=== PATIENT | female | born 1965 | race Caucasian/White ===

== ENCOUNTER 2019-12-31 10:10 | Emergency (ER) | payer SELFPAY ==
[2019-12-31 10:15] VITALS: BMI 41.5
--- NOTE | 2019-12-31 10:17 | XRR_ITS ---
PROCEDURE INFORMATION: Exam: XR Chest, 1 View Exam date and time: 12/31/2019 10:19 AM Age: 54 years old Clinical indication: Chest pain. TECHNIQUE: Imaging protocol: XR of the chest Views: 1 view. COMPARISON: CR Chest 1 [place] [id number] 05/07/2017 9:18 PM FINDINGS: Lungs: No lung consolidation or pulmonary edema. Pleural space: No pleural effusion or pneumothorax. Heart/Mediastinum: The cardiac silhouette is not enlarged. The mediastinal contours are normal. Bones/joints: No acute osseous abnormality. XR/XR chest 1V portable [id number] IMPRESSION: No acute abnormality.
--- NOTE | 2019-12-31 10:17 | ECG_ITS ---
Measurements Intervals [place] Rate: 91 P: 52 NV: 175 QRS: -13 QRSD: 116 T: 50 QT: 353 QTc: 436 SINUS RHYTHM MODERATE INTRAVENTRICULAR CONDUCTION DELAY [110+ ms QRS DURATION] Compared to ECG 05/07/2017 20:51:49 No significant changes Electronically Signed On 12-31-2019 20:22:32 CDT by Jailene Zeng M.D. [id number] f
[2019-12-31 10:21] VITALS: BP 168/89; PULSE 93; RESP 18; TEMP 37; O2SAT 98
--- NOTE | 2019-12-31 10:27 | ED_ITS ---
HPI - Chest Pain General: Chief Complaint: Chest Pain Stated Complaint: CHEST PAINS Time Seen by Provider: 12/31/19 10:27 History of Present Illness: HPI narrative: 54-year-old female comes in complaining of substernal chest pain for the last 3 days intermittently not associated with activity she denies any shortness of breath. Subjectively she thought she is had a fever should not minimal nonproductive cough. Denies abdominal pain no vomiting or diarrhea no dysuria urgency or frequency no shortness of breath rapid heart rate or palpitations MD complaint: chest pain Onset (ago): day(s) (3) Timing of current episode: episodic Pain location: substernal Pain radiation: none Severity: mild Quality: tightness Relieving factors: nothing Exacerbating factors: nothing Associated symptoms: Reports no associated symptoms and fever(s); Deny abdominal pain, dyspnea, nausea or vomiting Treatment prior to arrival: none Review of Systems Const: Reports: fever; Denies: chills, body aches, change in appetite, fatigue or malaise ENMT: Denies: throat pain, ear pain, nasal discharge or nasal congestion Card: Reports: chest pain; Denies: edema, shortness of breath on exertion or shortness of breath when lying down Resp: Reports: non-productive cough; Denies: shortness of breath or productive cough GI: Denies: abdominal pain, nausea, vomiting, vomiting blood, coffee grounds in vomit, diarrhea, constipation, bloating, blood in stool or black tarry stool : Denies: flank pain, difficulty urinating, painful urination, urinary frequency or urinary urgency Skin/Breast: Denies: rash or itching PFSH ED PFSH: Social History Smoking and tobacco status: former smoker Physical Exam Const: COMMON NORMALS: no apparent distress GENERAL APPEARANCE: cooperative and comfortable ORIENTATION/CONSCIOUSNESS: Yes awake, Yes oriented to person, Yes oriented to place and Yes oriented to time HENMT: COMMON NORMALS: normocephalic, head/scalp atraumatic, hearing grossly normal bilaterally, external ears normal, EAC's normal, TM's normal bilaterally, nasal mucous membranes and turbinates normal, moist oral mucous membranes and oropharynx normal HEAD & SCALP: normocephalic and atraumatic NOSE: nasal mucous membranes and turbinates normal EXTERNAL EAR: Yes external ears normal EXTERNAL AUDITORY CANAL: EAC's normal TYMPANIC MEMBRANE: TM's normal maya aterally Eye: COMMON NORMALS: PERRL, EOMs intact bilaterally, conjunctivae normal and no scleral icterus CONJUNCTIVA: Yes conjunctivae normal PUPIL: Yes PERRL Neck/C-Spine: COMMON NORMALS: full ROM, no lymphadenopathy, supple and no JVD Lymph: LYMPHATIC: no lymphadenopathy noted and no lymphedema noted Resp: COMMON NORMALS: normal respiratory effort, no retractions, no use of accessory muscles and clear to auscultation bilaterally AUSCULTATION: clear to auscultation bilaterally Cardio: COMMON NORMALS: no JVD, regular rate, regular rhythm and no murmurs RATE: regular rate RHYTHM: regular rhythm GI: COMMON NORMALS: soft to palpation and no hepatosplenomegaly AUSCULTATION: Yes normoactive bowel sounds PALPATION: Yes soft, No tender, No guarding and Yes no hepatosplenomegaly Extremity: COMMON NORMALS: normal to inspection, normal capillary refill, no clubbing, cyanosis or edema, no calf tenderness and no pedal edema Neuro: SENSORIUM/ORIENTATION: Yes oriented to person, Yes oriented to place and Yes oriented to time Skin: COMMON NORMALS: no rashes or lesions noted GENERAL SKIN EXAM: no rashes or lesions noted Course Vital Signs: Vital signs: Vital Signs Temperature 98.6 F 12/31/19 10:21 Pulse Rate 88 12/31/19 12:18 Respiratory Rate 16 12/31/19 12:18 Blood Pressure 112/69 12/31/19 12:18 Pulse Oximetry 97 12/31/19 12:18 MDM - Chest Pain MDM Narrative: Medical decision making narrative: Troponin x2 is negative EKG unremarkable undergoing discharge patient home we will get her set up for an outpatient sestamibi stress test Lab Data: Attestation: I reviewed the patient's lab results. Labs: Lab Results 12/31/19 12/31/19 12/31/19 Range/Units 10:22 10:22 10:22 WBC 10.3 H (4.0-10.0) 10^3/ uL RBC 4.60 (4.1-5.3) 10^6/u L Hgb 12.1 (11.5-15.3) g/dL Hct 39.0 (37.0-47.0) % MCV 84.8 (81-99) fL MCH 26.3 L (28.0-34.0) pg MCHC 31.0 (30.0-36.0) g/dL RDW 15.3 H (12.1-15.1) % Plt Count 280 (130-400) 10^3/c mm MPV 11.2 H (7.4-10.4) fL Neut % (Auto) 76.5 % Lymph % (Auto) 16.4 % Williams % (Auto) 3.7 % Eos % (Auto) 2.5 % Baso % (Auto) 0.3 % Neut # (Auto) 7.9 H (1.8-7.7) 10^3/u L Lymph # (Auto) 1.7 (0.8-4.8) 10^3/u L Williams # (Auto) 0.4 (0.2-0.9) 10^3/u L Eos # (Auto) 0.3 (0.0-0.8) 10^3/u L Baso # (Auto) 0.0 (0.0-0.1) 10^3/u L Nucleated RBC % (a uto) 0 % Nucleated RBCs # 0.0 /100WBC D-Dimer 0.46 (0-0.59) ug/mIFE U Sodium 134 L (136-145) mmol/L Potassium 3.8 (3.5-5.1) mmol/L Chloride 97 L (98-107) mmol/L Carbon Dioxide 25 (22-29) mmol/L Anion Gap 15.8 (5-19) BUN 14 (6-20) mg/dL Creatinine 0.7 (0.5-0.9) mg/dL GFR Calculation 87.2 L (90-130) mL/min Glucose 192 H (65-115) mg/dL Calculated Osmolal ity 279 L (285-295) mOsm/k g Calcium 9.6 (8.5-10.5) mg/dL Magnesium 1.8 (1.7-2.3) mg/dL Total Bilirubin 0.3 (0.15-1.2) mg/dL AST 15 (0-32) U/L ALT 17 (0-33) U/L Alkaline Phosphata se 84 (35-105) IU/L Troponin T Baselin e (0-10) ng/mL Troponin T 120 Min [place] (0-10) ng/mL Delta Troponin T (0-10) ABS# NT-Pro-B Natriuret Pep 36 (0-125) pg/mL Total Protein 7.4 (6.6-8.7) g/dL Albumin 4.1 (3.5-5.2) g/dL Globulin 3.3 (1.3-4.6) g/dL TSH 1.37 (0.27-4.20) uIU/ mL Urine Color (Yellow) Urine Appearance (CLEAR) Urine pH (5-7) Ur Specific Gravit y (1.005-1.030) Urine Protein (Negative) Urine Glucose (UA) (Normal) Urine Ketones (Negative) Urine Blood (Negative) Urine Nitrate (Negative) Urine Bilirubin (NEGATIVE) Urine Urobilinogen (Negative) mg/dL Ur Leukocyte Khadijah ase (Negative) 12/31/19 12/31/19 12/31/19 Range/Units 10:22 11:07 12:19 WBC (4.0-10.0) 10^3/ uL RBC (4.1-5.3) 10^6/u L Hgb (11.5-15.3) g/dL Hct (37.0-47.0) % MCV (81-99) fL MCH (28.0-34.0) pg MCHC (30.0-36.0) g/dL RDW (12.1-15.1) % Plt Count (130-400) 10^3/c mm MPV (7.4-10.4) fL Neut % (Auto) % Lymph % (Auto) % Williams % (Auto) % Eos % (Auto) % Baso % (Auto) % Neut # (Auto) (1.8-7.7) 10^3/u L Lymph # (Auto) (0.8-4.8) 10^3/u L Williams # (Auto) (0.2-0.9) 10^3/u L Eos # (Auto) (0.0-0.8) 10^3/u L Baso # (Auto) (0.0-0.1) 10^3/u L Nucleated RBC % (a uto) % Nucleated RBCs # /100WBC D-Dimer (0-0.59) ug/mIFE U Sodium (136-145) mmol/L Potassium (3.5-5.1) mmol/L Chloride (98-107) mmol/L Carbon Dioxide (22-29) mmol/L Anion Gap (5-19) BUN (6-20) mg/dL Creatinine (0.5-0.9) mg/dL GFR Calculation (90-130) mL/min Glucose (65-115) mg/dL Calculated Osmolal ity (285-295) mOsm/k g Calcium (8.5-10.5) mg/dL Magnesium (1.7-2.3) mg/dL Total Bilirubin (0.15-1.2) mg/dL AST (0-32) U/L ALT (0-33) U/L Alkaline Phosphata se (35-105) IU/L Troponin T Baselin e 6 (0-10) ng/mL Troponin T 120 Min [place] 6.00 (0-10) ng/mL Delta Troponin T 0 (0-10) ABS# NT-Pro-B Natriuret Pep (0-125) pg/mL Total Protein (6.6-8.7) g/dL Albumin (3.5-5.2) g/dL Globulin (1.3-4.6) g/dL TSH (0.27-4.20) uIU/ mL Urine Color Yellow (Yellow) Urine Appearance Clear (CLEAR) Urine pH 5 (5-7) Ur Specific Gravit y 1.010 (1.005-1.030) Urine Protein Neg (Negative) Urine Glucose (UA) Norm (Normal) Urine Ketones Negative (Negative) Urine Blood Neg (Negative) Urine Nitrate Negative (Negative) Urine Bilirubin Neg (NEGATIVE) Urine Urobilinogen Norm (Negative) mg/dL Ur Leukocyte Khadijah ase Negative (Negative) Discharge Plan Discharge Patient Disposition: Home, Self-Care Clinical Impression: Atypical chest pain Condition: Stable Prescriptions: New Adult Low Dose Aspirin 81 mg tablet,delayed release (DR/EC) 81 mg PO DAILY Qty: 30 RF: 0 No Action fluoxetine 40 mg capsule 40 mg PO DAILY RF: 0 prednisone 10 mg tablet See Rx Instructions .ROUTE .COMPLEX RF: 0 ropinirole 1 mg tablet 2 mg PO BEDTIME RF: 0 simvastatin 10 mg tablet 10 mg PO BEDTIME RF: 0 omeprazole 40 mg capsule,delayed release(DR/EC) 40 mg PO DAILY RF: 0 Tylenol Extra Strength 500 mg Tablet 1,000 mg PO PRN RF: 0 lisinopril-hydrochlorothiazide 20-25 mg tablet 1 tab PO DAILY RF: 0 levothyroxine 112 mcg tablet 112 mcg PO DAILY RF: 0 potassium gluconate 595 mg (99 mg) Tablet 595 mg PO EVERY OTHER DAY RF: 0 diclofenac sodium 1 % gel 2 g TOPICAL QID PRN (Reason: Pain) RF: 0 Discharge Orders: Discharge Order (Routine); Ordered 12/31/19 Ordered By: Dangelo Mccarthy Referrals: Renaldo Bustos MD [Family Provider] - Discharge Diet: Usual diet Discharge Activity: Increase activity as tolerated Activity Restrictions/Additional Instructions: Case management will call to set up a stress test. Discharge Date/Time: 12/31/19 13:25 Coding Level of Care Code ED Duplication Specialist for Chg Fwd Exam Comprehensive
--- NOTE | 2019-12-31 10:30 | PC.NURSE ---
XR performed at bedside
[2019-12-31 10:36] LABS: Basophils % 0.3 %; Eosinophils # 0.3 10^3/uL (0.0-0.8); Eosinophils % 2.5 %; Hemoglobin 12.1 g/dL (11.5-15.3); Lymphocytes # 1.7 10^3/uL (0.8-4.8); Lymphocytes % 16.4 %; Mean Corpuscular Hemoglobin 26.3 pg (28.0-34.0); Mean Corpuscular Volume 84.8 fL (81-99); Mean Platelet Volume 11.2 fL (7.4-10.4); Monocytes # 0.4 10^3/uL (0.2-0.9); Monocytes % 3.7 %; Neutrophils # 7.9 10^3/uL (1.8-7.7); Neutrophils % 76.5 %; Nucleated Red Blood Cells % 0 %; Platelet Count 280 10^3/cmm (130-400); Red Cell Distribution Width 15.3 % (12.1-15.1); White Blood Count 10.3 10^3/uL (4.0-10.0)
[2019-12-31 10:51] VITALS: BP 168/89; PULSE 90; RESP 17; O2SAT 96
[2019-12-31 11:08] LABS: D Dimer 0.46 ug/mIFEU (0-0.59)
[2019-12-31 11:12] VITALS: BP 168/89; PULSE 97; RESP 17; O2SAT 96
[2019-12-31 11:17] LABS: Troponin(5th) Baseline 6 ng/mL (0-10)
[2019-12-31 11:19] LABS: Add Urine Microscopic? NO
[2019-12-31 11:21] LABS: Urine Appearance Clear (CLEAR); Urine Color Yellow (Yellow); pH Urine 5 (5-7)
[2019-12-31 11:22] LABS: Bilirubin Urine Neg (NEGATIVE); Blood Urine Neg (Negative); Glucose Urine UA Norm (Normal); Ketones Urine Negative (Negative); Leukocyte Esterase Urine Negative (Negative); Nitrate Urine Negative (Negative); Protein Urine Neg (Negative); Urobilinogen Urine Norm (Negative)
[2019-12-31 11:27] LABS: Alanine Aminotransferase 17 U/L (0-33); Albumin Level 4.1 g/dL (3.5-5.2); Alkaline Phosphatase 84 IU/L (35-105); Anion Gap 15.8 (5-19); Aspartate Amino Transferase 15 U/L (0-32); Blood Urea Nitrogen 14 mg/dL (6-20); Calcium 9.6 mg/dL (8.5-10.5); Carbon Dioxide 25 mmol/L (22-29); Chloride 97 mmol/L (98-107); Creatinine Clr Calc Pharmacy 115.3924; Globulin 3.3 g/dL (1.3-4.6); Glomerular Filtration Rate 87.2 mL/min (90-130); Glucose 192 mg/dL (65-115); Magnesium 1.8 mg/dL (1.7-2.3); NT Pro B Type Natriuretic Pept 36 pg/mL (0-125); Osmolality Calculated 279 mOsm/kg (285-295); Potassium 3.8 mmol/L (3.5-5.1); Sodium 134 mmol/L (136-145); Thyroid Stimulating Hormone 1.37 uIU/mL (0.27-4.20); Total Bilirubin 0.3 mg/dL (0.15-1.2); Total Protein 7.4 g/dL (6.6-8.7)
[2019-12-31 11:39] VITALS: BP 125/82; PULSE 92; RESP 16; O2SAT 96
[2019-12-31 11:48] VITALS: BP 125/82; PULSE 90; RESP 16; O2SAT 96
--- NOTE | 2019-12-31 12:17 | ECG_ITS ---
Measurements Intervals [place] Rate: 91 P: 49 OR: 171 QRS: -15 QRSD: 113 T: 54 QT: 360 QTc: 445 SINUS RHYTHM MODERATE INTRAVENTRICULAR CONDUCTION DELAY [110+ ms QRS DURATION] Compared to ECG 05/07/2017 20:51:49 No significant changes Electronically Signed On 12-31-2019 20:23:04 CDT by Jailene Zeng M.D. [id number] f
[2019-12-31 12:18] VITALS: BP 112/69; PULSE 88; RESP 16; O2SAT 97
--- NOTE | 2019-12-31 12:42 | PC.NURSE ---
Pt updated about wait for blood work results. All questions answered.
[2019-12-31 12:58] LABS: Troponin 5 2HR Delta 0 ABS# (0-10)
--- NOTE | 2020-01-04 11:06 | DCPLANNER ---
hotel front office manager had message to schedule an outpatient stress test for patient. hotel front office manager got order signed for an outpatient stress test, faxed order to centralized scheduling. hotel front office manager will call for appointment information.
--- NOTE | 2020-01-06 09:41 | DCPLANNER ---
Patient has a stress test scheduled for Friday, January 10, 2020 at 10:00. Centralized scheduling will call patient with appointment information.
--- NOTE | 2020-02-14 15:11 | DCPLANNER ---
Patient attended appointment scheduled for 01.10.20 for a stress test.
== END 2019-12-31 13:25 | disposition home or self-care (01) ==
PROVIDERS: Nurse Practitioner Family; Emergency Provider Family Medicine; Family Provider Family Medicine
DX: R07.89 Other chest pain (principal); Z87.891 Personal history of nicotine dependence
CPT/HCPCS: 12345; 36415; 71045; 80053; 81003; 83735; 83880; 84443; 84484; 85025; 85378; 93005; 99283; A9270

== ENCOUNTER 2020-01-10 07:44 | Outpatient (CLI) | payer SELFPAY ==
--- NOTE | 2020-01-10 08:08 | NMCV_ITS ---
NM rebecca perf SPECT r/s* [id number] Gerardo Lennon Age: 54 Gender: F : 1965 Exam Date: 01/10/2020 08:54 Ordering Phys: Dangelo Mccarthy DO Technologist: KWASI Cabello Exam Location: [facility] Indications: ATYPICAL CHEST PAIN STRESS TEST [facility] IMAGE PROTOCOL Rest/Stress 1 Lexiscan Day Radiopharmaceutical Dose (mCi) Administration Site Administered by Rest: Tc-99m 10.4 IV KWASI Kennedy Sestamibi Stress:Tc-99m 32.6 IV KWASI Kennedy Sestamibi Rest: 10-Jan-2020 60 Discovery 630 Stress: 10-Jan-2020 30 Discovery 630 0.4mg Lexiscan. Images obtained in supine and prone position. SPECT RESULTS Technical Quality: Excellent Raw Data Analysis: Breast attenuation Image Corrections: No attenuation or motion correction applied Summed Stress Score: 7 Summed Rest Score: 4 Summed Difference Score: 3 PERFUSION FINDINGS Small sized perfusion abnormality of mild to moderate severity of apical lateral, apical inferior and apical de santiago on rest images. There is reversible perfusion abnormality of mid to apical inferior and apical lateral de santiago on supine stress images. There is slightly improved tracer uptake on inferior wall on prone stress images. FUNCTIONAL RESULTS (calculated via Gated SPECT) Stress Image LV EF (%): 62 Stress EDV (mL):114 TID: 0.93 Stress ESV (mL):43 FUNCTIONAL FINDINGS: The left ventricle is normal in size. Transient Ischemia Dilatation of 0.93. There is normal left ventricular systolic function. The left ventricular ejection fraction is normal with a value of 62%. There is normal left ventricular wall thickening. Normal end-diastolic and end-systolic volumes. IMPRESSIONS 1. Small sized perfusion abnormality of mild to moderate severity of apical lateral, apical inferior and apical de santiago with reversiblity noted in mid to apical inferior and apical lateral de santiago on supine stress images. 2. This may represent attenuation artifact given improved tracer uptake on prone stress images. However, small area of ischemia in right coronary artery territory cannot be completely ruled out. 3. Overall left ventricular systolic function is abnormal with regional wall motion abnormalities. 4. The left ventricular ejection fraction is normal with a value of 62%. 5. No prior similar studies to compare. Lynsey Carmen MD (Electronically Signed) Final Date: 11 January 2020 13:00 S
--- NOTE | 2020-01-10 08:08 | ECG_ITS ---
NAME OF STUDY: LEXISCAN SESTAMIBI STRESS TEST INDICATION: Atypical Chest Pain, NOTE: Please note that this is the electrocardiogram portion of the Lexiscan/Sestamibi stress test. The perfusion scan will be documented separately. DATA: Baseline heart rate was 79 beats per minute. Baseline blood pressure was 158/90 millimeters of mercury. Target heart rate was 166. Maximum heart rate achieved was 102. which was 61% of the predicted target heart rate. Maximum blood pressure was 158/92 millimeters of mercury. The reason for ending the test was completion of the protocol. The patient did not experience any symptoms. ELECTROCARDIOGRAM: BASELINE: Sinus rhythm. Normal axis. Otherwise, no ST-T changes suggestive of ischemia noted. No arrhythmia noted. EXERCISE: After Lexiscan injection, no ST-T changes suggestive of ischemic noted. No arrhythmia noted. CONCLUSION: Please note due to baseline abnormality of the EKG specificity and sensitivity of the EKG portion of LexiScan MIBI stress test will be low 1. EKG not suggestive of ischemia 2. Lexiscan injection unremarkable. 3. Perfusion scan will be documented separately. Electronically Signed On 01-10-2020 16:35:19 CDT by Jailene Zeng M.D. [id number]
[2020-01-10 08:12] VITALS: BMI 40.6
[2020-01-10] MEDS: regadenoson 0.4 Mg/5 ml Syringe IVP (09:39)
[2020-01-10 10:30] VITALS: BP 141/87; PULSE 93
== END 2020-01-10 07:45 | disposition home or self-care (01) ==
LOC: RAD 07:46
PROVIDERS: Family Provider Family Medicine; PCP Family Medicine; Visit Provider Family Medicine
DX: R07.89 Other chest pain (principal)
CPT/HCPCS: 78452; 93017; A9500; J2785

== ENCOUNTER 2020-01-16 08:13 | Outpatient (CLI) | payer SELFPAY ==
--- NOTE | 2020-01-16 08:27 | XR_ITS ---
WS: [id number] RIGHT HAND: 3 VIEW(S) TECHNIQUE: PA, oblique and lateral. HISTORY: BILATERAL HAND AND WRIST PAIN COMPARISON: None available. No acute fracture or dislocation. Mild diffuse interphalangeal joint space narrowing with osteophytes. No soft tissue edema. No erosion s. Mild narrowing of the radiocarpal joint. XR/XR hand RT min 3V* [id number] IMPRESSION: Mild RIGHT hand osteoarthritis.
--- NOTE | 2020-01-16 08:27 | XR_ITS ---
WS: [id number] LEFT WRIST: 3 VIEW(S) TECHNIQUE: PA, oblique and lateral. HISTORY: BILATERAL HAND AND WRIST PAIN COMPARISON: None available. No acute fracture or dislocation. Mild narrowing of the radiocarpal joint. No erosions. No soft tissue swelling. XR/XR wrist LT min 3V* [id number] IMPRESSION: Mild osteoarthritis.
--- NOTE | 2020-01-16 08:27 | XR_ITS ---
WS: [id number] RIGHT WRIST: 3 VIEW(S) TECHNIQUE: PA, oblique and lateral. HISTORY: BILATERAL HAND AND WRIST PAIN COMPARISON: None available. No acute fracture or dislocation. Mild narrowing of the radiocarpal joint space. Mild hypertrophic bone formation from degenerative art hritis. No soft tissue swelling. XR/XR wrist RT min 3V* [id number] IMPRESSION: Osteoarthritis RIGHT wrist. No fracture.
--- NOTE | 2020-01-16 08:27 | XR_ITS ---
WS: [id number] LEFT HAND: 3 VIEW(S) TECHNIQUE: PA, oblique and lateral. HISTORY: BILATERAL HAND AND WRIST PAIN COMPARISON: None available. No acute fracture or dislocation. Interphalangeal joint space narrowing and mild narrowing of the first carpometacarpal joint space. Hy pertrophic bone formation at the joint spaces is mild. No displacement or fracture. No erosions. XR/XR hand LT min 3V* [id number] IMPRESSION: Mild osteoarthritis LEFT hand.
== END 2020-01-16 08:14 | disposition home or self-care (01) ==
PROVIDERS: Family Provider Family Medicine; PCP Nurse Practitioner Family; Visit Provider Nurse Practitioner Family
DX: M19.032 Primary osteoarthritis, left wrist (principal); M19.031 Primary osteoarthritis, right wrist; M19.042 Primary osteoarthritis, left hand; M19.041 Primary osteoarthritis, right hand
CPT/HCPCS: 73110; 73130

== ENCOUNTER 2020-03-05 14:01 | Outpatient (CLI) | payer SELFPAY ==
--- NOTE | 2020-03-05 14:07 | MR_ITS ---
WS: [id number] MRI CERVICAL SPINE NONCONTRAST TECHNIQUE: Sagittal T1, T2 and STIR imaging. Axial T2, gradient, and fiesta imaging. CLINICAL INFORMATION: M54.12 Radiculopathy, cervical region.. COMPARISON: None. FINDINGS: Straightening of the normal cervical lordosis. Cord signal is normal. No high-grade central canal sofia nosis. C2-C3: Normal. C3-C4: Minimal disc bulging with slight effacement of ventral thecal sac eccentric to the right. Mild facet arthropathy. Mild bilateral foraminal narrowing. C4-C5: Mild disc osteophyte complex with endplate ridging. Mild central canal stenosis. Mild facet ar thropathy. Mild left and no significant right foraminal narrowing. C5-C6: Mild disc bulge with endplate ridging. Moderate facet arthropathy. Moderate left and no signif icant right foraminal narrowing. Mild central canal stenosis. C6-C7: Mild disc osteophyte complex with endplate ridging. Mild left and no significant right foramin al narrowing. C7-T1: Normal. Visualized brain stem structures: Normal. Prevertebral soft tissues: Normal. MR/MR cervical spin wo con* [id number] IMPRESSION: 1. Straightening of the normal cervical lordosis. Cord signal is normal. No hi gh-grade central canal stenosis. 2. Mild disc osteophyte complexes at C4-C6 with mild central canal stenosis C4 -C5 and C5-C6. 3. Mild to moderate bony foraminal narrowing more prominent at left C4-C5, lef t C5-C6, and left C6-C7.
--- NOTE | 2020-03-05 15:45 | XR_ITS ---
WS: [id number] CERVICAL SPINE FLEXION EXTENSION TECHNIQUE: 3 views of the cervical spine: lateral neutral, flexion and extension views. CLINICAL INFORMATION: Cervical radiculopathy COMPARISON: None. FINDINGS: Straightening of the normal cervical lordosis. Moderate spinal lytic changes. Anterior hypertrophic c hanges at C4-C6. Normal C1-C2 articulation. Normal prevertebral soft tissues. No instability on flexi on-extension. Posterior elements are normal. No other significant findings. XR/XR cervical spine fl/ex [id number] IMPRESSION: Moderate spondylitic changes. No instability on flexion-extension.
== END 2020-03-05 14:02 | disposition home or self-care (01) ==
LOC: RADWPI 14:02
PROVIDERS: Family Provider Nurse Practitioner Family; PCP Nurse Practitioner Family; Visit Provider Orthopaedic Surgery
DX: M54.12 Radiculopathy, cervical region (principal); M25.78 Osteophyte, vertebrae; M48.02 Spinal stenosis, cervical region
CPT/HCPCS: 72040; 72141

== ENCOUNTER 2020-03-07 19:38 | Emergency (ER) | payer SELFPAY ==
[2020-03-07 20:36] VITALS: BP 151/96; PULSE 101; RESP 24; TEMP 36.7; O2SAT 97; BMI 42.5
--- NOTE | 2020-03-07 21:00 | W.ED.GENADLT ---
HPI - General Adult General: Chief complaint: General Medical Stated complaint: hand and knee pain Time Seen by Provider: 03/07/20 20:40 History of Present Illness: HPI narrative: Patient is a 54-year-old female comes to the ED with chronic bilateral hand/joint pain and inflammation. Patient states this is a chronic issue and she has been dealing with it for over a year. Patient has recently been worked up for gout, rheumatoid arthritis and osteoarthritis at PCP. Patient says the past couple days she has had increasing swelling in the hands bilaterally with joint pain in the hands bilaterally. Patient says that all the work-up she just did within the last week was negative for gout ,rheumatoid and she had some mild osteoarthritis in her hands. Associated symptoms: Deny chest pain, dyspnea, headache(s), nausea, rash, palpitations or vomiting Review of Systems Const: Denies: fever(s), chills or fatigue Eyes: Denies: change in vision or eye discomfort ENMT: Denies: throat pain, odynophagia, nasal discharge or nasal congestion Card: Denies: chest pain, palpitations, edema, swelling of feet/ankles, dyspnea on exertion or orthopnea Resp: Denies: dyspnea, productive cough or non-productive cough GI: Denies: abdominal pain, nausea, vomiting, diarrhea, constipation or hematochezia : Denies: flank pain, dysuria or hematuria Musc: Reports: extremity pain (bilateral hand pain ) and extremity swelling (bilateral hand swelling in fingers and joints); Denies: neck pain or back pain Skin/Breast: Denies: rash or new lesions Neuro: Denies: headache(s), numbness in extremities or weakness in extremities PFS ED PFSH: Medical History Arthritis Carpal tunnel syndrome HTN (hypertension) Hyperlipidemia Hypothyroidism Restless leg syndrome Surgical History Tubal ligation status Family History Mother Hypertension Family history of premature coronary artery disease Hx of CABG Hyperlipidemia Cancer Headache Father Depression Other CAD (coronary artery disease) Social History Smoking and tobacco status: former smoker Quit status (tobacco): has quit using tobacco Year quit tobacco: 2014 Alcohol intake: current Alcohol intake frequency: holidays/special occasions only Physical Exam Const: COMMON NORMALS: no acute distress, patient oriented x3 and alert GENERAL APPEARANCE: cooperative and comfortable HENMT: COMMON NORMALS: normocephalic HEAD & SCALP: normocephalic MOUTH: Normal oral and palatal mucosa present THROAT: posterior oropharynx normal and uvula midline Neck/C-Spine: COMMON NORMALS: supple GENERAL: Yes normal visual inspection Resp: COMMON NORMALS: normal respiratory effort, No retractions, No use of accessory muscles and clear to auscultation bilaterally AUSCULTATION: clear to auscultation bilaterally Cardio: COMMON NORMALS: regular rate, regular rhythm, S1 normal heart sound present, S2 normal heart sound present, No gallops present (Cardio), No clicks present (Cardio), No murmurs present (Cardio) and Peripheral pulses 2+ throughout RATE: regular rate RHYTHM: regular rhythm HEART SOUNDS: S1 normal heart sound present and S2 normal heart sound present PERIPHERAL PULSES: Peripheral pulses 2+ throughout GI: COMMON NORMALS: Normal to inspection, nondistended, normoactive bowel sounds present, Soft to palpation, non-tender and no masses PALPATION: Yes Soft to palpation : COMMON NORMALS: Yes no CVA tenderness BLADDER/KIDNEY EXAM: Yes no CVA tenderness Back/Pelvis: COMMON NORMALS: no CVA tenderness Extremity: COMMON NORMALS: full ROM and no pedal edema NARRATIVE EXTREMITY EXAM: Patient has bilateral hand swelling and pain. There is no warmth or erythema in the joints of both hands. Neuro: COMMON NORMALS: patient oriented x3 and moves all extremities SENSORIUM/ORIENTATION: Yes alert Skin: COMMON NORMALS: no rashes or lesions noted GENERAL SKIN EXAM: no rashes or lesions noted and dry skin Course Vital Signs: Vital signs: Vital Signs Temperature 98.1 F 03/07/20 20:36 Pulse Rate 77 03/07/20 21:58 Respiratory Rate 18 03/07/20 21:58 Blood Pressure 126/67 03/07/20 21:58 Pulse Oximetry 98 03/07/20 21:58 MDM - General Adult MDM Narrative: Medical decision making narrative: Patient is a 54-year-old female comes to the ED with chronic lateral hand/joint pain and swelling. She has recently had an extensive work-up for gout, rheumatoid arthritis and osteoarthritis. Patient said rheumatoid and gout were negative and she had some mild osteoarthritis of both hands. Physical exam showed some joint swelling in hand bilaterally, but no erythema or warmth over the joints. Patient was diagnosed with joint pain in both hands and given a shot of Toradol and Decadron while here in the ED. Patient was also given a prescription for Medrol Dosepak. She was told to take ibuprofen to help with pain and inflammation as well and to apply ice/cold pack to help with symptoms. Patient told to follow-up with PCP in 7 to 10 days for reevaluation. Patient understood and agreed with plan. Discharge Plan Discharge Patient Disposition: Home, Self-Care Clinical Impression: Joint pain in both hands Condition: Stable Prescriptions: New Medrol (Fernando) 4 mg tablets,dose pack See Rx Instructions .ROUTE .COMPLEX Qty: 21 RF: 0 No Action fluoxetine 40 mg capsule 40 mg PO DAILY RF: 0 ropinirole 1 mg tablet 2 mg PO BEDTIME RF: 0 simvastatin 10 mg tablet 10 mg PO BEDTIME RF: 0 omeprazole 40 mg capsule,delayed release(DR/EC) 40 mg PO DAILY RF: 0 Tylenol Extra Strength 500 mg Tablet 1,000 mg PO PRN RF: 0 lisinopril-hydrochlorothiazide 20-25 mg tablet 1 tab PO DAILY RF: 0 levothyroxine 112 mcg tablet 112 mcg PO DAILY RF: 0 potassium gluconate 595 mg (99 mg) Tablet 595 mg PO EVERY OTHER DAY RF: 0 diclofenac sodium 1 % gel 2 g TOPICAL QID PRN (Reason: Pain) RF: 0 Adult Low Dose Aspirin 81 mg tablet,delayed release (DR/EC) 81 mg PO DAILY Qty: 30 RF: 0 Discharge Orders: Discharge Order (Routine); Ordered 03/07/20 Ordered By: Kaleb Bass Referrals: Naseem Bethea NP [Primary Care Provider] - Discharge Diet: Regular Discharge Activity: Increase activity as tolerated Patient Instructions: Joint Pain Activity Restrictions/Additional Instructions: Call your PCP in the next several days to set up an appointment for reevaluation within 7 to 10 days. Take full course of steroids as prescribed. Take ibuprofen for pain and inflammation. You can also apply cold pack on hands to help with swelling and symptoms. Discharge Date/Time: 03/07/20 22:01 Coding Level of Care Code ED Professor Of Family Medicine for Saji Fwrema Exam Comprehensive
[2020-03-07] MEDS: ketorolac 60 mg/2 mL INJ IM (21:46)
[2020-03-07] MEDS: dexamethasone 10 mg/mL INJ IM (21:47)
[2020-03-07 21:58] VITALS: BP 126/67; PULSE 77; RESP 18; O2SAT 98
== END 2020-03-07 22:01 | disposition home or self-care (01) ==
PROVIDERS: Emergency Provider Physician Assistant; PCP Nurse Practitioner Family
DX: M25.542 Pain in joints of left hand (principal); M25.541 Pain in joints of right hand; Z79.82 Long term (current) use of aspirin; I10 Essential (primary) hypertension; E78.5 Hyperlipidemia, unspecified; Z87.891 Personal history of nicotine dependence
CPT/HCPCS: 12345; 96372; 99281; 99283; J1100; J1885

== ENCOUNTER 2020-04-14 16:24 | Emergency (ER) | payer SELFPAY ==
[2020-04-14 16:29] VITALS: BP 160/94; PULSE 109; RESP 18; TEMP 36.4; O2SAT 97; BMI 42.4
--- NOTE | 2020-04-14 16:47 | XRR_ITS ---
PROCEDURE INFORMATION: Exam: XR Chest, 1 View Exam date and time: 04/14/2020 4:49 PM Age: 54 years old Clinical indication: Shortness of breath; Additional info: SOB TECHNIQUE: Imaging protocol: XR of the chest Views: 1 view. COMPARISON: CR XR chest 1V portable [id number] 12/31/2019 10:21 AM FINDINGS: Lungs: Unchanged fibrosis and hyperinflation. No consolidation. Pleural space: Unremarkable. No pleural effusion. No pneumothorax. Heart/Mediastinum: Unchanged mild cardiomegaly. Bones/joints: No acute abnormality. XR/XR chest 1V portable [id number] IMPRESSION: No acute findings.
--- NOTE | 2020-04-14 16:47 | ECG_ITS ---
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 Measurements Intervals [place] Rate: 93 P: 53 MO: 177 QRS: -6 QRSD: 116 T: 38 QT: 351 QTc: 438 Interpretive Statements SINUS RHYTHM MODERATE INTRAVENTRICULAR CONDUCTION DELAY [110+ ms QRS DURATION] Compared to ECG 12/31/2019 12:15:28 No significant changes Electronically Signed On 04-14-2020 22:49:14 CDT by Jailene Zeng M.D. [id number]
--- NOTE | 2020-04-14 16:53 | W.ED.GENADLT ---
HPI - General Adult General: Chief complaint: General Medical Stated complaint: hands/arms/knees swelling Time Seen by Provider: 04/14/20 16:39 Source: patient Mode of arrival: ambulatory Limitations: no limitations History of Present Illness: HPI narrative: 54-year-old female who has had joint pain and swelling for roughly 1-1/2 years. Patient states she seen multiple people and saw orthopedist last week and had MRI that was negative. She states she has not seen a college recruiter yet. States that steroids do seem to help her pain but does not help her swelling. She is not currently on steroids. She had some mild dyspnea. Denies any fever. Onset (ago): year(s) Associated symptoms: Deny chest pain, dyspnea, headache(s), nausea, rash or vomiting Review of Systems Const: Denies: fever(s), chills, body aches or change in appetite Eyes: Denies: blurry vision or eye discomfort ENMT: Denies: throat pain or dental pain Card: Denies: chest pain Resp: Denies: dyspnea GI: Denies: abdominal pain, nausea, vomiting or diarrhea : Denies: dysuria Musc: Reports: joint pain and joint swelling Skin/Breast: Denies: rash Neuro: Denies: headache(s) Psych: Denies: depression Ritesh/Lymph: Denies: easy bruising All/Imm: Denies: urticaria PFSH ED PFSH: Medical History Arthritis Carpal tunnel syndrome HTN (hypertension) Hyperlipidemia Hypothyroidism Restless leg syndrome Surgical History Tubal ligation status Family History Mother Hypertension Family history of premature coronary artery disease Hx of CABG Hyperlipidemia Cancer Headache Father Depression Other CAD (coronary artery disease) Social History Smoking and tobacco status: former smoker Quit status (tobacco): has quit using tobacco Year quit tobacco: 2013 Alcohol intake: current Alcohol intake frequency: holidays/special occasions only Physical Exam Const: COMMON NORMALS: no acute distress, patient oriented x3 and healthy appearing HENMT: COMMON NORMALS: normocephalic and atraumatic HEAD & SCALP: normocephalic and atraumatic Eye: COMMON NORMALS: Equal, round and reactive pupils present and EOMs intact bilaterally PUPIL: Yes Equal, round and reactive pupils present Neck/C-Spine: COMMON NORMALS: full ROM and supple Chest: COMMONS NORMALS: normal inspection of the chest and normal palpation of entire chest wall Resp: COMMON NORMALS: normal respiratory effort, No retractions, No use of accessory muscles and clear to auscultation bilaterally AUSCULTATION: clear to auscultation bilaterally Cardio: COMMON NORMALS: regular rate, regular rhythm and No murmurs present (Cardio) RATE: regular rate RHYTHM: regular rhythm GI: COMMON NORMALS: Normal to inspection, nondistended, normoactive bowel sounds present, Soft to palpation, non-tender and no masses PALPATION: Yes Soft to palpation Extremity: COMMON NORMALS: normal to inspection and full ROM Neuro: COMMON NORMALS: patient oriented x3, moves all extremities and no focal motor deficits Psych: COMMON NORMALS: mental status grossly normal, Normal thought process present and cooperative THOUGHT PROCESS: Normal thought process present Skin: COMMON NORMALS: no rashes or lesions noted and no wounds GENERAL SKIN EXAM: no rashes or lesions noted Course Vital Signs: Vital signs: Vital Signs Temperature 97.5 F L 04/14/20 16:29 Pulse Rate 109 H 04/14/20 16:29 Respiratory Rate 18 04/14/20 17:34 Blood Pressure 160/94 04/14/20 16:29 Pulse Oximetry 97 04/14/20 16:29 MDM - General Adult MDM Narrative: Medical decision making narrative: Gerardo presents with joint pain that is chronic in nature. She is had no acute changes. Patient's x-ray of her chest and lab work here are normal. Patient given Decadron and pain meds and does feel improved. Feel she likely needs to follow-up with a college recruiter. I did recommend this to her and she is to return if worsening. Lab Data: Labs: Lab Results 04/14/20 04/14/20 Range/Units 16:56 16:56 WBC 7.7 (4.0-10.0) 10^3/ uL RBC 3.91 L (4.1-5.3) 10^6/u L Hgb 9.8 L (11.5-15.3) g/dL Hct 32.7 L (37.0-47.0) % MCV 83.6 (81-99) fL MCH 25.1 L (28.0-34.0) pg MCHC 30.0 (30.0-36.0) g/dL RDW 15.2 H (12.1-15.1) % Plt Count 299 (130-400) 10^3/c mm MPV 11.2 H (7.4-10.4) fL Neut % (Auto) 74.7 % Lymph % (Auto) 17.4 % [place] % (Auto) 3.8 % Eos % (Auto) 3.4 % Baso % (Auto) 0.3 % Neut # (Auto) 5.78 (1.8-7.7) 10^3/u L Lymph # (Auto) 1.3 (0.8-4.8) 10^3/u L [place] # (Auto) 0.3 (0.2-0.9) 10^3/u L Eos # (Auto) 0.3 (0.0-0.8) 10^3/u L Baso # (Auto) 0.0 (0.0-0.1) 10^3/u L Nucleated RBC % (a uto) 0 % Nucleated RBCs # 0.0 /100WBC Sodium 138 (136-145) mmol/L Potassium 3.4 L (3.5-5.1) mmol/L Chloride 103 (98-107) mmol/L Carbon Dioxide 25 (22-29) mmol/L Anion Gap 13.4 (5-19) BUN 16 (6-20) mg/dL Creatinine 0.7 (0.5-0.9) mg/dL GFR Calculation 87.2 L (90-130) mL/min Glucose 174 H (65-115) mg/dL Calculated Osmolal ity 287 (285-295) mOsm/k g Calcium 8.8 (8.5-10.5) mg/dL Total Bilirubin 0.2 (0.15-1.2) mg/dL AST 13 (0-32) U/L ALT 15 (0-33) U/L Alkaline Phosphata se 75 (35-105) IU/L NT-Pro-B Natriuret Pep 153 H (0-125) pg/mL Total Protein 6.6 (6.6-8.7) g/dL Albumin 3.5 (3.5-5.2) g/dL Globulin 3.1 (1.3-4.6) g/dL Imaging Data^: CXR: Attestation: I personally reviewed and interpreted this imaging study as follows: My impression: no acute abnormality EKG Data^: EKG 1: Attestation: I personally reviewed and interpreted this EKG as follows: EKG interpretation date: 04/14/20 EKG interpretation time: 18:07 Interpretation: nsr hr [address] or t wave abnormalities qrs 116 qtc 402 Computer generated interpretation: Chest X-Ray 04/14/20 16:47 IMPRESSION: No acute findings. Discharge Plan Discharge Patient Disposition: Home, Self-Care Clinical Impression: Arthralgia Qualifiers: Laterality: bilateral Condition: Stable Prescriptions: No Action fluoxetine 40 mg capsule 40 mg PO DAILY RF: 0 ropinirole 1 mg tablet 2 mg PO BEDTIME RF: 0 simvastatin 10 mg tablet 10 mg PO BEDTIME RF: 0 omeprazole 40 mg capsule,delayed release(DR/EC) 40 mg PO DAILY RF: 0 Tylenol Extra Strength 500 mg Tablet 1,000 mg PO PRN RF: 0 lisinopril-hydrochlorothiazide 20-25 mg tablet 1 tab PO DAILY RF: 0 levothyroxine 112 mcg tablet 112 mcg PO DAILY RF: 0 potassium gluconate 595 mg (99 mg) Tablet 595 mg PO EVERY OTHER DAY RF: 0 diclofenac sodium 1 % gel 2 g TOPICAL QID PRN (Reason: Pain) RF: 0 Adult Low Dose Aspirin 81 mg tablet,delayed release (DR/EC) 81 mg PO DAILY Qty: 30 RF: 0 Medrol (Fernando) 4 mg tablets,dose pack See Rx Instructions .ROUTE .COMPLEX Qty: 21 RF: 0 Discharge Orders: Discharge Order (Routine); Ordered 04/14/20 Ordered By: Patrick Rodriguez Referrals: Naseem Bethea NP [Primary Care Provider] - 1-3 days Discharge Diet: Advance as tolerated Discharge Activity: Resume usual activity Coding Level of Care Code ED Outreach Specialist for Chg Fwd Exam Comprehensive
[2020-04-14 17:02] LABS: Basophils % 0.3 %; Eosinophils # 0.3 10^3/uL (0.0-0.8); Eosinophils % 3.4 %; Hematocrit 32.7 % (37.0-47.0); Hemoglobin 9.8 g/dL (11.5-15.3); Lymphocytes # 1.3 10^3/uL (0.8-4.8); Lymphocytes % 17.4 %; Mean Corpuscular Hemoglobin 25.1 pg (28.0-34.0); Mean Corpuscular Volume 83.6 fL (81-99); Mean Platelet Volume 11.2 fL (7.4-10.4); Monocytes # 0.3 10^3/uL (0.2-0.9); Monocytes % 3.8 %; Neutrophils # 5.78 10^3/uL (1.8-7.7); Neutrophils % 74.7 %; Nucleated Red Blood Cells % 0 %; Platelet Count 299 10^3/cmm (130-400); Red Blood Count 3.91 10^6/uL (4.1-5.3); Red Cell Distribution Width 15.2 % (12.1-15.1); White Blood Count 7.7 10^3/uL (4.0-10.0)
[2020-04-14 17:25] LABS: Alanine Aminotransferase 15 U/L (0-33); Albumin Level 3.5 g/dL (3.5-5.2); Alkaline Phosphatase 75 IU/L (35-105); Anion Gap 13.4 (5-19); Aspartate Amino Transferase 13 U/L (0-32); Blood Urea Nitrogen 16 mg/dL (6-20); Calcium 8.8 mg/dL (8.5-10.5); Carbon Dioxide 25 mmol/L (22-29); Chloride 103 mmol/L (98-107); Globulin 3.1 g/dL (1.3-4.6); Glomerular Filtration Rate 87.2 mL/min (90-130); Glucose 174 mg/dL (65-115); NT Pro B Type Natriuretic Pept 153 pg/mL (0-125); Osmolality Calculated 287 mOsm/kg (285-295); Potassium 3.4 mmol/L (3.5-5.1); Sodium 138 mmol/L (136-145); Total Bilirubin 0.2 mg/dL (0.15-1.2); Total Protein 6.6 g/dL (6.6-8.7)
[2020-04-14 17:34] VITALS: RESP 18
[2020-04-14] MEDS: dexamethasone 10 mg/mL INJ IVP (17:34)
[2020-04-14] MEDS: morphine 4 mg/mL SDV 1 mL IVP (17:34)
[2020-04-14 19:11] VITALS: BP 159/84; PULSE 95; RESP 14; O2SAT 97
--- NOTE | 2020-04-16 14:12 | DCPLANNER ---
channel sales manager had message to schedule a follow up appointment for patient with rheumatolgy. channel sales manager called the rheumatology clinic, family preservation caseworker gave clinic patients information, was told that patients information would be printed and given to Kiesha, insurance coordinator, for review. Clinic will call patient with appointment information.
--- NOTE | 2020-05-03 08:29 | DCPLANNER ---
Patient has a follow up appointment scheduled for Thursday, June 06, 2020 at 2:[address] Astudillo. Clinic will call patient with appointment information.
== END 2020-04-14 19:12 | disposition home or self-care (01) ==
PROVIDERS: Emergency Provider Emergency Medicine; PCP Nurse Practitioner Family
DX: M25.50 Pain in unspecified joint (principal); Z79.82 Long term (current) use of aspirin; I10 Essential (primary) hypertension; E78.5 Hyperlipidemia, unspecified; Z87.891 Personal history of nicotine dependence
CPT/HCPCS: 12345; 71045; 80053; 83880; 85025; 93005; 96374; 96375; 99281; 99283; J1100; J2270

== ENCOUNTER → 2020-05-09 09:06 | Outpatient (BNVA) | payer MEDICAID, SELFPAY | PROVIDERS: PCP Nurse Practitioner Family; Visit Provider Internal Medicine Rheumatology | DX: M06.041 Rheumatoid arthritis without rheumatoid factor, right hand (principal); Z79.899 Other long term (current) drug therapy; Z11.59 Encounter for screening for other viral diseases; Z11.1 Encounter for screening for respiratory tuberculosis; M06.042 Rheumatoid arthritis without rheumatoid factor, left hand; G25.81 Restless legs syndrome; Z98.890 Other specified postprocedural states; Z79.52 Long term (current) use of systemic steroids | CPT/HCPCS: 36415; 86480; 86704; 86803; 87340; 99204 ==

== ENCOUNTER 2020-06-19 20:27 | Inpatient (IN) | payer MEDICAID, SELFPAY ==
[2020-06-19 20:38] VITALS: BP 206/116; PULSE 120; RESP 26; TEMP 37.1; O2SAT 97; BMI 41.5
--- NOTE | 2020-06-19 20:56 | XRR_ITS ---
PROCEDURE INFORMATION: Exam: XR Chest, 1 View Exam date and time: 06/19/2020 9:51 PM Age: 54 years old Clinical indication: Cough and fever and shortness of breath; Additional info: Dyspnea, R/O covid TECHNIQUE: Imaging protocol: XR of the chest Views: 1 view. COMPARISON: CR XR chest 1V portable [id number] 04/14/2020 5:23 PM FINDINGS: Lungs: Poor inspiration. Decreased lung volumes. No focal peripheral lung consolidation, air bronchogram formation, or silhouette sign. Pleural space: No pleural effusion or pneumothorax. Heart/Mediastinum: The cardiac silhouette is not enlarged. The mediastinal contours are normal. Bones/joints: No acute osseous abnormality. XR/XR chest 1V portable [id number] IMPRESSION: No definite sign of pneumonia.
--- NOTE | 2020-06-19 20:56 | ECG_ITS ---
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 Measurements Intervals [place] Rate: 114 P: 59 OR: 169 QRS: -7 QRSD: 104 T: 50 QT: 305 QTc: 421 Interpretive Statements SINUS TACHYCARDIA POSSIBLE LEFT ATRIAL ENLARGEMENT [-0.1mV P WAVE IN V1/V2] Compared to ECG 04/14/2020 18:07:27 Sinus rhythm no longer present Intraventricular conduction delay no longer present Electronically Signed On 06-20-2020 13:56:27 CDT by Lynsey Morales M.D. [id number]
--- NOTE | 2020-06-19 21:21 | ED_ITS ---
HPI - SOB/Dyspnea General: Chief Complaint: Shortness of Breath/Dyspnea Stated Complaint: sob, cough, fever Time Seen by Provider: 06/19/20 20:38 History of Present Illness: HPI Narrative: This patient is a 54-year-old female who presents today with shortness of breath and cough. She has been having the symptoms for about 3 days. She has subjectively felt like she had a fever but did not have a significant fever when checked here. She has a history of rheumatoid arthritis and this was just recently diagnosed within the last month or 2. She is on methotrexate and prednisone on a daily basis. She said she noticed increased stiffness and soreness in her muscles as well for the past few days and wondered if her rheumatoid was getting worse. She said she gets extremely short of breath just walking across the room. She has not had nausea vomiting or diarrhea. MD elicited complaint: shortness of breath and cough Pertinent past history: other (Rheumatoid arthritis, hypertension) Onset (ago): day(s) (3) Timing: constant Severity: severe Exacerbating factors: exertion Associated symptoms: Reports cough, fever(s) (Subjective) and myalgias; Deny abdominal pain, chest pain, nausea or vomiting Treatment prior to arrival: none Review of Systems General: Reports: 10 or more systems reviewed and unremarkable except in HPI and below Const: Reports: fever(s) (Subjective) Eyes: Denies: change in vision ENMT: Reports: throat pain and post nasal drip; Denies: odynophagia Card: Denies: chest pain or swelling of feet/ankles Resp: Reports: dyspnea and non-productive cough; Denies: productive cough GI: Denies: abdominal pain, nausea or vomiting : Denies: flank pain or difficulty voiding Musc: Denies: neck pain or back pain Skin/Breast: Denies: rash Neuro: Denies: headache(s), numbness in extremities or weakness in extremities Ritesh/Lymph: Denies: easy bruising or easy bleeding PFSH ED PFSH: Medical History Arthritis High risk medication use HTN (hypertension) Hyperlipidemia Hypothyroidism Immunization counseling Restless leg syndrome Seronegative rheumatoid arthritis of both hands Surgical History History of carpal tunnel release of both wrists History of nasal surgery History of tonsillectomy Hx of carpal tunnel repair Tubal ligation status Family History Mother Hypertension Family history of premature coronary artery disease Hx of CABG Hyperlipidemia Cancer Headache Father Depression Other CAD (coronary artery disease) Diabetes Denies family history of Rheumatoid arthritis Lupus Chronic kidney disease (CKD) Lung disease Stroke Social History Smoking and tobacco status: former smoker Quit status (tobacco): has quit using tobacco Year quit tobacco: 2013 Alcohol intake: current Alcohol intake frequency: holidays/special occasions only Physical Exam Const: COMMON NORMALS: no acute distress, patient oriented x3, no limitations and alert GENERAL APPEARANCE: cooperative HENMT: HEAD & SCALP: normal to inspection FACE & SINUS: normal facial exam Eye: GENERAL EYE: appearance normal, both eyes and all related structures Neck/C-Spine: COMMON NORMALS: supple, no meningeal signs and no JVD Chest: COMMONS NORMALS: normal inspection of the chest Resp: COMMON NORMALS: clear to auscultation bilaterally EFFORT & INSPECTION: Yes tachypneic, Yes labored and Yes uses accessory muscles AUSCULTATION: clear to auscultation bilaterally Cardio: COMMON NORMALS: no JVD, regular rhythm and No murmurs present (Cardio) RATE: tachycardic (120s) RHYTHM: regular rhythm GI: COMMON NORMALS: Normal to inspection, nondistended, normoactive bowel sounds present, Soft to palpation and non-tender INSPECTION: Yes normal to inspection AUSCULTATION: Yes normoactive bowel sounds PALPATION: Yes Soft to palpation Back/Pelvis: COMMON NORMALS: thoracic and lumbar spine normal to inspection Extremity: COMMON NORMALS: normal to inspection Neuro: COMMON NORMALS: patient oriented x3, moves all extremities, no focal motor deficits and no sensory deficits noted SENSORIUM/ORIENTATION: Yes alert MENINGEAL SIGNS: Yes no meningeal signs Psych: COMMON NORMALS: mental status grossly normal, cooperative and normal affect Skin: COMMON NORMALS: no rashes or lesions noted and turgor normal GENERAL SKIN EXAM: no rashes or lesions noted and turgor normal Course ED course: During her ED stay the patient spiked a temperature to 102.2. Her heart rate came down with a little bit of fluid and Tylenol. Her oxygen saturation remained 99 to 100% through her entire stay. The COVID test came back positive. Her labs do not look too bad and her chest x-ray looked pretty good as well. We discussed that she is at higher risk given her rheumatoid arthritis as well as the medications used to treat that. She is aware of that. We discussed the option of admitting her to the hospital. She felt okay about going home. We discussed that the potential is definitely there for her to worsen and she should immediately return to the ED if she feels like she is getting worse. We discussed getting a pulse oximeter and using that to monitor her oxygen levels. She will be home with her and we discussed ways to decrease transmission of the disease in the home. She understands that her family needs to be on quarantine. She understands that the health department will be contacting her for contact tracing. Vital Signs: Vital signs: Vital Signs Temperature 98.8 F 06/19/20 20:38 Pulse Rate 110 H 06/19/20 22:04 Respiratory Rate 26 H 06/19/20 20:38 Blood Pressure 206/116 06/19/20 20:38 Pulse Oximetry 96 06/19/20 22:04 MDM - SOB/Dyspnea Lab Data: Labs: Lab Results 06/19/20 06/19/20 06/19/20 Range/Units 21:40 21:40 21:40 WBC (4.0-10.0) 10^3/ uL RBC (4.1-5.3) 10^6/u L Hgb (11.5-15.3) g/dL Hct (37.0-47.0) % MCV (81-99) fL MCH (28.0-34.0) pg MCHC (30.0-36.0) g/dL RDW (12.1-15.1) % Plt Count (130-400) 10^3/c mm MPV (7.4-10.4) fL Neut % (Auto) % Lymph % (Auto) % Garrard % (Auto) % Eos % (Auto) % Baso % (Auto) % Neut # (Auto) (1.8-7.7) 10^3/u L Lymph # (Auto) (0.8-4.8) 10^3/u L Garrard # (Auto) (0.2-0.9) 10^3/u L Eos # (Auto) (0.0-0.8) 10^3/u L Baso # (Auto) (0.0-0.1) 10^3/u L Nucleated RBC % (a uto) % Nucleated RBCs # /100WBC PT 11.60 L (12.1-14.9) SECO NDS INR 0.83 (0.8-1.2) D-Dimer 0.41 (0-0.59) ug/mIFE U Sodium 141 (136-145) mmol/L Potassium 4.3 (3.5-5.1) mmol/L Chloride 102 (98-107) mmol/L Carbon Dioxide 27 (22-29) mmol/L Anion Gap 16.3 (5-19) BUN 11 (6-20) mg/dL Creatinine 1.0 H (0.5-0.9) mg/dL GFR Calculation 57.8 L (90-130) mL/min Glucose 100 (65-115) mg/dL Calculated Osmolal ity 291 (285-295) mOsm/k g Lactic Acid (0.5-2.2) mmol/L Calcium 10.3 (8.5-10.5) mg/dL Magnesium 2.0 (1.7-2.3) mg/dL Total Bilirubin 0.2 (0.15-1.2) mg/dL AST 24 (0-32) U/L ALT 28 (0-33) U/L Alkaline Phosphata se 85 (35-105) IU/L Troponin T Baselin e 18 H (0-10) ng/L NT-Pro-B Natriuret Pep 120 (0-125) pg/mL Total Protein 7.9 (6.6-8.7) g/dL Albumin 4.8 (3.5-5.2) g/dL Globulin 3.1 (1.3-4.6) g/dL Influenza Type A A g (Negative) Influenza Type B A g (Negative) SARS-CoV-2 Ag (Rap id) (Negative) 06/19/20 06/19/20 06/19/20 Range/Units 21:40 21:40 21:40 WBC 10.7 H (4.0-10.0) 10^3/ uL RBC 4.89 (4.1-5.3) 10^6/u L Hgb 12.7 (11.5-15.3) g/dL Hct 41.4 (37.0-47.0) % MCV 84.7 (81-99) fL MCH 26.0 L (28.0-34.0) pg MCHC 30.7 (30.0-36.0) g/dL RDW 18.3 H (12.1-15.1) % Plt Count 317 (130-400) 10^3/c mm MPV 11.1 H (7.4-10.4) fL Neut % (Auto) 81.1 % Lymph % (Auto) 12.5 % Garrard % (Auto) 5.0 % Eos % (Auto) 0.5 % Baso % (Auto) 0.4 % Neut # (Auto) 8.70 H (1.8-7.7) 10^3/u L Lymph # (Auto) 1.3 (0.8-4.8) 10^3/u L Garrard # (Auto) 0.5 (0.2-0.9) 10^3/u L Eos # (Auto) 0.1 (0.0-0.8) 10^3/u L Baso # (Auto) 0.0 (0.0-0.1) 10^3/u L Nucleated RBC % (a uto) 0 % Nucleated RBCs # 0.0 /100WBC PT (12.1-14.9) SECO NDS INR (0.8-1.2) D-Dimer (0-0.59) ug/mIFE U Sodium (136-145) mmol/L Potassium (3.5-5.1) mmol/L Chloride (98-107) mmol/L Carbon Dioxide (22-29) mmol/L Anion Gap (5-19) BUN (6-20) mg/dL Creatinine (0.5-0.9) mg/dL GFR Calculation (90-130) mL/min Glucose (65-115) mg/dL Calculated Osmolal ity (285-295) mOsm/k g Lactic Acid 1.5 (0.5-2.2) mmol/L Calcium (8.5-10.5) mg/dL Magnesium (1.7-2.3) mg/dL Total Bilirubin (0.15-1.2) mg/dL AST (0-32) U/L ALT (0-33) U/L Alkaline Phosphata se (35-105) IU/L Troponin T Baselin e (0-10) ng/L NT-Pro-B Natriuret Pep (0-125) pg/mL Total Protein (6.6-8.7) g/dL Albumin (3.5-5.2) g/dL Globulin (1.3-4.6) g/dL Influenza Type A A g (Negative) Influenza Type B A g (Negative) SARS-CoV-2 Ag (Rap id) Positive H (Negative) 06/19/20 Range/Units 21:40 WBC (4.0-10.0) 10^3/ uL RBC (4.1-5.3) 10^6/u L Hgb (11.5-15.3) g/dL Hct (37.0-47.0) % MCV (81-99) fL MCH (28.0-34.0) pg MCHC (30.0-36.0) g/dL RDW (12.1-15.1) % Plt Count (130-400) 10^3/c mm MPV (7.4-10.4) fL Neut % (Auto) % Lymph % (Auto) % Garrard % (Auto) % Eos % (Auto) % Baso % (Auto) % Neut # (Auto) (1.8-7.7) 10^3/u L Lymph # (Auto) (0.8-4.8) 10^3/u L Garrard # (Auto) (0.2-0.9) 10^3/u L Eos # (Auto) (0.0-0.8) 10^3/u L Baso # (Auto) (0.0-0.1) 10^3/u L Nucleated RBC % (a uto) % Nucleated RBCs # /100WBC PT (12.1-14.9) SECO NDS INR (0.8-1.2) D-Dimer (0-0.59) ug/mIFE U Sodium (136-145) mmol/L Potassium (3.5-5.1) mmol/L Chloride (98-107) mmol/L Carbon Dioxide (22-29) mmol/L Anion Gap (5-19) BUN (6-20) mg/dL Creatinine (0.5-0.9) mg/dL GFR Calculation (90-130) mL/min Glucose (65-115) mg/dL Calculated Osmolal ity (285-295) mOsm/k g Lactic Acid (0.5-2.2) mmol/L Calcium (8.5-10.5) mg/dL Magnesium (1.7-2.3) mg/dL Total Bilirubin (0.15-1.2) mg/dL AST (0-32) U/L ALT (0-33) U/L Alkaline Phosphata se (35-105) IU/L Troponin T Baselin e (0-10) ng/L NT-Pro-B Natriuret Pep (0-125) pg/mL Total Protein (6.6-8.7) g/dL Albumin (3.5-5.2) g/dL Globulin (1.3-4.6) g/dL Influenza Type A A g Negative (Negative) Influenza Type B A g Negative (Negative) SARS-CoV-2 Ag (Rap id) (Negative) Discharge Plan Discharge Prescriptions: No Action methotrexate sodium 2.5 mg tablet 15 mg PO .Q7days Qty: 30 RF: 2 folic acid 1 mg tablet 1 mg PO DAILY Qty: 30 RF: 5 fluoxetine 40 mg capsule 40 mg PO DAILY RF: 0 ropinirole 1 mg tablet 2 mg PO BEDTIME RF: 0 simvastatin 10 mg tablet 10 mg PO BEDTIME RF: 0 acetaminophen [Tylenol Extra Strength] 500 mg Tablet 1,000 mg PO PRN RF: 0 lisinopril-hydrochlorothiazide 20-25 mg tablet 1 tab PO DAILY RF: 0 levothyroxine 112 mcg tablet 112 mcg PO DAILY RF: 0 potassium gluconate 595 mg (99 mg) Tablet 595 mg PO EVERY OTHER DAY RF: 0 diclofenac sodium 1 % gel 2 g TOPICAL QID PRN (Reason: Pain) RF: 0 aspirin [Adult Low Dose Aspirin] 81 mg tablet,delayed release (DR/EC) 81 mg PO DAILY Qty: 30 RF: 0 prednisone 1 mg Tablet 1 mg PO DAILY RF: 0 celecoxib 100 mg capsule 100 mg PO DAILY RF: 0 omeprazole 20 mg Tablet,Delayed Release (Dr/Ec) 20 mg PO DAILY RF: 0 Vitamin D3 50 mcg (2,000 unit) Tablet 50 mcg PO Q7D RF: 0 Coding Level of Care Code ED Electromedical Equipment Technician for Chg Fwd Exam Comprehensive
[2020-06-19] MEDS: sodium chloride 0.9% 1,000 ML 75 ML IV (22:01)
--- NOTE | 2020-06-19 22:01 | PC.NURSE ---
PATIENT SWABBED FOR COVID AT THIS TIME
[2020-06-19 22:04] VITALS: PULSE 110; O2SAT 96
[2020-06-19 22:10] LABS: Basophils % 0.4 %; Eosinophils # 0.1 10^3/uL (0.0-0.8); Eosinophils % 0.5 %; Hematocrit 41.4 % (37.0-47.0); Hemoglobin 12.7 g/dL (11.5-15.3); Lymphocytes # 1.3 10^3/uL (0.8-4.8); Lymphocytes % 12.5 %; Mean Corpuscular HGB Conc 30.7 g/dL (30.0-36.0); Mean Corpuscular Volume 84.7 fL (81-99); Mean Platelet Volume 11.1 fL (7.4-10.4); Monocytes # 0.5 10^3/uL (0.2-0.9); Neutrophils % 81.1 %; Nucleated Red Blood Cells % 0 %; Platelet Count 317 10^3/cmm (130-400); Red Blood Count 4.89 10^6/uL (4.1-5.3); Red Cell Distribution Width 18.3 % (12.1-15.1); White Blood Count 10.7 10^3/uL (4.0-10.0)
[2020-06-19 22:13] LABS: INR 0.83 (0.8-1.2)
[2020-06-19 22:16] LABS: D Dimer 0.41 ug/mIFEU (0-0.59)
[2020-06-19 22:17] LABS: Lactic Sepsis W/Reflex 1.5 mmol/L (0.5-2.2)
[2020-06-19 22:20] LABS: Troponin(5th) Baseline 18 ng/L (0-10)
[2020-06-19 22:29] LABS: Alanine Aminotransferase 28 U/L (0-33); Albumin Level 4.8 g/dL (3.5-5.2); Alkaline Phosphatase 85 IU/L (35-105); Anion Gap 16.3 (5-19); Aspartate Amino Transferase 24 U/L (0-32); Blood Urea Nitrogen 11 mg/dL (6-20); Calcium 10.3 mg/dL (8.5-10.5); Carbon Dioxide 27 mmol/L (22-29); Chloride 102 mmol/L (98-107); Globulin 3.1 g/dL (1.3-4.6); Glomerular Filtration Rate 57.8 mL/min (90-130); Glucose 100 mg/dL (65-115); NT Pro B Type Natriuretic Pept 120 pg/mL (0-125); Osmolality Calculated 291 mOsm/kg (285-295); Potassium 4.3 mmol/L (3.5-5.1); Sodium 141 mmol/L (136-145); Total Bilirubin 0.2 mg/dL (0.15-1.2); Total Protein 7.9 g/dL (6.6-8.7)
[2020-06-19 22:36] LABS: Influenza A by IFA Negative (Negative); Influenza B by IFA Negative (Negative); SARS Covid-2 Antigen Positive (Negative)
[2020-06-19] MEDS: acetaminophen 500 mg Tablet 1000 MG PO (22:59)
[2020-06-19 23:04] VITALS: BP 130/70; PULSE 128; RESP 28; TEMP 39; O2SAT 97
--- NOTE | 2020-06-19 23:20 | P.HP_ITS ---
Providers/Chief Complaint Primary Care Provider: Naseem Bethea NP Chief Complaint: sob, cough, fever History of Present Illness Gerardo Lennon is a 54 year old female who has history of rheumatoid arthritis currently on steroids and methotrexate came in with chief complaint of worsening shortness of breath. Patient is stating that her symptoms started about 6 days ago with weakness, lethargy and shortness of breath on exertion, her symptoms gradually got worse and today she was not able to go from 1 part of the house to the other without getting short of breath, she has been noticing fevers at home without any vomiting, dysuria. She noticed couple of episode of loose stools. 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 Diagnosis in the ER revealed tachypnea, tachycardia, febrile 102, mild leukocytosis, procalcitonin not high, COVID antigen positive, however on ambulation she is desaturating up to 88-87%, chest x-ray does not show new infiltrate, high inflammatory marker Review of Systems Const: Reports: chills, body aches, fatigue and malaise Eyes: Denies: change in vision ENMT: Denies: throat pain Card: Reports: dyspnea on exertion; Denies: chest pain Resp: Reports: dyspnea GI: Reports: diarrhea; Denies: abdominal pain or nausea : Denies: flank pain Musc: Reports: extremity swelling, joint pain and joint stiffness Skin/Breast: Reports: lesions Neuro: Reports: headache(s) Psych: Reports: anxiety Endo: Denies: polyuria Ritesh/Lymph: Denies: easy bruising All/Imm: Denies: urticaria Medications/Allergies Home Medications Medication Instructions Recorded Confirmed Last Taken Type acetaminophen [Tylenol Extra 1,000 mg PO PRN 12/31/19 06/19/20 12/30/19 History Strength] aspirin [Adult Low Dose Aspirin] 81 mg PO DAILY #30 tab 12/31/19 06/19/20 Unknown Rx diclofenac sodium 2 g TOPICAL QID PRN 12/31/19 06/19/20 Unknown History fluoxetine 40 mg PO DAILY 12/31/19 06/19/20 06/19/20 History levothyroxine 112 mcg PO DAILY 12/31/19 06/19/20 06/19/20 History lisinopril-hydrochlorothiazide 1 tab PO DAILY 12/31/19 06/19/20 12/31/19 History potassium gluconate 595 mg PO EVERY OTHER DAY 12/31/19 06/19/20 06/19/20 History ropinirole 2 mg PO BEDTIME 12/31/19 06/19/20 06/18/20 History simvastatin 10 mg PO BEDTIME 12/31/19 06/19/20 06/18/20 History folic acid 1 mg tablet 1 mg PO DAILY #30 tab 05/09/20 06/19/20 06/19/20 Rx methotrexate sodium 2.5 mg tablet 15 mg PO .Q7days #30 tab 05/09/20 06/19/20 06/14/20 Rx celecoxib 100 mg PO DAILY 06/19/20 06/19/20 06/19/20 History cholecalciferol (vitamin D3) 50 mcg PO Q7D 06/19/20 06/19/20 06/13/20 History [Vitamin D3] omeprazole 20 mg PO DAILY 06/19/20 06/19/20 06/19/20 History prednisone 1 mg PO DAILY 06/19/20 06/19/20 06/19/20 History Allergies Allergy/AdvReac Type Severity Reaction Status Date / Time No Known Allergies Allergy Verified 06/19/20 21:20 PFSH Acute PFSH: Medical History Arthritis High risk medication use HTN (hypertension) Hyperlipidemia Hypothyroidism Immunization counseling Restless leg syndrome Seronegative rheumatoid arthritis of both hands Surgical History History of carpal tunnel release of both wrists History of nasal surgery History of tonsillectomy Hx of carpal tunnel repair Tubal ligation status Family History Mother Hypertension Family history of premature coronary artery disease Hx of CABG Hyperlipidemia Cancer Headache Father Depression Other CAD (coronary artery disease) Diabetes Denies family history of Rheumatoid arthritis Lupus Chronic kidney disease (CKD) Lung disease Stroke Social History (Updated 06/20/20 @ 00:22 by Jailene Gale MD) Smoking and tobacco status: former smoker Quit status (tobacco): has quit using tobacco Year quit tobacco: 2013 Alcohol intake: current Alcohol intake frequency: holidays/special occasions only Substance/Drug Use: never Household members: spouse Housing: House Vitals/I&O/Wt Last Vital Signs Temp 98.8 F 06/19/20 20:38 Pulse 110 H 06/19/20 22:04 Resp 26 H 06/19/20 20:38 BP 206/116 06/19/20 20:38 Pulse Ox 96 06/19/20 22:04 Weight last 48 hrs Weight 113.398 kg Physical Exam Narrative: EXAM NARRATIVE: Middle-age female currently saturating well on room air No active respiratory distress Abdomen soft distended bowel sound present no active tenderness Lower extremity nonpitting edema Neurologically no focal deficit EOMI, PERRLA Appropriate mood and affect On ambulation patient was desaturating up to 88%, on ambulation she required 2 L of oxygen Skin does not show any ischemia gangrene ulcer or psoriasis rash Data : 06/19/20 21:40 06/19/20 21:40 A&P Assessment and plan (1) COVID-19: Status: Acute (2) Rheumatoid arthritis: Status: Acute Qualifiers: Rheumatoid arthritis location: unspecified site Rheumatoid factor p resence: unspecified presence Qualified Code(s): M06.9 - Rheumatoid arthritis, unspecified (3) Immunocompromised: Status: Acute (4) Hypothyroidism: Status: Acute Qualifiers: Hypothyroidism type: unspecified Qualified Code(s): E03.9 - Hypothyroidism, unspecified (5) Restless leg syndrome: Status: Acute (6) Seronegative rheumatoid arthritis of both hands: Status: Acute Additional A&P Information COVID-19 viral pneumonia Rapid antigen positive Patient is only requiring oxygenation on ambulation (2 L), saturating well on room air She is considered immunocompromised I would hold methotrexate and prednisone and use dexamethasone for now, I would not use antiviral remdesvir at this point Ventolin, initiated dexamethasone regimen Serial inflammatory markers D-dimer not similarly high CPAP at night for sleep apnea Patient carries significant risk factor for development of complications due to comorbid condition however at this point she is not requiring oxygen at rest, patient agreed for her management at our hospital and in case of worsening of her symptoms agreeable to be transferred to [place] Seronegative rheumatoid arthritis: Holding prednisone and methotrexate No abnormal LFTs noted Hypothyroidism: Continue levothyroxine Full code Cardiac diet DVT prophylaxis Lovenox Attestations Medical Necessity Statement*: Anticipating stay in the hospital cross more than 2 midnights for viral COVID-19 pneumonia without ARDS features Time Spent in Patient Care: (>than 50% of time spent in counselling and/or direct pt care on unit) . 35 minutes Coding Level of Care Code Acute Metal Engineering Process Worker for Chg Fwd Diagnoses COVID-19 Rheumatoid arthritis M06.9 Rheumatoid arthritis location: unspecified site Rheumatoid factor presence: unspecified presence Immunocompromised D89.9 Hypothyroidism E03.9 Hypothyroidism type: unspecified Restless leg syndrome G25.81 Seronegative rheumatoid arthritis of both hands M06.041; M06.042
[2020-06-19 23:24] LABS: Procalcitonin 0.16 ng/mL (0-0.5)
[2020-06-19 23:35] VITALS: BP 130/70; PULSE 128; RESP 28; TEMP 39; O2SAT 97
[2020-06-20] VITALS (102 sets, daily range): BP systolic 95–160; BP diastolic 51–107; PULSE 83–125; RESP 13–27; TEMP 36.8–37.6; O2SAT 86–98
[2020-06-20] MEDS: enoxaparin 40 mg/0.4 mL Syringe SUBCUT (03:32)
[2020-06-20 07:18] LABS: Basophils % 0.4 %; Eosinophils % 0.4 %; Hematocrit 38.3 % (37.0-47.0); Hemoglobin 11.5 g/dL (11.5-15.3); Lymphocytes # 2.2 10^3/uL (0.8-4.8); Lymphocytes % 22.1 %; Mean Corpuscular Volume 86.5 fL (81-99); Mean Platelet Volume 11.9 fL (7.4-10.4); Monocytes # 0.7 10^3/uL (0.2-0.9); Monocytes % 7.4 %; Neutrophils # 6.81 10^3/uL (1.8-7.7); Neutrophils % 69.1 %; Nucleated Red Blood Cells % 0 %; Platelet Count 276 10^3/cmm (130-400); Red Blood Count 4.43 10^6/uL (4.1-5.3); Red Cell Distribution Width 18.7 % (12.1-15.1); White Blood Count 9.9 10^3/uL (4.0-10.0)
[2020-06-20 07:21] LABS: Fibrinogen 461 mg/dL (174-498)
[2020-06-20 07:27] LABS: Lactate Dehydrogenase 191 U/L (135-214)
[2020-06-20 07:28] LABS: Alanine Aminotransferase 26 U/L (0-33); Albumin Level 4.1 g/dL (3.5-5.2); Alkaline Phosphatase 69 IU/L (35-105); Anion Gap 17.8 (5-19); Aspartate Amino Transferase 22 U/L (0-32); Blood Urea Nitrogen 14 mg/dL (6-20); Calcium 9.8 mg/dL (8.5-10.5); Carbon Dioxide 24 mmol/L (22-29); Chloride 104 mmol/L (98-107); Creatine Phosphokinase 60 U/L (26-192); Creatinine Clr Calc Pharmacy 73.4315; Globulin 3.1 g/dL (1.3-4.6); Glomerular Filtration Rate 51.8 mL/min (90-130); Glucose 116 mg/dL (65-115); Osmolality Calculated 295 mOsm/kg (285-295); Potassium 3.8 mmol/L (3.5-5.1); Sodium 142 mmol/L (136-145); Total Bilirubin 0.3 mg/dL (0.15-1.2); Total Protein 7.2 g/dL (6.6-8.7)
[2020-06-20 07:55] LABS: C Reactive Protein 27.7 mg/L (0.0-4.9)
[2020-06-20] MEDS: albuterol 8 gm MDI 2 PUFF INHALATION (08:16)
[2020-06-20] MEDS: levothyroxine 112 mcg Tablet PO (09:07)
[2020-06-20] MEDS: hydroCHLOROthiazide 25 mg Tablet PO (09:07)
[2020-06-20] MEDS: fluoxetine 20 mg Capsule 40 MG PO (09:07)
[2020-06-20] MEDS: pantoprazole DR 40 mg Tablet PO (09:08)
[2020-06-20] MEDS: dexamethasone 4 mg Tablet 6 MG PO (09:08)
[2020-06-20] MEDS: aspirin 81 mg EC Tablet PO (09:08)
[2020-06-20] MEDS: lisinopril 20 mg Tablet PO (09:08)
[2020-06-20] MEDS: folic acid 1 mg Tablet PO (09:08)
--- NOTE | 2020-06-20 16:23 | PM.PN ---
Subjective Subjective: Interval history: She says she is doing okay. Better in terms of breathing. Wean down to room air. Denies any shortness of breath, chest pain pressure. No nausea vomiting or diarrhea. Appetite has been all right. Has been having trouble sleeping due to restless leg syndrome. Has been having some aches and pains in her joints due to rheumatoid arthritis. Vitals/I&O/Wt Last Vital Signs Temp 98.2 F 06/20/20 13:51 Pulse 90 06/20/20 15:00 Resp 19 H 06/20/20 15:00 BP 110/78 06/20/20 15:00 Pulse Ox 93 06/20/20 15:00 06/20/20 06/20/20 06/20/20 06:59 14:59 22:59 Intake Total 333 / 333 480 / 480 Output Total 600 / 600 Balance -267 / -267 480 / 480 Weight last 48 hrs Weight 113.398 kg Physical Exam Const: COMMON NORMALS: no acute distress, patient oriented x3 and alert ORIENTATION/CONSCIOUSNESS: Yes awake OTHER: Sitting up in bed. HENMT: COMMON NORMALS: oropharynx normal Neck/C-Spine: COMMON NORMALS: no JVD Resp: COMMON NORMALS: normal respiratory effort and clear to auscultation bilaterally AUSCULTATION: clear to auscultation bilaterally Cardio: COMMON NORMALS: no JVD, regular rhythm, S1 normal heart sound present, S2 normal heart sound present and No murmurs present (Cardio) RHYTHM: regular rhythm HEART SOUNDS: S1 normal heart sound present and S2 normal heart sound present GI: COMMON NORMALS: Normal to inspection, nondistended, normoactive bowel sounds present, Soft to palpation and non-tender PALPATION: Yes Soft to palpation Extremity: COMMON NORMALS: no joint enlargement GENERAL: Yes edema (trace) Neuro: COMMON NORMALS: patient oriented x3 and moves all extremities SENSORIUM/ORIENTATION: Yes alert Skin: COMMON NORMALS: no rashes or lesions noted GENERAL SKIN EXAM: no rashes or lesions noted Data : 06/20/20 05:12 06/20/20 05:12 A&P Assessment and plan (1) COVID-19: She says she is doing better. Less dyspnea. She weaned down to room air. Saturating 93%. No chest pain or pressure. Continue Decadron At this time being monitored without remdesevir. DC IVF. Albuterol as needed. Status: Acute (2) Rheumatoid arthritis: Methotrexate on hold Prednisone for now on hold while on Decadron. Status: Acute Qualifiers: Rheumatoid arthritis location: unspecified site Rheumatoid factor presence: unspecified presence Qualified Code(s): M06.9 - Rheumatoid arthritis, unspecified (3) Immunocompromised: Status: Acute (4) Hypothyroidism: Continue levothyroxine. Status: Acute Qualifiers: Hypothyroidism type: unspecified Qualified Code(s): E03.9 - Hypothyroidism, unspecified (5) Restless leg syndrome: Resume ropinirole. Status: Acute (6) Seronegative rheumatoid arthritis of both hands: Status: Acute Additional A&P Information CPAP at night for sleep apnea Patient carries significant risk factor for development of complications due to comorbid condition however at this point she is not requiring oxygen at rest, Full code Cardiac diet DVT prophylaxis Lovenox Attestations Medical Necessity Statement*: Continue admission for assessment management of moderate COVID-19 pneumonia in the setting of immunocompromise. Coding Level of Care Code Acute Manager Of Financial Reporting for [facility] Fwd Diagnoses COVID-19 Rheumatoid arthritis M06.9 Rheumatoid arthritis location: unspecified site Rheumatoid factor presence: unspecified presence Immunocompromised D89.9 Hypothyroidism E03.9 Hypothyroidism type: unspecified Restless leg syndrome G25.81 Seronegative rheumatoid arthritis of both hands M06.041; M06.042
--- NOTE | 2020-06-20 18:45 | PC.NURSE ---
Received report on patient from Fanny GUIDRY. Assumed care at this time.
[2020-06-20] MEDS: ropinirole 2 mg Tablet PO (21:08)
[2020-06-21] VITALS (17 sets, daily range): BP systolic 93–159; BP diastolic 62–102; PULSE 74–111; RESP 15–29; TEMP 36.8–36.9; O2SAT 86–97
[2020-06-21] MEDS: enoxaparin 40 mg/0.4 mL Syringe SUBCUT (01:00)
[2020-06-21 04:25] LABS: Basophils % 0.1 %; Eosinophils % 0.1 %; Hematocrit 35.9 % (37.0-47.0); Lymphocytes # 1.3 10^3/uL (0.8-4.8); Lymphocytes % 17.8 %; Mean Corpuscular HGB Conc 30.6 g/dL (30.0-36.0); Mean Corpuscular Hemoglobin 26.1 pg (28.0-34.0); Mean Corpuscular Volume 85.3 fL (81-99); Mean Platelet Volume 10.9 fL (7.4-10.4); Monocytes # 0.5 10^3/uL (0.2-0.9); Monocytes % 6.5 %; Neutrophils # 5.53 10^3/uL (1.8-7.7); Neutrophils % 75.2 %; Nucleated Red Blood Cells % 0 %; Platelet Count 265 10^3/cmm (130-400); Red Blood Count 4.21 10^6/uL (4.1-5.3); Red Cell Distribution Width 18.4 % (12.1-15.1); White Blood Count 7.4 10^3/uL (4.0-10.0)
[2020-06-21 05:02] LABS: Alanine Aminotransferase 25 U/L (0-33); Alkaline Phosphatase 65 IU/L (35-105); Aspartate Amino Transferase 24 U/L (0-32); Blood Urea Nitrogen 16 mg/dL (6-20); Calcium 10.3 mg/dL (8.5-10.5); Carbon Dioxide 26 mmol/L (22-29); Chloride 100 mmol/L (98-107); Globulin 2.9 g/dL (1.3-4.6); Glomerular Filtration Rate 74.7 mL/min (90-130); Glucose 159 mg/dL (65-115); Osmolality Calculated 287 mOsm/kg (285-295); Sodium 136 mmol/L (136-145); Total Bilirubin 0.2 mg/dL (0.15-1.2); Total Protein 6.9 g/dL (6.6-8.7)
[2020-06-21] MEDS: aspirin 81 mg EC Tablet PO (08:31)
[2020-06-21] MEDS: levothyroxine 112 mcg Tablet PO (08:32)
[2020-06-21] MEDS: folic acid 1 mg Tablet PO (08:32)
[2020-06-21] MEDS: hydroCHLOROthiazide 25 mg Tablet PO (08:32)
[2020-06-21] MEDS: lisinopril 20 mg Tablet PO (08:32)
[2020-06-21] MEDS: fluoxetine 20 mg Capsule 40 MG PO (08:32)
[2020-06-21] MEDS: pantoprazole DR 40 mg Tablet PO (08:33)
--- NOTE | 2020-06-21 12:28 | P.DS_ITS ---
Discharge Providers Date of Admission: 06/19/20 23:19 Date of Discharge: June 21, 2020 Attending Provider at Admission: Jailene Gale MD Attending Provider at Discharge: Spencer Blank Primary Care Provider: Naseem Bethea NP Diagnoses at Discharge Discharge Diagnosis (1) COVID-19: Status: Acute (2) Rheumatoid arthritis: Status: Acute Qualifiers: Rheumatoid arthritis location: unspecified site Rheumatoid factor presence: unspecified presence Qualified Code(s): M06.9 - Rheumatoid arthritis, unspecified (3) Immunocompromised: Status: Acute (4) Hypothyroidism: Status: Acute Qualifiers: Hypothyroidism type: unspecified Qualified Code(s): E03.9 - Hypothyroidism, unspecified (5) Restless leg syndrome: Status: Acute (6) Seronegative rheumatoid arthritis of both hands: Status: Acute Reason for Visit Reason for Visit: sob, cough, fever Hospital Course Hospital Course: Pleasant 54-year-old lady with history of rheumatoid arthritis, on cetraxate, chronically on prednisone, HTN, HLD, hypothyroidism, RLS was admitted versus management after being diagnosed with COVID-19 after presenting with worsening shortness of breath with symptoms starting around last Thursday. She was noted to be febrile with temp up to 102 Fahrenheit, diagnosed with COVID-19 viral pneumonia moderate severity in the hospital. Due to multiple risk factors of severe illness was watched in the hospital. Methotrexate has been held. She was started on Decadron. She was continued on her usual CPAP at night. She has done well so far, she is feeling actually much better, denies any shortness of breath, has had no cough. Has been up and around in her room and tolerating that well. She has had no nausea vomiting or diarrhea, and has been tolerating her meals well. She is overall feeling much better, stronger, and is wanting to return home. At this time we discussed to hold her methotrexate until this may be deemed safe to resume by her PCP and rheumatology. She will complete 3 more days of dexamethasone, and then continue prednisone. We discussed to monitor her oxygenation at home, and return to the hospital in case there are any concerning symptoms or signs of trouble. Physical Exam Const: COMMON NORMALS: no acute distress, patient oriented x3 and alert ORIENTATION/CONSCIOUSNESS: Yes awake OTHER: Sitting up in bed. Pleasant, conversant. In good spirits. HENMT: COMMON NORMALS: oropharynx normal Neck/C-Spine: COMMON NORMALS: no JVD Resp: COMMON NORMALS: normal respiratory effort and clear to auscultation bilaterally AUSCULTATION: clear to auscultation bilaterally Cardio: COMMON NORMALS: no JVD, regular rhythm, S1 normal heart sound present, S2 normal heart sound present and No murmurs present (Cardio) RHYTHM: regular rhythm HEART SOUNDS: S1 normal heart sound present and S2 normal heart sound present GI: COMMON NORMALS: Normal to inspection, nondistended, normoactive bowel sounds present, Soft to palpation and non-tender PALPATION: Yes Soft to palpation Extremity: COMMON NORMALS: no joint enlargement GENERAL: No edema Neuro: COMMON NORMALS: patient oriented x3 and moves all extremities SENSORIUM/ORIENTATION: Yes alert Skin: COMMON NORMALS: no rashes or lesions noted GENERAL SKIN EXAM: no rashes or lesions noted Discharge Data Data Completed and Pending: Completed Studies During Hospitalization Category Date Time Status XR chest 1V rojelio ble [id number] Stat Exams 06/19/20 20:56 Completed Pending at discharge Category Date Time Status Complete Blood Co unt w/Auto AM LABS Lab 06/22/20 04:00 Ordered Comprehensive Met abolic Panel AM LA BS Lab 06/22/20 04:00 Ordered Labs from last 24 hours 06/21/20 06/21/20 04:05 04:05 WBC 7.4 RBC 4.21 Hgb 11.0 L Hct 35.9 L MCV 85.3 MCH 26.1 L MCHC 30.6 RDW 18.4 H Plt Count 265 MPV 10.9 H Neut % (Auto) 75.2 Lymph % (Auto) 17.8 [place] % (Auto) 6.5 Eos % (Auto) 0.1 Baso % (Auto) 0.1 Neut # (Auto) 5.53 Lymph # (Auto) 1.3 [place] # (Auto) 0.5 Eos # (Auto) 0.0 Baso # (Auto) 0.0 Nucleated RBC % (a uto) 0 Nucleated RBCs # 0.0 Sodium 136 Potassium 4.0 Chloride 100 Carbon Dioxide 26 Anion Gap 14.0 BUN 16 Creatinine 0.8 GFR Calculation 74.7 L Glucose 159 H Calculated Osmolal ity 287 Calcium 10.3 Total Bilirubin 0.2 AST 24 ALT 25 Alkaline Phosphata se 65 Total Protein 6.9 Albumin 4.0 Globulin 2.9 Vitals: Last Vital Signs Temp 98.2 F 06/21/20 08:00 Pulse 89 06/21/20 11:00 Resp 21 H 06/21/20 11:00 BP 126/85 06/21/20 11:00 Pulse Ox 92 06/21/20 11:00 Discharge Plan Discharge Patient Disposition: Home Condition: Stable Prescriptions: New dexamethasone 4 mg Tablet 6 mg PO DAILY Qty: 3 RF: 0 Continued folic acid 1 mg tablet 1 mg PO DAILY Qty: 30 RF: 5 fluoxetine 40 mg capsule 40 mg PO DAILY RF: 0 ropinirole 1 mg tablet 2 mg PO BEDTIME RF: 0 simvastatin 10 mg tablet 10 mg PO BEDTIME RF: 0 acetaminophen [Tylenol Extra Strength] 500 mg Tablet 1,000 mg PO PRN RF: 0 lisinopril-hydrochlorothiazide 20-25 mg tablet 1 tab PO DAILY RF: 0 levothyroxine 112 mcg tablet 112 mcg PO DAILY RF: 0 potassium gluconate 595 mg (99 mg) Tablet 595 mg PO EVERY OTHER DAY RF: 0 diclofenac sodium 1 % gel 2 g TOPICAL QID PRN (Reason: Pain) RF: 0 aspirin [Adult Low Dose Aspirin] 81 mg tablet,delayed release (DR/EC) 81 mg PO DAILY Qty: 30 RF: 0 prednisone 1 mg Tablet 1 mg PO DAILY RF: 0 omeprazole 20 mg Tablet,Delayed Release (Dr/Ec) 20 mg PO DAILY RF: 0 Vitamin D3 50 mcg (2,000 unit) Tablet 50 mcg PO Q7D RF: 0 Held methotrexate sodium 2.5 mg tablet 15 mg PO .Q7days Qty: 30 RF: 2 Hold Instructions: Resume on 07/05/20. celecoxib 100 mg capsule 100 mg PO DAILY RF: 0 Hold Instructions: Resume on 07/05/20. Discharge Orders: Discharge Order (Routine); Ordered 06/21/20 Ordered By: Spencer Blank Referrals: Naseem Bethea NP [Primary Care Provider] - 4-7 days Zach Gaffney MD [Physician] - None (Per appointment. Please notify office about hospitalization so they may make arrangements according to their infection control policies about follow up appointment with coronovirus. ) Discharge Diet: Advance as tolerated and Cardiac Discharge Activity: Increase activity as tolerated Patient Instructions: Upper Respiratory Infection (ED) Activity Restrictions/Additional Instructions: Return to the emergency department immediately for any worsening of your symptoms including shortness of breath. If you can, get a pulse oximeter to monitor your oxygen levels. Return to the ED if oxygen levels are less than 92%. The health department will be in touch with you about contact tracing. You need to self quarantine until the health department tells you otherwise. Family members and those you have been in close contact with that should also self quarantine. For now please continue to hold your methotrexate until your primary care doctor or pulmonology physician say that it is safe to resume. For now Celebrex is held as well to reduce chance of additional adverse effects while you are recovering from your acute viral illness. Discharge Attestations Time Spent in Discharge Care*: greater than 30 min Quality Metrics Clinical Quality Measures During this hospital stay, did patient experience: None Coding Level of Care Code Acute Records Management Specialist for Saji Guadarrama Diagnoses COVID-19 Rheumatoid arthritis M06.9 Rheumatoid arthritis location: unspecified site Rheumatoid factor presence: unspecified presence Immunocompromised D89.9 Hypothyroidism E03.9 Hypothyroidism type: unspecified Restless leg syndrome G25.81 Seronegative rheumatoid arthritis of both hands M06.041; M06.042
--- NOTE | 2020-06-22 09:03 | PC.SOCIAL ---
This contract technical writer called and spoke with Gerardo Lennon [phone]. I asked how she was feeling now that she is home. She stated that she was felling very good. I asked if she has a primary care physician appointment set up for her some time this week or next, she stated that she would have to call and make an appointment with Dr. Garcia but figured it would have to be a couple weeks because she tested COVID positive. I informed her that I could call and speak with Dr. Garcia office and see if I can get her appointment for today or Thursday. I called Dr. Garcia office, they can see the patient Thursday at 8 AM in person. I informed the patient of this, she stated that that appointment was fine. We discussed ways to prevent the spread of the COVID, especailly since she will be out in public seeing the doctor Thursday. We talked about face covering, social distancing, hand washing, not touching her face. We also spoke a wile about ways to boost her immune system especially with all the other health conditions she has. We talked about all the different foods that can help boost her immune system and also talked about keeping up her vaccines as well as her health screening. Wei salter talked about how stress can factor into lowering her immune system. She stated that she was eating well, as for preventing the COVID from spreading to her and son who live with her, she stated that they are all staying up stairs now while she stays down stairs. She stated that she is keeping all surfaces clean and sterile and her family wears a mask as well as her if they have to come withing 6 feet of each other. This contract technical writer went over the symptoms to monitor and when to call the doctor or come into the ER. the symptoms to watch for are; shortness of breath or trouble breathing, fever of 104 or higher, lips or face blue, trouble waking up or confusion, tightness or pain in chest lasting longer than 5 minutes. She stated that currently she is not experiencing any of these symptoms. We also discussed the benefits of Plasma donation. She stated that she is extremely interested and had planned to ask me about it. I told her that I would send her the information and form in the mail.
== END 2020-06-21 14:00 | disposition home or self-care (01) | DRG 177 ==
LOC: ER 23:00 → ICU 23:28
PROVIDERS: Emergency Medicine; Admitting Provider Internal Medicine; PCP Nurse Practitioner Family; Visit Provider Internal Medicine
DX: U07.1 COVID-19 (principal); J12.89 Other viral pneumonia; M06.042 Rheumatoid arthritis without rheumatoid factor, left hand; M06.041 Rheumatoid arthritis without rheumatoid factor, right hand; Z79.52 Long term (current) use of systemic steroids; I10 Essential (primary) hypertension; E78.5 Hyperlipidemia, unspecified; E03.9 Hypothyroidism, unspecified; G25.81 Restless legs syndrome; Z87.891 Personal history of nicotine dependence; D89.9 Disorder involving the immune mechanism, unspecified
CPT/HCPCS: 12345; 36415; 71045; 80053; 82550; 83605; 83615; 83735; 83880; 84145; 84484; 85025; 85378; 85384; 85610; 86140; 87426; 87804; 93005; 94640; 96372; 99283; J1650; J3535; J7030; J8540

== ENCOUNTER 2020-06-30 17:09 | Emergency (ER) | payer MEDICAID, OTHER, SELFPAY ==
[2020-06-30 17:27] VITALS: BP 174/95; PULSE 121; RESP 32; O2SAT 96; BMI 41.5
--- NOTE | 2020-06-30 17:36 | XRR_ITS ---
PROCEDURE INFORMATION: Exam: XR Chest, 1 View Exam date and time: 06/30/2020 5:37 PM Age: 54 years old Clinical indication: Cough and shortness of breath and other: Covid +; Additional info: SOB TECHNIQUE: Imaging protocol: XR of the chest Views: 1 view. COMPARISON: CR XR chest 1V portable [id number] 06/19/2020 9:34 PM FINDINGS: Lungs: Low lung volumes seen. No consolidation. Pleural space: Elevation of the right hemidiaphragm No pleural effusion. No pneumothorax. Heart/Mediastinum: Unremarkable. No cardiomegaly. Bones/joints: Unremarkable. Other findings: Comparison to prior examination similar findings is seen XR/XR chest 1V portable [id number] IMPRESSION: 1. No acute findings. 2. Low lung volumes
--- NOTE | 2020-06-30 17:36 | ECG_ITS ---
[facility] Test Date: 2020-06-30 Pat Name: Gerardo Lennon Department: Room: Gender: Female Dethistler Operator: : 1965 Requested By: Patrick Rodriguez Order Number: [id number] Leroy MD: Julio Rosen M.D. Measurements Intervals [place] Rate: 109 P: 50 [place]: 176 QRS: -16 QRSD: 106 T: 48 QT: 319 QTc: 430 Interpretive Statements SINUS TACHYCARDIA POSSIBLE LEFT ATRIAL ENLARGEMENT [-0.1mV P WAVE IN V1/V2] Compared to ECG 06/19/2020 21:06:20 No significant changes Electronically Signed On 07-01-2020 20:28:49 CDT by Julio Rosen M.D. [id number] f
--- NOTE | 2020-06-30 17:47 | ED_ITS ---
HPI - SOB/Dyspnea General: Chief Complaint: Shortness of Breath/Dyspnea Stated Complaint: Positive COVID Time Seen by Provider: 06/30/20 17:23 Source: patient Mode of arrival: ambulatory Limitations: no limitations History of Present Illness: HPI Narrative: 54-year-old female who was diagnosed with COVID over a week ago and was admitted here and discharged. She states that she continues to have some shortness of breath especially exertional. She states that her pulse ox will drop to the high 80s when she is ambulating. Patient is in no distress here and pulse ox is 95% on room air. She has had low-grade fevers. Patient is tachycardic but states she has been taking breathing treatments. Denies any chest pain. MD elicited complaint: shortness of breath Associated symptoms: Deny abdominal pain, chest pain, fever(s), nausea or vomiting Review of Systems Const: Denies: fever(s), chills, body aches or change in appetite Eyes: Denies: blurry vision or eye discomfort ENMT: Denies: throat pain or dental pain Card: Denies: chest pain Resp: Reports: dyspnea and non-productive cough GI: Denies: abdominal pain, nausea, vomiting or diarrhea : Denies: dysuria Musc: Denies: neck pain or back pain Skin/Breast: Denies: rash Neuro: Denies: headache(s) Psych: Denies: depression Ritesh/Lymph: Denies: easy bruising All/Imm: Denies: urticaria PFSH ED PFSH: Medical History Arthritis High risk medication use HTN (hypertension) Hyperlipidemia Hypothyroidism Immunization counseling Restless leg syndrome Seronegative rheumatoid arthritis of both hands Surgical History History of carpal tunnel release of both wrists History of nasal surgery History of tonsillectomy Hx of carpal tunnel repair Tubal ligation status Family History Mother Hypertension Family history of premature coronary artery disease Hx of CABG Hyperlipidemia Cancer Headache Father Depression Other CAD (coronary artery disease) Diabetes Denies family history of Rheumatoid arthritis Lupus Chronic kidney disease (CKD) Lung disease Stroke Social History Smoking and tobacco status: former smoker Quit status (tobacco): has quit using tobacco Year quit tobacco: 2013 Alcohol intake: current Alcohol intake frequency: holidays/special occasions only Household members: spouse Housing: House Physical Exam Const: COMMON NORMALS: no acute distress, patient oriented x3 and healthy appearing HENMT: COMMON NORMALS: normocephalic and atraumatic HEAD & SCALP: normocephalic and atraumatic Eye: COMMON NORMALS: Equal, round and reactive pupils present and EOMs intact bilaterally PUPIL: Yes Equal, round and reactive pupils present Neck/C-Spine: COMMON NORMALS: full ROM and supple Chest: COMMONS NORMALS: normal inspection of the chest and normal palpation of entire chest wall Resp: COMMON NORMALS: normal respiratory effort, No retractions, No use of accessory muscles and clear to auscultation bilaterally AUSCULTATION: clear to auscultation bilaterally Cardio: COMMON NORMALS: regular rhythm and No murmurs present (Cardio) RATE: tachycardic RHYTHM: regular rhythm GI: COMMON NORMALS: Normal to inspection, nondistended, normoactive bowel sounds present, Soft to palpation, non-tender and no masses PALPATION: Yes Soft to palpation Extremity: COMMON NORMALS: normal to inspection and full ROM Neuro: COMMON NORMALS: patient oriented x3, moves all extremities and no focal motor deficits Psych: COMMON NORMALS: mental status grossly normal, Normal thought process present and cooperative THOUGHT PROCESS: Normal thought process present Skin: COMMON NORMALS: no rashes or lesions noted and no wounds GENERAL SKIN EXAM: no rashes or lesions noted Course Vital Signs: Vital signs: Vital Signs Pulse Rate 121 H 06/30/20 17:27 Respiratory Rate 32 H 06/30/20 17:27 Blood Pressure 174/95 06/30/20 17:27 Pulse Oximetry 96 06/30/20 20:20 MDM - SOB/Dyspnea MDM Narrative: Medical decision making narrative: Gerardo presents here with dyspnea likely post COVID. X-ray here shows no acute findings and her inflammatory markers are all normal. I did have respiratory walker and she did not desaturate. We will place her on steroids along with antibiotics I feel she is stable for discharge. Patient is to follow-up with PCP in 2 to 4 days return if worsening. Her d-dimer was negative and no signs of pulmonary embolism. Lab Data: Labs: Lab Results 06/30/20 06/30/20 06/30/20 Range/Units 18:21 18:21 18:21 WBC 9.1 (4.0-10.0) 10^3/ uL RBC 4.69 (4.1-5.3) 10^6/u L Hgb 11.9 (11.5-15.3) g/dL Hct 38.7 (37.0-47.0) % MCV 82.5 (81-99) fL MCH 25.4 L (28.0-34.0) pg MCHC 30.7 (30.0-36.0) g/dL RDW 17.2 H (12.1-15.1) % Plt Count 241 (130-400) 10^3/c mm MPV 11.6 H (7.4-10.4) fL Neut % (Auto) 83.1 % Lymph % (Auto) 12.8 % [place] % (Auto) 3.6 % Eos % (Auto) 0.1 % Baso % (Auto) 0.1 % Neut # (Auto) 7.52 (1.8-7.7) 10^3/u L Lymph # (Auto) 1.2 (0.8-4.8) 10^3/u L [place] # (Auto) 0.3 (0.2-0.9) 10^3/u L Eos # (Auto) 0.0 (0.0-0.8) 10^3/u L Baso # (Auto) 0.0 (0.0-0.1) 10^3/u L Nucleated RBC % (a uto) 0 % Nucleated RBCs # 0.0 /100WBC D-Dimer 0.48 (0-0.59) ug/mIFE U Sodium 131 L (136-145) mmol/L Potassium 3.9 (3.5-5.1) mmol/L Chloride 96 L (98-107) mmol/L Carbon Dioxide 24 (22-29) mmol/L Anion Gap 14.9 (5-19) BUN 13 (6-20) mg/dL Creatinine 0.7 (0.5-0.9) mg/dL GFR Calculation 87.2 L (90-130) mL/min Glucose 199 H (65-115) mg/dL Calculated Osmolal ity 278 L (285-295) mOsm/k g Lactic Acid (0.5-2.2) mmol/L Calcium 9.2 (8.5-10.5) mg/dL Total Bilirubin 0.2 (0.15-1.2) mg/dL AST 20 (0-32) U/L ALT 18 (0-33) U/L Alkaline Phosphata se 85 (35-105) IU/L C-Reactive Protein 29.5 H (0.0-4.9) mg/L Total Protein 7.2 (6.6-8.7) g/dL Albumin 4.0 (3.5-5.2) g/dL Globulin 3.2 (1.3-4.6) g/dL 06/30/20 Range/Units 18:21 WBC (4.0-10.0) 10^3/ uL RBC (4.1-5.3) 10^6/u L Hgb (11.5-15.3) g/dL Hct (37.0-47.0) % MCV (81-99) fL MCH (28.0-34.0) pg MCHC (30.0-36.0) g/dL RDW (12.1-15.1) % Plt Count (130-400) 10^3/c mm MPV (7.4-10.4) fL Neut % (Auto) % Lymph % (Auto) % [place] % (Auto) % Eos % (Auto) % Baso % (Auto) % Neut # (Auto) (1.8-7.7) 10^3/u L Lymph # (Auto) (0.8-4.8) 10^3/u L [place] # (Auto) (0.2-0.9) 10^3/u L Eos # (Auto) (0.0-0.8) 10^3/u L Baso # (Auto) (0.0-0.1) 10^3/u L Nucleated RBC % (a uto) % Nucleated RBCs # /100WBC D-Dimer (0-0.59) ug/mIFE U Sodium (136-145) mmol/L Potassium (3.5-5.1) mmol/L Chloride (98-107) mmol/L Carbon Dioxide (22-29) mmol/L Anion Gap (5-19) BUN (6-20) mg/dL Creatinine (0.5-0.9) mg/dL GFR Calculation (90-130) mL/min Glucose (65-115) mg/dL Calculated Osmolal ity (285-295) mOsm/k g Lactic Acid 2.2 (0.5-2.2) mmol/L Calcium (8.5-10.5) mg/dL Total Bilirubin (0.15-1.2) mg/dL AST (0-32) U/L ALT (0-33) U/L Alkaline Phosphata se (35-105) IU/L C-Reactive Protein (0.0-4.9) mg/L Total Protein (6.6-8.7) g/dL Albumin (3.5-5.2) g/dL Globulin (1.3-4.6) g/dL Imaging Data^: CXR: Attestation: I personally reviewed and interpreted this imaging study as follows: Radiologist's impression: [address] [address] XRay Report Signed Patient: Gerardo Lennon Unit #: [id number] : 1965 Age/Sex: 54 / F ADM Date: 06/30/20 Loc: ER Room/Bed: Attending Dr: Ordering Provider/Ordering MD: Patrick Rodriguez MD Date of Service: 06/30/20 Procedure(s): XR chest 1V portable [id number] Accession Number(s): [id number] Report Number: [id number] PROCEDURE INFORMATION: Exam: XR Chest, 1 View Exam date and time: 06/30/2020 5:37 PM Age: 54 years old Clinical indication: Cough and shortness of breath and other: Covid +; Additional info: SOB TECHNIQUE: Imaging protocol: XR of the chest Views: 1 view. COMPARISON: CR XR chest 1V portable [id number] 06/19/2020 9:34 PM FINDINGS: Lungs: Low lung volumes seen. No consolidation. Pleural space: Elevation of the right hemidiaphragm No pleural effusion. No pneumothorax. Heart/Mediastinum: Unremarkable. No cardiomegaly. Bones/joints: Unremarkable. Other findings: Comparison to prior examination similar findings is seen XR/XR chest 1V portable [id number] IMPRESSION: 1. No acute findings. 2. Low lung volumes EKG Data^: EKG 1: Attestation: I personally reviewed and interpreted this EKG as follows: EKG Interpretation Date: 06/30/20 EKG interpretation time: 18:01 Interpretation: sinus tach hr [address] or t wave abnormalities qrs 106 qtc 383 Discharge Plan Discharge Patient Disposition: Home Clinical Impression: COVID-19 Condition: Stable Prescriptions: New prednisone 50 mg tablet 50 mg PO DAILY Qty: 5 RF: 0 doxycycline hyclate 100 mg tablet 100 mg PO BID 7 Days Qty: 14 RF: 0 albuterol sulfate 90 mcg/actuation HFA aerosol inhaler 2 inh INHALATION Q6H PRN (Reason: shortness of breath or wheezing) Qty: 8 RF: 0 No Action methotrexate sodium 2.5 mg tablet 15 mg PO .Q7days Qty: 30 RF: 2 Hold Instructions: Resume on 07/05/20. folic acid 1 mg tablet 1 mg PO DAILY Qty: 30 RF: 5 fluoxetine 40 mg capsule 40 mg PO DAILY RF: 0 ropinirole 1 mg tablet 2 mg PO BEDTIME RF: 0 simvastatin 10 mg tablet 10 mg PO BEDTIME RF: 0 acetaminophen [Tylenol Extra Strength] 500 mg Tablet 1,000 mg PO PRN RF: 0 lisinopril-hydrochlorothiazide 20-25 mg tablet 1 tab PO DAILY RF: 0 levothyroxine 112 mcg tablet 112 mcg PO DAILY RF: 0 potassium gluconate 595 mg (99 mg) Tablet 595 mg PO EVERY OTHER DAY RF: 0 diclofenac sodium 1 % gel 2 g TOPICAL QID PRN (Reason: Pain) RF: 0 aspirin [Adult Low Dose Aspirin] 81 mg tablet,delayed release (DR/EC) 81 mg PO DAILY Qty: 30 RF: 0 prednisone 1 mg Tablet 1 mg PO DAILY RF: 0 celecoxib 100 mg capsule 100 mg PO DAILY RF: 0 Hold Instructions: Resume on 07/05/20. omeprazole 20 mg Tablet,Delayed Release (Dr/Ec) 20 mg PO DAILY RF: 0 Vitamin D3 50 mcg (2,000 unit) Tablet 50 mcg PO Q7D RF: 0 dexamethasone 4 mg Tablet 6 mg PO DAILY Qty: 3 RF: 0 Discharge Orders: Discharge Order (Routine); Ordered 06/30/20 Ordered By: Patrick Rodriguez Referrals: Naseem Bethea NP [Primary Care Provider] - 1-3 days Discharge Diet: Advance as tolerated Discharge Activity: Resume usual activity Patient Instructions: Upper Respiratory Infection (ED) Coding Level of Care Code ED Automotive Service Advisor for Chg Fwd Exam Comprehensive
[2020-06-30] MEDS: dexamethasone 4 mg/mL INJ 6 MG IVP (18:02)
[2020-06-30] MEDS: LORazepam 2 mg/mL INJ 1 mL 0.5 MG IVP (18:02)
[2020-06-30 18:38] LABS: Basophils % 0.1 %; Eosinophils % 0.1 %; Hematocrit 38.7 % (37.0-47.0); Hemoglobin 11.9 g/dL (11.5-15.3); Lymphocytes # 1.2 10^3/uL (0.8-4.8); Lymphocytes % 12.8 %; Mean Corpuscular HGB Conc 30.7 g/dL (30.0-36.0); Mean Corpuscular Hemoglobin 25.4 pg (28.0-34.0); Mean Corpuscular Volume 82.5 fL (81-99); Mean Platelet Volume 11.6 fL (7.4-10.4); Monocytes # 0.3 10^3/uL (0.2-0.9); Monocytes % 3.6 %; Neutrophils # 7.52 10^3/uL (1.8-7.7); Neutrophils % 83.1 %; Nucleated Red Blood Cells % 0 %; Platelet Count 241 10^3/cmm (130-400); Red Blood Count 4.69 10^6/uL (4.1-5.3); Red Cell Distribution Width 17.2 % (12.1-15.1); White Blood Count 9.1 10^3/uL (4.0-10.0)
[2020-06-30 19:01] LABS: D Dimer 0.48 ug/mIFEU (0-0.59)
[2020-06-30 19:05] LABS: Alanine Aminotransferase 18 U/L (0-33); Alkaline Phosphatase 85 IU/L (35-105); Anion Gap 14.9 (5-19); Aspartate Amino Transferase 20 U/L (0-32); Blood Urea Nitrogen 13 mg/dL (6-20); C Reactive Protein 29.5 mg/L (0.0-4.9); Calcium 9.2 mg/dL (8.5-10.5); Carbon Dioxide 24 mmol/L (22-29); Chloride 96 mmol/L (98-107); Creatinine Clr Calc Pharmacy 115.3924; Globulin 3.2 g/dL (1.3-4.6); Glomerular Filtration Rate 87.2 mL/min (90-130); Glucose 199 mg/dL (65-115); Lactic Sepsis W/Reflex 2.2 mmol/L (0.5-2.2); Osmolality Calculated 278 mOsm/kg (285-295); Potassium 3.9 mmol/L (3.5-5.1); Sodium 131 mmol/L (136-145); Total Bilirubin 0.2 mg/dL (0.15-1.2); Total Protein 7.2 g/dL (6.6-8.7)
[2020-06-30 20:19] LABS: Reflex Lactate Order REFLEX LACTIC ORDERD
[2020-06-30 20:20] VITALS: O2SAT 96
[2020-06-30 21:05] VITALS: BP 134/89; PULSE 96; RESP 32; O2SAT 94
[2020-06-30 21:08] VITALS: BP 134/89; PULSE 102; RESP 32; O2SAT 94
[2020-06-30 21:19] LABS: Fibrinogen 606 mg/dL (174-498)
== END 2020-06-30 21:15 | disposition home or self-care (01) ==
PROVIDERS: Emergency Provider Emergency Medicine; PCP Nurse Practitioner Family
DX: U07.1 COVID-19 (principal); Z79.82 Long term (current) use of aspirin; I10 Essential (primary) hypertension; E78.5 Hyperlipidemia, unspecified; Z87.891 Personal history of nicotine dependence
CPT/HCPCS: 12345; 71045; 80053; 83605; 85025; 85378; 85384; 86140; 93005; 96374; 96375; 99283; 99284; J1100; J2060

== ENCOUNTER 2020-07-15 00:43 | Emergency (ER) | payer MEDICAID, SELFPAY ==
[2020-07-15 00:53] VITALS: BP 140/92; PULSE 140; RESP 32; TEMP 38.1; O2SAT 92; BMI 43.2
--- NOTE | 2020-07-15 01:13 | XRR_ITS ---
PROCEDURE INFORMATION: Exam: XR Chest, 1 View Exam date and time: 07/15/2020 1:14 AM Age: 54 years old Clinical indication: Dyspnea; Additional info: SOB TECHNIQUE: Imaging protocol: XR of the chest Views: 1 view. COMPARISON: CR (CHEST, ) 06/30/2020 6:14 PM FINDINGS: Lungs: There are diffuse strandy opacities present within the hemithoraces bilaterally possibly representing chronic parenchymal scarring and or atelectasis. This is unchanged from 06/30/2020. Pleural space: Unremarkable. No pleural effusion. No pneumothorax. Heart/Mediastinum: Unremarkable. No cardiomegaly. Bones/joints: Unremarkable. XR/XR chest 1V portable [id number] IMPRESSION: Probable bilateral atelectasis versus chronic parenchymal scarring. This appears stable compared with 06/30/2020.
--- NOTE | 2020-07-15 01:13 | ECG_ITS ---
[facility] Test Date: 2020-07-15 Pat Name: Gerardo Lennon Department: Room: Gender: Female Inverform Machine Operator: : 1965 Requested By: Fernando Manuel Order Number: [id number] Rad MD: Emigdio Ballesteros M.D. Measurements Intervals [place] Rate: 130 P: 55 MS: 170 QRS: -6 QRSD: 105 T: 53 QT: 302 QTc: 444 Interpretive Statements SINUS TACHYCARDIA ABNORMAL RHYTHM ECG Compared to ECG 06/30/2020 18:01:19 No significant changes Electronically Signed On 07-15-2020 19:43:25 CDT by Emigdio Ballesteros M.D. [id number]
[2020-07-15] MEDS: LORazepam 2 mg/mL INJ 1 mL 0.5 MG IVP (02:30)
[2020-07-15] MEDS: metoprolol tartrate 1 mg/1 mL SDV 5 mL 5 MG IV (02:30)
[2020-07-15 02:34] LABS: Basophils % 0.2 %; Eosinophils # 0.2 10^3/uL (0.0-0.8); Eosinophils % 1.1 %; Hematocrit 36.4 % (37.0-47.0); Hemoglobin 11.2 g/dL (11.5-15.3); Lymphocytes # 1.5 10^3/uL (0.8-4.8); Lymphocytes % 11.4 %; Mean Corpuscular HGB Conc 30.8 g/dL (30.0-36.0); Mean Corpuscular Hemoglobin 26.5 pg (28.0-34.0); Mean Corpuscular Volume 86.3 fL (81-99); Mean Platelet Volume 11.7 fL (7.4-10.4); Monocytes # 0.7 10^3/uL (0.2-0.9); Monocytes % 5.4 %; Neutrophils # 10.95 10^3/uL (1.8-7.7); Neutrophils % 81.5 %; Nucleated Red Blood Cells % 0 %; Platelet Count 236 10^3/cmm (130-400); Red Blood Count 4.22 10^6/uL (4.1-5.3); Red Cell Distribution Width 17.9 % (12.1-15.1); White Blood Count 13.5 10^3/uL (4.0-10.0)
[2020-07-15 02:52] LABS: D Dimer 0.51 ug/mIFEU (0-0.59)
[2020-07-15 02:57] LABS: Lactic Sepsis W/Reflex 2.1 mmol/L (0.5-2.2)
[2020-07-15 03:07] LABS: Alanine Aminotransferase 19 U/L (0-33); Albumin Level 3.7 g/dL (3.5-5.2); Alkaline Phosphatase 62 IU/L (35-105); Anion Gap 16.7 (5-19); Aspartate Amino Transferase 16 U/L (0-32); Blood Urea Nitrogen 13 mg/dL (6-20); Calcium 9.6 mg/dL (8.5-10.5); Carbon Dioxide 21 mmol/L (22-29); Chloride 101 mmol/L (98-107); Globulin 3.1 g/dL (1.3-4.6); Glomerular Filtration Rate 65.2 mL/min (90-130); Glucose 160 mg/dL (65-115); NT Pro B Type Natriuretic Pept 118 pg/mL (0-125); Osmolality Calculated 284 mOsm/kg (285-295); Potassium 3.7 mmol/L (3.5-5.1); Sodium 135 mmol/L (136-145); Total Bilirubin 0.2 mg/dL (0.15-1.2); Total Protein 6.8 g/dL (6.6-8.7)
[2020-07-15 03:19] LABS: Procalcitonin 0.13 ng/mL (0-0.5)
[2020-07-15 03:30] LABS: C Reactive Protein 25.2 mg/L (0.0-4.9); Ferritin 116 ng/mL (15-150)
[2020-07-15 03:40] VITALS: BP 119/82; PULSE 95; RESP 24; TEMP 36.8; O2SAT 95
[2020-07-15 04:20] LABS: Reflex Lactate Order REFLEX LACTIC ORDERD
[2020-07-15] MEDS: dexamethasone 10 mg/mL INJ IVP (04:20)
--- NOTE | 2020-07-15 04:41 | ED_ITS ---
HPI - SOB/Dyspnea General: Chief Complaint: Shortness of Breath/Dyspnea Stated Complaint: sob Time Seen by Provider: 07/15/20 01:11 History of Present Illness: HPI Narrative: 54-year-old female who tested positive for COVID-19 on June 17. She had been doing well, although she would notes that her heart rate is never been below 100 since she was diagnosed, until yesterday when she began to get short of breath again. She had some increased coughing and a temperature at home. He also noted some palpitations, checked her pulse and her heart rate was high. MD elicited complaint: shortness of breath Pertinent past history: other Onset (ago): day(s) Context: recent illness Timing: intermittent Severity: moderate Exacerbating factors: exertion Relieving factors: nothing Known history of: other Associated symptoms: Reports chest congestion, cough, dizziness, fever(s), nausea and palpitations; Deny chest pain Review of Systems Const: Reports: fever(s) Eyes: Denies: change in vision ENMT: Denies: swelling of lips/tongue, bleeding gums, post nasal drip or sinus pain Card: Reports: palpitations and dyspnea on exertion; Denies: chest pain, edema or swelling of feet/ankles Resp: Reports: chest congestion GI: Reports: nausea : Denies: dysuria or hematuria Musc: Denies: neck pain or joint warmth Skin/Breast: Denies: rash or erythema Neuro: Reports: dizziness Psych: Denies: anxiety PFS ED PFSH: Medical History (Updated 07/15/20 @ 04:15 by Fernando Dixon DO) Arthritis Bronchitis High risk medication use HTN (hypertension) Hyperlipidemia Hypothyroidism Immunization counseling Restless leg syndrome Seronegative rheumatoid arthritis of both hands Surgical History History of carpal tunnel release of both wrists History of nasal surgery History of tonsillectomy Hx of carpal tunnel repair Tubal ligation status Family History Mother Hypertension Family history of premature coronary artery disease Hx of CABG Hyperlipidemia Cancer Headache Father Depression Other CAD (coronary artery disease) Diabetes Denies family history of Rheumatoid arthritis Lupus Chronic kidney disease (CKD) Lung disease Stroke Social History Smoking and tobacco status: former smoker Quit status (tobacco): has quit using tobacco Year quit tobacco: 2014 Alcohol intake: current Alcohol intake frequency: holidays/special occasions only Household members: spouse Housing: House Physical Exam Const: GENERAL APPEARANCE: well developed ORIENTATION/CONSCIOUSNESS: Yes oriented to person, Yes oriented to place and Yes oriented to time HENMT: COMMON NORMALS: normocephalic, external ears normal and Normal external nose present HEAD & SCALP: normocephalic FACE & SINUS: normal facial exam NOSE: Normal external nose present and No nasal discharge present EXTERNAL EAR: Yes external ears normal Eye: COMMON NORMALS: Equal, round and reactive pupils present, EOMs intact bilaterally and conjunctivae normal EYELID: eyelids normal CONJUNCTIVA: Yes conjunctivae normal PUPIL: Yes Equal, round and reactive pupils present Neck/C-Spine: GENERAL: No tracheal deviation Chest: COMMONS NORMALS: normal inspection of the chest CHEST: No tenderness Resp: COMMON NORMALS: clear to auscultation bilaterally EFFORT & INSPECTION: No tachypneic, No respiratory distress, No retractions, No uses accessory muscles and No tracheal deviation AUSCULTATION: clear to auscultation bilaterally, no rhonchi, no wheezes and lung sounds not diminished Cardio: COMMON NORMALS: regular rhythm RATE: tachycardic RHYTHM: regular rhythm HEART SOUNDS: no murmurs PERIPHERAL PULSES: radial pulses present GI: INSPECTION: No abdominal distension AUSCULTATION: No Hyperactive bowel sounds present and No Hypoactive bowel sounds present PALPATION: No Guarding due to palpation present (GI) and No Rigid due to palpation PERCUSSION: no dullness to percussion and no tympanic to percussion Neuro: SENSORIUM/ORIENTATION: Yes oriented to person, Yes oriented to place and Yes oriented to time Psych: COMMON NORMALS: mental status grossly normal Skin: COMMON NORMALS: no rashes or lesions noted GENERAL SKIN EXAM: no rashes or lesions noted Course Vital Signs: Vital signs: Vital Signs Temperature 98.2 F 07/15/20 03:40 Pulse Rate 95 07/15/20 03:40 Respiratory Rate 24 H 07/15/20 03:40 Blood Pressure 119/82 07/15/20 03:40 Pulse Oximetry 95 07/15/20 03:40 MDM - SOB/Dyspnea MDM Narrative: Medical decision making narrative: 54-year-old lady with a history of COVID-19, although she tested positive nearly a month ago. She experienced acute onset shortness of breath, which is improved here. Her white blood cell count is 13.5. Hemoglobin 11.2. Her bicarb is 21. Chest x-ray shows some minimal atelectasis in the bases versus scarring. Her d-dimer is not elevated. She is given an infusion of dexamethasone here. She is also given a small dose of Ativan, which has calmed her breathing and heart rate down significantly. She knows to return for any worsening symptoms. Lab Data: Labs: Lab Results 07/15/20 07/15/20 07/15/20 Range/Units 02:19 02:19 02:19 WBC 13.5 H (4.0-10.0) 10^3/ uL RBC 4.22 (4.1-5.3) 10^6/u L Hgb 11.2 L (11.5-15.3) g/dL Hct 36.4 L (37.0-47.0) % MCV 86.3 (81-99) fL MCH 26.5 L (28.0-34.0) pg MCHC 30.8 (30.0-36.0) g/dL RDW 17.9 H (12.1-15.1) % Plt Count 236 (130-400) 10^3/c mm MPV 11.7 H (7.4-10.4) fL Neut % (Auto) 81.5 % Lymph % (Auto) 11.4 % Mellette % (Auto) 5.4 % Eos % (Auto) 1.1 % Baso % (Auto) 0.2 % Neut # (Auto) 10.95 H (1.8-7.7) 10^3/u L Lymph # (Auto) 1.5 (0.8-4.8) 10^3/u L Mellette # (Auto) 0.7 (0.2-0.9) 10^3/u L Eos # (Auto) 0.2 (0.0-0.8) 10^3/u L Baso # (Auto) 0.0 (0.0-0.1) 10^3/u L Nucleated RBC % (a uto) 0 % Nucleated RBCs # 0.0 /100WBC D-Dimer 0.51 (0-0.59) ug/mIFE U Sodium 135 L (136-145) mmol/L Potassium 3.7 (3.5-5.1) mmol/L Chloride 101 (98-107) mmol/L Carbon Dioxide 21 L (22-29) mmol/L Anion Gap 16.7 (5-19) BUN 13 (6-20) mg/dL Creatinine 0.9 (0.5-0.9) mg/dL GFR Calculation 65.2 L (90-130) mL/min Glucose 160 H (65-115) mg/dL Calculated Osmolal ity 284 L (285-295) mOsm/k g Lactic Acid (0.5-2.2) mmol/L Calcium 9.6 (8.5-10.5) mg/dL Ferritin 116 (15-150) ng/mL Total Bilirubin 0.2 (0.15-1.2) mg/dL AST 16 (0-32) U/L ALT 19 (0-33) U/L Alkaline Phosphata se 62 (35-105) IU/L C-Reactive Protein 25.2 H (0.0-4.9) mg/L NT-Pro-B Natriuret Pep 118 (0-125) pg/mL Total Protein 6.8 (6.6-8.7) g/dL Albumin 3.7 (3.5-5.2) g/dL Globulin 3.1 (1.3-4.6) g/dL Procalcitonin 0.13 (0-0.5) ng/mL 1820 Range/Units 02:19 WBC (4.0-10.0) 10^3/ uL RBC (4.1-5.3) 10^6/u L Hgb (11.5-15.3) g/dL Hct (37.0-47.0) % MCV (81-99) fL MCH (28.0-34.0) pg MCHC (30.0-36.0) g/dL RDW (12.1-15.1) % Plt Count (130-400) 10^3/c mm MPV (7.4-10.4) fL Neut % (Auto) % Lymph % (Auto) % Mellette % (Auto) % Eos % (Auto) % Baso % (Auto) % Neut # (Auto) (1.8-7.7) 10^3/u L Lymph # (Auto) (0.8-4.8) 10^3/u L Mellette # (Auto) (0.2-0.9) 10^3/u L Eos # (Auto) (0.0-0.8) 10^3/u L Baso # (Auto) (0.0-0.1) 10^3/u L Nucleated RBC % (a uto) % Nucleated RBCs # /100WBC D-Dimer (0-0.59) ug/mIFE U Sodium (136-145) mmol/L Potassium (3.5-5.1) mmol/L Chloride (98-107) mmol/L Carbon Dioxide (22-29) mmol/L Anion Gap (5-19) BUN (6-20) mg/dL Creatinine (0.5-0.9) mg/dL GFR Calculation (90-130) mL/min Glucose (65-115) mg/dL Calculated Osmolal ity (285-295) mOsm/k g Lactic Acid 2.1 (0.5-2.2) mmol/L Calcium (8.5-10.5) mg/dL Ferritin (15-150) ng/mL Total Bilirubin (0.15-1.2) mg/dL AST (0-32) U/L ALT (0-33) U/L Alkaline Phosphata se (35-105) IU/L C-Reactive Protein (0.0-4.9) mg/L NT-Pro-B Natriuret Pep (0-125) pg/mL Total Protein (6.6-8.7) g/dL Albumin (3.5-5.2) g/dL Globulin (1.3-4.6) g/dL Procalcitonin (0-0.5) ng/mL Discharge Plan Discharge Patient Disposition: Home Clinical Impression: COVID-19, Bronchitis Condition: Stable Prescriptions: No Action methotrexate sodium 2.5 mg tablet 15 mg PO .Q7days Qty: 30 RF: 2 Hold Instructions: Resume on 07/05/20. folic acid 1 mg tablet 1 mg PO DAILY Qty: 30 RF: 5 cholecalciferol (vitamin D3) 1,250 mcg (50,000 unit) tablet 50,000 unit PO .Q7 days RF: 0 prednisone 10 mg tablet 10 mg PO DAILY Qty: 30 RF: 2 fluoxetine 40 mg capsule 40 mg PO DAILY RF: 0 ropinirole 1 mg tablet 2 mg PO BEDTIME RF: 0 simvastatin 10 mg tablet 10 mg PO BEDTIME RF: 0 acetaminophen [Tylenol Extra Strength] 500 mg Tablet 1,000 mg PO PRN RF: 0 lisinopril-hydrochlorothiazide 20-25 mg tablet 1 tab PO DAILY RF: 0 levothyroxine 112 mcg tablet 112 mcg PO DAILY RF: 0 potassium gluconate 595 mg (99 mg) Tablet 595 mg PO EVERY OTHER DAY RF: 0 diclofenac sodium 1 % gel 2 g TOPICAL QID PRN (Reason: Pain) RF: 0 aspirin [Adult Low Dose Aspirin] 81 mg tablet,delayed release (DR/EC) 81 mg PO DAILY Qty: 30 RF: 0 celecoxib 100 mg capsule 100 mg PO DAILY RF: 0 Hold Instructions: Resume on 07/05/20. omeprazole 20 mg Tablet,Delayed Release (Dr/Ec) 20 mg PO DAILY RF: 0 albuterol sulfate 90 mcg/actuation HFA aerosol inhaler 2 inh INHALATION Q6H PRN (Reason: shortness of breath or wheezing) Qty: 8 RF: 0 Discharge Orders: Discharge Order (Routine); Ordered 07/15/20 Ordered By: Fernnado Dixon Referrals: Naseem Bethea NP [Primary Care Provider] - 4-7 days Discharge Diet: Advance as tolerated Discharge Activity: Increase activity as tolerated Patient Instructions: Acute Bronchitis (ED) Activity Restrictions/Additional Instructions: You were given an injection of steroid this morning which should help your breathing. Return for worsening shortness of breath despite treatment. Return also for chest pain, worsening fever, other concerning symptoms. Make sure you are staying hydrated. 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
--- NOTE | 2020-07-16 05:06 | PC.NURSE ---
Notified Dr. Dixon of patient's positive blood cultures. Gram positive Coci in pairs and clusters. No new orders at this time.
== END 2020-07-15 04:51 | disposition home or self-care (01) ==
PROVIDERS: Emergency Provider Emergency Medicine; PCP Nurse Practitioner Family
DX: U07.1 COVID-19 (principal); J40 Bronchitis, not specified as acute or chronic; Z79.82 Long term (current) use of aspirin; I10 Essential (primary) hypertension; E78.5 Hyperlipidemia, unspecified; Z87.891 Personal history of nicotine dependence
CPT/HCPCS: 12345; 71045; 80053; 82728; 83605; 83880; 84145; 85025; 85378; 86140; 87040; 87205; 93005; 96374; 96375; 99283; 99284; J1100; J2060; J3490

== ENCOUNTER 2020-07-17 10:38 | Outpatient (CLI) | payer OTHER, SELFPAY ==
--- NOTE | 2020-07-17 10:42 | FL_ITS ---
WS: [id number] MODIFIED BARIUM SWALLOW TECHNIQUE: Modified barium swallow with speech therapy using multiple consistencies. FLUOROSCOPY TIME: 1.7 minutes. CLINICAL INFORMATION: Other dysphagia COMPARISON: None. FINDINGS: Multiple consistencies utilized. No evidence of maritza aspiration or penetration. Normal oropharyngeal phase. No difficulties with barium tablet. FL/FL barium swallow modifd [id number] IMPRESSION: Normal barium swallow.
--- NOTE | 2020-07-17 11:27 | USCV_ITS ---
Citlalli Gerardo Age: 54 Gender: F : 1965 Exam Date: 07/17/2020 11:20 Ordering Phys: Bri Munoz MD Technologist: Kathy Lopez Exam Location: [facility] [place] Indication: COVID-19, DYSPNEA BP: 142 / 63 HR: 97 Rhythm: Sinus Technical Quality: Adequate MEASUREMENTS (Male / Female) Normal Values 2D ECHO LV Diastolic Diameter PLAX 3.1 cm 4.2 - 5.9 / 3.9 - 5.3 cm LV Systolic Diameter PLAX 2.3 cm LV Chamber Size 3.2 cm IVS Diastolic Thickness 1.4 cm 0.6 - 1.0 / 0.6 - 0.9 cm IVS Systolic Thickness 2.3 cm LVPW Diastolic Thickness 2.5 cm 0.6 - 1.0 / 0.6 - 0.9 cm LVPW Systolic Thickness 2.1 cm RV Chamber Size 2.2 cm LVOT Diameter 2.0 cm LV Ejection Fraction 2D Teich 48.9 % LV Ejection Fraction MOD 2C 66.3 % LV Ejection Fraction 2C AL 66.6 % LA Diameter 3.4 cm LA Width 2.7 cm LA Height 3.4 cm RA Width 2.8 cm RA Height 2.6 cm Aorta at Sinotubular Diameter 2.5 cm M-MODE LV Diastolic Diameter MM 4.8 cm 4.2 - 5.9 / 3.9 - 5.3 cm LV Systolic Diameter MM 2.8 cm LV Ejection Fraction MM Teich 72.6 % IVS Diastolic Thickness MM 1.3 cm 0.6 - 1.0 / 0.6 - 0.9 cm IVS Systolic Thickness MM 1.6 cm LVPW Diastolic Thickness MM 1.1 cm 0.6 - 1.0 / 0.6 - 0.9 cm LVPW Systolic Thickness MM 1.8 cm Aortic Annulus Diameter 3.6 cm LA Ao Ratio MM 1.2 MV E Point Septal Separation 0.2 cm DOPPLER AV Peak Velocity 165.0 cm/s LVOT Peak Velocity 124.0 cm/s AV Area Cont Eq vti 3.3 cm squared AV Area Cont Eq pk 2.5 cm squared MV Area PHT 6.9 cm squared Mitral E to A Ratio 0.7 MV E' Velocity 45.5 cm/s Mitral E to MV E' Ratio 9.6 Mitral E to LV E' Lateral Ratio 9.0 Mitral E to LV E' Septal Ratio 10.3 TR Peak Velocity 181.3 cm/s TR Peak Gradient 13.1 mmHg TV Peak E Velocity 59.0 cm/s Right Atrial Pressure 3.0 mmHg Pulmonary Artery Systolic Pressu 16.1 mmHg PV Peak Velocity 119.0 cm/s RV Acceleration Time 0.1 s RV Ejection Time 0.3 s RV AcT/ET 0.4 FINDINGS Left Ventricle Normal left ventricular size and systolic function, EF 64 %. No regional wall motion abnormalities. Moderate left ventricular hypertrophy. Grade I/IV diastolic dysfunction (abnormal relaxation filling pattern), normal to mildly elevated filling pressures. Right Ventricle Normal right ventricular size and systolic function. Right Atrium Normal right atrial size. Left Atrium Echodensity in the left atrium appears to be attached to the lateral wall measuring 1.5 x 1.0 Mitral Valve Mild mitral annular calcification. Aortic Valve No gross abnormalities noted Tricuspid Valve Tricuspid valve not well visualized. Pulmonic Valve Pulmonic valve not well visualized. Pericardium Small pericardial effusion. Aorta Normal aortic annulus size. CONCLUSIONS Normal left ventricular size and systolic function, EF 64 %. No regional wall motion abnormalities. Moderate left ventricular hypertrophy. Grade I/IV diastolic dysfunction (abnormal relaxation filling pattern), normal to mildly elevated filling pressures. Echodensity in the left atrium appears to be attached to the lateral wall, possible myxoma.(1.5 x 1.0 cm in diameter) Mild mitral annular calcification. There is no pericardial effusion. Consider COREY, to better evaluate the left atrial mass, if clinically indicated Small pericardial effusion. No previous study is available for comparison. Dr Emigdio Ballesteros MD [facility] (Electronically Signed) Final Date: 17 July 2020 20:40 S
== END 2020-07-17 10:39 | disposition home or self-care (01) ==
LOC: RAD 10:39
PROVIDERS: PCP Nurse Practitioner Family; Visit Provider Internal Medicine
DX: U07.1 COVID-19 (principal); R13.10 Dysphagia, unspecified; M06.9 Rheumatoid arthritis, unspecified; R06.02 Shortness of breath
CPT/HCPCS: 74230; 92611; 93306

== ENCOUNTER 2020-07-23 12:17 | Outpatient (CLI) | payer OTHER, SELFPAY ==
--- NOTE | 2020-07-23 12:33 | XR_ITS ---
WS: [id number] Exam: XR chest 2V* [id number] Date/Time of Exam: 07/23/2020 12:33 PM Reason For Exam: COVID PNEUMONIA Comparison 07/15/2020. Chronic interstitial changes noted bilaterally. No consolidated infiltrates or pneumothorax noted. No pleural effusion. Normal cardiomediastinal structures and bony elements. XR/XR chest 2V* [id number] IMPRESSION: 1. Chronic interstitial changes. No acute process noted.
== END 2020-07-23 12:18 | disposition home or self-care (01) ==
LOC: RAD 12:20
PROVIDERS: PCP Nurse Practitioner Family; Visit Provider Internal Medicine
DX: U07.1 COVID-19 (principal); J18.9 Pneumonia, unspecified organism
CPT/HCPCS: 71046

== ENCOUNTER → 2020-08-31 14:00 | Outpatient (BNVA) | payer MEDICAID, SELFPAY | PROVIDERS: PCP Internal Medicine; Visit Provider Internal Medicine Cardiovascular Disease | DX: Z20.828 Contact with and (suspected) exposure to other viral communicable diseases (principal); Z11.59 Encounter for screening for other viral diseases | CPT/HCPCS: 87426 ==

== ENCOUNTER → 2020-09-07 14:39 | Outpatient (BNVA) | payer OTHER, SELFPAY | PROVIDERS: PCP Internal Medicine; Visit Provider Internal Medicine Cardiovascular Disease | DX: R06.02 Shortness of breath (principal) | CPT/HCPCS: 87635 ==

== ENCOUNTER 2020-09-12 10:51 | Day surgery (SDC) | payer MEDICAID, SELFPAY ==
[2020-08-31 13:17] VITALS: BMI 41.5
--- NOTE | 2020-09-12 11:09 | USCV_ITS ---
Gerardo Lennon Age: 54 Gender: F : 1965 Exam Date: 09/12/2020 11:41 Ordering Phys: Lynsey Morales MD ([email or web address]) Technologist: Bri Thornton Exam Location: [facility] [place] Indication: LEFT ATRIAL MASS BP: / HR: Rhythm: Sinus Technical Quality: Good MEASUREMENTS (Male / Female) Normal Values Medications Patient given IV sedation by anesthesia service, for details please refer to the anesthesia report. Complications None. Proc. Components COREY was performed at multiple levels. FINDINGS Left Ventricle Normal left ventricular size, systolic function and mildly increased wall thickness, with no regional wall motion abnormalities. Left ventricular ejection fraction is estimated at 60-65 %. Right Ventricle Normal right ventricular size and systolic function. Right Atrium Normal right atrial size. Left Atrium Normal left atrial size. Rounded echodense structure in left atrium between left atrial appendage and left superior pulmonary vein, represents prominent coumadin ridge. LA Appendage Normal left atrial appendage. Normal flow velocities in the left atrial appendage. No thrombus visualized in the left atrial appendage. IA Septum Lipomatous hypertrophy of interatrial septum. Mildly aneurysmal interatrial septum. No patent foramen ovale or atrial septal defect by color doppler or agitated saline (bubble) study. Mitral Valve Structurally normal mitral valve. No mitral valve stenosis. Mild mitral valve regurgitation. Aortic Valve Structurally normal trileaflet aortic valve. No aortic valve stenosis. No aortic valve regurgitation. Tricuspid Valve Structurally normal tricuspid valve. No tricuspid valve stenosis. Trace to mild tricuspid valve regurgitation. Pulmonic Valve Structurally normal pulmonic valve. Trace pulmonary valve regurgitation. Pericardium No pericardial effusion. Aorta Normal size aortic root and proximal ascending aorta. No aortic dilation, aneurysm or dissection. CONCLUSIONS 1. Normal left ventricular size, systolic function and mildly increased wall thickness, with no regional wall motion abnormalities. Left ventricular ejection fraction is estimated at 60-65 %. 2. Rounded echodense structure in left atrium between left atrial appendage and left superior pulmonary vein, represents prominent coumadin ridge. 3. No evidence of atrial septal defect or patent formen ovale. 4. Lipomatous hypertrophy of interatrial septum. Mildly aneurysmal interatrial septum. 5. Mild mitral valve regurgitation. 6. No prior similar studies to compare. Lynsey Morales MD (Electronically Signed) Final Date: 20 September 2020 10:01 S
[2020-09-12 11:29] VITALS: BP 128/84; PULSE 87; RESP 16; TEMP 36.7; O2SAT 97
--- NOTE | 2020-09-12 11:35 | ANES.PREANE2 ---
Pre-Anesthetic Assessment Pre-Anesthetic Assessment: Height/Weight: Height 1.65 m Weight 113.398 kg Temp Pulse Resp BP Pulse Ox 98.0 F 87 16 128/84 97 09/12/20 11:29 09/12/20 11:29 09/12/20 11:29 09/12/20 11:29 09/12/20 11:29 Preop Diagnosis: LA mass Proposed Procedure: Operation Date: 09/03/20 12:00 Proposed Procedures p COREY(Not Applicable) - Lynsey Morales MD Operation Date: 09/12/20 12:00 Proposed Procedures p COREY (Transesophageal Echocardiogram)(Not Applicable) - Lynsey Morales MD Familial anesthetic complications: None Was Beta Michaela taken within 24 hours: N/A Last intake: NPO > 8 hrs Social: Social History: Tobacco Exam: Pre-Anes Outpt Exam: alert, oriented x 3, clear to auscultation bilaterally and regular rate & rhythm Airway: Cervical ROM: WNL MP: 4 Dentition: Full Pulmonary: Comments: covid 19 - recovering now bronchitis CV/HEM: CV/HEM: HTN Anesthetic Plan: ASA status: 4 Anesthesia: MAC Risk of > 500 ml blood loss (7ml/kg in children): No PFSH Anesthesia PFSH: Medical History Arthritis Bronchitis High risk medication use HTN (hypertension) Hyperlipidemia Hypothyroidism Immunization counseling Restless leg syndrome Seronegative rheumatoid arthritis of both hands Surgical History History of carpal tunnel release of both wrists History of nasal surgery History of tonsillectomy Hx of carpal tunnel repair Tubal ligation status Family History Mother Hypertension Family history of premature coronary artery disease Hx of CABG Hyperlipidemia Cancer Headache Father Depression Other CAD (coronary artery disease) Diabetes Denies family history of Rheumatoid arthritis Lupus Chronic kidney disease (CKD) Lung disease Stroke Social History Smoking and tobacco status: former smoker Quit status (tobacco): has quit using tobacco Year quit tobacco: 2013 Alcohol intake: current Alcohol intake frequency: holidays/special occasions only Household members: spouse Housing: House Data Anesthesia Cardiac Studies: No Data to Display
--- NOTE | 2020-09-12 11:43 | W.PM.OPSFHP ---
Same Day Surgery H&P Indication for Procedure/HPI DATE OF PROCEDURE: September 12, 2020 CHIEF COMPLAINT/INDICATIONFOR SURGICAL PROCEDURE: Suspicious left atrial mass for myxoma PREOP DIAGNOSIS: Suspicious left atrial mass for myxoma PLANNED PROCEDRUE: Operation Date: 09/03/20 12:00 Proposed Procedures p COREY(Not Applicable) - Lynsey Morales MD Operation Date: 09/12/20 12:00 Proposed Procedures p COREY (Transesophageal Echocardiogram)(Not Applicable) - Lynsey Morales MD Gerardo is a pleasant 54-year-old woman with past medical history of hypertension x 6-7 years, hypothyroidism, restless leg syndrome, former smoker. She gives family history of bypass surgery in mother at age 52 years.She is well known to me as an outpatient. She has started using oxygen recently. She is here for f/u on echo findings. She is here today for elective COERY to evaluate left atrial mass. COVID PCR was done pre procedure and was negative. No new complaints. Physical exam: Gen: NAD, sitting comfortable in bed Neck/HEENT: PERRL, No pallor, icterus. No JVD; ASA 3, Airway 4 RS: CTAB/L CVS: S1, S2, No murmur, rub or gallop Ext: No edema, cyanosis. Medications/Allergies* Home Medications Medication Instructions Recorded Confirmed Type acetaminophen [Tylenol Extra 1,000 mg PO PRN 12/31/19 08/31/20 History Strength] fluoxetine 40 mg PO DAILY 12/31/19 08/31/20 History lisinopril-hydrochlorothiazide 1 tab PO DAILY 12/31/19 08/31/20 History potassium gluconate 595 mg PO EVERY OTHER DAY 12/31/19 08/31/20 History ropinirole 2 mg PO BEDTIME 12/31/19 08/31/20 History simvastatin 10 mg PO BEDTIME 12/31/19 08/31/20 History omeprazole 20 mg PO DAILY 06/19/20 08/31/20 History Euthyrox 125 mcg PO DAILY 08/31/20 08/31/20 History Pristiq 50 mg PO DAILY 08/31/20 08/31/20 History Vitamin C 1,000 mg PO DAILY 08/31/20 08/31/20 History budesonide 1 mg INHALATION DAILY 08/31/20 08/31/20 History prednisone 10 mg PO BID 08/31/20 08/31/20 History zinc 50 mg PO DAILY 08/31/20 08/31/20 History Allergies/Adverse Reactions Allergy/AdvReac Type Severity Reaction Status Date / Time No Known Allergies Allergy Verified 08/31/20 13:06 Pertinent History/Comorbid Conditions* Medical History (Updated 07/26/20 @ 15:22 by Lynsey Morales MD) Arthritis Bronchitis High risk medication use HTN (hypertension) Hyperlipidemia Hypothyroidism Immunization counseling Restless leg syndrome Seronegative rheumatoid arthritis of both hands Surgical History (Updated 05/09/20 @ 20:15 by Zach Gaffney MD) History of carpal tunnel release of both wrists History of nasal surgery History of tonsillectomy Hx of carpal tunnel repair Tubal ligation status Family History (Updated 05/09/20 @ 09:40 by Mandie Schwartz LPN) Diabetes CAD (coronary artery disease) Depression Father Headache Mother Hyperlipidemia Mother Family history of premature coronary artery disease Mother Hx of CABG Mother Cancer Mother Hypertension Mother Denies family history of Rheumatoid arthritis Lupus Chronic kidney disease (CKD) Lung disease Stroke Social History Smoking and tobacco status: former smoker Quit status (tobacco): has quit using tobacco Year quit tobacco: 2013 Alcohol intake: current Alcohol intake frequency: holidays/special occasions only Household members: spouse Housing: House Pertinent Exam Findings alert, oriented x 3, clear to auscultation bilaterally and regular rate & rhythm Related Problem List Diagnoses (1) Left atrial mass: (2) Hyperlipidemia: Qualifiers: Hyperlipidemia type: mixed hyperlipidemia Qualified Code(s): E78.2 - Mixed hyperlipidemia (3) HTN (hypertension): Qualifiers: Hypertension type: essential hypertension Qualified Code(s): I10 - Essential (primary) hypertension (4) Rheumatoid arthritis: Qualifiers: Rheumatoid arthritis location: unspecified site Rheumatoid factor presence: unspecified presence Qualified Code(s): M06.9 - Rheumatoid arthritis, unspecified Recommendations Surgery/Procedure today Coding Level of Care Code Acute Museum 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
[2020-09-12 12:20] VITALS: BP 142/105; PULSE 97; RESP 20; O2SAT 100
--- NOTE | 2020-09-12 12:30 | P.PCN_ITS ---
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 Procedure was explained to the patient in detail and informed consent was obtained. Timeout was called. After achieving adequate sedation, the probe was inserted on first attempt. No blood on the probe post procedure. Prelim report: [Normal left ventricle size and systolic function. No left atrial or left atrial appendage mass or thrombus visualized. No ASD or PFO identified. Full report to follow. Patient tolerated the procedure well and initial recovery in labor relations consultant and subsequently was discharged home. Acute Procedures Epistaxis Control: Time out performed: Yes
[2020-09-12 12:35] VITALS: BP 141/97; PULSE 90; RESP 18; O2SAT 100
[2020-09-12 12:50] VITALS: BP 157/87; PULSE 82; RESP 18; O2SAT 100
--- NOTE | 2020-09-12 12:53 | PC.NURSE ---
post op dr ritchie spoke to patient about findings. pt complains of no pain or discomfort and is able to drink sprite with no issues. vitals obtained q15 minutes as requested by dr ritchie. pt stable and verbalizes no complaints at this time.
== END 2020-09-12 13:15 | disposition home or self-care (01) ==
PROVIDERS: PCP Internal Medicine; Visit Provider Internal Medicine Cardiovascular Disease
PROC: (CPT 93312; principal; 2020-09-12 12:00)
DX: I51.89 Other ill-defined heart diseases (principal); E78.2 Mixed hyperlipidemia; I10 Essential (primary) hypertension; M06.9 Rheumatoid arthritis, unspecified; Z87.891 Personal history of nicotine dependence
CPT/HCPCS: 12345; 93312; 93320; 93325; J2704

== ENCOUNTER → 2020-10-09 11:00 | Outpatient (BNVA) | payer MEDICAID, SELFPAY | PROVIDERS: PCP Internal Medicine; Visit Provider Internal Medicine Rheumatology | DX: M06.041 Rheumatoid arthritis without rheumatoid factor, right hand (principal); M06.042 Rheumatoid arthritis without rheumatoid factor, left hand; Z79.899 Other long term (current) drug therapy; Z79.52 Long term (current) use of systemic steroids; R06.02 Shortness of breath; Z86.16 Personal history of COVID-19; Z87.891 Personal history of nicotine dependence | CPT/HCPCS: 99214 ==

== ENCOUNTER 2020-11-27 14:14 | Outpatient (CLI) | payer MEDICAID, SELFPAY ==
--- NOTE | 2020-11-27 14:21 | XRR_ITS ---
PROCEDURE INFORMATION: Exam: XR Chest Exam date and time: 11/27/2020 2:42 PM Age: 54 years old Clinical indication: Condition or disease; Other: Rheumatoid arthritis without rheumatoid factor; Shortness of breath; Additional info: M06.041 - rheumatoid arthritis without rheumatoid factor, right hand TECHNIQUE: Imaging protocol: XR of the chest Views: 2 views. COMPARISON: CR XR chest 2V* [id number] 07/23/2020 12:46 PM FINDINGS: Lungs: Unremarkable. No consolidation. Pleural spaces: Unremarkable. No pleural effusion. No pneumothorax. Heart/Mediastinum: Unremarkable. No cardiomegaly. Bones/joints: Unremarkable. XR/XR chest 2V* [id number] IMPRESSION: No acute findings.
== END 2020-11-27 14:15 | disposition home or self-care (01) ==
PROVIDERS: PCP Internal Medicine; Visit Provider Internal Medicine Rheumatology
DX: M06.041 Rheumatoid arthritis without rheumatoid factor, right hand (principal)
CPT/HCPCS: 71046

== ENCOUNTER → 2021-01-03 10:47 | Outpatient (BNVA) | payer MEDICAID, SELFPAY | PROVIDERS: PCP Internal Medicine; Visit Provider Internal Medicine Rheumatology | DX: M06.041 Rheumatoid arthritis without rheumatoid factor, right hand (principal); M06.042 Rheumatoid arthritis without rheumatoid factor, left hand; Z79.899 Other long term (current) drug therapy | CPT/HCPCS: 36415; 80076; 82306; 82565; 84439; 84443; 85025 ==

== ENCOUNTER → 2021-01-08 10:40 | Outpatient (BNVA) | payer MEDICAID, SELFPAY | PROVIDERS: PCP Internal Medicine; Visit Provider Internal Medicine Rheumatology | DX: M06.041 Rheumatoid arthritis without rheumatoid factor, right hand (principal); M06.042 Rheumatoid arthritis without rheumatoid factor, left hand; Z79.899 Other long term (current) drug therapy; R10.30 Lower abdominal pain, unspecified; R06.00 Dyspnea, unspecified; R06.02 Shortness of breath; Z87.891 Personal history of nicotine dependence; Z86.16 Personal history of COVID-19 | CPT/HCPCS: 99214 ==

== ENCOUNTER 2021-01-08 12:10 | Emergency (ER) | payer MEDICAID, SELFPAY ==
[2021-01-08 13:41] VITALS: BP 141/82; PULSE 88; RESP 20; TEMP 37.2; O2SAT 98; BMI 41.9
--- NOTE | 2021-01-08 14:02 | W.ED.ABDPA2 ---
HPI - Abdominal Pain General: Chief Complaint: Abdominal Pain Stated Complaint: SENT BY PCP FOR DIVERTICULITIS Time Seen by Provider: 01/08/21 13:50 History of Present Illness: HPI narrative: 55-year-old female presents emergency room complaining of abdominal pain began 3 days ago she had pain in the left lower quadrant she said problems diverticulitis in the past. She is on hydroxychloroquine and prednisone they were debating whether or not to continue these medications if she had a case of diverticulitis and wanted her evaluated. She has had a low-grade fever with some nausea and vomiting no diarrhea. She denies any hematochezia or melena. MD elicited complaint: abdominal pain Pertinent past history: diverticulitis Onset (ago): day(s) (3) Pain Consistency: intermittent Location: LLQ Severity: mild Quality: cramping Migration to: no migration Exacerbating factors: nothing Relieving factors: nothing Associated Symptoms: Reports bloating, GI cramping, nausea, poor appetite and vomiting; Denies anorexia, belching, change in bowel habits, change in stool character, chills, coffee ground emesis, constipation, diarrhea, dyspepsia, dysuria, excessive flatus, fever(s), heartburn, hematochezia, hematuria, hematemesis, fecal incontinence, loose stools, melena and syncope Review of Systems Const: Denies: fever(s) ENMT: Denies: throat pain, ear or mastoid pain, nasal discharge or nasal congestion Card: Denies: syncope Resp: Denies: dyspnea, productive cough or non-productive cough GI: Reports: nausea, vomiting, bloating and GI cramping; Denies: hematemesis, coffee ground emesis, heartburn, diarrhea, constipation, belching, excessive flatus, fecal incontinence, change in bowel habits, change in stool character, hematochezia or melena : Denies: dysuria or hematuria Skin/Breast: Denies: rash or pruritus PFSH ED PFSH: Medical History Arthritis Bronchitis Exertional dyspnea High risk medication use HTN (hypertension) Hyperlipidemia Hypothyroidism Immunization counseling Lower abdominal pain Restless leg syndrome Seronegative rheumatoid arthritis of both hands Surgical History History of carpal tunnel release of both wrists History of nasal surgery History of tonsillectomy Hx of carpal tunnel repair Tubal ligation status Family History Mother Hypertension Family history of premature coronary artery disease Hx of CABG Hyperlipidemia Cancer Headache Father Depression Other CAD (coronary artery disease) Diabetes Denies family history of Rheumatoid arthritis Lupus Chronic kidney disease (CKD) Lung disease Stroke Social History Smoking and tobacco status: former smoker Quit status (tobacco): has quit using tobacco Year quit tobacco: 2013 Alcohol intake: current Alcohol intake frequency: holidays/special occasions only Household members: spouse Housing: House Physical Exam Const: COMMON NORMALS: no acute distress GENERAL APPEARANCE: cooperative and comfortable ORIENTATION/CONSCIOUSNESS: Yes awake, Yes oriented to person, Yes oriented to place and Yes oriented to time HENMT: COMMON NORMALS: normocephalic, atraumatic and hearing grossly normal bilaterally HEAD & SCALP: normocephalic and atraumatic Neck/C-Spine: COMMON NORMALS: no JVD Resp: COMMON NORMALS: normal respiratory effort, No retractions, No use of accessory muscles and clear to auscultation bilaterally AUSCULTATION: clear to auscultation bilaterally Cardio: COMMON NORMALS: no JVD, regular rate, regular rhythm and No murmurs present (Cardio) RATE: regular rate RHYTHM: regular rhythm GI: COMMON NORMALS: No hepatosplenomegaly present AUSCULTATION: Yes normoactive bowel sounds PALPATION: Yes Tenderness to palpation present (GI) Details: LLQ, No Guarding due to palpation present (GI) and Yes No hepatosplenomegaly present Extremity: COMMON NORMALS: normal to inspection, capillary refill normal, no clubbing, cyanosis or edema, no calf tenderness and no pedal edema Neuro: SENSORIUM/ORIENTATION: Yes oriented to person, Yes oriented to place and Yes oriented to time Skin: COMMON NORMALS: no rashes or lesions noted GENERAL SKIN EXAM: no rashes or lesions noted Course Vital Signs: Vital signs: Vital Signs Temperature 99.0 F 01/08/21 13:41 Pulse Rate 88 01/08/21 13:41 Respiratory Rate 15 01/08/21 14:27 Blood Pressure 141/82 01/08/21 13:41 Pulse Oximetry 98 01/08/21 13:41 MDM - Abdominal Pain MDM Narrative: Medical decision making narrative: CT reviewed. It shows a small segment of diverticulitis we will start her on Cipro and Flagyl clear liquid diet advance as tolerated. Recommend she contact her talking books library clerk for further recommendations regarding her rheumatologic medications. Lab Data: Labs: Lab Results 01/08/21 01/08/21 01/08/21 Range/Units 14:15 14:23 14:23 WBC 14.7 H (4.0-10.0) 10^3/ uL RBC 4.05 L (4.1-5.3) 10^6/u L Hgb 11.1 L (11.5-15.3) g/dL Hct 35.6 L (37.0-47.0) % MCV 87.9 (81-99) fL MCH 27.4 L (28.0-34.0) pg MCHC 31.2 (30.0-36.0) g/dL RDW 17.2 H (12.1-15.1) % Plt Count 336 (130-400) 10^3/c mm MPV 11.0 H (7.4-10.4) fL Neut % (Auto) 90.2 % Lymph % (Auto) 6.8 % [place] % (Auto) 2.2 % Eos % (Auto) 0.3 % Baso % (Auto) 0.2 % Neut # (Auto) 13.30 H (1.8-7.7) 10^3/u L Lymph # (Auto) 1.0 (0.8-4.8) 10^3/u L [place] # (Auto) 0.3 (0.2-0.9) 10^3/u L Eos # (Auto) 0.0 (0.0-0.8) 10^3/u L Baso # (Auto) 0.0 (0.0-0.1) 10^3/u L Nucleated RBC % (a uto) 0 % Nucleated RBCs # 0.0 /100WBC Sodium 133 L (136-145) mmol/L Potassium 3.8 (3.5-5.1) mmol/L Chloride 97 L (98-107) mmol/L Carbon Dioxide 27 (22-29) mmol/L Anion Gap 12.8 (5-19) BUN 13 (6-20) mg/dL Creatinine 0.8 (0.5-0.9) mg/dL GFR Calculation 74.5 L (90-130) mL/min Glucose 107 (65-115) mg/dL Calculated Osmolal ity 277 L (285-295) mOsm/k g Lactic Acid (0.5-2.2) mmol/L Calcium 9.5 (8.5-10.5) mg/dL Total Bilirubin 0.4 (0.15-1.2) mg/dL AST 22 (0-32) U/L ALT 25 (0-33) U/L Alkaline Phosphata se 95 (35-105) IU/L Total Protein 7.9 (6.6-8.7) g/dL Albumin 4.3 (3.5-5.2) g/dL Globulin 3.6 (1.3-4.6) g/dL Urine Color Straw (Yellow) Urine Appearance Clear (CLEAR) Urine pH 6 (5-7) Ur Specific Gravit y 1.010 (1.005-1.030) Urine Protein Neg (Negative) Urine Glucose (UA) Norm (Normal) Urine Ketones Negative (Negative) Urine Blood Neg (Negative) Urine Nitrate Negative (Negative) Urine Bilirubin Neg (Negative) Urine Urobilinogen Norm (Negative) mg/dL Ur Leukocyte Khadijah ase Negative (Negative) 01/08/21 Range/Units 14:23 WBC (4.0-10.0) 10^3/ uL RBC (4.1-5.3) 10^6/u L Hgb (11.5-15.3) g/dL Hct (37.0-47.0) % MCV (81-99) fL MCH (28.0-34.0) pg MCHC (30.0-36.0) g/dL RDW (12.1-15.1) % Plt Count (130-400) 10^3/c mm MPV (7.4-10.4) fL Neut % (Auto) % Lymph % (Auto) % [place] % (Auto) % Eos % (Auto) % Baso % (Auto) % Neut # (Auto) (1.8-7.7) 10^3/u L Lymph # (Auto) (0.8-4.8) 10^3/u L [place] # (Auto) (0.2-0.9) 10^3/u L Eos # (Auto) (0.0-0.8) 10^3/u L Baso # (Auto) (0.0-0.1) 10^3/u L Nucleated RBC % (a uto) % Nucleated RBCs # /100WBC Sodium (136-145) mmol/L Potassium (3.5-5.1) mmol/L Chloride (98-107) mmol/L Carbon Dioxide (22-29) mmol/L Anion Gap (5-19) BUN (6-20) mg/dL Creatinine (0.5-0.9) mg/dL GFR Calculation (90-130) mL/min Glucose (65-115) mg/dL Calculated Osmolal ity (285-295) mOsm/k g Lactic Acid 0.8 (0.5-2.2) mmol/L Calcium (8.5-10.5) mg/dL Total Bilirubin (0.15-1.2) mg/dL AST (0-32) U/L ALT (0-33) U/L Alkaline Phosphata se (35-105) IU/L Total Protein (6.6-8.7) g/dL Albumin (3.5-5.2) g/dL Globulin (1.3-4.6) g/dL Urine Color (Yellow) Urine Appearance (CLEAR) Urine pH (5-7) Ur Specific Gravit y (1.005-1.030) Urine Protein (Negative) Urine Glucose (UA) (Normal) Urine Ketones (Negative) Urine Blood (Negative) Urine Nitrate (Negative) Urine Bilirubin (Negative) Urine Urobilinogen (Negative) mg/dL Ur Leukocyte Khadijah ase (Negative) Discharge Plan Discharge Patient Disposition: Home Clinical Impression: Diverticulitis, Seronegative rheumatoid arthritis of both hands, High risk medication use Condition: Stable Prescriptions: New ciprofloxacin HCl 500 mg tablet 500 mg PO BID Qty: 14 RF: 0 Flagyl 500 mg tablet 500 mg PO BID 7 Days Qty: 14 RF: 0 No Action fluoxetine 40 mg capsule 40 mg PO DAILY@07 RF: 0 ropinirole 1 mg tablet 2 mg PO BEDTIME@19 RF: 0 acetaminophen [Tylenol Extra Strength] 500 mg Tablet 1,000 mg PO DAILY PRN (Reason: Pain) RF: 0 lisinopril-hydrochlorothiazide 20-25 mg tablet 1 tab PO DAILY@07 RF: 0 potassium gluconate 595 mg (99 mg) Tablet 595 mg PO DAILY@07 RF: 0 omeprazole 20 mg Tablet,Delayed Release (Dr/Ec) 20 mg PO DAILY@07 RF: 0 ascorbic acid (vitamin C) [Vitamin C] 1,000 mg Tablet 1,000 mg PO DAILY@07 RF: 0 zinc 50 mg Capsule 50 mg PO DAILY@07 RF: 0 budesonide 1 mg/2 mL Suspension For Nebulization 0.5 mg inhalation BID PRN (Reason: Shortness Of Breath) RF: 0 desvenlafaxine succinate [Pristiq] 50 mg Tablet Extended Release 24 Hr 50 mg PO DAILY@07 RF: 0 multivitamin Tablet 1 tab PO DAILY@07 RF: 0 Vitamin B-12 1,000 mcg Tablet 1,000 mcg PO DAILY@07 RF: 0 flaxseed oil 1,000 mg Capsule 1,000 mg PO DAILY@07 RF: 0 hydroxyzine HCl 25 mg Tablet 25 mg PO TID PRN (Reason: Anxiety) RF: 0 Euthyrox 112 mcg tablet 112 mcg PO DAILY@07 RF: 0 Vitamin D3 25 mcg (1,000 unit) Tablet 25 mcg PO DAILY@07 RF: 0 prednisone 5 mg tablet 10 mg PO DAILY@07 RF: 0 Adult Low Dose Aspirin 81 mg tablet,delayed release (DR/EC) 81 mg PO DAILY@07 RF: 0 folic acid 1 mg tablet 1 mg PO DAILY@07 RF: 0 hydroxychloroquine 200 mg tablet 200 mg PO BID@ RF: 0 Discharge Orders: Discharge ED (Routine); Ordered 01/08/21 Ordered By: Dangelo Mccarthy Referrals: Bri Munoz MD [Primary Care Provider] - Discharge Diet: Usual diet Discharge Activity: Increase activity as tolerated Patient Instructions: Opioid Safety Activity Restrictions/Additional Instructions: You are treated for diverticulitis. Contact your talking books library clerk to see what he wishes to do with your other medications. Antibiotics were given her both 1 p.o. twice daily for 7 days. Coding Level of Care Code ED Route Driver Salesperson for [facility]rema Exam Comprehensive
--- NOTE | 2021-01-08 14:03 | CT_ITS ---
WS: [id number] CT ABDOMEN AND PELVIS WITH CONTRAST HISTORY: Abdominal pain for 3 days. TECHNIQUE: Imaging performed of the abdomen and pelvis with IV contrast. Single phase imaging of the abdomen. Coronal and sagittal reformats are submitted. All CT scans at [facility] use at least one of these dose optimization techniques: automated exposure control; mA and/or kV adjustment per patient size (includes targeted exams where dose is matched to clinical indication); or iterativ e reconstruction. IV CONTRAST: Omnipaque 300; 95 mL IV. Oral contrast: No DLP: 2007.77 mGy.cm COMPARISON: 12/24/2017 Lower thorax: Lung bases are clear. Mildly enlarged heart. Small hiatal hernia. Liver/biliary system: Normal size with hepatic steatosis. Gallbladder: Normal. No gallstones or wall thickening. No pericholecystic fluid. Pancreas: Normal. Spleen: Normal. Adrenal glands: Normal. Right kidney: Normal. Left kidney: Normal. Aorta: Normal. Lymphadenopathy: None. Free fluid: None. GI tract: Focal area of moderate to severe diverticulitis involving the proximal sigmoid colon. There are numerous inflamed diverticula and a large amount of inflammation. Numerous additional noninfecte d diverticula. No abscess or free air identified. No free fluid. Abdominal wall: Fat containing umbilical hernia. Pelvis: Normal size uterus and ovaries. No free fluid. Bones: Unremarkable. CT/CT abdomen pelvis w con* [id number] IMPRESSION: 1. Focal area moderate to severe diverticulosis without abscess or free air. 2. Additional numerous diverticula without diverticulitis. 3. Small hiatal hernia. 4. Very minimal hepatic steatosis.
[2021-01-08 14:27] VITALS: RESP 15
[2021-01-08 14:30] LABS: Add Urine Microscopic? NO; Charge for UA Resulting for Rev
[2021-01-08 14:32] LABS: Basophils % 0.2 %; Eosinophils % 0.3 %; Hematocrit 35.6 % (37.0-47.0); Hemoglobin 11.1 g/dL (11.5-15.3); Lymphocytes % 6.8 %; Mean Corpuscular HGB Conc 31.2 g/dL (30.0-36.0); Mean Corpuscular Hemoglobin 27.4 pg (28.0-34.0); Mean Corpuscular Volume 87.9 fL (81-99); Monocytes # 0.3 10^3/uL (0.2-0.9); Monocytes % 2.2 %; Neutrophils % 90.2 %; Nucleated Red Blood Cells % 0 %; Platelet Count 336 10^3/cmm (130-400); Red Blood Count 4.05 10^6/uL (4.1-5.3); Red Cell Distribution Width 17.2 % (12.1-15.1); White Blood Count 14.7 10^3/uL (4.0-10.0)
[2021-01-08] MEDS: iohexol 300 mg/mL 100 mL Btl IV (14:41)
[2021-01-08 14:42] LABS: Bilirubin Urine Neg (Negative); Blood Urine Neg (Negative); Glucose Urine UA Norm (Normal); Ketones Urine Negative (Negative); Leukocyte Esterase Urine Negative (Negative); Nitrate Urine Negative (Negative); Protein Urine Neg (Negative); Urine Appearance Clear (CLEAR); Urine Color Straw (Yellow); Urobilinogen Urine Norm (Negative); pH Urine 6 (5-7)
[2021-01-08 14:54] LABS: Alanine Aminotransferase 25 U/L (0-33); Albumin Level 4.3 g/dL (3.5-5.2); Alkaline Phosphatase 95 IU/L (35-105); Anion Gap 12.8 (5-19); Aspartate Amino Transferase 22 U/L (0-32); Blood Urea Nitrogen 13 mg/dL (6-20); Calcium 9.5 mg/dL (8.5-10.5); Carbon Dioxide 27 mmol/L (22-29); Chloride 97 mmol/L (98-107); Globulin 3.6 g/dL (1.3-4.6); Glomerular Filtration Rate 74.5 mL/min (90-130); Glucose 107 mg/dL (65-115); Lactic Sepsis W/Reflex 0.8 mmol/L (0.5-2.2); Osmolality Calculated 277 mOsm/kg (285-295); Potassium 3.8 mmol/L (3.5-5.1); Sodium 133 mmol/L (136-145); Total Bilirubin 0.4 mg/dL (0.15-1.2); Total Protein 7.9 g/dL (6.6-8.7)
== END 2021-01-08 15:37 | disposition home or self-care (01) ==
PROVIDERS: Physician Assistant; Emergency Provider Family Medicine; PCP Internal Medicine
DX: K57.92 Diverticulitis of intestine, part unspecified, without perforation or abscess without bleeding (principal); M06.042 Rheumatoid arthritis without rheumatoid factor, left hand; M06.041 Rheumatoid arthritis without rheumatoid factor, right hand; Z79.82 Long term (current) use of aspirin; I10 Essential (primary) hypertension; E78.5 Hyperlipidemia, unspecified; Z87.891 Personal history of nicotine dependence
CPT/HCPCS: 74177; 80053; 81003; 83605; 85025; 99283; Q9967

== ENCOUNTER → 2021-01-18 10:49 | Outpatient (BNVA) | payer MEDICAID, SELFPAY | PROVIDERS: PCP Internal Medicine; Visit Provider Internal Medicine Rheumatology | DX: Z01.812 Encounter for preprocedural laboratory examination (principal); Z20.822 Contact with and (suspected) exposure to COVID-19 | CPT/HCPCS: 87635 ==

== ENCOUNTER 2021-01-24 08:04 | Outpatient (CLI) | payer MEDICAID, SELFPAY ==
--- NOTE | 2021-01-24 14:31 | PFTS_ITS ---
Date of Study:01/24/21 Date of Dictation: 01/24/2021 MECHANICS: Post bronchodilator forced vital capacity (FVC) is reduced Post bronchodilator forced expiratory volume in one second (FEV1) is moderately reduced 60% FEV1/FVC is normal. There is significant response to bronchodilators. FLOW VOLUME LOOP: Sloping of expiratory limb suggestive of airway obstruction.. LUNG VOLUMES: TLC is mildly reduced 73%. RV is normal. DIFFUSING CAPACITY FOR CARBON MONOXIDE: Mildly reduced 65% . INTERPRETATION: The pulmonary function tests are consistent with restrictive lung disease with mildly reduced lung volumes and mild gas transfer defect. There is significant response to bronchodilators. Please correlate clinically. MTDD
== END 2021-01-24 08:05 | disposition home or self-care (01) ==
LOC: RT 08:05
PROVIDERS: PCP Internal Medicine; Visit Provider Internal Medicine Rheumatology
DX: M06.041 Rheumatoid arthritis without rheumatoid factor, right hand (principal); M06.042 Rheumatoid arthritis without rheumatoid factor, left hand; R06.02 Shortness of breath
CPT/HCPCS: 94060; 94726; 94729; J7611

== ENCOUNTER → 2021-02-06 08:49 | Outpatient (BNVA) | payer MEDICAID, SELFPAY | PROVIDERS: PCP Internal Medicine; Visit Provider Internal Medicine Rheumatology | DX: M06.9 Rheumatoid arthritis, unspecified (principal); Z79.899 Other long term (current) drug therapy | CPT/HCPCS: 36415; 80076; 82565; 85025; 86140 ==

== ENCOUNTER → 2021-02-14 11:02 | Outpatient (BNVA) | payer MEDICAID, SELFPAY | PROVIDERS: PCP Internal Medicine; Visit Provider Internal Medicine Rheumatology | DX: M06.041 Rheumatoid arthritis without rheumatoid factor, right hand (principal); M06.042 Rheumatoid arthritis without rheumatoid factor, left hand; Z79.899 Other long term (current) drug therapy; Z79.52 Long term (current) use of systemic steroids; J98.4 Other disorders of lung; R06.02 Shortness of breath; Z86.16 Personal history of COVID-19; Z87.891 Personal history of nicotine dependence | CPT/HCPCS: 99214 ==

== ENCOUNTER 2021-02-20 10:46 | Outpatient (CLI) | payer MEDICAID, SELFPAY ==
--- NOTE | 2021-02-20 10:48 | MM_ITS ---
WS: [id number] SCREENING DIGITAL MAMMOGRAM WITH CAD HISTORY: SCREENING COMPARISON: None available. Bilateral CC and MLO views submitted. Computer aided detection analyzed. Breast composition: There are scattered areas of fibroglandular density. No suspicious masses, microc alcifications or architectural distortion. MM/[place] [id number] IMPRESSION: BI-RADS: 1-Negative FOLLOW UP: 1 Year Follow-up
== END 2021-02-20 10:47 | disposition home or self-care (01) ==
LOC: RADSHAW 10:47
PROVIDERS: PCP Internal Medicine; Visit Provider Nurse Practitioner Family
DX: Z12.31 Encounter for screening mammogram for malignant neoplasm of breast (principal)
CPT/HCPCS: 77067

== ENCOUNTER 2021-03-04 17:46 | Inpatient (IN) | payer MEDICAID, SELFPAY ==
[2021-03-04 17:55] VITALS: BP 138/99; PULSE 135; RESP 26; TEMP 38.6; O2SAT 97; BMI 42.9
--- NOTE | 2021-03-04 18:04 | XRR_ITS ---
PROCEDURE INFORMATION: Exam: XR Chest Exam date and time: 03/04/2021 6:07 PM Age: 55 years old Clinical indication: Fever and shortness of breath TECHNIQUE: Imaging protocol: XR of the chest. Views: 1 view. COMPARISON: CR XR chest 2V* [id number] 11/27/2020 2:49 PM FINDINGS: Lungs: Coarsened reticular interstitial lung changes. Negative for focal airspace consolidation. Pleural spaces: Unremarkable. No pleural effusion. No pneumothorax. Heart/Mediastinum: Borderline cardiac enlargement. No significant dilation of central pulmonary arteries. Bones/joints: Unremarkable. XR/XR chest 1V portable [id number] IMPRESSION: 1. Prominent pulmonary interstitium may reflect background chronic changes. 2. No focal pulmonary consolidation.
--- NOTE | 2021-03-04 18:11 | ED_ITS ---
HPI - SOB/Dyspnea General: Chief Complaint: Shortness of Breath/Dyspnea Stated Complaint: SOB AND FEVER Time Seen by Provider: 03/04/21 17:56 Source: patient Mode of arrival: ambulatory Limitations: no limitations History of Present Illness: HPI Narrative: 55-year-old female that states she has been having increasing shortness of breath for months and months. She states it seems to be worse with exertion and is seeing a orthopaedic doctor concerned she may have pulmonary fibrosis. She states she is also put on roughly 70 pounds over the last 2 years as well. She states that tonight at home though she did have a temperature of 102. She denies any cough or sick contacts. She denies any pain anywhere. She denies any worsening improving factors. MD elicited complaint: shortness of breath Associated symptoms: Reports fever(s); Deny abdominal pain, chest pain, nausea or vomiting Review of Systems Const: Reports: fever(s) Eyes: Denies: blurry vision or eye discomfort ENMT: Denies: throat pain or dental pain Card: Denies: chest pain Resp: Reports: dyspnea GI: Denies: abdominal pain, nausea, vomiting or diarrhea : Denies: dysuria Musc: Denies: neck pain or back pain Skin/Breast: Denies: rash Neuro: Denies: headache(s) Psych: Denies: depression Ritesh/Lymph: Denies: easy bruising All/Imm: Denies: urticaria PFSH ED PFSH: Medical History (Updated 03/04/21 @ 20:29 by Linda Stapleton MD) Arthritis Chronic steroid use COPD (chronic obstructive pulmonary disease) COVID-19 (~05/2020) High risk medication use Humira, leflunomide, plaquenil, prednisone History of diverticulitis History of echocardiogram TTE 07/17/20 EF 64%, mod LVH, I/IV diastolic dysfunction, normal to mildly elevated filling pressures COREY 09/02/20 no atrial mass History of stress test (01/11/20) HTN (hypertension) Hyperlipidemia Hypothyroidism LEX on CPAP Restless leg syndrome Restrictive airway disease Seronegative rheumatoid arthritis of both hands Surgical History (Updated 03/04/21 @ 20:29 by Linda Stapleton MD) History of carpal tunnel release of both wrists History of nasal surgery History of tonsillectomy Hx of carpal tunnel repair Tubal ligation status Family History Mother Hypertension Family history of premature coronary artery disease Hx of CABG Hyperlipidemia Cancer Headache Father Depression Other CAD (coronary artery disease) Diabetes Denies family history of Rheumatoid arthritis Lupus Chronic kidney disease (CKD) Lung disease Stroke Social History (Updated 03/04/21 @ 20:30 by Linda Stapleton MD) Smoking and tobacco status: former smoker Quit status (tobacco): has quit using tobacco Year quit tobacco: 2013 [id number] Second hand smoke exposure: No Alcohol intake: current Alcohol intake frequency: holidays/special occasions only Lives independently: Yes Household members: spouse Housing: House Marital status: service: No Current occupational status: employed Pets and animals: Yes History of recent travel: No Current gender identity: Female Physical Exam Const: COMMON NORMALS: no acute distress, patient oriented x3 and healthy appearing HENMT: COMMON NORMALS: normocephalic and atraumatic HEAD & SCALP: normocephalic and atraumatic Eye: COMMON NORMALS: Equal, round and reactive pupils present and EOMs intact bilaterally PUPIL: Yes Equal, round and reactive pupils present Neck/C-Spine: COMMON NORMALS: full ROM and supple Chest: COMMONS NORMALS: normal inspection of the chest and normal palpation of entire chest wall Resp: COMMON NORMALS: normal respiratory effort, No retractions, No use of accessory muscles and clear to auscultation bilaterally AUSCULTATION: clear to auscultation bilaterally Cardio: COMMON NORMALS: regular rate, regular rhythm and No murmurs present (Cardio) RATE: regular rate and tachycardic RHYTHM: regular rhythm GI: COMMON NORMALS: Normal to inspection, nondistended, normoactive bowel sounds present, Soft to palpation, non-tender and no masses PALPATION: Yes Soft to palpation Extremity: COMMON NORMALS: normal to inspection and full ROM Neuro: COMMON NORMALS: patient oriented x3, moves all extremities and no focal motor deficits Psych: COMMON NORMALS: mental status grossly normal, Normal thought process present and cooperative THOUGHT PROCESS: Normal thought process present Skin: COMMON NORMALS: no rashes or lesions noted and no wounds GENERAL SKIN EXAM: no rashes or lesions noted Course Vital Signs: Vital signs: Vital Signs Temperature 101.5 F H 03/04/21 17:55 Pulse Rate 117 H 03/04/21 19:59 Respiratory Rate 19 H 03/04/21 19:59 Blood Pressure 113/70 03/04/21 19:59 Pulse Oximetry 96 03/04/21 19:59 MDM - SOB/Dyspnea MDM Narrative: Medical decision making narrative: Patient presents here with fever along with shortness of breath. Patient does meet sepsis criteria had a normal lactate and her blood pressures here been normal. CT showed a possible pleural effusion with loculation. We will start IV antibiotics I spoke to the hospitalist will admit. She has been stable while here. Lab Data: Labs: Lab Results 03/04/21 03/04/21 03/04/21 Range/Units 18:10 18:10 18:10 WBC 13.0 H (4.0-10.0) 10^3/ uL RBC 4.52 (4.1-5.3) 10^6/u L Hgb 12.0 (11.5-15.3) g/dL Hct 37.0 (37.0-47.0) % MCV 81.9 (81-99) fL MCH 26.5 L (28.0-34.0) pg MCHC 32.4 (30.0-36.0) g/dL RDW 16.0 H (12.1-15.1) % Plt Count 356 (130-400) 10^3/c mm MPV 11.0 H (7.4-10.4) fL Neut % (Auto) 80.7 % Lymph % (Auto) 13.2 % [place] % (Auto) 5.2 % Eos % (Auto) 0.2 % Baso % (Auto) 0.4 % Neut # (Auto) 10.50 H (1.8-7.7) 10^3/u L Lymph # (Auto) 1.7 (0.8-4.8) 10^3/u L [place] # (Auto) 0.7 (0.2-0.9) 10^3/u L Eos # (Auto) 0.0 (0.0-0.8) 10^3/u L Baso # (Auto) 0.1 (0.0-0.1) 10^3/u L Nucleated RBC % (a uto) 0 % Nucleated RBCs # 0.0 /100WBC Sodium 137 (136-145) mmol/L Potassium 3.9 (3.5-5.1) mmol/L Chloride 99 (98-107) mmol/L Carbon Dioxide 23 (22-29) mmol/L Anion Gap 18.9 (5-19) BUN 13 (6-20) mg/dL Creatinine 0.7 (0.5-0.9) mg/dL GFR Calculation 86.9 L (90-130) mL/min Glucose 111 (65-115) mg/dL Calculated Osmolal ity 285 (285-295) mOsm/k g Lactate 2.2 (0.5-2.2) mmol/L Calcium 9.2 (8.5-10.5) mg/dL Total Bilirubin 0.2 (0.15-1.2) mg/dL AST 20 (0-32) U/L ALT 23 (0-33) U/L Alkaline Phosphata se 84 (35-105) IU/L Troponin T Baselin e (0-10) ng/L Troponin T 120 Min wiyot (0-10) ng/L Delta Troponin T (0-10) ABS# NT-Pro-B Natriuret Pep 89 (0-125) pg/mL Total Protein 7.3 (6.6-8.7) g/dL Albumin 4.4 (3.5-5.2) g/dL Globulin 2.9 (1.3-4.6) g/dL Urine Color (Yellow) Urine Appearance (CLEAR) Urine pH (5-7) Ur Specific Gravit y (1.005-1.030) Urine Protein (Negative) Urine Glucose (UA) (Normal) Urine Ketones (Negative) Urine Blood (Negative) Urine Nitrate (Negative) Urine Bilirubin (Negative) Prot Sulfosalicyli c Acd (Negative) Urine Urobilinogen (Negative) mg/dL Ur Leukocyte Khadijah ase (Negative) SARS-CoV-2 Ag (Rap id) (Negative) 03/04/21 03/04/21 03/04/21 Range/Units 18:10 18:15 18:17 WBC (4.0-10.0) 10^3/ uL RBC (4.1-5.3) 10^6/u L Hgb (11.5-15.3) g/dL Hct (37.0-47.0) % MCV (81-99) fL MCH (28.0-34.0) pg MCHC (30.0-36.0) g/dL RDW (12.1-15.1) % Plt Count (130-400) 10^3/c mm MPV (7.4-10.4) fL Neut % (Auto) % Lymph % (Auto) % [place] % (Auto) % Eos % (Auto) % Baso % (Auto) % Neut # (Auto) (1.8-7.7) 10^3/u L Lymph # (Auto) (0.8-4.8) 10^3/u L [place] # (Auto) (0.2-0.9) 10^3/u L Eos # (Auto) (0.0-0.8) 10^3/u L Baso # (Auto) (0.0-0.1) 10^3/u L Nucleated RBC % (a uto) % Nucleated RBCs # /100WBC Sodium (136-145) mmol/L Potassium (3.5-5.1) mmol/L Chloride (98-107) mmol/L Carbon Dioxide (22-29) mmol/L Anion Gap (5-19) BUN (6-20) mg/dL Creatinine (0.5-0.9) mg/dL GFR Calculation (90-130) mL/min Glucose (65-115) mg/dL Calculated Osmolal ity (285-295) mOsm/k g Lactate (0.5-2.2) mmol/L Calcium (8.5-10.5) mg/dL Total Bilirubin (0.15-1.2) mg/dL AST (0-32) U/L ALT (0-33) U/L Alkaline Phosphata se (35-105) IU/L Troponin T Baselin e 7 (0-10) ng/L Troponin T 120 Min wiyot (0-10) ng/L Delta Troponin T (0-10) ABS# NT-Pro-B Natriuret Pep (0-125) pg/mL Total Protein (6.6-8.7) g/dL Albumin (3.5-5.2) g/dL Globulin (1.3-4.6) g/dL Urine Color Straw (Yellow) Urine Appearance Clear (CLEAR) Urine pH 8 H (5-7) Ur Specific Gravit y 1.015 (1.005-1.030) Urine Protein Neg (Negative) Urine Glucose (UA) Norm (Normal) Urine Ketones Negative (Negative) Urine Blood Neg (Negative) Urine Nitrate Negative (Negative) Urine Bilirubin Neg (Negative) Prot Sulfosalicyli c Acd Negative (Negative) Urine Urobilinogen Norm (Negative) mg/dL Ur Leukocyte Khadijah ase Negative (Negative) SARS-CoV-2 Ag (Rap id) Negative (Negative) 03/04/21 Range/Units 20:08 WBC (4.0-10.0) 10^3/ uL RBC (4.1-5.3) 10^6/u L Hgb (11.5-15.3) g/dL Hct (37.0-47.0) % MCV (81-99) fL MCH (28.0-34.0) pg MCHC (30.0-36.0) g/dL RDW (12.1-15.1) % Plt Count (130-400) 10^3/c mm MPV (7.4-10.4) fL Neut % (Auto) % Lymph % (Auto) % [place] % (Auto) % Eos % (Auto) % Baso % (Auto) % Neut # (Auto) (1.8-7.7) 10^3/u L Lymph # (Auto) (0.8-4.8) 10^3/u L [place] # (Auto) (0.2-0.9) 10^3/u L Eos # (Auto) (0.0-0.8) 10^3/u L Baso # (Auto) (0.0-0.1) 10^3/u L Nucleated RBC % (a uto) % Nucleated RBCs # /100WBC Sodium (136-145) mmol/L Potassium (3.5-5.1) mmol/L Chloride (98-107) mmol/L Carbon Dioxide (22-29) mmol/L Anion Gap (5-19) BUN (6-20) mg/dL Creatinine (0.5-0.9) mg/dL GFR Calculation (90-130) mL/min Glucose (65-115) mg/dL Calculated Osmolal ity (285-295) mOsm/k g Lactate (0.5-2.2) mmol/L Calcium (8.5-10.5) mg/dL Total Bilirubin (0.15-1.2) mg/dL AST (0-32) U/L ALT (0-33) U/L Alkaline Phosphata se (35-105) IU/L Troponin T Baselin e (0-10) ng/L Troponin T 120 Min wiyot 10.07 H (0-10) ng/L Delta Troponin T 3.07 (0-10) ABS# NT-Pro-B Natriuret Pep (0-125) pg/mL Total Protein (6.6-8.7) g/dL Albumin (3.5-5.2) g/dL Globulin (1.3-4.6) g/dL Urine Color (Yellow) Urine Appearance (CLEAR) Urine pH (5-7) Ur Specific Gravit y (1.005-1.030) Urine Protein (Negative) Urine Glucose (UA) (Normal) Urine Ketones (Negative) Urine Blood (Negative) Urine Nitrate (Negative) Urine Bilirubin (Negative) Prot Sulfosalicyli c Acd (Negative) Urine Urobilinogen (Negative) mg/dL Ur Leukocyte Khadijah ase (Negative) SARS-CoV-2 Ag (Rap id) (Negative) Imaging Data^: CT Chest: Attestation: I personally reviewed and interpreted this imaging study as follows: Radiologist's impression: [address] [place] [id number] Scan Report Signed Patient: Gerardo Lennon Unit #: [id number] : 1965 Age/Sex: 55 / F ADM Date: 03/04/21 Loc: ER Room/Bed: Attending Dr: Ordering Provider/Ordering MD: Patrick Rodriguez MD Date of Service: 03/04/21 Procedure(s): CT angio chest PE protcl [id number] Accession Number(s): [id number] Report Number: [id number] PROCEDURE INFORMATION: Exam: CTA Chest With Contrast Exam date and time: 03/04/2021 7:19 PM Age: 55 years old Clinical indication: Shortness of breath; Additional info: SOB TECHNIQUE: Imaging protocol: Computed tomographic angiography of the chest with contrast. 3D rendering (Not supervised by radiologist): MIP and/or 3D reconstructed images were created by the technologist. Radiation optimization: All CT scans at this facility use at least one of these dose optimization techniques: automated exposure control; mA and/or kV adjustment per patient size (includes targeted exams where dose is matched to clinical indication); or iterative reconstruction. Contrast material: OMNI 350; Contrast volume: 95 ml; Contrast route: INTRAVENOUS (IV); COMPARISON: CTA Chest-Pulmonary Emb [id number] 09/03/2014 10:04 PM RADIATION DOSE METRICS: Total DLP (mGy-cm): 1183.25 FINDINGS: Pulmonary arteries: Normal. No pulmonary emboli. Aorta: Unremarkable. No aortic aneurysm. No aortic dissection. Lungs: Background emphysematous lung changes. Mild right lower lobe compressive atelectasis changes. Nonspecific interstitial fibrotic lung changes are noted peripherally. No obstructing endobronchial lesion. Pleural spaces: There is a small volume layering right pleural effusion which demonstrates a mild degree of smooth surrounding pleural enhancement. Negative for pneumothorax. There is no air in the right pleural fluid collection. Heart: Unremarkable. No cardiomegaly. No pericardial effusion. Lymph nodes: Unremarkable. No enlarged lymph nodes. Bones/joints: Unremarkable. No acute fracture. Soft tissues: Unremarkable. CT/CT angio chest PE protcl [id number] IMPRESSION: 1. Negative for pulmonary embolism. 2. There is a nonspecific small volume right pleural effusion which demonstrates a mild degree of pleural enhancement. A loculated collection cannot be excluded. 3. Background emphysema and interstitial fibrotic lung changes without evidence of focal pneumonia. EKG Data^: EKG 1: Attestation: I personally reviewed and interpreted this EKG as follows: EKG Interpretation Date: 03/04/21 EKG interpretation time: 18:12 Interpretation: sinus tach hr [address] or t wave abnormalities qrs 101 qtc 370 Discharge Plan Discharge Prescriptions: No Action hydroxychloroquine 200 mg tablet 200 mg PO BID@ Qty: 60 RF: 3 omeprazole 40 mg capsule,delayed release(DR/EC) See Rx Instructions PO DAILY Qty: 30 RF: 3 gabapentin 300 mg capsule See Rx Instructions PO TID Qty: 90 RF: 3 Humira Pen 40 mg/0.8 mL pen injector kit 40 mg SUBCUT Q14D Qty: 2 RF: 3 ipratropium-albuterol 0.5 mg-3 mg(2.5 mg base)/3 mL solution for nebulization 3 ml inhalation QID PRN (Reason: wheezing) Qty: 360 RF: 3 Combivent Respimat 20-100 mcg/actuation mist 1 puff inhalation Q6H PRN (Reason: shortness of breath or wheezing) Qty: 4 RF: 3 Spiriva with HandiHaler 18 mcg capsule, w/inhalation device 1 cap inhalation DAILY Qty: 30 RF: 3 Magic Mouthwash See Rx Instructions .ROUTE QID Qty: 8 RF: 1 fluoxetine 40 mg capsule 40 mg PO DAILY@07 RF: 0 ropinirole 1 mg tablet 4 mg PO BEDTIME@19 RF: 0 acetaminophen [Tylenol Extra Strength] 500 mg Tablet 1,000 mg PO DAILY PRN (Reason: Pain) RF: 0 lisinopril-hydrochlorothiazide 20-25 mg tablet 1 tab PO DAILY@07 RF: 0 potassium gluconate 595 mg (99 mg) Tablet 1,190 mg PO DAILY@07 RF: 0 ascorbic acid (vitamin C) [Vitamin C] 1,000 mg Tablet 1,000 mg PO DAILY@07 RF: 0 desvenlafaxine succinate [Pristiq] 50 mg Tablet Extended Release 24 Hr 50 mg PO DAILY@07 RF: 0 multivitamin Tablet 1 tab PO DAILY@07 RF: 0 flaxseed oil 1,000 mg Capsule 1,000 mg PO DAILY@07 RF: 0 hydroxyzine HCl 25 mg Tablet 25 mg PO TID PRN (Reason: Anxiety) RF: 0 levothyroxine [Euthyrox] 112 mcg tablet 112 mcg PO DAILY@07 RF: 0 cholecalciferol (vitamin D3) [Vitamin D3] 25 mcg (1,000 unit) Tablet 25 mcg PO DAILY@07 RF: 0 aspirin [Adult Low Dose Aspirin] 81 mg tablet,delayed release (DR/EC) 81 mg PO DAILY@07 RF: 0 Apple Cider Vinegar Plus [phone] xp-mvx-[id number]-mg Tablet 1 tab PO DAILY@0700 RF: 0 Pulmicort 0.5 mg/2 mL suspension for nebulization 0.5 mg inhalation BID RF: 0 folic acid 1 mg Tablet 1 mg PO DAILY@0700 RF: 0 zinc 1 tab PO DAILY@0700 RF: 0 prednisone 5 mg tablet 15 mg PO DAILY@0700 RF: 0 Symbicort 160-4.5 mcg/actuation HFA aerosol inhaler 2 puff inhalation BID@0700,1900 RF: 0 Coding Level of Care Code ED 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
[2021-03-04] MEDS: sodium chloride 0.9% 1,000 ML 999 ML IV ×2 (18:14→18:15)
[2021-03-04] MEDS: acetaminophen 500 mg Tablet 1000 MG PO (18:14)
[2021-03-04 18:15] LABS: Basophils # 0.1 10^3/uL (0.0-0.1); Basophils % 0.4 %; Eosinophils % 0.2 %; Lymphocytes # 1.7 10^3/uL (0.8-4.8); Lymphocytes % 13.2 %; Mean Corpuscular HGB Conc 32.4 g/dL (30.0-36.0); Mean Corpuscular Hemoglobin 26.5 pg (28.0-34.0); Mean Corpuscular Volume 81.9 fL (81-99); Monocytes # 0.7 10^3/uL (0.2-0.9); Monocytes % 5.2 %; Neutrophils % 80.7 %; Nucleated Red Blood Cells % 0 %; Platelet Count 356 10^3/cmm (130-400); Red Blood Count 4.52 10^6/uL (4.1-5.3)
[2021-03-04 18:24] VITALS: BP 132/80; PULSE 111; RESP 19; O2SAT 97
[2021-03-04 18:24] LABS: Add Urine Microscopic? NO; Charge for UA Resulting for Rev
[2021-03-04 18:25] LABS: Bilirubin Urine Neg (Negative); Blood Urine Neg (Negative); Glucose Urine UA Norm (Normal); Ketones Urine Negative (Negative); Leukocyte Esterase Urine Negative (Negative); Nitrate Urine Negative (Negative); Protein Urine Neg (Negative); Specific Gravity, Urine 1.015 (1.005-1.030); Sulfosalicylic Acid Urine Negative (Negative); Urine Appearance Clear (CLEAR); Urine Color Straw (Yellow); Urobilinogen Urine Norm (Negative); pH Urine 8 (5-7)
[2021-03-04 18:31] LABS: Lactate (Lactic Acid level) 2.2 mmol/L (0.5-2.2)
--- NOTE | 2021-03-04 18:36 | ECG_ITS ---
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 Measurements Intervals [place] Rate: 128 P: 43 CA: 157 QRS: -23 QRSD: 101 T: 40 QT: 294 QTc: 430 Interpretive Statements SINUS TACHYCARDIA BORDERLINE LEFT AXIS DEVIATION [QRS AXIS < -20] Compared to ECG 07/15/2020 01:19:02 No significant changes Electronically Signed On 03-04-2021 19:08:16 CDT by Julio Rosen M.D. [email or web address]
[2021-03-04 18:43] LABS: SARS Covid-2 Antigen Negative (Negative)
[2021-03-04 18:43] LABS: Alanine Aminotransferase 23 U/L (0-33); Albumin Level 4.4 g/dL (3.5-5.2); Alkaline Phosphatase 84 IU/L (35-105); Anion Gap 18.9 (5-19); Aspartate Amino Transferase 20 U/L (0-32); Blood Urea Nitrogen 13 mg/dL (6-20); Calcium 9.2 mg/dL (8.5-10.5); Carbon Dioxide 23 mmol/L (22-29); Chloride 99 mmol/L (98-107); Globulin 2.9 g/dL (1.3-4.6); Glomerular Filtration Rate 86.9 mL/min (90-130); Glucose 111 mg/dL (65-115); NT Pro B Type Natriuretic Pept 89 pg/mL (0-125); Osmolality Calculated 285 mOsm/kg (285-295); Potassium 3.9 mmol/L (3.5-5.1); Sodium 137 mmol/L (136-145); Total Bilirubin 0.2 mg/dL (0.15-1.2); Total Protein 7.3 g/dL (6.6-8.7)
--- NOTE | 2021-03-04 19:00 | CTR_ITS ---
PROCEDURE INFORMATION: Exam: CTA Chest With Contrast Exam date and time: 03/04/2021 7:19 PM Age: 55 years old Clinical indication: Shortness of breath; Additional info: SOB TECHNIQUE: Imaging protocol: Computed tomographic angiography of the chest with contrast. 3D rendering (Not supervised by radiologist): MIP and/or 3D reconstructed images were created by the technologist. Radiation optimization: All CT scans at this facility use at least one of these dose optimization techniques: automated exposure control; mA and/or kV adjustment per patient size (includes targeted exams where dose is matched to clinical indication); or iterative reconstruction. Contrast material: OMNI 350; Contrast volume: 95 ml; Contrast route: INTRAVENOUS (IV); COMPARISON: CTA Chest-Pulmonary Emb [id number] 09/03/2014 10:04 PM RADIATION DOSE METRICS: Total DLP (mGy-cm): 1183.25 FINDINGS: Pulmonary arteries: Normal. No pulmonary emboli. Aorta: Unremarkable. No aortic aneurysm. No aortic dissection. Lungs: Background emphysematous lung changes. Mild right lower lobe compressive atelectasis changes. Nonspecific interstitial fibrotic lung changes are noted peripherally. No obstructing endobronchial lesion. Pleural spaces: There is a small volume layering right pleural effusion which demonstrates a mild degree of smooth surrounding pleural enhancement. Negative for pneumothorax. There is no air in the right pleural fluid collection. Heart: Unremarkable. No cardiomegaly. No pericardial effusion. Lymph nodes: Unremarkable. No enlarged lymph nodes. Bones/joints: Unremarkable. No acute fracture. Soft tissues: Unremarkable. CT/CT angio chest PE protcl [id number] IMPRESSION: 1. Negative for pulmonary embolism. 2. There is a nonspecific small volume right pleural effusion which demonstrates a mild degree of pleural enhancement. A loculated collection cannot be excluded. 3. Background emphysema and interstitial fibrotic lung changes without evidence of focal pneumonia. Radiation Dose CTDIVOL = (mGy): DLP = 1183.25 (mGy-cm)
[2021-03-04] MEDS: iohexol 350 mg/mL 100 mL Btl IV (19:35)
[2021-03-04 19:52] VITALS: BP 84/71; PULSE 118; RESP 19; O2SAT 97
[2021-03-04 19:59] VITALS: BP 113/70; PULSE 117; RESP 19; O2SAT 96
[2021-03-04 20:22] LABS: Troponin(5th) Baseline 7 ng/L (0-10)
--- NOTE | 2021-03-04 20:29 | PM.HP ---
Providers/Chief Complaint Admitting Physician: Linda Stapleton MD Primary Care Provider: Bri Munoz MD Chief Complaint: SOB AND FEVER History of Present Illness Gerardo Lennon is a 55 year old female who presented to the emergency room with complaint of difficulty breathing and fever. She has actually had increasing difficulty breathing by her report over the last couple of months. She had Covid last fall. She was on oxygen for 2 months after that. She started gradually increasing her activity and in October of this year started exercising 5 days a week. She was able to maintain this through December of this year to some degree but then began having increasing episodes of pleuritic type chest pain on the right side as well as increasing shortness of breath with exertion and generalized shortness of breath and cough. Cough has been primarily nonproductive in nature. She has been having intermittent fever off and on for the last 4 weeks or so. She has not been on any antibiotics. She does have a history of seronegative rheumatoid arthritis. She had previously been on methotrexate followed by Manjit and was started on Humira about 3 weeks ago. She took her second dose last . She has chronically been on prednisone for about 2 years since her arthritis diagnosis. She has gained about 70 pounds in that timeframe. She is currently prescribed 15 mg of prednisone daily but is taking 10 mg of prednisone daily. She has attributed her increasing difficulty breathing to her weight gain. She was seen recently by rheumatology who referred her to pulmonology. She was seen by Dr. Sandoval on February 21. She had pulmonary function studies prior to that that showed evidence of restrictive pattern. Additionally she has a history of smoking, quit about 6 years ago and does have some obstructive disease as well. Has not had a high-resolution CT of the chest yet. Adjustments were made in her chronic breathing medications with plan for follow-up in 3 months. She also has sleep apnea. She had been on CPAP following sleep study done a couple of years ago but lost her insurance and her CPAP machine. She has been using a CPAP machine that she purchased from somebody on the settings that that person had had for some time. She has not required oxygen. Today she had fever to 102.9. The pleuritic chest pain that she has been having was much more severe than it has been. She denies any hemoptysis. No recent increase in sputum production although she does admit to increased sinus drainage and increased facial tenderness along with increasing headaches. Her arthritis pain is okay currently without any joints particularly bothering her more than baseline. She has had some nausea but no vomiting. Denies any abdominal pain or diarrhea. No difficulty with urination currently. Work-up in the emergency room revealed a white count of 13,000 with 80% segmented neutrophils. She had a CTA of the chest that did not reveal any evidence of pulmonary embolism. She was noted to have a right-sided pleural effusion that was described as small with some mild enhancement and possible loculation. Given her immunocompromise, symptoms progressing despite outpatient evaluation combined with degree of fever today, she is being admitted to inpatient status. She has been covered empirically with antibiotics in the emergency room. Vital signs are currently stable. Review of Systems Const: Reports: fever(s), chills, change in weight (Approximately 70 pound weight gain over the last 1 to 2 years), fatigue, malaise and night sweats Eyes: Denies: change in vision ENMT: Reports: dry mouth, nasal congestion and sinus pain; Denies: throat pain or nasal discharge Card: Reports: swelling of feet/ankles and dyspnea on exertion; Denies: palpitations, pre-syncope, orthopnea or acrocyanosis Resp: Reports: dyspnea, productive cough, non-productive cough, wheezing and pain on inspiration; Denies: hemoptysis GI: Reports: nausea; Denies: abdominal pain, vomiting, diarrhea, constipation, hematochezia or melena : Denies: difficulty voiding Musc: Reports: back pain (with attempt at deep breath, right side), extremity pain (chronic, no new pain) and joint pain (chronic, no new join pain) Skin/Breast: Reports: rash (intermittent red splotches on face); Denies: sores Neuro: Reports: headache(s); Denies: numbness in extremities or difficulty walking Psych: Denies: anxiety or depression Ritesh/Lymph: Denies: easy bruising or easy bleeding Medications/Allergies Home Medications Medication Instructions Recorded Confirmed Last Taken Type acetaminophen [Tylenol Extra 1,000 mg PO DAILY PRN 12/31/19 03/04/21 12/30/19 History Strength] fluoxetine 40 mg PO DAILY@12/31/19 03/04/21 03/04/21 History lisinopril-hydrochlorothiazide 1 tab PO DAILY@12/31/19 03/04/21 03/04/21 History potassium gluconate 1,190 mg PO DAILY@12/31/19 03/04/21 03/04/21 History ropinirole 4 mg PO BEDTIME@12/31/19 03/04/21 03/04/21 History ascorbic acid (vitamin C) [Vitamin 1,000 mg PO DAILY@08/31/20 03/04/21 01/08/21 History C] desvenlafaxine succinate [Pristiq] 50 mg PO DAILY@08/31/20 03/04/21 03/04/21 History aspirin [Adult Low Dose Aspirin] 81 mg PO DAILY@01/08/21 03/04/21 03/04/21 History cholecalciferol (vitamin D3) 25 mcg PO DAILY@01/08/21 03/04/21 03/04/21 History [Vitamin D3] flaxseed oil 1,000 mg PO DAILY@01/08/21 03/04/21 03/04/21 History hydroxyzine HCl 25 mg PO TID PRN 01/08/21 03/04/21 Unknown History levothyroxine [Euthyrox] 112 mcg PO DAILY@01/08/21 03/04/21 03/04/21 History multivitamin 1 tab PO DAILY@01/08/21 03/04/21 03/04/21 History adalimumab 40 mg/0.8 mL 40 mg SUBCUT Q14D #2 ea 02/14/21 03/05/21 02/28/21 Rx subcutaneous pen kit gabapentin 300 mg capsule See Rx Instructions PO TID #90 cap 02/14/21 03/04/21 03/03/21 Rx hydroxychloroquine 200 mg tablet 200 mg PO BID@ #60 tab 02/14/21 03/04/21 03/04/21 Rx omeprazole 40 mg capsule,delayed See Rx Instructions PO DAILY #30 02/14/21 03/04/21 03/04/21 Rx release cap ipratropium 0.5 mg-albuterol 3 mg 3 ml INHALATION QID PRN #360 ml 02/21/21 03/04/21 03/04/21 Rx (2.5 mg base)/3 mL nebulization soln ipratropium 20 mcg-albuterol 100 1 puff INHALATION Q6H PRN #4 g 02/21/21 03/04/21 03/04/21 Rx mcg/actuation mist for inhalation tiotropium bromide 18 mcg capsule 1 cap INHALATION DAILY #30 inh 02/22/21 03/04/21 03/04/21 Rx with inhalation device Magic Mouthwash See Rx Instructions .ROUTE QID #8 02/27/21 03/04/21 03/04/21 Rx oz Symbicort 2 puff INHALATION BID@0700,1900 03/04/21 03/04/21 03/04/21 History glenroy qlgguo-Mh-nfeVwxybzqki-tea 1 tab PO DAILY@0700 03/04/21 03/04/21 03/04/21 History [Apple Cider Vinegar Plus] folic acid 1 mg PO DAILY@0700 03/04/21 03/04/21 03/04/21 History prednisone 15 mg PO DAILY@0700 03/04/21 03/04/21 03/04/21 History zinc 1 tab PO DAILY@0700 03/04/21 03/04/21 03/04/21 History Allergies Allergy/AdvReac Type Severity Reaction Status Date / Time No Known Allergies Allergy Verified 02/21/21 11:06 Additional Medication Information I personally reviewed home medication list and medications received day of admission thus far. PFSH Acute PFSH: Medical History (Updated 03/05/21 @ 01:20 by Linda Stapleton MD) Chronic steroid use for RA COPD (chronic obstructive pulmonary disease) COVID-19 (~05/2020) required oxygen x 2 months Depression fluoxetine Dizziness longstanding, on Pristiq for this per patient High risk medication use Humira started 02/15, plaquenil History of diverticulitis History of echocardiogram TTE 07/17/20 EF 64%, mod LVH, I/IV diastolic dysfunction, normal to mildly elevated filling pressures COREY 09/02/20 no atrial mass History of stress test (01/11/20) HTN (hypertension) Hyperlipidemia Hypothyroidism LEX on CPAP Restless leg syndrome Restrictive airway disease Seronegative rheumatoid arthritis of both hands Surgical History (Updated 03/05/21 @ 00:38 by Linda Stapleton MD) History of carpal tunnel release of both wrists History of D&C History of endometrial ablation History of nasal surgery History of placement of ear tubes History of tonsillectomy Hx of carpal tunnel repair Tubal ligation status Family History Mother Hypertension Family history of premature coronary artery disease Hx of CABG Hyperlipidemia Cancer Headache Father Depression Other CAD (coronary artery disease) Diabetes Denies family history of Rheumatoid arthritis Lupus Chronic kidney disease (CKD) Lung disease Stroke Social History (Updated 03/04/21 @ 20:30 by Linda Stapleton MD) Smoking and tobacco status: former smoker Quit status (tobacco): has quit using tobacco Year quit tobacco: 2013 [id number] Second hand smoke exposure: No Alcohol intake: current Alcohol intake frequency: holidays/special occasions only Lives independently: Yes Household members: spouse Housing: House Marital status: service: No Current occupational status: employed Pets and animals: Yes History of recent travel: No Current gender identity: Female Vitals/I&O/Wt Last Vital Signs Temp 101.5 F H 03/04/21 17:55 Pulse 117 H 03/04/21 19:59 Resp 19 H 03/04/21 19:59 BP 113/70 03/04/21 19:59 Pulse Ox 96 03/04/21 19:59 03/04/21 03/04/21 03/04/21 06:59 14:59 22:59 Intake Total 16.65 / 16.65 Balance 16.65 / 16.65 Weight last 48 hrs Weight 117.027 kg Physical Exam Narrative: EXAM NARRATIVE: Constitutional: Patient is awake and alert, face is flushed, she is able to lie flat in bed upon my arrival. HEENT: Normocephalic atraumatic, nasopharynx with boggy turbinates, no drainage noted, right maxillary sinus is tender to palpation, oropharynx with slightly tacky mucous membranes, no postnasal drainage noted presently there is some minor cobblestoning, pupils are equally reactive bilaterally, no photophobia Neck: Large but supple Respiratory: Breath sounds are actually equal bilaterally, decreased at both bases, scattered wheezes, some tachypnea but no accessory muscle use noted, intermittently has to pause during talking to take in a breath and at these times does have some pursed lip breathing, splinting of chest with deep inspiration with her holding the right side Cardiovascular: Regular rhythm, no murmurs gallops or rubs noted, no jugular venous distention, pulses are 2+ and equal Abdomen: Soft, nontender, positive bowel sounds, obese Extremities: No pitting pretibial edema, no warmth or pain with palpation noted at hands, wrist, elbows, shoulders, knees, ankles Skin: Evidence of recent sun exposure noted, cheeks are red but does not include the nasolabial folds, no acute sores or rashes noted Neuro: Speech is clear, face symmetric, extraocular movements are intact, handgrip is equal Psych: Normal affect Data : 03/04/21 18:10 03/04/21 18:10 Micro: Microbiology 03/04/21 18:10 Blood Culture - Preliminary Blood SPECIMEN COLLECTED 03/04/21 18:53 Blood Culture - Preliminary Blood SPECIMEN COLLECTED Other data: Labs: Laboratory Results WBC 13.0 10^3/uL (4.0-10.0) H 03/04/21 18:10 RBC 4.52 10^6/uL (4.1-5.3) 03/04/21 18:10 Hgb 12.0 g/dL (11.5-15.3) 03/04/21 18:10 Hct 37.0 % (37.0-47.0) 03/04/21 18:10 MCV 81.9 fL (81-99) 03/04/21 18:10 MCH 26.5 pg (28.0-34.0) L 03/04/21 18:10 MCHC 32.4 g/dL (30.0-36.0) 03/04/21 18:10 RDW 16.0 % (12.1-15.1) H 03/04/21 18:10 Plt Count 356 10^3/cmm (130-400) 03/04/21 18:10 MPV 11.0 fL (7.4-10.4) H 03/04/21 18:10 Neut % (Auto) 80.7 % 03/04/21 18:10 Lymph % (Auto) 13.2 % 03/04/21 18:10 [place] % (Auto) 5.2 % 03/04/21 18:10 Eos % (Auto) 0.2 % 03/04/21 18:10 Baso % (Auto) 0.4 % 03/04/21 18:10 Neut # (Auto) 10.50 10^3/uL (1.8-7.7) H 03/04/21 18:10 Lymph # (Auto) 1.7 10^3/uL (0.8-4.8) 03/04/21 18:10 [place] # (Auto) 0.7 10^3/uL (0.2-0.9) 03/04/21 18:10 Eos # (Auto) 0.0 10^3/uL (0.0-0.8) 03/04/21 18:10 Baso # (Auto) 0.1 10^3/uL (0.0-0.1) 03/04/21 18:10 Nucleated RBC % (auto) 0 % 03/04/21 18:10 Nucleated RBCs # 0.0 /100WBC 03/04/21 18:10 Sodium 137 mmol/L (136-145) 03/04/21 18:10 Potassium 3.9 mmol/L (3.5-5.1) 03/04/21 18:10 Chloride 99 mmol/L (98-107) 03/04/21 18:10 Carbon Dioxide 23 mmol/L (22-29) 03/04/21 18:10 Anion Gap 18.9 (5-19) 03/04/21 18:10 BUN 13 mg/dL (6-20) 03/04/21 18:10 Creatinine 0.7 mg/dL (0.5-0.9) 03/04/21 18:10 GFR Calculation 86.9 mL/min (90-130) L 03/04/21 18:10 Glucose 111 mg/dL (65-115) 03/04/21 18:10 Calculated Osmolality 285 mOsm/kg (285-295) 03/04/21 18:10 Lactate 2.2 mmol/L (0.5-2.2) 03/04/21 18:10 Calcium 9.2 mg/dL (8.5-10.5) 03/04/21 18:10 Total Bilirubin 0.2 mg/dL (0.15-1.2) 03/04/21 18:10 AST 20 U/L (0-32) 03/04/21 18:10 ALT 23 U/L (0-33) 03/04/21 18:10 Alkaline Phosphatase 84 IU/L (35-105) 03/04/21 18:10 Troponin T Baseline 7 ng/L (0-10) 03/04/21 18:10 Delta Troponin T 3.07 ABS# (0-10) 03/04/21 20:08 NT-Pro-B Natriuret Pep 89 pg/mL (0-125) 03/04/21 18:10 Total Protein 7.3 g/dL (6.6-8.7) 03/04/21 18:10 Albumin 4.4 g/dL (3.5-5.2) 03/04/21 18:10 Globulin 2.9 g/dL (1.3-4.6) 03/04/21 18:10 Urine Color Straw (Yellow) 03/04/21 18:17 Urine Appearance Clear (CLEAR) 03/04/21 18:17 Urine pH 8 (5-7) H 03/04/21 18:17 Ur Specific [place] 1.015 (1.005-1.030) 03/04/21 18:17 Urine Protein Neg (Negative) 03/04/21 18:17 Urine Glucose (UA) Norm (Normal) 03/04/21 18:17 Urine Ketones Negative (Negative) 03/04/21 18:17 Urine Blood Neg (Negative) 03/04/21 18:17 Urine Nitrate Negative (Negative) 03/04/21 18:17 Urine Bilirubin Neg (Negative) 03/04/21 18:17 Prot Sulfosalicylic Acd Negative (Negative) 03/04/21 18:17 Urine Urobilinogen Norm mg/dL (Negative) 03/04/21 18:17 Ur Leukocyte Esterase Negative (Negative) 03/04/21 18:17 SARS-CoV-2 Ag (Rapid) Negative (Negative) 03/04/21 18:15 Impressions Chest X-Ray 03/04/21 18:04 IMPRESSION: 1. Prominent pulmonary interstitium may reflect background chronic changes. 2. No focal pulmonary consolidation. Chest CTA 03/04/21 19:00 IMPRESSION: 1. Negative for pulmonary embolism. 2. There is a nonspecific small volume right pleural effusion which demonstrates a mild degree of pleural enhancement. A loculated collection cannot be excluded. 3. Background emphysema and interstitial fibrotic lung changes without evidence of focal pneumonia. Radiation Dose CTDIVOL = (mGy): DLP = 1183.25 (mGy-cm) Prior or outside records reviewed: pulmonology, rheumatology and cardiology notes in [facility] PRIOR LABS/STUDIES to note: Modified barium swallow 07/17/2020 which was normal TTE 06/2020 followed by COREY 08/2020 - [facility] Stress test 12/2019 - resuls in [facility] A&P Assessment and plan (1) Sepsis: With fever, leukocytosis with left shift and sinus tachycardia in a patient known to be immunocompromised on steroids and humira. Has mildly enhancing right pleural effusion and sinus symptoms as suspected source. Status: Acute Qualifiers: Sepsis type: sepsis due to unspecified organism Sepsis acute organ dysfunction status: without acute organ dysfunction Qualified Code(s): A41.9 - Sepsis, unspecified organism (2) Pleural effusion on right: No prior history. BNP 89. EF on echo 06/2020 64% with grade I/IV diastolic dysfunction noted. Status: Acute (3) Seronegative rheumatoid arthritis of both hands: Currently on prednisone 10 mg daily, Humira started approximately 3 weeks ago and Plaquenil. Has previously been on methotrexate and Arava but both of these have been stopped over the last few months. Status: Chronic (4) Chronic steroid use: For rheumatoid arthritis Status: Chronic (5) Restrictive airway disease: On recent PFTs Status: Chronic (6) COPD (chronic obstructive pulmonary disease): In a patient with a history of prior smoking Status: Chronic Qualifiers: COPD type: emphysema Emphysema type: centrilobular Qualified Code(s): J43.2 - Centrilobular emphysema (7) LEX on CPAP: Has been using a CPAP that her and her were able to find with somebody else's settings for a while. She had lost her insurance and the machine that was supplied to her after her sleep study a couple of years ago was taken away. She does not know what her prior settings have been. Status: Chronic (8) HTN (hypertension): Chronically on lisinopril/hydrochlorothiazide, blood pressures lower range of normal presently Status: Chronic Qualifiers: Hypertension type: essential hypertension Qualified Code(s): I10 - Essential (primary) hypertension (9) Obesity, morbid, BMI 40.0-49.9: Status: Acute Additional A&P Information Hyperthyroidism on levothyroxine Hyperlipidemia on statin Restless leg syndrome on requip Sciatica on gabapentin Chronic dizziness on pristiq Depression on fluoxetine Inpatient admission Continue broad-spectrum antibiotics with vancomycin and Zosyn currently Blood cultures were collected in the emergency room Had negative rapid Covid test in the emergency room, given fever and increasing shortness of breath we will go on and send PCR, discussed with patient and she is agreeable Check procalcitonin, sed rate and CRP -patient is known to have chronic elevation in sed rate and CRP to a degree but we do have comparative values Hold home lisinopril/hydrochlorothiazide currently, monitor blood pressures Prednisone presently at 15 mg daily which is increased from what she has been taking the last few days of 10 mg. Will need to monitor closely for need to provide stress dose steroids. Will discuss the case with Dr. Sandoval in the morning for consultation Will provide budesonide in place of Symbicort currently, continue duo nebs - Spiriva shows on home medication list but unable to confirm if she is actually supposed to be on it, reviewing recent pulmonology notes I do not think so, she is not certain Flonase for sinuses CPAP titrated to comfort with sleep, asked her to have bring home machine in to see if we can determine the settings she has been using at home Tylenol, toradol, morphine as needed for pain Zofran for nausea as neede Temazepam for sleep if needed Chronically on PPI which has been continued Continue home pristiq, fluoxetine, hydroxyzine - patient stated that prescribing providers are aware she is on both pristiq and fluoxetine Continue home gabapentin and requip at home hs dosing Continue home vitamin C, multivitamen, Zinc, folate, vitamin D Continue home magic mouthwash [employer] consult per patient request for recommendations for weight loss while on steroids DVT prophylaxis: lovenox Plans, findings and concerns discussed with patient and she was given an opportunity to ask questions. Anticipated Disposition: home Code Status: full Attestations Medical Necessity Statement*: Anticipated stay greater than two midnights in this patient presenting with high fever, associated tachycardia, leukocytosis with left shift who is known to be immunocompromised on biologic agent and steroids chronically. She has an enhancing small right pleural effusion on CT imaging. She has been seen outpatient and evaluated for increasing respiratory symptoms over the last couple of months. She has also had fever off and on for the last month or so. Currently covering empirically with IV antibiotics, following up blood cultures, checking additional studies as noted above and will request pulmonology consultation. She started Humira 3 weeks ago. At high risk of rapid clinical decline without close monitoring and intervention as described. Coding Level of Care Code Acute Residential Sales Consultant for Chg Fwd Diagnoses Sepsis A41.9 Sepsis type: sepsis due to unspecified organism Sepsis acute organ dysfunction status: without acute organ dysfunction Pleural effusion on right J90 Seronegative rheumatoid arthritis of both hands M06.041; M06.042 Chronic steroid use Restrictive airway disease J98.4 COPD (chronic obstructive pulmonary disease) J43.2 COPD type: emphysema Emphysema type: centrilobular LEX on CPAP G47.33; Z99.89 HTN (hypertension) I10 Hypertension type: essential hypertension Obesity, morbid, BMI 40.0-49.9 E66.01
[2021-03-04 20:31] LABS: Troponin 5 2HR 10.07 ng/L (0-10); Troponin 5 2HR Delta 3.07 ABS# (0-10)
[2021-03-04] MEDS: piperacillin-tazobactam 3.375 GM in sodium chloride 0.9% (plus) 50 ML IV (20:32)
[2021-03-04] MEDS: vancomycin 1,000 MG in sodium chloride 0.9% 250 ML 250 MG IV (20:53)
[2021-03-04 21:06] VITALS: BP 115/72; PULSE 109; RESP 21; O2SAT 97
[2021-03-04] MEDS: ketorolac 30 mg/mL INJ IVP (21:46)
[2021-03-04 22:20] VITALS: BP 96/61; PULSE 96; RESP 18; TEMP 37.1; O2SAT 95
[2021-03-04] MEDS: ondansetron 2 mg/ML SDV 2 mL 4 MG IVP (22:43)
--- NOTE | 2021-03-04 22:43 | PC.NURSE ---
ADMIT NOTE Pt received to room from ER at 2200. Is alert and oriented. Reports increasing SOB and high fever today. Says was recently diagnosed with COPD and normally some SOB with exertion but worse today. Denies cough. Does say her sinuses have been bothering her. IV Vancomycin finishing on arrival to floor. VS done and instructed on need to monitor I&O. Was c/o nausea amd order was obtained for IV Zofran. RN medicating
[2021-03-05] VITALS (15 sets, daily range): BP systolic 112–159; BP diastolic 54–82; PULSE 58–107; RESP 16–20; TEMP 36.1–37.1; O2SAT 92–98
[2021-03-05] MEDS: enoxaparin 40 mg/0.4 mL Syringe SUBCUT ×2 (00:21→23:41)
--- NOTE | 2021-03-05 00:37 | PC.PHAR ---
Vancomycin is dosed at 2000mg IVPB every 12 hours to produce a predicted trough level of 18.43 (population based pharmacokinetic analysis). A trough level has been ordered from the lab to be obtained before the fourth dose to confirm and adjust if needed. The Zosyn is dosed at 3.375gm IVPB every 8 hours on the basis of the creatinine clearance of 116.13
[2021-03-05] MEDS: temazepam 15 mg Capsule PO (01:11)
--- NOTE | 2021-03-05 01:59 | ECG_ITS ---
[facility] ED Test Date: 2021-03-05 Pat Name: Gerardo Lennon Department: Room: 255 Gender: Female [employer] Computer: : 1965 Requested By: Patrick Rodriguez Order Number: [id number] Rad MD: Lynsey Morales M.D. Measurements Intervals [place] Rate: 82 P: 24 MI: 184 QRS: -17 QRSD: 106 T: 29 QT: 368 QTc: 431 Interpretive Statements SINUS RHYTHM Compared to ECG 03/04/2021 18:12:35 Sinus tachycardia no longer present Electronically Signed On 03-06-2021 16:33:51 CDT by Lynsey Morales M.D. [id number]
[2021-03-05] MEDS: sodium chlor 0.9% + KCl 20 mEq 20 MEQ/1,000 ML BAG 40 MEQ IV (02:23)
[2021-03-05 02:43] LABS: Basophils # 0.1 10^3/uL (0.0-0.1); Basophils % 0.6 %; Eosinophils # 0.1 10^3/uL (0.0-0.8); Hematocrit 32.3 % (37.0-47.0); Hemoglobin 9.7 g/dL (11.5-15.3); Lymphocytes # 1.8 10^3/uL (0.8-4.8); Lymphocytes % 20.1 %; Mean Corpuscular Hemoglobin 25.7 pg (28.0-34.0); Mean Corpuscular Volume 85.4 fL (81-99); Mean Platelet Volume 11.3 fL (7.4-10.4); Monocytes # 0.9 10^3/uL (0.2-0.9); Monocytes % 9.4 %; Neutrophils # 6.22 10^3/uL (1.8-7.7); Neutrophils % 68.7 %; Nucleated Red Blood Cells % 0 %; Platelet Count 245 10^3/cmm (130-400); Red Blood Count 3.78 10^6/uL (4.1-5.3); Red Cell Distribution Width 16.2 % (12.1-15.1); White Blood Count 9.1 10^3/uL (4.0-10.0)
[2021-03-05 02:58] LABS: INR 1.05 (0.8-1.2)
[2021-03-05] MEDS: ipratropium-albuterol 3 mL Neb INHALATION ×4 (02:58→20:48)
[2021-03-05 03:02] LABS: Troponin 5 6HR 9.68 ng/L (0-10); Troponin 5 6HR Delta 2.68 ng/L (0-12)
[2021-03-05 03:05] LABS: Anion Gap 14.9 (5-19); Blood Urea Nitrogen 14 mg/dL (6-20); Calcium 8.5 mg/dL (8.5-10.5); Carbon Dioxide 25 mmol/L (22-29); Chloride 105 mmol/L (98-107); Glomerular Filtration Rate 74.5 mL/min (90-130); Glucose 111 mg/dL (65-115); Magnesium 1.9 mg/dL (1.7-2.3); Osmolality Calculated 293 mOsm/kg (285-295); Phosphorus 3.4 mg/dL (2.5-4.5); Potassium 3.9 mmol/L (3.5-5.1); Sodium 141 mmol/L (136-145)
[2021-03-05 03:06] LABS: C Reactive Protein 65.6 mg/L (0.0-4.9)
[2021-03-05 03:10] LABS: Procalcitonin 0.21 ng/mL (0-0.5)
[2021-03-05 03:40] LABS: Erythrocyte Sedimentation Rate 44 mm/hr (0-15)
[2021-03-05] MEDS: piperacillin-tazobactam 3.375 GM in sodium chloride 0.9% (plus) 50 ML IV ×2 (06:09→16:20)
--- NOTE | 2021-03-05 06:12 | PC.NURSE ---
SHIFT SUMMARY Rested well after receiving po Temazapam after seeing Dr Stapleton on floor. IV fluids were started and are infusing at 40ml/hr rate. Receiving IV antibiotics as ordered. Afebrile since to floor. Covid send out swab was obtained. No resp distress but did c/o it felt a little hard to take a deep breath in. O2 sat 96-97%. Placed on 2 liters NC O2 and says feels better. Does have sleep apnea and wears CPAP at home
[2021-03-05] MEDS: folic acid 1 mg Tablet PO (06:57)
[2021-03-05] MEDS: hydroxychloroquine 200 mg Tablet PO ×2 (06:58→18:33)
[2021-03-05] MEDS: predniSONE 5 mg Tablet 15 MG PO (06:58)
[2021-03-05] MEDS: aspirin 81 mg EC Tablet PO (06:58)
[2021-03-05] MEDS: cholecalciferol (vitamin D3) 1,000 unit Tablet 1000 UNIT PO (06:58)
[2021-03-05] MEDS: desvenlafaxine 50 mg Tablet PO (06:58)
[2021-03-05] MEDS: levothyroxine 112 mcg Tablet PO (06:58)
[2021-03-05] MEDS: budesonide 0.5 mg/2 mL Neb INHALATION ×2 (08:37→20:48)
[2021-03-05] MEDS: ascorbic acid 500 mg Tablet 1000 MG PO (09:23)
[2021-03-05] MEDS: zinc gluconate 50 mg Tablet PO (09:24)
[2021-03-05] MEDS: gabapentin 300 mg Capsule PO ×3 (09:24→20:25)
[2021-03-05] MEDS: pantoprazole DR 40 mg Tablet PO (09:24)
[2021-03-05] MEDS: fluticasone nasal spray 16gm Btl 2 SPRAY NASAL ×2 (09:24→17:34)
[2021-03-05] MEDS: docusate sodium 100 mg Capsule PO ×2 (09:24→17:34)
[2021-03-05] MEDS: fluoxetine 20 mg Capsule 40 MG PO (09:24)
[2021-03-05] MEDS: hyDROXYzine 25 mg Capsule PO (09:24)
--- NOTE | 2021-03-05 16:04 | PC.NUTR ---
Nutrition consult received per Dr. Stapleton for weight loss education. Spoke with pt via phone due to contact precautions. Pt states that she would prefer to receive education as outpatient when no longer in hospital. Informed pt this service is available when MD referral received. Offered to discuss with pt at this time, however pt declined. RD available for further consult as needed.
[2021-03-05] MEDS: ALPRAZolam 0.25 mg Tablet PO (16:19)
[2021-03-05 16:34] LABS: Coronavirus Test Green County Not Detected
--- NOTE | 2021-03-05 16:38 | PM.PN ---
Subjective Subjective: Interval history: overnight labs and H&P reviewed. C/o subjective dyspnea, used CPAP overnight, currently saturating 94% on RA Medications: Reviewed: Yes Medication Review Details: I personally reviewed home medication list and medications received day of admission thus far. Vitals/I&O/Wt Last Vital Signs Temp 98.5 F 03/05/21 15:38 Pulse 105 H 03/05/21 15:38 Resp 18 03/05/21 15:38 BP 159/81 03/05/21 15:38 Pulse Ox 96 03/05/21 15:38 03/05/21 03/05/21 03/05/21 06:59 14:59 22:59 Intake Total 240 / 1556.65 1270 / 1270 Output Total 600 / 600 150 / 150 Balance -360 / 956.65 1120 / 1120 Weight last 48 hrs Weight 117.027 kg Physical Exam Narrative: EXAM NARRATIVE: GEN: Awake, alert and oriented, no acute distress CVS: S1S2 N RS: CTA B/L Abd: Soft, nt/nd , bs+ [employer]: no focal neuro deficits Data : 03/05/21 01:45 03/05/21 01:45 Micro: Microbiology 03/04/21 18:10 Blood Culture - Preliminary Blood SPECIMEN COLLECTED 03/04/21 18:53 Blood Culture - Preliminary Blood SPECIMEN COLLECTED A&P Assessment and plan (1) Sepsis: With fever, leukocytosis with left shift and sinus tachycardia in a patient known to be immunocompromised on steroids and humira. Has mildly enhancing right pleural effusion and sinus symptoms as suspected source. Pulmonology consult today to asses for thoracentesis Status: Acute Qualifiers: Sepsis type: sepsis due to unspecified organism Sepsis acute organ dysfunction status: without acute organ dysfunction Qualified Code(s): A41.9 - Sepsis, unspecified organism (2) Pleural effusion on right: No prior history. BNP 89. EF on echo 06/2020 64% with grade I/IV diastolic dysfunction noted. Status: Acute (3) Seronegative rheumatoid arthritis of both hands: Currently on prednisone 10 mg daily, Humira started approximately 3 weeks ago and Plaquenil. Has previously been on methotrexate and Arava but both of these have been stopped over the last few months. Status: Chronic (4) Chronic steroid use: For rheumatoid arthritis Status: Chronic (5) Restrictive airway disease: On recent PFTs Status: Chronic (6) COPD (chronic obstructive pulmonary disease): In a patient with a history of prior smoking Status: Chronic Qualifiers: COPD type: emphysema Emphysema type: centrilobular Qualified Code(s): J43.2 - Centrilobular emphysema (7) LEX on CPAP: Has been using a CPAP that her and her were able to find with somebody else's settings for a while. She had lost her insurance and the machine that was supplied to her after her sleep study a couple of years ago was taken away. She does not know what her prior settings have been. Status: Chronic (8) HTN (hypertension): Chronically on lisinopril/hydrochlorothiazide, blood pressures lower range of normal presently Status: Chronic Qualifiers: Hypertension type: essential hypertension Qualified Code(s): I10 - Essential (primary) hypertension (9) Obesity, morbid, BMI 40.0-49.9: Status: Acute Additional A&P Information Plan: Continue broad-spectrum antibiotics with vancomycin and Zosyn currently Possiblity of parapneumonic effusion vs serositis from underlying rheumatological cause. Thoarcenetesis if feasible with pleural fluid analysis to ascertain cause oulmnology consult Blood cultures were collected in the emergency room resume home lisinopril/hydrochlorothiazide currently, monitor blood pressures Prednisone presently at 15 mg daily which is increased from what she has been taking the last few days of 10 mg. check quantiferon screen DVT prophylaxis: lovenox Code Status: full Attestations Medical Necessity Statement*: continue iv abx, monitor for response, pulmonology consult Coding Level of Care Code Acute Clinic Lead for [facility] Diagnoses Sepsis A41.9 Sepsis type: sepsis due to unspecified organism Sepsis acute organ dysfunction status: without acute organ dysfunction Pleural effusion on right J90 Seronegative rheumatoid arthritis of both hands M06.041; M06.042 Chronic steroid use Restrictive airway disease J98.4 COPD (chronic obstructive pulmonary disease) J43.2 COPD type: emphysema Emphysema type: centrilobular LEX on CPAP G47.33; Z99.89 HTN (hypertension) I10 Hypertension type: essential hypertension Obesity, morbid, BMI 40.0-49.9 E66.01
[2021-03-05 17:16] LABS: Influenza A by IFA Negative (Negative); Influenza B by IFA Negative (Negative)
[2021-03-05] MEDS: ketorolac 30 mg/mL INJ IVP (19:34)
--- NOTE | 2021-03-05 19:43 | PM.CONSULT ---
Providers/Reason For Consult Consulting Physician/Specialty*: Yung Sandoval MD / Pulmonology Reason for Consult*: right pleural effusion Requesting Physician: Linda Jarvis Attending Physician: Roz Oakes MD Primary Care Provider: Bri Munoz MD History of Present Illness History of Present Illness Gerardo Lennon is a 55-year-old female with PMH COPD, seronegative rheumatoid arthritis, on chronic prednisone and Humira, hyperlipidemia, COVID in may 2020, chronic smoker 1 pack/day for 35 years and quit in 2013 and was diagnosed with COPD currently she is on Symbicort 80-4.5 MCG 2 puffs twice daily and nebulizations. She is also being treated with Humira, hydroxychloroquine, prednisone 15 mg p.o. daily for her seronegative rheumatoid arthritis. Previously she was on Methotrexate and Leflunomide. Recent PFTs consistent with restrictive lung disease on spirometry with mildly reduced lung volumes and mild gas transfer defect and there is significant response to bronchodilators for which she was referred to my pulmonary clinic and I saw on 02/21/21 in clinic. At that time, he reported fatigue, daytime sleepiness and snoring and uses CPAP. She reported dyspnea on exertion with wheezing and the inhaler has helped to some extent. Also reported gaining 70 lbs since she has been on steroids and attributed some of her dyspnea to her weight gain. Denied fever, chills, chest pain, palpitations. she was diagnosed with covid in may 2020 and was on oxygen for 2 months after which she started gradually improving and was able to exercises 5 days a week. Since beginning of December of this year she started to have episodes of pleuritic type chest pain on right side, worsening dypnea on exertion,, non productive cough and she did not require any supplemental oxygen. I increased her symbicort to 160-4.5 mcg 2 puffs bid and was awaiting for HRCT which was already ordered by rheumatology to evaluate for intertstial lung changes. She also has sleep apnea. She had been on CPAP following sleep study done a couple of years ago but lost her insurance and her CPAP machine. She has been using a CPAP machine that she purchased from somebody on the settings that that person had had for some time. She has not required oxygen. On 03/04/21: she presented to the emergency room with complaint of fever on top of already existing dyspnea on exertion for last 2 months. In the ED she reported intermittent fever off and on for the last 4 weeks or so. She has not been on any antibiotics. She had previously been on methotrexate followed by Manjit and was started on Humira about 3 weeks ago. She took her second dose last . She has chronically been on prednisone for about 2 years since her arthritis diagnosis. She has gained about 70 pounds in that timeframe. Has not had a high-resolution CT of the chest yet. In the ED she had a fever 102.9 and worsening of pleuritic chest pain with no recent increase in sputum production although she does admit to increased sinus drainage and increased facial tenderness along with increasing headaches. She has had some nausea but no vomiting. Work-up in the emergency room revealed a white count of 13,000 with 80% segmented neutrophils. She had a CTA of the chest that did not reveal any evidence of pulmonary embolism. She was noted to have a right-sided pleural effusion that was described as small with some mild enhancement and possible loculation. Given her immunocompromise, symptoms progressing despite outpatient evaluation combined with degree of fever today, she is being admitted to inpatient status. She has been covered empirically with antibiotics in the emergency room. Pulmonary consultation requested for right pleural effusion in patient on immunosuppresive medications for RA and chronic COPD. Today patient seen at bedside reported feeling better than yesterday, not on supplemental oxygen still has dyspnea and exertion with no desaturation No more fever spikes; improving wbc labs and imaging reviewed Review of Systems General: Reports: 10 or more systems reviewed and unremarkable except in HPI and below Meds/Allergies Home Medications and Allergies Home Medications Medication Instructions Recorded Confirmed Last Taken Type acetaminophen [Tylenol Extra 1,000 mg PO DAILY PRN 12/31/19 03/04/21 12/30/19 History Strength] fluoxetine 40 mg PO DAILY@12/31/19 03/04/21 03/04/21 History lisinopril-hydrochlorothiazide 1 tab PO DAILY@12/31/19 03/04/21 03/04/21 History potassium gluconate 1,190 mg PO DAILY@12/31/19 03/04/21 03/04/21 History ropinirole 4 mg PO BEDTIME@12/31/19 03/04/21 03/04/21 History ascorbic acid (vitamin C) [Vitamin 1,000 mg PO DAILY@07 08/31/20 03/04/21 01/08/21 History C] desvenlafaxine succinate [Pristiq] 50 mg PO DAILY@08/31/20 03/04/21 03/04/21 History aspirin [Adult Low Dose Aspirin] 81 mg PO DAILY@01/08/21 03/04/21 03/04/21 History cholecalciferol (vitamin D3) 25 mcg PO DAILY@01/08/21 03/04/21 03/04/21 History [Vitamin D3] flaxseed oil 1,000 mg PO DAILY@01/08/21 03/04/21 03/04/21 History hydroxyzine HCl 25 mg PO TID PRN 01/08/21 03/04/21 Unknown History levothyroxine [Euthyrox] 112 mcg PO DAILY@01/08/21 03/04/21 03/04/21 History multivitamin 1 tab PO DAILY@01/08/21 03/04/21 03/04/21 History adalimumab 40 mg/0.8 mL 40 mg SUBCUT Q14D #2 ea 02/14/21 03/05/21 02/28/21 Rx subcutaneous pen kit gabapentin 300 mg capsule See Rx Instructions PO TID #90 cap 02/14/21 03/04/21 03/03/21 Rx hydroxychloroquine 200 mg tablet 200 mg PO BID@ #60 tab 02/14/21 03/04/21 03/04/21 Rx omeprazole 40 mg capsule,delayed See Rx Instructions PO DAILY #30 02/14/21 03/04/21 03/04/21 Rx release cap ipratropium 0.5 mg-albuterol 3 mg 3 ml INHALATION QID PRN #360 ml 02/21/21 03/04/21 03/04/21 Rx (2.5 mg base)/3 mL nebulization soln ipratropium 20 mcg-albuterol 100 1 puff INHALATION Q6H PRN #4 g 02/21/21 03/04/21 03/04/21 Rx mcg/actuation mist for inhalation tiotropium bromide 18 mcg capsule 1 cap INHALATION DAILY #30 inh 02/22/21 03/04/21 03/04/21 Rx with inhalation device Magic Mouthwash See Rx Instructions .ROUTE QID #8 02/27/21 03/04/21 03/04/21 Rx oz Symbicort 2 puff INHALATION BID@0700,1900 03/04/21 03/04/21 03/04/21 History glenroy Marquezkrlsfc-Zb-pfvOhsjrvmzk-tea 1 tab PO DAILY@0703/04/21 03/04/21 03/04/21 History [Apple Cider Vinegar Plus] folic acid 1 mg PO DAILY@69903/04/21 03/04/21 03/04/21 History prednisone 15 mg PO DAILY@69903/04/21 03/04/21 03/04/21 History zinc 1 tab PO DAILY@69903/04/21 03/04/21 03/04/21 History Allergies Allergy/AdvReac Type Severity Reaction Status Date / Time No Known Allergies Allergy Verified 02/21/21 11:06 Current Medications Current Medications Generic Name Dose Route Start Last Admin Trade Name Freq PRN Reason Stop Dose Admin Albuterol/Ipratropium 3 ml 03/05/21 03:00 03/05/21 15:01 Ipratropium-Albuterol 3 Ml Neb INHALATION 3 ml Q6H.RESPIRATORY KITTY Administration Alprazolam 0.25 mg 03/05/21 14:23 03/05/21 16:19 Alprazolam 0.25 Mg Tablet PO 0.25 mg TID PRN Administration ANXIETY Ascorbic Acid 1,000 mg 03/05/21 09:00 03/05/21 09:23 Ascorbic Acid 500 Mg Tablet PO 1,000 mg DAILY KITTY Administration Aspirin 81 mg 03/05/21 07:00 03/05/21 06:58 Aspirin 81 Mg Ec Tablet PO 81 mg DAILY@07 KITTY Administration Budesonide 0.5 mg 03/05/21 09:00 03/05/21 08:37 Budesonide 0.5 Mg/2 Ml Neb INHALATION 0.5 mg BID.RESPIRATORY KITTY Administration Lidocaine HCl 1.667 ml/ 0 ml 03/05/21 09:00 03/05/21 16:04 Diphenhydramine HCl 4.165 mg/ MUCOUS MEM Not Given Al Hydrox/Mg Hydrox/ QID KITTY Simethicone 1.667 ml Desvenlafaxine 50 mg 03/05/21 07:00 03/05/21 06:58 Desvenlafaxine 50 Mg Tablet PO 50 mg DAILY@07 KITTY Administration Docusate Sodium 100 mg 03/05/21 09:00 03/05/21 17:34 Docusate Sodium 100 Mg Capsule PO 100 mg BID KITTY Administration Enoxaparin Sodium 40 mg 03/04/21 23:45 03/05/21 00:21 Enoxaparin 40 Mg/0.4 Ml Syringe SUBCUT 40 mg Q24H KITTY Administration Fluoxetine HCl 40 mg 03/05/21 09:00 03/05/21 09:24 Fluoxetine 20 Mg Capsule PO 40 mg DAILY KITTY Administration Fluticasone Propionate 2 spray 03/05/21 09:00 03/05/21 17:34 Fluticasone Nasal [place] 16gm Btl NASAL 2 spray BID KITTY Administration Folic Acid 1 mg 03/05/21 07:00 03/05/21 06:57 Folic Acid 1 Mg Tablet PO 1 mg DAILY@0700 KITTY Administration Gabapentin 300 mg 03/05/21 09:00 03/05/21 16:19 Gabapentin 300 Mg Capsule PO 300 mg TID KITTY Administration Hydroxychloroquine Sulfate 200 mg 03/05/21 07:00 03/05/21 18:33 Hydroxychloroquine 200 Mg Tablet PO 200 mg BID@07,19 KITTY Administration Hydroxyzine Pamoate 25 mg 03/04/21 23:30 03/05/21 09:24 Hydroxyzine 25 Mg Capsule PO 25 mg TID PRN Administration ANXIETY Piperacillin Sod/Tazobactam 50 mls @ 12.5 mls/hr 03/05/21 04:30 03/05/21 17:25 Sod 3.375 gm/ Sodium Chloride IV 0 mls/hr Q8H KITTY Infusion Protocol As Directed Potassium Chloride/Sodium Chloride 20 meq in 1,000 mls @ 1 mls/hr 03/05/21 01:45 03/05/21 02:23 Sodium Chlor 0.9% + Kcl 20 Meq IV 40 mls/hr .Q24H KITTY Administration Vancomycin HCl 2,000 mg/ 500 mls @ 250 mls/hr 03/05/21 04:30 03/05/21 17:34 Sodium Chloride IV 250 mls/hr Q12H KITTY Administration Ketorolac Tromethamine 30 mg 03/04/21 23:39 03/05/21 19:34 Ketorolac 30 Mg/Ml Inj IVP 03/09/21 23:38 30 mg Q6H PRN Administration MODERATE PAIN Levothyroxine Sodium 112 mcg 03/05/21 07:00 03/05/21 06:58 Levothyroxine 112 Mcg Tablet PO 112 mcg DAILY@07 KITTY Administration Multivitamins/Minerals 1 tab 03/05/21 09:00 03/05/21 09:24 Multivitamin W/Minerals Tablet PO 1 tab DAILY KITTY Administration Ondansetron HCl 4 mg 03/04/21 22:35 03/04/21 22:43 Ondansetron 2 Mg/Ml Sdv 2 Ml IVP 4 mg Q4H PRN Administration NAUSEA AND VOMITING Pantoprazole Sodium 40 mg 03/05/21 09:00 03/05/21 09:[address] 40 Mg Tablet PO 40 mg DAILY KITTY Administration Prednisone 15 mg 03/05/21 07:00 03/05/21 06:58 Prednisone 5 Mg Tablet PO 15 mg DAILY@0700 KITTY Administration Temazepam 15 mg 03/05/21 00:57 03/05/21 01:11 Temazepam 15 Mg Capsule PO 15 mg BEDTIME PRN Administration INSOMNIA Vitamin D 1,000 unit 03/05/21 07:00 03/05/21 06:58 Cholecalciferol (Vitamin D3) 1,000 Unit Tablet PO 1,000 unit DAILY@07 KITTY Administration Zinc Gluconate 50 mg 03/05/21 09:00 03/05/21 09:24 Zinc Gluconate 50 Mg Tablet PO 50 mg DAILY KITTY Administration PFSH Acute PFSH: Medical History (Updated 03/05/21 @ 20:13 by Yung Sandoval MD) Chronic steroid use for RA COPD (chronic obstructive pulmonary disease) COVID-19 (~05/2020) required oxygen x 2 months Depression fluoxetine Dizziness longstanding, on Pristiq for this per patient High risk medication use Humira started 02/15, plaquenil History of diverticulitis History of echocardiogram TTE 07/17/20 EF 64%, mod LVH, I/IV diastolic dysfunction, normal to mildly elevated filling pressures COREY 09/02/20 no atrial mass History of stress test (01/11/20) HTN (hypertension) Hyperlipidemia Hypothyroidism LEX on CPAP Restless leg syndrome Restrictive airway disease Seronegative rheumatoid arthritis of both hands Surgical History History of carpal tunnel release of both wrists History of D&C History of endometrial ablation History of nasal surgery History of placement of ear tubes History of tonsillectomy Hx of carpal tunnel repair Tubal ligation status Family History Mother Hypertension Family history of premature coronary artery disease Hx of CABG Hyperlipidemia Cancer Headache Father Depression Other CAD (coronary artery disease) Diabetes Denies family history of Rheumatoid arthritis Lupus Chronic kidney disease (CKD) Lung disease Stroke Social History Smoking and tobacco status: former smoker Quit status (tobacco): has quit using tobacco Year quit tobacco: 2013 [id number] Second hand smoke exposure: No Alcohol intake: current Alcohol intake frequency: holidays/special occasions only Lives independently: Yes Household members: spouse Housing: House Marital status: service: No Current occupational status: employed Pets and animals: Yes History of recent travel: No Current gender identity: Female Vitals/I&O/Wt Last Vital Signs Temp 98.5 F 03/05/21 15:38 Pulse 105 H 03/05/21 15:38 Resp 18 03/05/21 15:38 BP 159/81 03/05/21 15:38 Pulse Ox 96 03/05/21 15:38 03/05/21 03/05/21 03/05/21 06:59 14:59 22:59 Intake Total 240 / 1556.65 1270 / 1270 373.542 / 1643.542 Output Total 600 / 600 150 / 150 Balance -360 / 956.65 1120 / 1120 373.542 / 1493.542 Weight last 48 hrs Weight 258 lb Physical Exam Narrative: EXAM NARRATIVE: General: alert, NAD HEENT: conj clear, EOMI, PERRL, mmm, Neck: supple, no meningismus Heme: no cervical LAP Pulmonary: reduced breath sounds on right lower lung zone Cardiovascular: rrr, nl s1s2, no mrg Abdomen: soft, nt, nd, no r/g, bs+ Extremities: pulses +, 1+ pitting pedal edema, no c/c, R Hand-both hands look puffy overall, tenderness across MCPs but more on the ventral aspect : no CVA tenderness Skin: intact, no rash MSK: no back or neck pain Neurologic: grossly intact Data Labs: Other Labs: Laboratory Results WBC 9.1 10^3/uL (4.0- 10.0) 03/05/21 01:45 RBC 3.78 10^6/uL (4.1 -5.3) L 03/05/21 01:45 Hgb 9.7 g/dL (11.5-15 .3) L 03/05/21 01:45 Hct 32.3 % (37.0-47.0 ) L 03/05/21 01:45 MCV 85.4 fL (81-99) 03/05/21 01:45 MCH 25.7 pg (28.0-34. 0) L 03/05/21 01:45 MCHC 30.0 g/dL (30.0-3 6.0) D 03/05/21 01:45 RDW 16.2 % (12.1-15.1 ) H 03/05/21 01:45 Plt Count 245 10^3/cmm (130 -400) 03/05/21 01:45 MPV 11.3 fL (7.4-10.4 ) H 03/05/21 01:45 Neut % (Auto) 68.7 % 03/05/21 01:45 Lymph % (Auto) 20.1 % 03/05/21 01:45 [place] % (Auto) 9.4 % 03/05/21 01:45 Eos % (Auto) 1.0 % 03/05/21 01:45 Baso % (Auto) 0.6 % 03/05/21 01:45 Neut # (Auto) 6.22 10^3/uL (1.8 -7.7) 03/05/21 01:45 Lymph # (Auto) 1.8 10^3/uL (0.8- 4.8) 03/05/21 01:45 [place] # (Auto) 0.9 10^3/uL (0.2- 0.9) 03/05/21 01:45 Eos # (Auto) 0.1 10^3/uL (0.0- 0.8) 03/05/21 01:45 Baso # (Auto) 0.1 10^3/uL (0.0- 0.1) 03/05/21 01:45 Nucleated RBC % (a uto) 0 % 03/05/21 01:45 Nucleated RBCs # 0.0 /100WBC 03/05/21 01:45 ESR 44 mm/hr (0-15) H 03/05/21 01:45 PT 14.00 SECONDS (12 .1-14.9) 03/05/21 01:45 INR 1.05 (0.8-1.2) 03/05/21 01:45 Sodium 141 mmol/L (136-1 45) 03/05/21 01:45 Potassium 3.9 mmol/L (3.5-5 .1) 03/05/21 01:45 Chloride 105 mmol/L (98-10 7) 03/05/21 01:45 Carbon Dioxide 25 mmol/L (22-29) 03/05/21 01:45 Anion Gap 14.9 (5-19) 03/05/21 01:45 BUN 14 mg/dL (6-20) 03/05/21 01:45 Creatinine 0.8 mg/dL (0.5-0. 9) 03/05/21 01:45 GFR Calculation 74.5 mL/min (90-1 30) L 03/05/21 01:45 Glucose 111 mg/dL (65-115 ) 03/05/21 01:45 Calculated Osmolal ity 293 mOsm/kg (285- 295) 03/05/21 01:45 Lactate 2.2 mmol/L (0.5-2 .2) 03/04/21 18:10 Calcium 8.5 mg/dL (8.5-10 .5) 03/05/21 01:45 Phosphorus 3.4 mg/dL (2.5-4. 5) 03/05/21 01:45 Magnesium 1.9 mg/dL (1.7-2. 3) 03/05/21 01:45 Total Bilirubin 0.2 mg/dL (0.15-1 .2) 03/04/21 18:10 AST 20 U/L (0-32) 03/04/21 18:10 ALT 23 U/L (0-33) 03/04/21 18:10 Alkaline Phosphata se 84 IU/L (35-105) 03/04/21 18:10 Troponin T Baselin e 7 ng/L (0-10) 03/04/21 18:10 Troponin T 120 Min joshua 10.07 ng/L (0-10) H 03/04/21 20:08 Delta Troponin T 3.07 ABS# (0-10) 03/04/21 20:08 Troponin T Hi Sens 6Hr 9.68 ng/L (0-10) 03/05/21 01:45 Troponin T Hi Sens 6Hr Delta 2.68 ng/L (0-12) 03/05/21 01:45 C-Reactive Protein 65.6 mg/L (0.0-4. 9) H 03/05/21 01:45 NT-Pro-B Natriuret Pep 89 pg/mL (0-125) 03/04/21 18:10 Total Protein 7.3 g/dL (6.6-8.7 ) 03/04/21 18:10 Albumin 4.4 g/dL (3.5-5.2 ) 03/04/21 18:10 Globulin 2.9 g/dL (1.3-4.6 ) 03/04/21 18:10 Procalcitonin 0.21 ng/mL (0-0.5 ) 03/05/21 01:45 Urine Color Straw (Yellow) 03/04/21 18:17 Urine Appearance Clear (CLEAR) 03/04/21 18:17 Urine pH 8 (5-7) H 03/04/21 18:17 Ur Specific Gravit y 1.015 (1.005-1.0 30) 03/04/21 18:17 Urine Protein Neg (Negative) 03/04/21 18:17 Urine Glucose (UA) Norm (Normal) 03/04/21 18:17 Urine Ketones Negative (Negati ve) 03/04/21 18:17 Urine Blood Neg (Negative) 03/04/21 18:17 Urine Nitrate Negative (Negati ve) 03/04/21 18:17 Urine Bilirubin Neg (Negative) 03/04/21 18:17 Prot Sulfosalicyli c Acd Negative (Negati ve) 03/04/21 18:17 Urine Urobilinogen Norm mg/dL (Negat swapnil) 03/04/21 18:17 Ur Leukocyte Khadijah ase Negative (Negati ve) 03/04/21 18:17 Nasal/Oral COVID-1 9 PCR Not detected 03/05/21 04:15 Influenza Type A A g Negative (Negati ve) 03/05/21 16:28 Influenza Type B A g Negative (Negati ve) 03/05/21 16:28 SARS-CoV-2 Ag (Rap id) Negative (Negati ve) 03/04/21 18:15 Impressions Chest X-Ray 03/04/21 18:04 IMPRESSION: 1. Prominent pulmonary interstitium may reflect background chronic changes. 2. No focal pulmonary consolidation. Chest CTA 03/04/21 19:00 IMPRESSION: 1. Negative for pulmonary embolism. 2. There is a nonspecific small volume right pleural effusion which demonstrates a mild degree of pleural enhancement. A loculated collection cannot be excluded. 3. Background emphysema and interstitial fibrotic lung changes without evidence of focal pneumonia. Radiation Dose CTDIVOL = (mGy): DLP = 1183.25 (mGy-cm) Micro: Micro: Microbiology 03/04/21 18:10 Blood Culture - Pr eliminary Blood NEGATIVE TO HARIS E 03/04/21 18:53 Blood Culture - Pr eliminary Blood NEGATIVE TO HARIS E A&P Assessment and plan (1) Exertional dyspnea: Status: Acute (2) Sepsis: Status: Acute Qualifiers: Sepsis type: sepsis due to unspecified organism Sepsis acute organ dysfunction status: without acute organ dysfunction Qualified Code(s): A41.9 - Sepsis, unspecified organism (3) Pleural effusion on right: Status: Acute (4) Obesity, morbid, BMI 40.0-49.9: Status: Acute (5) LEX on CPAP: Status: Chronic (6) Chronic steroid use: Status: Chronic (7) COPD (chronic obstructive pulmonary disease): Status: Chronic Qualifiers: COPD type: emphysema Emphysema type: centrilobular Qualified Code(s): J43.2 - Centrilobular emphysema (8) Ex-smoker for more than 1 year: Status: Chronic (9) Restrictive airway disease: Status: Chronic (10) High risk medication use: Status: Acute (11) Seronegative rheumatoid arthritis of both hands: Status: Chronic (12) COVID-19: Status: Acute # Right pleural effusion - likely parapneumonic given sepsis vs inflammatory given underlying RA # Chronic ex smoker - 1 ppd x 35 years - quit 2013; # COPD # Seronegative RA - on Humira, plaquanil and Prednisone 10 mg daily - immunosuppressed and potential to have fungal as well as TB - Afebrile last 24 hrs; wbc down to 9.2 ; procalcitonin 0.21 - CTA 03/04/21: Negative for PE, Non specific smal volume rigth pleural effusion, background emphysema and interstitial fibrotic lung changes without evidence of focal pneumonia - repeat Covid antigen and PCR negative ; Flu negative ; - Bacterial antigen, MRSA PCR, other viral panel; TB quantiferom, blood cultures - pending - Currently covered with Vancomycin and Zosyn - Bedside US today - showed mild right pleural effusion - with not enough pocket to tap - patient reporetd somewhat improvement in her respiratory status since yesterday and currently not on O2 - Continue Pulmicort 0.5 mg bid , Duoneb q 6 hr kitty, prednisone 15 mg daily - BNP 89. EF on echo 06/2020 64% with grade I/IV diastolic dysfunction noted. 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 No evidence of atrial septal defect or patent formen ovale. Lipomatous hypertrophy of interatrial septum. Mildly aneurysmal interatrial septum ruled out myxoma. -Continue clinical monitoring with antibiotics and nebulizations Medical condition and management plan including findings of bedside sonography and rationale for not doing thoracentesis were explained in detail to the patient at bedside, daughter on phone. They verbalized understanding and agreed with the plan. Recommendations conveyed to the Hospitalist covering the patient Coding Level of Care Code New Pt Acute Advertising Production Manager for Chg Fwd Patient Type New History Comprehensive Exam Comprehensive Medical Decision Making Moderate Complexity Diagnoses Exertional dyspnea R06.00 Sepsis A41.9 Sepsis type: sepsis due to unspecified organism Sepsis acute organ dysfunction status: without acute organ dysfunction Pleural effusion on right J90 Obesity, morbid, BMI 40.0-49.9 E66.01 LEX on CPAP G47.33; Z99.89 Chronic steroid use COPD (chronic obstructive pulmonary disease) J43.2 COPD type: emphysema Emphysema type: centrilobular Ex-smoker for more than 1 year Z87.891 Restrictive airway disease J98.4 High risk medication use Z79.899 Seronegative rheumatoid arthritis of both hands M06.041; M06.042 COVID-19 U07.1 Time Spent (min) 45 Comment INCLUDING BEDSIDE ULTRASONOGRAPHY OF RIGHT PLEURAL EFFUSION
[2021-03-05] MEDS: ropinirole 1 mg Tablet 4 MG PO (20:25)
[2021-03-06] VITALS (14 sets, daily range): BP systolic 116–153; BP diastolic 71–86; PULSE 78–112; RESP 16–20; TEMP 36.4–36.9; O2SAT 92–99
[2021-03-06] MEDS: piperacillin-tazobactam 3.375 GM in sodium chloride 0.9% (plus) 50 ML IV ×3 (00:58→17:55)
[2021-03-06] MEDS: ipratropium-albuterol 3 mL Neb INHALATION ×4 (02:59→21:37)
[2021-03-06] MEDS: hydroxychloroquine 200 mg Tablet PO ×2 (06:03→17:55)
[2021-03-06] MEDS: levothyroxine 112 mcg Tablet PO (06:03)
[2021-03-06] MEDS: cholecalciferol (vitamin D3) 1,000 unit Tablet 1000 UNIT PO (06:03)
[2021-03-06] MEDS: aspirin 81 mg EC Tablet PO (06:03)
[2021-03-06] MEDS: desvenlafaxine 50 mg Tablet PO (06:03)
[2021-03-06] MEDS: folic acid 1 mg Tablet PO (06:03)
[2021-03-06] MEDS: predniSONE 5 mg Tablet 15 MG PO (06:03)
[2021-03-06 06:17] LABS: Basophils % 0.5 %; Eosinophils # 0.3 10^3/uL (0.0-0.8); Eosinophils % 4.4 %; Hematocrit 30.6 % (37.0-47.0); Hemoglobin 9.1 g/dL (11.5-15.3); Lymphocytes # 1.6 10^3/uL (0.8-4.8); Lymphocytes % 25.7 %; Mean Corpuscular HGB Conc 29.7 g/dL (30.0-36.0); Mean Corpuscular Hemoglobin 25.6 pg (28.0-34.0); Mean Platelet Volume 10.6 fL (7.4-10.4); Monocytes # 0.5 10^3/uL (0.2-0.9); Monocytes % 8.2 %; Neutrophils # 3.88 10^3/uL (1.8-7.7); Nucleated Red Blood Cells % 0 %; Platelet Count 210 10^3/cmm (130-400); Red Blood Count 3.56 10^6/uL (4.1-5.3); Red Cell Distribution Width 16.2 % (12.1-15.1); White Blood Count 6.4 10^3/uL (4.0-10.0)
[2021-03-06 06:36] LABS: Alanine Aminotransferase 15 U/L (0-33); Albumin Level 3.2 g/dL (3.5-5.2); Alkaline Phosphatase 65 IU/L (35-105); Anion Gap 12.7 (5-19); Aspartate Amino Transferase 15 U/L (0-32); Blood Urea Nitrogen 12 mg/dL (6-20); Calcium 8.4 mg/dL (8.5-10.5); Carbon Dioxide 26 mmol/L (22-29); Chloride 106 mmol/L (98-107); Globulin 3.3 g/dL (1.3-4.6); Glomerular Filtration Rate 86.9 mL/min (90-130); Glucose 108 mg/dL (65-115); Osmolality Calculated 292 mOsm/kg (285-295); Potassium 3.7 mmol/L (3.5-5.1); Sodium 141 mmol/L (136-145); Total Bilirubin 0.2 mg/dL (0.15-1.2); Total Protein 6.5 g/dL (6.6-8.7)
[2021-03-06 06:43] LABS: NT Pro B Type Natriuretic Pept 353 pg/mL (0-125)
[2021-03-06] MEDS: docusate sodium 100 mg Capsule PO ×2 (07:55→17:55)
[2021-03-06] MEDS: ascorbic acid 500 mg Tablet 1000 MG PO (07:55)
[2021-03-06] MEDS: fluoxetine 20 mg Capsule 40 MG PO (07:56)
[2021-03-06] MEDS: pantoprazole DR 40 mg Tablet PO (07:56)
[2021-03-06] MEDS: zinc gluconate 50 mg Tablet PO (07:56)
[2021-03-06] MEDS: gabapentin 300 mg Capsule PO ×3 (07:56→20:23)
[2021-03-06] MEDS: lidocaine 2% viscous 1.667 ML, diphenhydrAMINE oral liq 4.165 MG, aluminum-mag hydrox-s... MUCOUS MEM ×3 (08:09→20:24)
[2021-03-06] MEDS: fluticasone nasal spray 16gm Btl 2 SPRAY NASAL ×2 (08:20→17:56)
[2021-03-06] MEDS: budesonide 0.5 mg/2 mL Neb INHALATION ×2 (09:56→21:37)
--- NOTE | 2021-03-06 10:51 | USCV_ITS ---
Gerardo Lennon Age: 55 Gender: F : 1965 Exam Date: 03/06/2021 14:49 Ordering Phys: Yung Sandoval MD Technologist: REMEDIOS Exam Location: [facility] – [place] Indication: LV FUNCTION ADN PULMONARY ARTERY PRESSURE BP: 140 / 73 HR: 94 Rhythm: Sinus Technical Quality: Adequate MEASUREMENTS (Male / Female) Normal Values 2D ECHO LV Diastolic Diameter PLAX 4.5 cm 4.2 - 5.9 / 3.9 - 5.3 cm LV Systolic Diameter PLAX 2.5 cm LV Chamber Size 3.2 cm IVS Diastolic Thickness 1.4 cm 0.6 - 1.0 / 0.6 - 0.9 cm IVS Systolic Thickness 2.5 cm LVPW Diastolic Thickness 2.1 cm 0.6 - 1.0 / 0.6 - 0.9 cm LVPW Systolic Thickness 2.3 cm RV Chamber Size 3.3 cm LVOT Diameter 2.0 cm LV Ejection Fraction 2D Teich 76.6 % LV Ejection Fraction MOD 2C 67.8 % LV Ejection Fraction 2C AL 67.6 % LA Diameter 2.8 cm LA Width 2.8 cm LA Height 4.0 cm RA Width 2.7 cm RA Height 3.5 cm Aorta at Sinotubular Diameter 2.4 cm M-MODE LV Diastolic Diameter MM 5.8 cm 4.2 - 5.9 / 3.9 - 5.3 cm LV Systolic Diameter MM 3.9 cm LV Ejection Fraction MM Teich 59.1 % IVS Diastolic Thickness MM 0.7 cm 0.6 - 1.0 / 0.6 - 0.9 cm IVS Systolic Thickness MM 1.1 cm LVPW Diastolic Thickness MM 0.7 cm 0.6 - 1.0 / 0.6 - 0.9 cm LVPW Systolic Thickness MM 1.5 cm Aortic Annulus Diameter 3.1 cm LA Ao Ratio MM 1.1 MV E Point Septal Separation 0.6 cm DOPPLER AV Peak Velocity 178.0 cm/s LVOT Peak Velocity 131.0 cm/s AV Area Cont Eq vti 2.3 cm squared AV Area Cont Eq pk 2.4 cm squared MV Area PHT 5.0 cm squared Mitral E to A Ratio 1.0 MV E' Velocity 65.0 cm/s Mitral E to MV E' Ratio 7.4 Mitral E to LV E' Lateral Ratio 8.2 Mitral E to LV E' Septal Ratio 6.8 TR Peak Velocity 179.0 cm/s TR Peak Gradient 12.8 mmHg TV Peak E Velocity 63.0 cm/s Right Atrial Pressure 3.0 mmHg Pulmonary Artery Systolic Pressu 15.8 mmHg PV Peak Velocity 89.0 cm/s RV Acceleration Time 0.1 s RV Ejection Time 0.3 s RV AcT/ET 0.5 FINDINGS Left Ventricle Normal left ventricular size and systolic function, EF 69 %. Grade I/IV diastolic dysfunction (abnormal relaxation filling pattern), normal to mildly elevated filling pressures. Moderate left ventricular hypertrophy. Right Ventricle The right ventricle is normal in size and function. Right Atrium The right atrium is normal in size. Left Atrium The left atrium is normal in size. Mitral Valve No gross abnormalities noted Aortic Valve No gross abnormalities noted Tricuspid Valve No gross abnormalities noted.trace tricuspid valve regurgitation. Estimated pulmonary artery peak systolic pressure of 16 mmHg-suboptimal Doppler signals Pulmonic Valve Pulmonic valve not well visualized. Pericardium Normal pericardium without effusion. Aorta Normal ascending aorta dimension. CONCLUSIONS Normal left ventricular size and systolic function, EF 69 %. Moderate left ventricular hypertrophy grade I/IV diastolic dysfunction (abnormal relaxation filling pattern), normal to mildly elevated filling pressures. No significant stenotic or regurgitant lesions. No intracardiac masses. PA pressure appears to be within normal limits. However because of the suboptimal Doppler signals, this could be misleading. No other evidence of pulmonary hypertension, based on the above findings. There is no pericardial effusion. Compared to the previous study from 07/17/2020, there may not be a significant change. Dr Emigdio Ballesteros MD [facility] (Electronically Signed) Final Date: 07 March 2021 18:39 S
[2021-03-06] MEDS: ALPRAZolam 0.25 mg Tablet PO (12:47)
[2021-03-06] MEDS: predniSONE 20 mg Tablet 40 MG PO (12:51)
--- NOTE | 2021-03-06 13:51 | P.PN_ITS ---
Subjective Subjective: Interval history: no interim acute events, unable to perform thoracenetsis as not enough pocket to tap. Saturating 95% on RA Medications: Reviewed: Yes Medication Review Details: I personally reviewed home medication list and medications received day of admission thus far. Vitals/I&O/Wt Last Vital Signs Temp 98.2 F 03/06/21 11:35 Pulse 101 H 03/06/21 11:35 Resp 18 03/06/21 11:35 BP 140/73 03/06/21 11:35 Pulse Ox 95 03/06/21 11:35 03/05/21 03/06/21 03/06/21 22:59 06:59 14:59 Intake Total 873.542 / 2143.542 1686.458 / 3830.000 1510 / 1510 Output Total 600 / 750 200 / 950 Balance 273.542 / 3332.478 2181.458 / 2880.000 1510 / 1510 Weight last 48 hrs Weight 117.027 kg Physical Exam Narrative: EXAM NARRATIVE: GEN: Awake, alert and oriented, no acute distress CVS: S1S2 N RS: CTA B/L Abd: Soft, nt/nd , bs+ DIRECTOR OF AGRICULTURE: no focal neuro deficits Data : 03/06/21 06:00 03/06/21 06:00 Micro: Microbiology 03/06/21 03:44 Bacterial Antigens - Final Urine,Voided 03/04/21 18:10 Blood Culture - Preliminary Blood NEGATIVE TO DATE 03/04/21 18:53 Blood Culture - Preliminary Blood NEGATIVE TO DATE A&P Assessment and plan (1) Sepsis: With fever, leukocytosis with left shift and sinus tachycardia in a patient known to be immunocompromised on steroids and humira. Has mildly enhancing right pleural effusion and sinus symptoms as suspected source. Pulmonology consult appreciated Status: Acute Qualifiers: Sepsis type: sepsis due to unspecified organism Sepsis acute organ dysfunction status: without acute organ dysfunction Qualified Code(s): A41.9 - Sepsis, unspecified organism (2) Pleural effusion on right: No prior history. BNP 89. EF on echo 06/2020 64% with grade I/IV diastolic dysfunction noted. Status: Acute (3) Seronegative rheumatoid arthritis of both hands: Currently on prednisone 10 mg daily, Humira started approximately 3 weeks ago and Plaquenil. Has previously been on methotrexate and Arava but both of these have been stopped over the last few months. Status: Chronic (4) Chronic steroid use: For rheumatoid arthritis Status: Chronic (5) Restrictive airway disease: On recent PFTs Status: Chronic (6) COPD (chronic obstructive pulmonary disease): In a patient with a history of prior smoking Status: Chronic Qualifiers: COPD type: emphysema Emphysema type: centrilobular Qualified Code(s): J43.2 - Centrilobular emphysema (7) LEX on CPAP: Has been using a CPAP that her and her were able to find with somebody else's settings for a while. She had lost her insurance and the machine that was supplied to her after her sleep study a couple of years ago was taken away. She does not know what her prior settings have been. Status: Chronic (8) HTN (hypertension): Chronically on lisinopril/hydrochlorothiazide, blood pressures lower range of normal presently Status: Chronic Qualifiers: Hypertension type: essential hypertension Qualified Code(s): I10 - Essential (primary) hypertension (9) Obesity, morbid, BMI 40.0-49.9: Status: Acute Additional A&P Information Plan: Continue broad-spectrum antibiotics with vancomycin and Zosyn currently Possiblity of parapneumonic effusion vs serositis from underlying rheumatological cause. Streoids increased today to 40mg po daily and monitor for response Unable to perfrom Thoarcenetesis as no safe pocket to tap Blood cultures negative thus far echocardiogram given elevated BNP resume home lisinopril/hydrochlorothiazide currently, monitor blood pressures check quantiferon screen given patient on Humira DVT prophylaxis: lovenox Code Status: full Attestations Medical Necessity Statement*: increasing steroids to monitor for response Coding Level of Care Code Acute Home Economics Expert for [facility] Fwd Diagnoses Sepsis A41.9 Sepsis type: sepsis due to unspecified organism Sepsis acute organ dysfunction status: without acute organ dysfunction Pleural effusion on right J90 Seronegative rheumatoid arthritis of both hands M06.041; M06.042 Chronic steroid use Restrictive airway disease J98.4 COPD (chronic obstructive pulmonary disease) J43.2 COPD type: emphysema Emphysema type: centrilobular LEX on CPAP G47.33; Z99.89 HTN (hypertension) I10 Hypertension type: essential hypertension Obesity, morbid, BMI 40.0-49.9 E66.01
--- NOTE | 2021-03-06 15:40 | PC.RESP ---
PULMONARY REHAB INFORMATION SENT TO PATIENT.
[2021-03-06 16:44] LABS: Vancomycin Trough 23.6 ug/mL (10-15)
--- NOTE | 2021-03-06 17:55 | P.PN_ITS ---
Subjective Subjective: Interval history: Ms. Gerardo Lennon is seen at bedside today morning Saturating 97% on room air Still getting short of breath on exertion and complaining of right-sided pleuri tic chest pain Checked with bedside ultrasound-further decrease in right pleural effusion Labs and imaging reviewed and pertinent labs are incorporated in assessment and plan Medications: Reviewed: Yes Vitals/I&O/Wt Last Vital Signs Temp 97.5 F L 03/06/21 15:55 Pulse 78 03/06/21 15:55 Resp 18 03/06/21 15:55 BP 118/72 03/06/21 15:55 Pulse Ox 99 03/06/21 15:55 03/06/21 03/06/21 03/06/21 06:59 14:59 22:59 Intake Total 1686.458 / 3830.000 1510 / 1510 Output Total 200 / 950 Balance 1486.458 / 2880.000 1510 / 1510 Physical Exam Narrative: EXAM NARRATIVE: General: alert, NAD HEENT: conj clear, EOMI, PERRL, mmm, Neck: supple, no meningismus Heme: no cervical LAP Pulmonary: reduced breath sounds on right lower lung zone Cardiovascular: rrr, nl s1s2, no mrg Abdomen: soft, nt, nd, no r/g, bs+ Extremities: pulses +, 1+ pitting pedal edema, no c/c, R Hand-both hands look puffy overall, tenderness across MCPs but more on the ventral aspect : no CVA tenderness Skin: intact, no rash MSK: no back or neck pain Neurologic: grossly intact Data : 03/06/21 06:00 03/06/21 06:00 Micro: Microbiology 03/06/21 03:44 Bacterial Antigens - Final Urine,Voided 03/04/21 18:10 Blood Culture - Preliminary Blood NEGATIVE TO DATE 03/04/21 18:53 Blood Culture - Preliminary Blood NEGATIVE TO DATE A&P Assessment and plan (1) Exertional dyspnea: Status: Acute (2) Sepsis: Status: Acute Qualifiers: Sepsis type: sepsis due to unspecified organism Sepsis acute organ dysfunction status: without acute organ dysfunction Qualified Code(s): A41.9 - Sepsis, unspecified organism (3) Pleural effusion on right: Status: Acute (4) Obesity, morbid, BMI 40.0-49.9: Status: Acute (5) LEX on CPAP: Status: Chronic (6) Chronic steroid use: Status: Chronic (7) COPD (chronic obstructive pulmonary disease): Status: Chronic Qualifiers: COPD type: emphysema Emphysema type: centrilobular Qualified Code(s): J43.2 - Centrilobular emphysema (8) Ex-smoker for more than 1 year: Status: Chronic (9) Restrictive airway disease: Status: Chronic (10) High risk medication use: Status: Acute (11) Seronegative rheumatoid arthritis of both hands: Status: Chronic (12) COVID-19: Status: Resolved (13) Serositis: Status: Acute # Right pleural effusion - likely parapneumonic given sepsis vs inflamm atory given underlying RA serositis # R # Chronic ex smoker - 1 ppd x 35 years - quit 2013; # COPD # Seronegative RA - on Humira, plaquanil and Prednisone 10 mg daily - Afebrile last 24 hrs; wbc down to 9.2 ; procalcitonin 0.21 - CTA 03/04/21: Negative for PE, Non specific smal volume rigth pleural effusion, background emphysema and interstitial fibrotic lung changes without evidence of focal pneumonia - repeat Covid antigen and PCR negative ; Flu negative ; - Bacterial antigen negative and Blood cultures negative so far; MRSA PCR, other viral panel; TB quantiferom - pending - immunosuppressed and at riskl to have fungal as well as TB - but no suspicious lesions on CT chest - Currently covered with Vancomycin and Zosyn - Bedside US today - showed mild right pleural effusion further decreasing - with not enough pocket to tap - patient reported somewhat improvement in her respiratory status since admission but still has dyspnea on exertion - Continue Pulmicort 0.5 mg bid , Duoneb q 6 hr kitty, - I will increase prednisone to 40 mg daily (03/06/21) for 1 week and taper down to 30 mg daily x 1 week, down to 20 mg x 1 week and to 10 mg - EF on echo 06/2020 64% with grade I/IV diastolic dysfunction noted. showed ?? left atrial myxoma - COREY in august 2020 reported as EF 60-65%; Rounded echodense structure in left atrium between left atrial appendage and left supe rior pulmonary vein, represents prominent coumadin ridge. No evidence of atrial septal defect or patent formen ovale. Lipomatous hypertrophy of interatrial septum. Mildly aneurysmal interatrial septum ruled out myxoma. - BNP > 330 - Will repeat Echo to rule out pericardial effusion and assess LV f unction -Continue clinical monitoring with antibiotics, steroids and nebulizations 03/05/21 03/06/21: Right-sided pleuritic chest pain with right pleural effusion in patient with rheumatoid arthritis on immunosuppressant medications-I suspect inflammatory serositis vs infectious serositis. Currently patient is getting antibiotics and I have increased her steroid dose to 40 mg daily and will taper down every week by 10 mg for next 3 to 4 weeks. If patient's symptoms does not improve -I will recommend video-assisted thoracoscopic pleural biopsy; meanwhile we will rule out TB ; even if QuantiFERON negative and if patient's symptoms does not resolve then we should get VATS pleural biopsy to rule out TB Medical condition and management plan including findings of bedside sonography and rationale for not doing thoracentesis were explained in detail to the patient at bedside, daughter on phone. They verbalized understanding and agreed with the plan. Recommendations conveyed to the Hospitalist covering the patient Attestations Medical Necessity Statement*: Increased steroids and monitor for clinical response Time Spent in Patient Care: Greater than 35 minutes (>than 50% of time spent in counselling and/or direct pt care on unit) . Critical Care Time: Critical Care Time (min): 35 Coding Level of Care Code Established Pt Acute Licensed Practical Nurse Instructor for Chg Fwd Patient Type Established History Comprehensive Exam Comprehensive Medical Decision Making Moderate Complexity Diagnoses Exertional dyspnea R06.00 Sepsis A41.9 Sepsis type: sepsis due to unspecified organism Sepsis acute organ dysfunction status: without acute organ dysfunction Pleural effusion on right J90 Obesity, morbid, BMI 40.0-49.9 E66.01 LEX on CPAP G47.33; Z99.89 Chronic steroid use COPD (chronic obstructive pulmonary disease) J43.2 COPD type: emphysema Emphysema type: centrilobular Ex-smoker for more than 1 year Z87.891 Restrictive airway disease J98.4 High risk medication use Z79.899 Seronegative rheumatoid arthritis of both hands M06.041; M06.042 COVID-19 U07.1 Serositis K65.8 Time Spent (min) 35 Comment including bedside ultrasound
[2021-03-06] MEDS: ropinirole 1 mg Tablet 4 MG PO (20:23)
[2021-03-06] MEDS: temazepam 15 mg Capsule PO (20:24)
[2021-03-06] MEDS: enoxaparin 40 mg/0.4 mL Syringe SUBCUT (22:51)
[2021-03-06] MEDS: vancomycin 1,500 MG/300 ML PIGGYBACK 200 MG IV (22:51)
[2021-03-07] VITALS (14 sets, daily range): BP systolic 110–163; BP diastolic 64–81; PULSE 89–107; RESP 15–20; TEMP 36.4–36.8; O2SAT 94–96
[2021-03-07] MEDS: piperacillin-tazobactam 3.375 GM in sodium chloride 0.9% (plus) 50 ML IV ×3 (00:41→18:05)
[2021-03-07] MEDS: ipratropium-albuterol 3 mL Neb INHALATION ×4 (02:46→22:13)
--- NOTE | 2021-03-07 04:00 | XR_ITS ---
WS: [id number] Portable AP upright chest, 03/07/2021 Clinical Data: follow up effusion Comparison: Portable chest, 03/04/2021. Findings: No nodules, masses or effusions are seen. The heart is slightly enlarged. No pneumonia or pneumothorax is seen. There are patchy diffuse bilateral interstitial markings which have increased s lightly from the last 3 days. These may represent pulmonary vascular congestion. There is pleural renzo ction at the right lung base. XR/XR chest 1V portable [id number] Impression: 1. Diffuse bilateral interstitial changes which could represent pulmonary vascu lar congestion. 2. Cardiomegaly.
[2021-03-07] MEDS: aspirin 81 mg EC Tablet PO (05:56)
[2021-03-07] MEDS: hydroxychloroquine 200 mg Tablet PO ×2 (05:56→18:12)
[2021-03-07] MEDS: desvenlafaxine 50 mg Tablet PO (05:56)
[2021-03-07] MEDS: cholecalciferol (vitamin D3) 1,000 unit Tablet 1000 UNIT PO (05:56)
[2021-03-07] MEDS: predniSONE 20 mg Tablet 40 MG PO (05:57)
[2021-03-07] MEDS: folic acid 1 mg Tablet PO (05:57)
[2021-03-07] MEDS: levothyroxine 112 mcg Tablet PO (05:57)
[2021-03-07 06:01] LABS: Basophils % 0.2 %; Eosinophils % 0.4 %; Hematocrit 31.7 % (37.0-47.0); Hemoglobin 9.5 g/dL (11.5-15.3); Lymphocytes # 1.1 10^3/uL (0.8-4.8); Mean Corpuscular Hemoglobin 26.2 pg (28.0-34.0); Mean Corpuscular Volume 87.6 fL (81-99); Mean Platelet Volume 11.3 fL (7.4-10.4); Monocytes # 0.7 10^3/uL (0.2-0.9); Monocytes % 6.2 %; Neutrophils # 8.82 10^3/uL (1.8-7.7); Neutrophils % 82.7 %; Nucleated Red Blood Cells % 0 %; Platelet Count 235 10^3/cmm (130-400); Red Blood Count 3.62 10^6/uL (4.1-5.3); Red Cell Distribution Width 16.3 % (12.1-15.1); White Blood Count 10.7 10^3/uL (4.0-10.0)
[2021-03-07 06:19] LABS: Alanine Aminotransferase 21 U/L (0-33); Albumin Level 3.6 g/dL (3.5-5.2); Alkaline Phosphatase 70 IU/L (35-105); Aspartate Amino Transferase 29 U/L (0-32); Blood Urea Nitrogen 24 mg/dL (6-20); Calcium 8.4 mg/dL (8.5-10.5); Carbon Dioxide 21 mmol/L (22-29); Chloride 104 mmol/L (98-107); Creatinine Clr Calc Pharmacy 25.4038; Glucose 125 mg/dL (65-115); Osmolality Calculated 296 mOsm/kg (285-295); Sodium 140 mmol/L (136-145); Total Bilirubin 0.2 mg/dL (0.15-1.2); Total Protein 6.6 g/dL (6.6-8.7)
[2021-03-07 06:54] LABS: Anion Gap 19.3 (5-19); Potassium 4.3 mmol/L (3.5-5.1)
[2021-03-07 07:16] LABS: Slide Review Slide Review Perform
[2021-03-07] MEDS: budesonide 0.5 mg/2 mL Neb INHALATION ×2 (08:43→22:13)
[2021-03-07] MEDS: zinc gluconate 50 mg Tablet PO (09:21)
[2021-03-07] MEDS: fluoxetine 20 mg Capsule 40 MG PO (09:21)
[2021-03-07] MEDS: gabapentin 300 mg Capsule PO ×2 (09:21→15:11)
[2021-03-07] MEDS: lidocaine 2% viscous 1.667 ML, diphenhydrAMINE oral liq 4.165 MG, aluminum-mag hydrox-s... MUCOUS MEM ×4 (09:22→21:12)
[2021-03-07] MEDS: docusate sodium 100 mg Capsule PO ×2 (09:22→18:04)
[2021-03-07] MEDS: ascorbic acid 500 mg Tablet 1000 MG PO (09:22)
[2021-03-07] MEDS: pantoprazole DR 40 mg Tablet PO (09:22)
[2021-03-07] MEDS: fluticasone nasal spray 16gm Btl 2 SPRAY NASAL ×2 (09:23→18:03)
[2021-03-07] MEDS: ALPRAZolam 0.25 mg Tablet PO ×2 (10:09→20:42)
[2021-03-07] MEDS: vancomycin 1,500 MG/300 ML PIGGYBACK 200 MG IV (11:00)
[2021-03-07 11:17] LABS: Glucose Point of Care 170 mg/dL (70-110)
--- NOTE | 2021-03-07 14:49 | P.PN_ITS ---
Subjective Subjective: Interval history: - Patient seen at bedside today -Saturating 94% on room air -Reported improvement in her right side pleuritic chest pain and states that her dyspnea on exertion is still there but slightly better -Reported increase in her urine output since today morning compared to last couple of days -Patient reported taking [id number] diuretic (diurex) from [facility] occasionally when her feet swells up - Labs and imaging reviewed and pertinent findings are incorporated in assessment and plan Medications: Reviewed: Yes Vitals/I&O/Wt Last Vital Signs Temp 97.9 F 03/07/21 11:16 Pulse 103 H 03/07/21 14:36 Resp 18 03/07/21 14:29 BP 135/77 03/07/21 11:16 Pulse Ox 96 03/07/21 14:29 03/06/21 03/07/21 03/07/21 22:59 06:59 14:59 Intake Total 530 / 2040 350 / 2390 830 / 830 Output Total 300 / 300 Balance 530 / 2040 50 / 2090 830 / 830 Physical Exam Narrative: EXAM NARRATIVE: General: alert, NAD HEENT: conj clear, EOMI, PERRL, mmm, Neck: supple, no meningismus Heme: no cervical LAP Pulmonary: Increased expiratory wheeze on the right side of the chest Cardiovascular: rrr, nl s1s2, no mrg Abdomen: soft, nt, nd, no r/g, bs+ Extremities: pulses +, 1+ pitting pedal edema, no c/c, R Hand-both hands look puffy overall, tenderness across MCPs but more on the ventral aspect : no CVA tenderness Skin: intact, no rash MSK: no back or neck pain Neurologic: grossly intact Data : 03/07/21 05:49 03/07/21 15:37 Other Labs: Laboratory Results WBC 10.7 10^3/uL (4.0-10.0) H 03/07/21 05:49 RBC 3.62 10^6/uL (4.1-5.3) L 03/07/21 05:49 Hgb 9.5 g/dL (11.5-15.3) L 03/07/21 05:49 Hct 31.7 % (37.0-47.0) L 03/07/21 05:49 MCV 87.6 fL (81-99) 03/07/21 05:49 MCH 26.2 pg (28.0-34.0) L 03/07/21 05:49 MCHC 30.0 g/dL (30.0-36.0) 03/07/21 05:49 RDW 16.3 % (12.1-15.1) H 03/07/21 05:49 Plt Count 235 10^3/cmm (130-400) 03/07/21 05:49 MPV 11.3 fL (7.4-10.4) H 03/07/21 05:49 Neut % (Auto) 82.7 % 03/07/21 05:49 Lymph % (Auto) 10.0 % 03/07/21 05:49 [place] % (Auto) 6.2 % 03/07/21 05:49 Eos % (Auto) 0.4 % 03/07/21 05:49 Baso % (Auto) 0.2 % 03/07/21 05:49 Neut # (Auto) 8.82 10^3/uL (1.8-7.7) H 03/07/21 05:49 Lymph # (Auto) 1.1 10^3/uL (0.8-4.8) 03/07/21 05:49 [place] # (Auto) 0.7 10^3/uL (0.2-0.9) 03/07/21 05:49 Eos # (Auto) 0.0 10^3/uL (0.0-0.8) 03/07/21 05:49 Baso # (Auto) 0.0 10^3/uL (0.0-0.1) 03/07/21 05:49 Nucleated RBC % (auto) 0 % 03/07/21 05:49 Nucleated RBCs # 0.0 /100WBC 03/07/21 05:49 ESR 44 mm/hr (0-15) H 03/05/21 01:45 PT 14.00 SECONDS (12.1-14.9) 03/05/21 01:45 INR 1.05 (0.8-1.2) 03/05/21 01:45 Sodium 140 mmol/L (136-145) 03/07/21 05:49 Potassium 4.3 mmol/L (3.5-5.1) 03/07/21 05:49 Chloride 104 mmol/L (98-107) 03/07/21 05:49 Carbon Dioxide 21 mmol/L (22-29) L 03/07/21 05:49 Anion Gap 19.3 (5-19) H 03/07/21 05:49 BUN 24 mg/dL (6-20) H 03/07/21 05:49 Creatinine 3.2 mg/dL (0.5-0.9) H 03/07/21 05:49 GFR Calculation 15.0 mL/min (90-130) L 03/07/21 05:49 Glucose 125 mg/dL (65-115) H 03/07/21 05:49 POC Glucose 170 mg/dL (70-110) H 03/07/21 11:09 Calculated Osmolality 296 mOsm/kg (285-295) H 03/07/21 05:49 Lactate 2.2 mmol/L (0.5-2.2) 03/04/21 18:10 Calcium 8.4 mg/dL (8.5-10.5) L 03/07/21 05:49 Phosphorus 3.4 mg/dL (2.5-4.5) 03/05/21 01:45 Magnesium 1.9 mg/dL (1.7-2.3) 03/05/21 01:45 Total Bilirubin 0.2 mg/dL (0.15-1.2) 03/07/21 05:49 AST 29 U/L (0-32) 03/07/21 05:49 ALT 21 U/L (0-33) 03/07/21 05:49 Alkaline Phosphatase 70 IU/L (35-105) 03/07/21 05:49 Troponin T Baseline 7 ng/L (0-10) 03/04/21 18:10 Troponin T 120 Minute 10.07 ng/L (0-10) H 03/04/21 20:08 Delta Troponin T 3.07 ABS# (0-10) 03/04/21 20:08 Troponin T Hi Sens 6Hr 9.68 ng/L (0-10) 03/05/21 01:45 Troponin T Hi Sens 6Hr Delta 2.68 ng/L (0-12) 03/05/21 01:45 C-Reactive Protein 65.6 mg/L (0.0-4.9) H 03/05/21 01:45 NT-Pro-B Natriuret Pep 353 pg/mL (0-125) H 03/06/21 06:00 Total Protein 6.6 g/dL (6.6-8.7) 03/07/21 05:49 Albumin 3.6 g/dL (3.5-5.2) 03/07/21 05:49 Globulin 3.0 g/dL (1.3-4.6) 03/07/21 05:49 Procalcitonin 0.21 ng/mL (0-0.5) 03/05/21 01:45 Urine Color Straw (Yellow) 03/04/21 18:17 Urine Appearance Clear (CLEAR) 03/04/21 18:17 Urine pH 8 (5-7) H 03/04/21 18:17 Ur Specific [place] 1.015 (1.005-1.030) 03/04/21 18:17 Urine Protein Neg (Negative) 03/04/21 18:17 Urine Glucose (UA) Norm (Normal) 03/04/21 18:17 Urine Ketones Negative (Negative) 03/04/21 18:17 Urine Blood Neg (Negative) 03/04/21 18:17 Urine Nitrate Negative (Negative) 03/04/21 18:17 Urine Bilirubin Neg (Negative) 03/04/21 18:17 Prot Sulfosalicylic Acd Negative (Negative) 03/04/21 18:17 Urine Urobilinogen Norm mg/dL (Negative) 03/04/21 18:17 Ur Leukocyte Esterase Negative (Negative) 03/04/21 18:17 Vancomycin Trough 23.6 ug/mL (10-15) H 03/06/21 15:43 Nasal/Oral COVID-19 PCR Not detected 03/05/21 04:15 Influenza Type A Ag Negative (Negative) 03/05/21 16:28 Influenza Type B Ag Negative (Negative) 03/05/21 16:28 SARS-CoV-2 Ag (Rapid) Negative (Negative) 03/04/21 18:15 Impressions Chest CTA 03/04/21 19:00 IMPRESSION: 1. Negative for pulmonary embolism. 2. There is a nonspecific small volume right pleural effusion which demonstrates a mild degree of pleural enhancement. A loculated collection cannot be excluded. 3. Background emphysema and interstitial fibrotic lung changes without evidence of focal pneumonia. Radiation Dose CTDIVOL = (mGy): DLP = 1183.25 (mGy-cm) Chest X-Ray 03/07/21 04:00 Impression: 1. Diffuse bilateral interstitial changes which could represent pulmonary vascular congestion. 2. Cardiomegaly. Micro: Microbiology 03/05/21 22:00 MRSA Culture - Final Nose 03/06/21 03:44 Bacterial Antigens - Final Urine,Voided A&P Assessment and plan (1) Exertional dyspnea: Status: Acute (2) Sepsis: Status: Acute Qualifiers: Sepsis acute organ dysfunction status: without acute organ dysfunction Sepsis type: sepsis due to unspecified organism Qualified Code(s): A41.9 - Sepsis, unspecified organism (3) Pleural effusion on right: Status: Acute (4) Obesity, morbid, BMI 40.0-49.9: Status: Acute (5) LEX on CPAP: Status: Chronic (6) Chronic steroid use: Status: Chronic (7) COPD (chronic obstructive pulmonary disease): Status: Chronic Qualifiers: COPD type: emphysema Emphysema type: centrilobular Qualified Code(s): J43.2 - Centrilobular emphysema (8) Ex-smoker for more than 1 year: Status: Chronic (9) Restrictive airway disease: Status: Chronic (10) High risk medication use: Status: Acute (11) Seronegative rheumatoid arthritis of both hands: Status: Chronic (12) COVID-19: Status: Resolved (13) Serositis: Status: Acute (14) SARAVANAN (acute kidney injury): Status: Acute # Right pleural effusion - likely parapneumonic given sepsis vs inflammatory given underlying RA # Chronic ex smoker - 1 ppd x 35 years - quit 2013; # COPD # Seronegative RA - on Humira, plaquanil and Prednisone 10 mg daily - immunosuppressed and potential to have fungal as well as TB # SARAVANAN -prerenal versus intrarenal, no episodes of hypotension?? medication induced - likely vancomycin -less likely contrast induced after 48 hrs; last dose ketorolac on 03/05/21 - Afebrile last 24 hrs; wbc 10K ; procalcitonin 0.21 - CTA 03/04/21: Negative for PE, Non specific smal volume rigth pleural effusion, background emphysema and interstitial fibrotic lung changes without evidence of focal pneumonia - repeat Covid antigen and PCR negative ; Flu negative ; - Bacterial antigen negative and Blood cultures negative so far; MRSA PCR, other viral panel; TB quantiferom - pending - immunosuppressed and at riskl to have fungal as well as TB - but no suspicious lesions on CT chest - Currently covered with Vancomycin and Zosyn ; vancomycin level 23-had dose - Bedside US- showed mild right pleural effusion further decreasing - with not enough pocket to tap - patient reported somewhat improvement in her respiratory status since admission but still has dyspnea on exertion - Continue Pulmicort 0.5 mg bid , Duoneb q 6 hr kitty, - I will increase prednisone to 40 mg daily (03/06/21) for 1 week and taper down to 30 mg daily x 1 week, down to 20 mg x 1 week and to 10 mg - EF on echo 06/2020 64% with grade I/IV diastolic dysfunction noted. 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 No evidence of atrial septal defect or patent formen ovale. Lipomatous hypertrophy of interatrial septum. Mildly aneurysmal interatrial septum ruled out myxoma. - BNP > 330 > 2205 -echo repeated to rule out pericardial effusion and assess LV function and awaiting final report -BMP showing significant increase in creatinine and anion gap metabolic acidosis; dropping GFR; - will repeat BMP today and send for CK, UA, Ulytes, renal Sono, renal consult -Held vancomycin and ketorolac; one dose Lasix 40 mg -Continue clinical monitoring with antibiotics, steroids and nebulizations 03/05/21 03/06/21: 03/07/21: Right-sided pleuritic chest pain with right pleural effusion in patient with rheumatoid arthritis on immunosuppressant medications-I suspect inflammatory serositis vs infectious serositis. Currently patient is getting antibiotics and I have increased her steroid dose to 40 mg daily and will taper down every week by 10 mg for next 3 to 4 weeks. If patient's symptoms does not improve -I will recommend video-assisted thoracoscopic pleural biopsy; meanwhile we will rule out TB ; even if QuantiFERON negative and if patient's symptoms does not resolve then we should get VATS pleural biopsy to rule out TB Medical condition and management plan including findings of bedside sonography and rationale for not doing thoracentesis were explained in detail to the patient at bedside, daughter on phone. They verbalized understanding and agreed with the plan. Recommendations conveyed to the Hospitalist covering the patient Attestations Medical Necessity Statement*: Increased steroids and monitor for clinical response ; Newly developed SARAVANAN likely medication Time Spent in Patient Care: Greater than 35 minutes (>than 50% of time spent in counselling and/or direct pt care on unit) . Critical Care Time: Critical Care Time (min): 35 Coding Level of Care Code Established Pt Acute Cv Rn for Chg Fwd Patient Type Established History Comprehensive Exam Comprehensive Medical Decision Making Moderate Complexity Diagnoses Exertional dyspnea R06.00 Sepsis A41.9 Sepsis acute organ dysfunction status: without acute organ dysfunction Sepsis type: sepsis due to unspecified organism Pleural effusion on right J90 Obesity, morbid, BMI 40.0-49.9 E66.01 LEX on CPAP G47.33; Z99.89 Chronic steroid use COPD (chronic obstructive pulmonary disease) J43.2 COPD type: emphysema Emphysema type: centrilobular Ex-smoker for more than 1 year Z87.891 Restrictive airway disease J98.4 High risk medication use Z79.899 Seronegative rheumatoid arthritis of both hands M06.041; M06.042 COVID-19 U07.1 Serositis K65.8 SARAVANAN (acute kidney injury) N17.9 Time Spent (min) 35 Comment including bedside pito
[2021-03-07 16:18] LABS: Anion Gap 22.8 (5-19); Blood Urea Nitrogen 29 mg/dL (6-20); Calcium 8.6 mg/dL (8.5-10.5); Carbon Dioxide 17 mmol/L (22-29); Chloride 102 mmol/L (98-107); Creatinine Clr Calc Pharmacy 18.9051; Glomerular Filtration Rate 10.7 mL/min (90-130); Glucose 208 mg/dL (65-115); NT Pro B Type Natriuretic Pept 2205 pg/mL (0-125); Osmolality Calculated 296 mOsm/kg (285-295); Potassium 4.8 mmol/L (3.5-5.1); Sodium 137 mmol/L (136-145)
--- NOTE | 2021-03-07 16:58 | PM.PN ---
Subjective Subjective: Interval history: 55 year old female with past medical history of rheumatoid arthritis chronic steroid use on prednisone 10 mg daily, previously been on methotrexate followed by Manjit recently start on Humira about 3 weeks ago, hypertension, hyperlipidemia, hypothyroidism, LEX on cpap, restless leg syndrome, COVID-19 in and chronic obstructive lung disease who is presented to ER with dyspnea with right sided pleuritic chest pain. This was associated with fever and nonproductive cough. On arrival to ER she was noted to have a temp of 102.9 . Laboratory workup on arrival showed a WBC of 13.0, hemoglobin of 12.0, hematocrit 37.0 and a platelet count of 356. Sodium 137, potassium 3.9, chloride 99, bicarb 23, BUN 13 and creatinine of 0.7. COVID-19 antigen was negative. Influenza a and B were negative as well. Imaging studies included chest x-ray which showed prominent pulmonary interstitium may reflect background chronic changes with no focal pulmonary consolidation. CTA chest was negative for pulmonary embolism however there was a nonspecific small volume right sided pleural effusion which demonstrated a small degree of pleural enhancement suspicious for a loculated effusion. Also noted to have background emphysema and interstitial fibrotic lung changes without evidence of focal pneumonia. Patient was started on vancomycin and zosyn. Fever curve inproved with no fever episodes since 03/04. Culture resulted did not show any growth including on blood culture, or bacterial ag analysis. Repeat chest xray on 03/07 showed diffuse bilateral interstitial changes representing pulmonary vascular congestion and cardiomegaly. ECHO was ordered however pending. Respiratory status improved gradually. Was weaned off oxygen. Hospitalization was complicated with acute worsening of renal function with a creatinine which increased to 4.3. Urine Lytes were ordered as well as renal US. Nephrology consulted was also requested. Medications: Reviewed: Yes Medication Review Details: I personally reviewed home medication list and medications received day of admission thus far. Vitals/I&O/Wt Last Vital Signs Temp 97.6 F 03/07/21 15:52 Pulse 107 H 03/07/21 15:52 Resp 18 03/07/21 15:52 BP 128/75 03/07/21 15:52 Pulse Ox 94 03/07/21 15:52 03/07/21 03/07/21 03/07/21 06:59 14:59 22:59 Intake Total 350 / 2390 830 / 830 Output Total 300 / 300 400 / 400 Balance 50 / 0 830 / 830 -400 / 430 Physical Exam Narrative: EXAM NARRATIVE: General : Alert, awake and oriented x 3, NAD HEENT : EOMI, PERRLA CVS : SInus tachycardia Chest : Decrease BS at bases R> L Abd : soft NT,ND Ext: No sig edema Const: COMMON NORMALS: no acute distress, patient oriented x3 and healthy appearing HENMT: COMMON NORMALS: normocephalic and atraumatic HEAD & SCALP: normocephalic and atraumatic Eye: COMMON NORMALS: Equal, round and reactive pupils present and EOMs intact bilaterally PUPIL: Yes Equal, round and reactive pupils present Neck/C-Spine: COMMON NORMALS: full ROM and supple Chest: COMMONS NORMALS: normal inspection of the chest and normal palpation of entire chest wall Resp: COMMON NORMALS: normal respiratory effort, No retractions, No use of accessory muscles and clear to auscultation bilaterally AUSCULTATION: clear to auscultation bilaterally Cardio: COMMON NORMALS: regular rate, regular rhythm and No murmurs present (Cardio) RATE: regular rate and tachycardic RHYTHM: regular rhythm GI: COMMON NORMALS: Normal to inspection, nondistended, normoactive bowel sounds present, Soft to palpation, non-tender and no masses PALPATION: Yes Soft to palpation Extremity: COMMON NORMALS: normal to inspection and full ROM RIGHT UPPER EXTREMITY: Yes hand & digits LEFT UPPER EXTREMITY: Yes hand & digits Neuro: COMMON NORMALS: patient oriented x3, moves all extremities and no focal motor deficits Psych: COMMON NORMALS: mental status grossly normal, Normal thought process present and cooperative THOUGHT PROCESS: Normal thought process present Skin: COMMON NORMALS: no rashes or lesions noted and no wounds GENERAL SKIN EXAM: no rashes or lesions noted Data : 03/07/21 05:49 03/07/21 15:37 Micro: Microbiology 03/05/21 22:00 MRSA Culture - Final Nose A&P Assessment and plan (1) Sepsis: Will continue zosyn for now - renally dose MRSA negative - D/C vancomycin Culture thus far negative Afebrile since 03/04 Continue to de-escalate abx Status: Acute Qualifiers: Sepsis type: sepsis due to unspecified organism Sepsis acute organ dysfunction status: without acute organ dysfunction Qualified Code(s): A41.9 - Sepsis, unspecified organism (2) Pleural effusion on right: Pulmonary on board Off oxygen Gradually improving May consider diagnostic thoracentesis Holding on diuresis due to worsening renal failure Status: Acute (3) Seronegative rheumatoid arthritis of both hands: Currently on prednisone 10 mg daily, Humira started approximately 3 weeks ago and Plaquenil. Has previously been on methotrexate and Arava but both of these have been stopped over the last few months. Status: Chronic (4) Chronic steroid use: For rheumatoid arthritis Status: Chronic (5) Restrictive airway disease: On recent PFTs Status: Chronic (6) COPD (chronic obstructive pulmonary disease): In a patient with a history of prior smoking Continue bronchodialatory tx Status: Chronic Qualifiers: COPD type: emphysema Emphysema type: centrilobular Qualified Code(s): J43.2 - Centrilobular emphysema (7) LEX on CPAP: CPAP qhs Will need her own CPAP Status: Chronic (8) HTN (hypertension): Chronically on lisinopril/hydrochlorothiazide, blood pressures lower range of normal presently Status: Chronic Qualifiers: Hypertension type: essential hypertension Qualified Code(s): I10 - Essential (primary) hypertension (9) Obesity, morbid, BMI 40.0-49.9: Status: Acute Additional A&P Information Acute Kidney injury - Nephrology consulted - Urine lytes - CPK in am - Renal US - Stop toradol - Renally dose medication - May also need to hold plaqunil - Urine output - monitoring DVT prophylaxis: lovenox Code Status: full Attestations Medical Necessity Statement*: Will continue hospitalization for management of worsening renal dysfunction as well as respiratory failure Time Spent in Patient Care: Greater than 35 minutes (>than 50% of time spent in counselling and/or direct pt care on unit). Coding Level of Care Code Acute Photographic Intelligence Officer for g Fwd Diagnoses Sepsis A41.9 Sepsis type: sepsis due to unspecified organism Sepsis acute organ dysfunction status: without acute organ dysfunction Pleural effusion on right J90 Seronegative rheumatoid arthritis of both hands M06.041; M06.042 Chronic steroid use Restrictive airway disease J98.4 COPD (chronic obstructive pulmonary disease) J43.2 COPD type: emphysema Emphysema type: centrilobular LEX on CPAP G47.33; Z99.89 HTN (hypertension) I10 Hypertension type: essential hypertension Obesity, morbid, BMI 40.0-49.9 E66.01
--- NOTE | 2021-03-07 17:09 | P.CONIM_ITS ---
Providers/Reason For Consult Consulting Physician/Specialty*: graciela rudolph md / telenephrology Reason for Consult*: SARAVANAN Attending Physician: Luis Levin Primary Care Provider: Bri Munoz MD History of Present Illness History of Present Illness Gerardo Lennon is a 55 year old female w/ past med hx of RA- steroid dependent, previously on MTX and ARAVA, recently started humira. H/O htn, hyperlipidemia, hypothyroidism, LEX on CPAP, RLS, COVID-19 in May 2020, copd. Pt admitted on 03/04/20 w/ inc SOB, cough, fevers, and rt sided pleuritic CP. she was on tylenol and advil at home. Pt had a CTA on 03/04/21 in ER w/ rt sided effusion w/ q of loculation- pt was started on vancomycin and zosyn. she was continued on lisinopril and hctz. Pt was also given ketolorac for pain. Renal is called today as pt is oliguric and w/ a rapid rise in cr from normal to 4.3 mg/dl. she was seen by Dr. Sandoval on 03/05/21 Review of Systems General: Reports: 10 or more systems reviewed and unremarkable except in HPI and below Narrative: sob, weight gain ovr last year due to covid and steroids, weak, pleuritic cp, fevers, dec uop, edema Meds/Allergies Home Medications and Allergies Home Medications Medication Instructions Recorded Confirmed Last Taken Type acetaminophen [Tylenol Extra 1,000 mg PO DAILY PRN 12/31/19 03/04/21 12/30/19 History Strength] fluoxetine 40 mg PO DAILY@12/31/19 03/04/21 03/04/21 History lisinopril-hydrochlorothiazide 1 tab PO DAILY@12/31/19 03/04/21 03/04/21 History potassium gluconate 1,190 mg PO DAILY@12/31/19 03/04/21 03/04/21 History ropinirole 4 mg PO BEDTIME@12/31/19 03/04/21 03/04/21 History ascorbic acid (vitamin C) [Vitamin 1,000 mg PO DAILY@08/31/20 03/04/21 01/08/21 History C] desvenlafaxine succinate [Pristiq] 50 mg PO DAILY@07 08/31/20 03/04/21 03/04/21 History aspirin [Adult Low Dose Aspirin] 81 mg PO DAILY@01/08/21 03/04/21 03/04/21 History cholecalciferol (vitamin D3) 25 mcg PO DAILY@01/08/21 03/04/21 03/04/21 History [Vitamin D3] flaxseed oil 1,000 mg PO DAILY@01/08/21 03/04/21 03/04/21 History hydroxyzine HCl 25 mg PO TID PRN 01/08/21 03/04/21 Unknown History levothyroxine [Euthyrox] 112 mcg PO DAILY@01/08/21 03/04/21 03/04/21 History multivitamin 1 tab PO DAILY@01/08/21 03/04/21 03/04/21 History adalimumab 40 mg/0.8 mL 40 mg SUBCUT Q14D #2 ea 02/14/21 03/05/21 02/28/21 Rx subcutaneous pen kit gabapentin 300 mg capsule See Rx Instructions PO TID #90 cap 02/14/21 03/04/21 03/03/21 Rx hydroxychloroquine 200 mg tablet 200 mg PO BID@,19 #60 tab 02/14/21 03/04/21 03/04/21 Rx omeprazole 40 mg capsule,delayed See Rx Instructions PO DAILY #30 02/14/21 03/04/21 03/04/21 Rx release cap ipratropium 0.5 mg-albuterol 3 mg 3 ml INHALATION QID PRN #360 ml 02/21/21 03/04/21 03/04/21 Rx (2.5 mg base)/3 mL nebulization soln ipratropium 20 mcg-albuterol 100 1 puff INHALATION Q6H PRN #4 g 02/21/21 03/04/21 03/04/21 Rx mcg/actuation mist for inhalation tiotropium bromide 18 mcg capsule 1 cap INHALATION DAILY #30 inh 02/22/21 03/04/21 03/04/21 Rx with inhalation device Magic Mouthwash See Rx Instructions .ROUTE QID #8 02/27/21 03/04/21 03/04/21 Rx oz Symbicort 2 puff INHALATION BID@0700,1900 06/04/1703/04/21 03/04/21 History glenroy mkokmg-Qh-krhEuzammevl-tea 1 tab PO DAILY@69903/04/21 03/04/21 03/04/21 History [Apple Cider Vinegar Plus] folic acid 1 mg PO DAILY@69903/04/21 03/04/21 03/04/21 History prednisone 15 mg PO DAILY@69903/04/21 03/04/21 03/04/21 History zinc 1 tab PO DAILY@69903/04/21 03/04/21 03/04/21 History Allergies Allergy/AdvReac Type Severity Reaction Status Date / Time No Known Allergies Allergy Verified 02/21/21 11:06 Current Medications Current Medications Generic Name Dose Route Start Last Admin Trade Name Freq PRN Reason Stop Dose Admin Albuterol/Ipratropium 3 ml 03/05/21 03:00 03/07/21 14:29 Ipratropium-Albuterol 3 Ml Neb INHALATION 3 ml Q6H.RESPIRATORY BRIAN Administration Alprazolam 0.25 mg 03/05/21 14:23 03/07/21 10:09 Alprazolam 0.25 Mg Tablet PO 0.25 mg TID PRN Administration ANXIETY Ascorbic Acid 1,000 mg 03/05/21 09:00 03/07/21 09:22 Ascorbic Acid 500 Mg Tablet PO 1,000 mg DAILY BRIAN Administration Aspirin 81 mg 03/05/21 07:00 03/07/21 05:56 Aspirin 81 Mg Ec Tablet PO 81 mg DAILY@07 BRIAN Administration Budesonide 0.5 mg 03/05/21 09:00 03/07/21 08:43 Budesonide 0.5 Mg/2 Ml Neb INHALATION 0.5 mg BID.RESPIRATORY BRIAN Administration Lidocaine HCl 1.667 ml/ 0 ml 03/05/21 09:00 03/07/21 13:21 Diphenhydramine HCl 4.165 mg/ MUCOUS MEM 7.5 ml Al Hydrox/Mg Hydrox/ QID BRIAN Administration Simethicone 1.667 ml Desvenlafaxine 50 mg 03/05/21 07:00 03/07/21 05:56 Desvenlafaxine 50 Mg Tablet PO 50 mg DAILY@07 BRIAN Administration Docusate Sodium 100 mg 03/05/21 09:00 03/07/21 09:22 Docusate Sodium 100 Mg Capsule PO 100 mg BID BRIAN Administration Enoxaparin Sodium 40 mg 03/04/21 23:45 03/06/21 22:51 Enoxaparin 40 Mg/0.4 Ml Syringe SUBCUT 40 mg Q24H BRIAN Administration Fluoxetine HCl 40 mg 03/05/21 09:00 03/07/21 09:21 Fluoxetine 20 Mg Capsule PO 40 mg DAILY BRIAN Administration Fluticasone Propionate 2 spray 03/05/21 09:00 03/07/21 09:23 Fluticasone Nasal Zebulon 16gm Btl NASAL 2 spray BID BRIAN Administration Folic Acid 1 mg 03/05/21 07:00 03/07/21 05:57 Folic Acid 1 Mg Tablet PO 1 mg DAILY@0700 BRIAN Administration Gabapentin 300 mg 03/05/21 09:00 03/07/21 15:11 Gabapentin 300 Mg Capsule PO 300 mg TID BRIAN Administration Hydroxychloroquine Sulfate 200 mg 03/05/21 07:00 03/07/21 05:56 Hydroxychloroquine 200 Mg Tablet PO 200 mg BID@ [facility] Administration Hydroxyzine Pamoate 25 mg 03/04/21 23:30 03/05/21 09:24 Hydroxyzine 25 Mg Capsule PO 25 mg TID PRN Administration ANXIETY Piperacillin Sod/Tazobactam 50 mls @ 12.5 mls/hr 03/05/21 04:30 03/07/21 14:13 Sod 3.375 gm/ Sodium Chloride IV Infused Q8H [facility] Infusion Protocol As Directed Insulin Aspart 0 unit 03/07/21 08:00 03/07/21 13:22 Insulin Aspart 100 Unit/1 Ml SUBCUT 2 unit TIDWM [facility] Administration Protocol Levothyroxine Sodium 112 mcg 03/05/21 07:00 03/07/21 05:57 Levothyroxine 112 Mcg Tablet PO 112 mcg DAILY@07 [facility] Administration Multivitamins/Minerals 1 tab 03/05/21 09:00 03/07/21 09:21 Multivitamin W/Minerals Tablet PO 1 tab DAILY [facility] Administration Ondansetron HCl 4 mg 03/04/21 22:35 03/04/21 22:43 Ondansetron 2 Mg/Ml Sdv 2 Ml IVP 4 mg Q4H PRN Administration NAUSEA AND VOMITING Pantoprazole Sodium 40 mg 03/05/21 09:00 03/07/21 09:[address] 40 Mg Tablet PO 40 mg DAILY BRIAN Administration Prednisone 40 mg 03/06/21 13:00 03/07/21 05:57 Prednisone 20 Mg Tablet PO 40 mg DAILY@0700 BRIAN Administration Ropinirole HCl 4 mg 03/05/21 21:00 03/06/21 20:23 Ropinirole 1 Mg Tablet PO 4 mg BEDTIME@2100 BRIAN Administration Temazepam 15 mg 03/05/21 00:57 03/06/21 20:24 Temazepam 15 Mg Capsule PO 15 mg BEDTIME PRN Administration INSOMNIA Vitamin D 1,000 unit 03/05/21 07:00 03/07/21 05:56 Cholecalciferol (Vitamin D3) 1,000 Unit Tablet PO 1,000 unit DAILY@07 BRIAN Administration Zinc Gluconate 50 mg 03/05/21 09:00 03/07/21 09:21 Zinc Gluconate 50 Mg Tablet PO 50 mg DAILY BRIAN Administration PFSH Acute PFSH: Medical History (Updated 03/07/21 @ 16:58 by Yung Sandoval MD) Chronic steroid use for RA COPD (chronic obstructive pulmonary disease) COVID-19 (~05/2020) required oxygen x 2 months Depression fluoxetine Dizziness longstanding, on Pristiq for this per patient High risk medication use Humira started 02/15, plaquenil History of diverticulitis History of echocardiogram TTE 07/17/20 EF 64%, mod LVH, I/IV diastolic dysfunction, normal to mildly elevated filling pressures COREY 09/02/20 no atrial mass History of stress test (01/11/20) HTN (hypertension) Hyperlipidemia Hypothyroidism LEX on CPAP Restless leg syndrome Restrictive airway disease Seronegative rheumatoid arthritis of both hands Surgical History History of carpal tunnel release of both wrists History of D&C History of endometrial ablation History of nasal surgery History of placement of ear tubes History of tonsillectomy Hx of carpal tunnel repair Tubal ligation status Family History Mother Hypertension Family history of premature coronary artery disease Hx of CABG Hyperlipidemia Cancer Headache Father Depression Other CAD (coronary artery disease) Diabetes Denies family history of Rheumatoid arthritis Lupus Chronic kidney disease (CKD) Lung disease Stroke Social History Smoking and tobacco status: former smoker Quit status (tobacco): has quit using tobacco Year quit tobacco: 2013 [id number] Second hand smoke exposure: No Alcohol intake: current Alcohol intake frequency: holidays/special occasions only Lives independently: Yes Household members: spouse Housing: House Marital status: service: No Current occupational status: employed Pets and animals: Yes History of recent travel: No Current gender identity: Female Vitals/I&O/Wt Last Vital Signs Temp 97.6 F 03/07/21 15:52 Pulse 107 H 03/07/21 15:52 Resp 18 03/07/21 15:52 BP 128/75 03/07/21 15:52 Pulse Ox 94 03/07/21 15:52 03/07/21 03/07/21 03/07/21 06:59 14:59 22:59 Intake Total 350 / 2390 830 / 830 Output Total 300 / 300 400 / 400 Balance 50 / 2090 830 / 830 -400 / 430 Physical Exam Narrative: EXAM NARRATIVE: obese lady on RA, mild sob in bed vs noted heent- nc/at, eomi, anicteric neck supple lungs wheezes, dull rt base heart reg abd soft, nt, nd, +BS ext 1+ edema neuro- a,a, o x 3 pulses + mood good skin- no rashes noted exam by RN as telehealth visit Data Micro: Micro: Microbiology 03/05/21 22:00 MRSA Culture - Fin al Nose A&P Additional A&P Information 55 yr old female recent covid-19 in 2020, copd, obesity, LEX, serinegative RA, hypothyrodism. Pt here w/ fevers, chills, pleuritic CP at home for a few weeks. at home was using advil, lisinopril, hctz, and admitted here- given lasix, vanco, zosyn, ketolorac, and outpt meds. In ER had a neg CTA for Pulm embolism. PT has now developed oliguric SARAVANAN. 1. SARAVANAN- likely ATN- from NSAID use, thiazide, lisinopril, and high dose vanco -check vanco level -check renal us -check ur lytes and repeat ua -check ck for possible rhabdomyolysis -check PVR- r/o obstruction 2. sob- relatively normal echo -likely from pna, copd/ restrictive lung disease, and LXE- also voluem overloaded from SARAVANAN -agree w/ lasix -high bnp noted- may have diastolic dysfunction- acute on chronic 3. inc AGMA- likely SARAVANAN- check abg and lactate 4. anemia eval 5. hyperglycemia- from steroids 6. check tsh meds reviewed- lower gabapentin dose w/ SARAVANAN discussed w/ pt, RN, and Hospitalist examined w/ rN -telehealth visit time spent seeing pt and coordinating care=55 minutes Consult Attestations Medical Necessity Statement: saravanan, pna, SOB, Time Spent in Patient Care: Greater than 35 minutes Coding Level of Care Code Acute Stapler Machine for Chg Chiara
[2021-03-07] MEDS: FUROsemide 40 mg Tablet PO (17:15)
[2021-03-07 17:19] LABS: Glucose Point of Care 149 mg/dL (70-110)
[2021-03-07 17:28] LABS: Ketone (Acetest) Serum Negative (Negative)
[2021-03-07 18:12] LABS: Lactate (Lactic Acid level) 2.7 mmol/L (0.5-2.2)
[2021-03-07 18:14] LABS: Procalcitonin 0.33 ng/mL (0-0.5)
[2021-03-07 18:16] LABS: Bilirubin Urine Neg (Negative); Blood Urine Neg (Negative); Glucose Urine UA Norm (Normal); Ketones Urine Negative (Negative); Leukocyte Esterase Urine Negative (Negative); Nitrate Urine Negative (Negative); Protein Urine Neg (Negative); Urine Appearance Clear (CLEAR); Urine Color Straw (Yellow); Urobilinogen Urine Norm (Negative); pH Urine 5 (5-7)
[2021-03-07 18:19] LABS: Potassium, Radom Urine 13 mmol/L; Urine Creatinine 44 mg/dL (28-217); Urine Random Sodium 34 mmol/L
[2021-03-07 18:20] LABS: Urine Random Chloride 11 mmol/L
[2021-03-07 18:24] LABS: Add Urine Culture? No; Bacteria Urine TRACE /hpf; RBC Urine 0-4 /hpf (0-2); WBC Urine 0-4 /hpf (0-5)
[2021-03-07 18:26] LABS: Creatine Phosphokinase 66 U/L (26-192); Uric Acid 5.9 mg/dL (2.4-5.7)
[2021-03-07 19:24] LABS: Vancomycin Random 61.2 ug/mL (20.0-40.0)
[2021-03-07 19:38] LABS: Complement C3 154 mg/dL (90-180)
[2021-03-07 19:52] LABS: Eosinophil Urine No Eosinophils Seen; Urine Eosinophil Count 0 (0-0)
[2021-03-07 19:53] LABS: Hepatitis B Core AB, Total Non-Reactive (Nonreactive); Hepatitis B Surface AB 3.5 (11.5-1000); Hepatitis B Surface Antigen Non-Reactive (Nonreactive); Hepatitis C Virus Antibody Non-Reactive (Nonreactive)
[2021-03-07] MEDS: ropinirole 1 mg Tablet 4 MG PO (20:42)
[2021-03-07] MEDS: gabapentin 100 mg Capsule PO (20:42)
[2021-03-07] MEDS: temazepam 15 mg Capsule PO (20:42)
[2021-03-07 21:28] LABS: Glucose Point of Care 198 mg/dL (70-110)
[2021-03-08] VITALS (18 sets, daily range): BP systolic 138–173; BP diastolic 74–104; PULSE 98–117; RESP 17–20; TEMP 36.6–37.5; O2SAT 94–98
--- NOTE | 2021-03-08 00:07 | PC.PHAR ---
Zosyn dosage is reduced from 3.375gm IVPB every 8 hours to 3.375gm IVPB every 12 hours due to creatinine clearance of 18.91.
[2021-03-08] MEDS: enoxaparin 40 mg/0.4 mL Syringe SUBCUT (00:22)
[2021-03-08] MEDS: ipratropium-albuterol 3 mL Neb INHALATION ×5 (04:06→23:40)
--- NOTE | 2021-03-08 05:00 | US_ITS ---
WS: [id number] RENAL ULTRASOUND HISTORY: eliazar COMPARISON: None available. TECHNIQUE: 2-D and color Doppler imaging of the kidney submitted. Right kidney: 13.8 cm x 6.3 cm x 6.3 cm. Normal echogenicity with no hydronephrosis or mass. Left kidney: 13.7 cm x 5.7 cm x 6.9 cm. Normal echogenicity with no hydronephrosis or mass. Aorta: Normal. Urinary Bladder: Nondistended due to Jasmine catheter. No free fluid in the pelvis. US/US renal BI* [id number] IMPRESSION: Normal renal ultrasound.
[2021-03-08 05:27] LABS: Basophils % 0.3 %; Eosinophils # 0.1 10^3/uL (0.0-0.8); Eosinophils % 1.4 %; Hematocrit 28.3 % (37.0-47.0); Hemoglobin 8.5 g/dL (11.5-15.3); Lymphocytes # 1.5 10^3/uL (0.8-4.8); Lymphocytes % 16.3 %; Mean Corpuscular Hemoglobin 25.7 pg (28.0-34.0); Mean Corpuscular Volume 85.5 fL (81-99); Mean Platelet Volume 11.3 fL (7.4-10.4); Monocytes # 0.6 10^3/uL (0.2-0.9); Monocytes % 6.5 %; Neutrophils # 6.84 10^3/uL (1.8-7.7); Neutrophils % 75.3 %; Nucleated Red Blood Cells % 0 %; Platelet Count 241 10^3/cmm (130-400); Red Blood Count 3.31 10^6/uL (4.1-5.3); Red Cell Distribution Width 16.4 % (12.1-15.1); White Blood Count 9.1 10^3/uL (4.0-10.0)
[2021-03-08 05:45] LABS: Alanine Aminotransferase 21 U/L (0-33); Albumin Level 3.5 g/dL (3.5-5.2); Alkaline Phosphatase 66 IU/L (35-105); Anion Gap 21.3 (5-19); Aspartate Amino Transferase 23 U/L (0-32); Blood Urea Nitrogen 35 mg/dL (6-20); Calcium 8.6 mg/dL (8.5-10.5); Carbon Dioxide 22 mmol/L (22-29); Chloride 103 mmol/L (98-107); Globulin 2.8 g/dL (1.3-4.6); Glomerular Filtration Rate 7.3 mL/min (90-130); Glucose 99 mg/dL (65-115); Magnesium 2.1 mg/dL (1.7-2.3); Osmolality Calculated 302 mOsm/kg (285-295); Phosphorus 5.5 mg/dL (2.5-4.5); Potassium 4.3 mmol/L (3.5-5.1); Sodium 142 mmol/L (136-145); Total Bilirubin 0.2 mg/dL (0.15-1.2); Total Protein 6.3 g/dL (6.6-8.7)
[2021-03-08 06:25] LABS: Glucose Point of Care 112 mg/dL (70-110)
[2021-03-08] MEDS: cholecalciferol (vitamin D3) 1,000 unit Tablet 1000 UNIT PO (06:33)
[2021-03-08] MEDS: folic acid 1 mg Tablet PO (06:33)
[2021-03-08] MEDS: levothyroxine 112 mcg Tablet PO (06:33)
[2021-03-08] MEDS: hydroxychloroquine 200 mg Tablet PO ×2 (06:33→18:18)
[2021-03-08] MEDS: aspirin 81 mg EC Tablet PO (06:33)
[2021-03-08] MEDS: piperacillin-tazobactam 3.375 GM in sodium chloride 0.9% (plus) 50 ML IV ×2 (06:33→18:12)
[2021-03-08] MEDS: predniSONE 20 mg Tablet 40 MG PO (06:33)
[2021-03-08] MEDS: desvenlafaxine 50 mg Tablet PO (06:51)
[2021-03-08] MEDS: budesonide 0.5 mg/2 mL Neb INHALATION ×2 (08:14→19:26)
[2021-03-08 08:21] LABS: Vancomycin Random 58.5 ug/mL (20.0-40.0)
[2021-03-08] MEDS: docusate sodium 100 mg Capsule PO ×2 (08:44→18:11)
[2021-03-08] MEDS: fluticasone nasal spray 16gm Btl 2 SPRAY NASAL ×2 (08:44→18:11)
[2021-03-08] MEDS: zinc gluconate 50 mg Tablet PO (08:44)
[2021-03-08] MEDS: fluoxetine 20 mg Capsule 40 MG PO (08:44)
[2021-03-08] MEDS: ascorbic acid 500 mg Tablet 1000 MG PO (08:44)
[2021-03-08] MEDS: gabapentin 100 mg Capsule PO ×3 (08:44→21:14)
[2021-03-08] MEDS: pantoprazole DR 40 mg Tablet PO (08:44)
[2021-03-08] MEDS: lidocaine 2% viscous 1.667 ML, diphenhydrAMINE oral liq 4.165 MG, aluminum-mag hydrox-s... MUCOUS MEM ×4 (09:09→21:15)
[2021-03-08] MEDS: ALPRAZolam 0.25 mg Tablet PO ×2 (09:13→18:11)
--- NOTE | 2021-03-08 09:13 | PC.NUTR ---
Nutrition reassessment: Pt continues to request outpatient dietitian services. This RD provided pt with business card for Alexander Arreola, Director of Support Services, to contact regarding setting up this service. See RD assessment for further details.
[2021-03-08 11:39] LABS: Glucose Point of Care 151 mg/dL (70-110)
[2021-03-08] MEDS: FUROsemide 10 mg/mL SDV 4mL 40 MG IVP (11:53)
--- NOTE | 2021-03-08 12:21 | PM.PN ---
Subjective Subjective: Interval history: Ms. Lennon has some dyspnea at rest and on exertion. She still feels very wheezy. She still has some edema in her legs. No overt uremic symptoms. Urine output remains robust, producing roughly 1 L of urine yesterday. No fevers or chills. Vitals/I&O/Wt Last Vital Signs Temp 99.5 F 03/08/21 11:37 Pulse 114 H 03/08/21 11:37 Resp 20 H 03/08/21 11:37 BP 159/92 03/08/21 11:37 Pulse Ox 94 03/08/21 11:37 03/07/21 03/08/21 03/08/21 22:59 06:59 14:59 Intake Total 158 / 988 10 / 998 410 / 410 Output Total 450 / 450 600 / 1050 Balance -292 / 538 -590 / -52 410 / 410 Physical Exam Narrative: EXAM NARRATIVE: Constitutional: Awake, comfortable HEENT: Wet mucosa, no jvp, non icteric Lungs: Bilaterally discernible wheeze, rales in all lung zones CVS: S1 S2, no murmurs Abdo: Soft, BS ok Ext 4: Minimal edema, peripheral perfusion with no cyanosis Neurological: Grossly non-focal Urinary Catheter Management^: Jasmine: Cath Placed During This Visit: yes Reason for Continuing Indwelling Catheter: Acute Urinary Retention or Obstruction Urinary Catheter Date of Insertion: 03/07/21 Urinary Catheter Time of Insertion: 17:30 Data : 03/08/21 04:46 03/08/21 04:46 Micro: Microbiology 03/08/21 07:30 Gram Stain - Final Sputum - Expectorated Sputum 03/05/21 22:00 MRSA Culture - Final Nose A&P Additional A&P Information 1. Nonoliguric renal failure Differential diagnosis for this includes contrast nephropathy and vancomycin associated acute tubular injury. Given the nonoliguric nature, I am more on board with contrast is primary cause of renal failure. Urinalysis demonstrates no evidence of pyuria or hematuria hence glomerulonephritis is unlikely in this clinical setting. Renal biopsy may be entertained, but I do not think this is necessary given the benign urine. I will recheck urinalysis with microscopy. No indication for dialysis today, however, given the rapid increase in serum creatinine it is likely that it will be necessary in the next few days. I discussion with family members, I will request a basic metabolic panel every 12 hours to closely monitor chemistry. Okay for intermittent Lasix dosing given hypervolemia. Avoid usual nephrotoxic agents. Strict ins and outs. Dose medication for GFR less than 15 2. Chemistry Currently looks well balanced with minor aberration in serum phosphorus. Close monitoring. 3. Shortness of breath Admission CTA demonstrated background emphysematous lung, small right pleural effusion. Management per primary team including bronchodilators, empirical antibiotic coverage and steroids. 4. Hemodynamics The patient stable Kaleb Mosley MD Nephrology [phone] Patient seen and examined via telemedicine, with the assistance of the bedside RN > 25 min spent in evaluation and mgmt of patient Attestations Medical Necessity Statement*: Eval for renal failure Coding Level of Care Code Acute Infection Control Coordinator for Saji Guadarrama
[2021-03-08 13:27] LABS: Quantiferon Mitogen 8.18 IU/mL; Quantiferon Nil 0.07 IU/mL; Quantiferon Plus TB1 0.01 IU/mL; Quantiferon Plus TB2 0.01 IU/mL; Quantiferon TB Gold NEGATIVE (NEGATIVE)
--- NOTE | 2021-03-08 13:49 | PM.PN ---
Subjective Subjective: Interval history: Continues to complain of dyspnea on exertion however has not been hypoxic. No fever or chills, nauea or vomiting. Pineda placed Medications: Reviewed: Yes Vitals/I&O/Wt Last Vital Signs Temp 99.5 F 03/08/21 11:37 Pulse 114 H 03/08/21 11:37 Resp 20 H 03/08/21 11:37 BP 159/92 03/08/21 11:37 Pulse Ox 94 03/08/21 11:37 03/07/21 03/08/21 03/08/21 22:59 06:59 14:59 Intake Total 158 / 988 10 998 410 / 410 Output Total 450 / 450 600 / 1050 Balance -292 / 538 -590 / -52 410 / 410 Physical Exam HENMT: COMMON NORMALS: normocephalic and atraumatic HEAD & SCALP: normocephalic and atraumatic Eye: COMMON NORMALS: Equal, round and reactive pupils present and EOMs intact bilaterally PUPIL: Yes Equal, round and reactive pupils present Neck/C-Spine: COMMON NORMALS: full ROM and supple Chest: COMMONS NORMALS: normal inspection of the chest and normal palpation of entire chest wall Resp: COMMON NORMALS: normal respiratory effort, No retractions, No use of accessory muscles and clear to auscultation bilaterally AUSCULTATION: clear to auscultation bilaterally Cardio: COMMON NORMALS: regular rate, regular rhythm and No murmurs present (Cardio) RATE: regular rate and tachycardic RHYTHM: regular rhythm GI: COMMON NORMALS: Normal to inspection, nondistended, normoactive bowel sounds present, Soft to palpation, non-tender and no masses PALPATION: Yes Soft to palpation Extremity: COMMON NORMALS: normal to inspection and full ROM Neuro: COMMON NORMALS: moves all extremities and no focal motor deficits Psych: COMMON NORMALS: mental status grossly normal, Normal thought process present and cooperative THOUGHT PROCESS: Normal thought process present Skin: COMMON NORMALS: no rashes or lesions noted and no wounds GENERAL SKIN EXAM: no rashes or lesions noted Urinary Catheter Management^: Pineda: Cath Placed During This Visit: yes Reason for Continuing Indwelling Catheter: Acute Urinary Retention or Obstruction Urinary Catheter Date of Insertion: 03/07/21 Urinary Catheter Time of Insertion: 17:30 Data : 03/08/21 04:46 03/08/21 04:46 Micro: Microbiology 03/08/21 07:30 Gram Stain - Final Sputum - Expectorated Sputum A&P Assessment and plan (1) Sepsis: Will continue zosyn for now - renally dose MRSA negative - D/C vancomycin Culture thus far negative Afebrile since 03/04 Continue to de-escalate abx Unchanged Status: Acute Qualifiers: Sepsis type: sepsis due to unspecified organism Sepsis acute organ dysfunction status: without acute organ dysfunction Qualified Code(s): A41.9 - Sepsis, unspecified organism (2) Pleural effusion on right: Pulmonary on board Off oxygen Gradually improving May consider diagnostic thoracentesis Additional diuresis if ok with nephrolgy Status: Acute (3) Seronegative rheumatoid arthritis of both hands: Currently on prednisone 10 mg daily, Humira started approximately 3 weeks ago and Plaquenil. Has previously been on methotrexate and Arava but both of these have been stopped over the last few months. Status: Chronic (4) Chronic steroid use: For rheumatoid arthritis Status: Chronic (5) Restrictive airway disease: On recent PFTs Status: Chronic (6) COPD (chronic obstructive pulmonary disease): In a patient with a history of prior smoking Continue bronchodialatory tx Status: Chronic Qualifiers: COPD type: emphysema Emphysema type: centrilobular Qualified Code(s): J43.2 - Centrilobular emphysema (7) LEX on CPAP: CPAP qhs Will need her own CPAP Status: Chronic (8) HTN (hypertension): Chronically on lisinopril/hydrochlorothiazide, blood pressures lower range of normal presently Status: Chronic Qualifiers: Hypertension type: essential hypertension Qualified Code(s): I10 - Essential (primary) hypertension (9) Obesity, morbid, BMI 40.0-49.9: Status: Acute Additional A&P Information Acute Kidney injury - Nephrology consulted - Due to vancomycin - Slight worsening today - Renal US pending - Repeat labs in am - Pineda in place. DVT prophylaxis: lovenox Code Status: full Attestations Medical Necessity Statement*: Will require further hospitalization for management of acute renal failure Time Spent in Patient Care: Greater than 35 minutes (>than 50% of time spent in counselling and/or direct pt care on unit). Coding Level of Care Code Acute X Ray Operator for [facility] Fwd Diagnoses Sepsis A41.9 Sepsis type: sepsis due to unspecified organism Sepsis acute organ dysfunction status: without acute organ dysfunction Pleural effusion on right J90 Seronegative rheumatoid arthritis of both hands M06.041; M06.042 Chronic steroid use Restrictive airway disease J98.4 COPD (chronic obstructive pulmonary disease) J43.2 COPD type: emphysema Emphysema type: centrilobular LEX on CPAP G47.33; Z99.89 HTN (hypertension) I10 Hypertension type: essential hypertension Obesity, morbid, BMI 40.0-49.9 E66.01
--- NOTE | 2021-03-08 16:21 | P.PN_ITS ---
Subjective Subjective: Interval history: Patient seen at bedside today morning -Spoke to and patient at bedside and explained in detail about right pleuritic chest pain likely secondary to pleuritis due to infection versus inflammation secondary to rheumatoid arthritis. Also explained in detail about her acute kidney injury likely secondary to contrast induced versus medication induced ( Vancomycin, HCTZ, lisinopril) -Patient is making good urine output -Still complaining of dyspnea on exertion-currently saturating well on room air without -Labs and imaging reviewed and pertinent findings are incorporated in the assessment and plan Medications: Reviewed: Yes Vitals/I&O/Wt Last Vital Signs Temp 97.8 F 03/08/21 15:28 Pulse 108 H 03/08/21 15:28 Resp 20 H 03/08/21 15:28 BP 138/74 03/08/21 15:28 Pulse Ox 97 03/08/21 15:28 03/08/21 03/08/21 03/08/21 06:59 14:59 22:59 Intake Total 10 / 998 410 / 410 Output Total 600 / 1050 1450 / 1450 Balance -590 / -52 410 / 410 -1450 / -1040 Physical Exam Narrative: EXAM NARRATIVE: General: alert, NAD HEENT: conj clear, EOMI, PERRL, mmm, Neck: supple, no meningismus Heme: no cervical LAP Pulmonary: Bilateral diffuse wheeze and bibasilar crepitations Cardiovascular: rrr, nl s1s2, no mrg Abdomen: soft, nt, nd, no r/g, bs+ Extremities: pulses +, 1+ pitting pedal edema, no c/c, R Hand-both hands look puffy overall, tenderness across MCPs but more on the ventral aspect : no CVA tenderness Skin: intact, no rash MSK: no back or neck pain Neurologic: grossly intact Urinary Catheter Management^: Jasmine: Cath Placed During This Visit: yes Reason for Continuing Indwelling Catheter: Acute Urinary Retention or Obstruction Urinary Catheter Date of Insertion: 03/07/21 Urinary Catheter Time of Insertion: 17:30 Data : 03/08/21 04:46 03/08/21 04:46 Other Labs: Laboratory Results WBC 9.1 10^3/uL (4.0-10.0) 03/08/21 04:46 RBC 3.31 10^6/uL (4.1-5.3) L 03/08/21 04:46 Hgb 8.5 g/dL (11.5-15.3) L 03/08/21 04:46 Hct 28.3 % (37.0-47.0) L 03/08/21 04:46 MCV 85.5 fL (81-99) 03/08/21 04:46 MCH 25.7 pg (28.0-34.0) L 03/08/21 04:46 MCHC 30.0 g/dL (30.0-36.0) 03/08/21 04:46 RDW 16.4 % (12.1-15.1) H 03/08/21 04:46 Plt Count 241 10^3/cmm (130-400) 03/08/21 04:46 MPV 11.3 fL (7.4-10.4) H 03/08/21 04:46 Neut % (Auto) 75.3 % 03/08/21 04:46 Lymph % (Auto) 16.3 % 03/08/21 04:46 [place] % (Auto) 6.5 % 03/08/21 04:46 Eos % (Auto) 1.4 % 03/08/21 04:46 Baso % (Auto) 0.3 % 03/08/21 04:46 Neut # (Auto) 6.84 10^3/uL (1.8-7.7) 03/08/21 04:46 Lymph # (Auto) 1.5 10^3/uL (0.8-4.8) 03/08/21 04:46 [place] # (Auto) 0.6 10^3/uL (0.2-0.9) 03/08/21 04:46 Eos # (Auto) 0.1 10^3/uL (0.0-0.8) 03/08/21 04:46 Baso # (Auto) 0.0 10^3/uL (0.0-0.1) 03/08/21 04:46 Nucleated RBC % (auto) 0 % 03/08/21 04:46 Nucleated RBCs # 0.0 /100WBC 03/08/21 04:46 ESR 44 mm/hr (0-15) H 03/05/21 01:45 PT 14.00 SECONDS (12.1-14.9) 03/05/21 01:45 INR 1.05 (0.8-1.2) 03/05/21 01:45 Sodium 142 mmol/L (136-145) 03/08/21 04:46 Potassium 4.3 mmol/L (3.5-5.1) 03/08/21 04:46 Chloride 103 mmol/L (98-107) 03/08/21 04:46 Carbon Dioxide 22 mmol/L (22-29) 03/08/21 04:46 Anion Gap 21.3 (5-19) H 03/08/21 04:46 BUN 35 mg/dL (6-20) H 03/08/21 04:46 Creatinine 6.0 mg/dL (0.5-0.9) H* 03/08/21 04:46 GFR Calculation 7.3 mL/min (90-130) L 03/08/21 04:46 Glucose 99 mg/dL (65-115) 03/08/21 04:46 POC Glucose 151 mg/dL (70-110) H 03/08/21 11:35 Calculated Osmolality 302 mOsm/kg (285-295) H 03/08/21 04:46 Lactate 2.7 mmol/L (0.5-2.2) H 03/07/21 17:05 Uric Acid 5.9 mg/dL (2.4-5.7) H 03/07/21 15:37 Calcium 8.6 mg/dL (8.5-10.5) 03/08/21 04:46 Phosphorus 5.5 mg/dL (2.5-4.5) H 03/08/21 04:46 Magnesium 2.1 mg/dL (1.7-2.3) 03/08/21 04:46 Total Bilirubin 0.2 mg/dL (0.15-1.2) 03/08/21 04:46 AST 23 U/L (0-32) 03/08/21 04:46 ALT 21 U/L (0-33) 03/08/21 04:46 Alkaline Phosphatase 66 IU/L (35-105) 03/08/21 04:46 Creatine Kinase 66 U/L (26-192) 03/07/21 15:37 Troponin T Baseline 7 ng/L (0-10) 03/04/21 18:10 Troponin T 120 Minute 10.07 ng/L (0-10) H 03/04/21 20:08 Delta Troponin T 3.07 ABS# (0-10) 03/04/21 20:08 Troponin T Hi Sens 6Hr 9.68 ng/L (0-10) 03/05/21 01:45 Troponin T Hi Sens 6Hr Delta 2.68 ng/L (0-12) 03/05/21 01:45 C-Reactive Protein 65.6 mg/L (0.0-4.9) H 03/05/21 01:45 NT-Pro-B Natriuret Pep 2205 pg/mL (0-125) H 03/07/21 15:37 Total Protein 6.3 g/dL (6.6-8.7) L 03/08/21 04:46 Albumin 3.5 g/dL (3.5-5.2) 03/08/21 04:46 Globulin 2.8 g/dL (1.3-4.6) 03/08/21 04:46 Procalcitonin 0.33 ng/mL (0-0.5) 03/07/21 15:37 Urine Color Cancelled 03/07/21 17:30 Urine Color Straw (Yellow) 03/07/21 17:30 Urine Appearance Cancelled 03/07/21 17:30 Urine Appearance Clear (CLEAR) 03/07/21 17:30 Urine pH 5 (5-7) 03/07/21 17:30 Urine pH Cancelled 03/07/21 17:30 Ur Specific Corinne 1.000 (1.005-1.030) L 03/07/21 17:30 Ur Specific Corinne Cancelled 03/07/21 17:30 Urine Protein Cancelled 03/07/21 17:30 Urine Protein Neg (Negative) 03/07/21 17:30 Urine Glucose (UA) Cancelled 03/07/21 17:30 Urine Glucose (UA) Norm (Normal) 03/07/21 17:30 Urine Ketones Cancelled 03/07/21 17:30 Urine Ketones Negative (Negative) 03/07/21 17:30 Urine Blood Cancelled 03/07/21 17:30 Urine Blood Neg (Negative) 03/07/21 17:30 Urine Nitrate Cancelled 03/07/21 17:30 Urine Nitrate Negative (Negative) 03/07/21 17:30 Urine Bilirubin Cancelled 03/07/21 17:30 Urine Bilirubin Neg (Negative) 03/07/21 17:30 Prot Sulfosalicylic Acd Cancelled 03/07/21 17:30 Urine Urobilinogen Cancelled 03/07/21 17:30 Urine Urobilinogen Norm mg/dL (Negative) 03/07/21 17:30 Ur Leukocyte Esterase Cancelled 03/07/21 17:30 Ur Leukocyte Esterase Negative (Negative) 03/07/21 17:30 Urine RBC 0-4 /hpf (0-2) H 03/07/21 17:30 Urine WBC 0-4 /hpf (0-5) H 03/07/21 17:30 Ur Eosinophil Smear 0 (0-0) 03/07/21 17:30 Ur Squamous Epith Cells 5-10 /hpf (0-5) H 03/07/21 17:30 Amorphous Sediment Not Reportable 03/07/21 17:30 Urine Bacteria Trace /hpf (NONE) 03/07/21 17:30 Urine Mucus None /hpf 03/07/21 17:30 Urine Eosinophils No eosinophils seen 03/07/21 17:30 Ur Random Sodium 34 mmol/L 03/07/21 17:30 Ur Random Potassium 13 mmol/L 03/07/21 17:30 Ur Random Chloride 11 mmol/L 03/07/21 17:30 Urine Creatinine 44 mg/dL (28-217) 03/07/21 17:30 Vancomycin Trough Cancelled 03/08/21 04:46 Random Vancomycin 58.5 ug/mL (20.0-40.0) H* 03/08/21 04:46 Serum Ketones Negative (Negative) 03/07/21 17:05 Complement C3 154 mg/dL (90-180) 03/07/21 17:05 Complement C4 23 mg/dL (10-40) 03/07/21 17:05 Nasal/Oral COVID-19 PCR Not detected 03/05/21 04:15 Hep Bs Antigen Non-reactive (Nonreactive) 03/07/21 17:55 Hep Bs Antibody 3.5 (11.5-1000) L 03/07/21 17:55 Hep B Core Total Ab Non-reactive (Nonreactive) 03/07/21 17:55 Hepatitis C Antibody Non-reactive (Nonreactive) 03/07/21 17:55 Influenza Type A Ag Negative (Negative) 03/05/21 16:28 Influenza Type B Ag Negative (Negative) 03/05/21 16:28 SARS-CoV-2 Ag (Rapid) Negative (Negative) 03/04/21 18:15 TB (QFT) Gold In Tube Negative (NEGATIVE) 03/06/21 06:00 TB Test (QFT) Nil 0.07 IU/mL 03/06/21 06:00 TB Test (QFT) Mitogen 8.18 IU/mL 03/06/21 06:00 TB Test Mitogen - Nil 0.01 IU/mL 03/06/21 06:00 TB Test TB - Nil 0.01 IU/mL 03/06/21 06:00 Impressions Chest CTA 03/04/21 19:00 IMPRESSION: 1. Negative for pulmonary embolism. 2. There is a nonspecific small volume right pleural effusion which demonstrates a mild degree of pleural enhancement. A loculated collection cannot be excluded. 3. Background emphysema and interstitial fibrotic lung changes without evidence of focal pneumonia. Radiation Dose CTDIVOL = (mGy): DLP = 1183.25 (mGy-cm) Chest X-Ray 03/07/21 04:00 Impression: 1. Diffuse bilateral interstitial changes which could represent pulmonary vascular congestion. 2. Cardiomegaly. Renal Ultrasound 03/08/21 05:00 IMPRESSION: Normal renal ultrasound. Micro: Microbiology 03/08/21 07:30 Gram Stain - Final Sputum - Expectorated Sputum A&P Assessment and plan (1) Exertional dyspnea: Status: Acute (2) Sepsis: Status: Acute Qualifiers: Sepsis type: sepsis due to unspecified organism Sepsis acute organ dysfunction status: without acute organ dysfunction Qualified Code(s): A41.9 - Sepsis, unspecified organism (3) Pleural effusion on right: Status: Acute (4) Obesity, morbid, BMI 40.0-49.9: Status: Acute (5) LEX on CPAP: Status: Chronic (6) Chronic steroid use: Status: Chronic (7) COPD (chronic obstructive pulmonary disease): Status: Chronic Qualifiers: COPD type: emphysema Emphysema type: centrilobular Qualified Code(s): J43.2 - Centrilobular emphysema (8) Ex-smoker for more than 1 year: Status: Chronic (9) Restrictive airway disease: Status: Chronic (10) High risk medication use: Status: Acute (11) Seronegative rheumatoid arthritis of both hands: Status: Chronic (12) COVID-19: Status: Resolved (13) Serositis: Status: Acute (14) SARAVANAN (acute kidney injury): Status: Acute # Right pleural effusion - likely parapneumonic given sepsis vs inflammatory given underlying RA # Chronic ex smoker - 1 ppd x 35 years - quit 2013; # COPD # Seronegative RA - on Humira, plaquanil and Prednisone 10 mg daily - immunosuppressed and potential to have fungal as well as TB # SARAVANAN -?? medication induced - likely vancomycin/lisinopril/hctz vs contrast induced; last dose ketorolac on 03/05/21 - Afebrile since admission; wbc 9K ; procalcitonin 0.21 - CTA 03/04/21: Negative for PE, Non specific smal volume rigth pleural effusion, background emphysema and interstitial fibrotic lung changes without evidence of focal pneumonia - repeat Covid antigen and PCR negative ; Flu negative ; - Bacterial antigens; Blood cultures; MRSA PCR, TB quantiferon -negative; Sputum cx - pending; other viral panel - pending - immunosuppressed and at risk to have fungal as well as TB - but no suspicious lesions on CT chest - Currently covered Zosyn ; vancomycin level high and MRSA nares negative - so discontinued - Bedside US- showed mild right pleural effusion further decreasing - with not enough pocket to tap - patient reported somewhat improvement in her respiratory status since admission but still has dyspnea on exertion & wheezing - Continue Pulmicort 0.5 mg bid , increase frequency of Duoneb to q 4 hr kitty, - I will increase prednisone to 40 mg daily (03/06/21) for 1 week and taper down to 30 mg daily x 1 week (03/13/21), down to 20 mg x 1 week (03/20/21) and to 10 mg (03/25/21) - EF on echo 06/2020 64% with grade I/IV diastolic dysfunction noted. 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 No evidence of atrial septal defect or patent formen ovale. Lipomatous hypertrophy of interatrial septum. Mildly aneurysmal interatrial septum ruled out myxoma. - Echo 03/06/21: normal with EF 69% with no pericardial effusion ; BNP > 330 > 220 5 -BMP showing significant increase in creatinine and anion gap metabolic acidosis; dropping GFR; - renal sono 03/07/21 normal kidneys; Ulytes, CK, uric acid, Urine analysis, electrolytes (except phosphorus 5.5), bicarb are normal. -Held vancomycin and ketorolac; Lasix as needed; currently very good urine output - at present no hard indication for hemodialysis; monitor BMP for urine out put, renal functions and electrolytes closely -Continue clinical monitoring with antibiotics, steroids and nebulizations 03/05/21 03/06/21: 03/07/21: Right-sided pleuritic chest pain with right pleural effusion in patient with rheumatoid arthritis on immunosuppressant medications-I suspect inflammatory serositis vs infectious serositis. Currently patient is getting antibiotics and I have increased her steroid dose to 40 mg daily and will taper down every week by 10 mg for next 3 to 4 weeks. If patient's symptoms does not improve -I will recommend video-assisted thoracoscopic pleural biopsy; and if patient's symptoms does not resolve then we should get VATS pleural biopsy to rule out TB. Recovery now complicated by SARAVANAN due to Contrast vs medication induced (vancomycin/kertorolac/HCTZ/Lisinopril)- monitor renal functions and avoid nephrotoxic medications and renal follow up Medical condition and management plan including findings of bedside sonography and rationale for not doing thoracentesis were explained in detail to the patient and her at bedside. They verbalized understanding and agreed with the plan. Recommendations conveyed to the Hospitalist covering the patient Attestations Medical Necessity Statement*: Increased steroids for pleuritis and monitor for clinical response ; needs hospitalizations for monitoring newly developed SARAVANAN likely medication vs contrast induced Time Spent in Patient Care: Greater than 35 minutes (>than 50% of time spent in counselling and/or direct pt care on unit) . Critical Care Time: Critical Care Time (min): 35 Coding Level of Care Code Established Pt Acute Bank Sales And Service Manager for [facility] Patient Type Established History Comprehensive Exam Comprehensive Medical Decision Making Moderate Complexity Diagnoses Exertional dyspnea R06.00 Sepsis A41.9 Sepsis type: sepsis due to unspecified organism Sepsis acute organ dysfunction status: without acute organ dysfunction Pleural effusion on right J90 Obesity, morbid, BMI 40.0-49.9 E66.01 LEX on CPAP G47.33; Z99.89 Chronic steroid use COPD (chronic obstructive pulmonary disease) J43.2 COPD type: emphysema Emphysema type: centrilobular Ex-smoker for more than 1 year Z87.891 Restrictive airway disease J98.4 High risk medication use Z79.899 Seronegative rheumatoid arthritis of both hands M06.041; M06.042 COVID-19 U07.1 Serositis K65.8 SARAVANAN (acute kidney injury) N17.9 Time Spent (min) 35
[2021-03-08 16:50] LABS: Glucose Point of Care 178 mg/dL (70-110)
[2021-03-08 18:30] LABS: Anion Gap 22.1 (5-19); Blood Urea Nitrogen 44 mg/dL (6-20); Calcium 9.2 mg/dL (8.5-10.5); Carbon Dioxide 19 mmol/L (22-29); Chloride 99 mmol/L (98-107); Glomerular Filtration Rate 6.4 mL/min (90-130); Glucose 180 mg/dL (65-115); Osmolality Calculated 296 mOsm/kg (285-295); Potassium 5.1 mmol/L (3.5-5.1); Sodium 135 mmol/L (136-145)
[2021-03-08] MEDS: heparin 5,000 unit/mL INJ 1 mL 5000 UNIT SUBCUT (21:14)
[2021-03-08] MEDS: ropinirole 1 mg Tablet 4 MG PO (21:14)
[2021-03-08 22:12] LABS: Glucose Point of Care 163 mg/dL (70-110)
[2021-03-09] VITALS (17 sets, daily range): BP systolic 133–156; BP diastolic 74–87; PULSE 88–112; RESP 16–20; TEMP 36.4–37.1; O2SAT 91–97
[2021-03-09] MEDS: ipratropium-albuterol 3 mL Neb INHALATION ×5 (03:21→23:24)
[2021-03-09] MEDS: piperacillin-tazobactam 3.375 GM in sodium chloride 0.9% (plus) 50 ML IV ×2 (05:24→17:23)
[2021-03-09] MEDS: cholecalciferol (vitamin D3) 1,000 unit Tablet 1000 UNIT PO (06:00)
[2021-03-09] MEDS: folic acid 1 mg Tablet PO (06:00)
[2021-03-09] MEDS: levothyroxine 112 mcg Tablet PO (06:00)
[2021-03-09] MEDS: hydroxychloroquine 200 mg Tablet PO ×2 (06:00→18:40)
[2021-03-09] MEDS: aspirin 81 mg EC Tablet PO (06:00)
[2021-03-09] MEDS: predniSONE 20 mg Tablet 40 MG PO (06:00)
[2021-03-09] MEDS: desvenlafaxine 50 mg Tablet PO (06:00)
[2021-03-09 06:57] LABS: Glucose Point of Care 97 mg/dL (70-110)
[2021-03-09 07:00] LABS: Basophils # 0.1 10^3/uL (0.0-0.1); Basophils % 0.6 %; Eosinophils # 0.2 10^3/uL (0.0-0.8); Eosinophils % 1.8 %; Hemoglobin 8.5 g/dL (11.5-15.3); Lymphocytes # 1.2 10^3/uL (0.8-4.8); Lymphocytes % 13.9 %; Mean Corpuscular HGB Conc 30.4 g/dL (30.0-36.0); Mean Corpuscular Hemoglobin 25.4 pg (28.0-34.0); Mean Corpuscular Volume 83.8 fL (81-99); Mean Platelet Volume 11.2 fL (7.4-10.4); Monocytes # 0.5 10^3/uL (0.2-0.9); Monocytes % 5.9 %; Neutrophils # 6.85 10^3/uL (1.8-7.7); Neutrophils % 77.5 %; Nucleated Red Blood Cells % 0 %; Platelet Count 269 10^3/cmm (130-400); Red Blood Count 3.34 10^6/uL (4.1-5.3); Red Cell Distribution Width 16.4 % (12.1-15.1); White Blood Count 8.8 10^3/uL (4.0-10.0)
[2021-03-09 07:27] LABS: Alanine Aminotransferase 19 U/L (0-33); Albumin Level 2.9 g/dL (3.5-5.2); Alkaline Phosphatase 69 IU/L (35-105); Blood Urea Nitrogen 53 mg/dL (6-20); Calcium 9.3 mg/dL (8.5-10.5); Carbon Dioxide 17 mmol/L (22-29); Chloride 102 mmol/L (98-107); Globulin 3.6 g/dL (1.3-4.6); Glomerular Filtration Rate 5.5 mL/min (90-130); Glucose 89 mg/dL (65-115); Magnesium 2.2 mg/dL (1.7-2.3); Osmolality Calculated 300 mOsm/kg (285-295); Sodium 138 mmol/L (136-145); Total Bilirubin 0.2 mg/dL (0.15-1.2); Total Protein 6.5 g/dL (6.6-8.7)
[2021-03-09] MEDS: budesonide 0.5 mg/2 mL Neb INHALATION (07:28)
[2021-03-09 07:38] LABS: Anion Gap 23.6 (5-19); Aspartate Amino Transferase 23 U/L (0-32); Potassium 4.6 mmol/L (3.5-5.1)
[2021-03-09 07:41] LABS: Slide Review Slide Review Perform
[2021-03-09 09:31] LABS: Anion Gap 22.4 (5-19); Blood Urea Nitrogen 53 mg/dL (6-20); Carbon Dioxide 18 mmol/L (22-29); Chloride 101 mmol/L (98-107); Glomerular Filtration Rate 5.7 mL/min (90-130); Glucose 221 mg/dL (65-115); Osmolality Calculated 305 mOsm/kg (285-295); Potassium 4.4 mmol/L (3.5-5.1); Sodium 137 mmol/L (136-145)
[2021-03-09] MEDS: gabapentin 100 mg Capsule PO ×3 (09:37→20:38)
[2021-03-09] MEDS: zinc gluconate 50 mg Tablet PO (09:37)
[2021-03-09] MEDS: fluoxetine 20 mg Capsule 40 MG PO (09:37)
[2021-03-09] MEDS: ascorbic acid 500 mg Tablet 1000 MG PO (09:37)
[2021-03-09] MEDS: heparin 5,000 unit/mL INJ 1 mL 5000 UNIT SUBCUT ×2 (09:37→20:44)
[2021-03-09] MEDS: pantoprazole DR 40 mg Tablet PO (09:37)
[2021-03-09] MEDS: docusate sodium 100 mg Capsule PO ×2 (09:37→17:24)
--- NOTE | 2021-03-09 09:52 | PM.PN ---
Subjective Subjective: Interval history: She feels better and specifically denies uremic Sx. She is passing urine to the tune of 1300mL. No extremity edema. No fever or chills No pain. Medications: Reviewed: Yes Vitals/I&O/Wt Last Vital Signs Temp 98.0 F 03/09/21 07:46 Pulse 103 H 03/09/21 07:46 Resp 18 03/09/21 07:46 BP 146/74 03/09/21 07:46 Pulse Ox 91 03/09/21 07:46 03/08/21 03/09/21 03/09/21 22:59 06:59 14:59 Intake Total 170 / 580 360 / 360 Output Total 1450 / 1450 1300 / 2750 Balance -1280 / -870 -1300 / -2170 360 / 360 Physical Exam Narrative: EXAM NARRATIVE: Constitutional: Awake, comfortable HEENT: Wet mucosa, no jvp, non icteric Lungs: Bilaterally discernible wheeze, rales in all lung zones CVS: S1 S2, no murmurs Abdo: Soft, BS ok Ext 4: Minimal edema, peripheral perfusion with no cyanosis Neurological: Grossly non-focal Urinary Catheter Management^: Jasmine: Cath Placed During This Visit: yes Reason for Continuing Indwelling Catheter: Acute Urinary Retention or Obstruction Urinary Catheter Date of Insertion: 03/07/21 Urinary Catheter Time of Insertion: 17:30 Data : 03/09/21 06:32 03/09/21 09:03 Micro: Microbiology 03/08/21 07:30 Gram Stain - Final Sputum - Expectorated Sputum A&P Additional A&P Information 1. Nonoliguric renal failure Differential diagnosis for this includes contrast nephropathy and vancomycin associated acute tubular injury. Given the nonoliguric nature, I am more on board with contrast is primary cause of renal failure. Urinalysis demonstrates no evidence of pyuria or hematuria hence glomerulonephritis is unlikely in this clinical setting. Renal biopsy may be entertained, but I do not think this is necessary given the benign urine No acute indication for hemodialysis today. Acidosis is getting worse and I will give her some sodium bicarbonate for this and watch her volume closely with his additional sodium load. I discussed with her, her at length the indications for hemodialysis. There is no benefit to dialyzing sooner i.e. the outcome is unchanged by this. Given the rapid ascension of creatinine it is likely we will do dialysis in the next 24-48 hours. The robust urine output is a good prognosticator and hopefully she will recover kidney function in a matter of days. Avoid usual nephrotoxic agents. Strict ins and outs. Dose medication for GFR less than 15 2. Chemistry Acidosis is progressive given renal failure. We will add sodium bicarb, 650 mg 3 times daily. 3. Shortness of breath Admission CTA demonstrated background emphysematous lung, small right pleural effusion. Management per primary team including bronchodilators, empirical antibiotic coverage and steroids. 4. Hemodynamics The patient stable Kaleb Mosley MD Nephrology [phone] Patient seen and examined via telemedicine, with the assistance of the bedside RN > 25 min spent in evaluation and mgmt of patient Attestations Medical Necessity Statement*: Eval for SARAVANAN Coding Level of Care Code Acute Senior Mechanical Project Manager for [facility]
[2021-03-09 09:58] LABS: Anti-streptolysin O <50 IU/mL (<200)
[2021-03-09] MEDS: ALPRAZolam 0.5 mg Tablet PO (10:02)
[2021-03-09] MEDS: fluticasone nasal spray 16gm Btl 2 SPRAY NASAL ×2 (10:02→18:41)
[2021-03-09] MEDS: lidocaine 2% viscous 1.667 ML, diphenhydrAMINE oral liq 4.165 MG, aluminum-mag hydrox-s... MUCOUS MEM ×4 (10:03→20:41)
--- NOTE | 2021-03-09 10:50 | PM.PN ---
Subjective Subjective: Interval history: Patient seen at bedside today morning No acute events overnight Patient reported however breathing somewhat better Urine output has been good Labs and imaging reviewed and pertinent findings incorporated in assessment and plan Medications: Reviewed: Yes Vitals/I&O/Wt Last Vital Signs Temp 98.0 F 03/09/21 07:46 Pulse 103 H 03/09/21 07:46 Resp 18 03/09/21 07:46 BP 146/74 03/09/21 07:46 Pulse Ox 91 03/09/21 07:46 03/08/21 03/09/21 03/09/21 22:59 06:59 14:59 Intake Total 170 / 580 410 / 410 Output Total 1450 / 1450 1300 / 2750 Balance -1280 / -870 -1300 / -2170 410 / 410 Physical Exam Narrative: EXAM NARRATIVE: General: alert, NAD HEENT: conj clear, EOMI, PERRL, mmm, Neck: supple, no meningismus Heme: no cervical LAP Pulmonary: Bilateral diffuse wheeze and bibasilar crepitations Cardiovascular: rrr, nl s1s2, no mrg Abdomen: soft, nt, nd, no r/g, bs+ Extremities: pulses +, 1+ pitting pedal edema, no c/c, R Hand-both hands look puffy overall, tenderness across MCPs but more on the ventral aspect : no CVA tenderness Skin: intact, no rash MSK: no back or neck pain Urinary Catheter Management^: Jasmine: Cath Placed During This Visit: yes Reason for Continuing Indwelling Catheter: Acute Urinary Retention or Obstruction Urinary Catheter Date of Insertion: 03/07/21 Urinary Catheter Time of Insertion: 17:30 Data : 03/09/21 06:32 03/09/21 09:03 Other Labs: Laboratory Results WBC 8.8 10^3/uL (4.0-10.0) 03/09/21 06:32 RBC 3.34 10^6/uL (4.1-5.3) L 03/09/21 06:32 Hgb 8.5 g/dL (11.5-15.3) L 03/09/21 06:32 Hct 28.0 % (37.0-47.0) L 03/09/21 06:32 MCV 83.8 fL (81-99) 03/09/21 06:32 MCH 25.4 pg (28.0-34.0) L 03/09/21 06:32 MCHC 30.4 g/dL (30.0-36.0) 03/09/21 06:32 RDW 16.4 % (12.1-15.1) H 03/09/21 06:32 Plt Count 269 10^3/cmm (130-400) 03/09/21 06:32 MPV 11.2 fL (7.4-10.4) H 03/09/21 06:32 Neut % (Auto) 77.5 % 03/09/21 06:32 Lymph % (Auto) 13.9 % 03/09/21 06:32 [place] % (Auto) 5.9 % 03/09/21 06:32 Eos % (Auto) 1.8 % 03/09/21 06:32 Baso % (Auto) 0.6 % 03/09/21 06:32 Neut # (Auto) 6.85 10^3/uL (1.8-7.7) 03/09/21 06:32 Lymph # (Auto) 1.2 10^3/uL (0.8-4.8) 03/09/21 06:32 [place] # (Auto) 0.5 10^3/uL (0.2-0.9) 03/09/21 06:32 Eos # (Auto) 0.2 10^3/uL (0.0-0.8) 03/09/21 06:32 Baso # (Auto) 0.1 10^3/uL (0.0-0.1) 03/09/21 06:32 Nucleated RBC % (auto) 0 % 03/09/21 06:32 Nucleated RBCs # 0.0 /100WBC 03/09/21 06:32 ESR 44 mm/hr (0-15) H 03/05/21 01:45 PT 14.00 SECONDS (12.1-14.9) 03/05/21 01:45 INR 1.05 (0.8-1.2) 03/05/21 01:45 Sodium 137 mmol/L (136-145) 03/09/21 09:03 Potassium 4.4 mmol/L (3.5-5.1) 03/09/21 09:03 Chloride 101 mmol/L (98-107) 03/09/21 09:03 Carbon Dioxide 18 mmol/L (22-29) L 03/09/21 09:03 Anion Gap 22.4 (5-19) H 03/09/21 09:03 BUN 53 mg/dL (6-20) H 03/09/21 09:03 Creatinine 7.4 mg/dL (0.5-0.9) H* 03/09/21 09:03 GFR Calculation 5.7 mL/min (90-130) L 03/09/21 09:03 Glucose 221 mg/dL (65-115) H 03/09/21 09:03 POC Glucose 97 mg/dL (70-110) 03/09/21 06:34 Calculated Osmolality 305 mOsm/kg (285-295) H 03/09/21 09:03 Lactate 2.7 mmol/L (0.5-2.2) H 03/07/21 17:05 Uric Acid 5.9 mg/dL (2.4-5.7) H 03/07/21 15:37 Calcium 9.0 mg/dL (8.5-10.5) 03/09/21 09:03 Phosphorus 7.0 mg/dL (2.5-4.5) H 03/09/21 06:32 Magnesium 2.2 mg/dL (1.7-2.3) 03/09/21 06:32 Total Bilirubin 0.2 mg/dL (0.15-1.2) 03/09/21 06:32 AST 23 U/L (0-32) 03/09/21 06:32 ALT 19 U/L (0-33) 03/09/21 06:32 Alkaline Phosphatase 69 IU/L (35-105) 03/09/21 06:32 Creatine Kinase 66 U/L (26-192) 03/07/21 15:37 Troponin T Baseline 7 ng/L (0-10) 03/04/21 18:10 Troponin T 120 Minute 10.07 ng/L (0-10) H 03/04/21 20:08 Delta Troponin T 3.07 ABS# (0-10) 03/04/21 20:08 Troponin T Hi Sens 6Hr 9.68 ng/L (0-10) 03/05/21 01:45 Troponin T Hi Sens 6Hr Delta 2.68 ng/L (0-12) 03/05/21 01:45 C-Reactive Protein 65.6 mg/L (0.0-4.9) H 03/05/21 01:45 NT-Pro-B Natriuret Pep 2205 pg/mL (0-125) H 03/07/21 15:37 Total Protein 6.5 g/dL (6.6-8.7) L 03/09/21 06:32 Albumin 2.9 g/dL (3.5-5.2) L 03/09/21 06:32 Globulin 3.6 g/dL (1.3-4.6) 03/09/21 06:32 Procalcitonin 0.33 ng/mL (0-0.5) 03/07/21 15:37 Urine Color Cancelled 03/07/21 17:30 Urine Color Straw (Yellow) 03/07/21 17:30 Urine Appearance Cancelled 03/07/21 17:30 Urine Appearance Clear (CLEAR) 03/07/21 17:30 Urine pH 5 (5-7) 03/07/21 17:30 Urine pH Cancelled 03/07/21 17:30 Ur Specific [place] 1.000 (1.005-1.030) L 03/07/21 17:30 Ur Specific [place] Cancelled 03/07/21 17:30 Urine Protein Cancelled 03/07/21 17:30 Urine Protein Neg (Negative) 03/07/21 17:30 Urine Glucose (UA) Cancelled 03/07/21 17:30 Urine Glucose (UA) Norm (Normal) 03/07/21 17:30 Urine Ketones Cancelled 03/07/21 17:30 Urine Ketones Negative (Negative) 03/07/21 17:30 Urine Blood Cancelled 03/07/21 17:30 Urine Blood Neg (Negative) 03/07/21 17:30 Urine Nitrate Cancelled 03/07/21 17:30 Urine Nitrate Negative (Negative) 03/07/21 17:30 Urine Bilirubin Cancelled 03/07/21 17:30 Urine Bilirubin Neg (Negative) 03/07/21 17:30 Prot Sulfosalicylic Acd Cancelled 03/07/21 17:30 Urine Urobilinogen Cancelled 03/07/21 17:30 Urine Urobilinogen Norm mg/dL (Negative) 03/07/21 17:30 Ur Leukocyte Esterase Cancelled 03/07/21 17:30 Ur Leukocyte Esterase Negative (Negative) 03/07/21 17:30 Urine RBC 0-4 /hpf (0-2) H 03/07/21 17:30 Urine WBC 0-4 /hpf (0-5) H 03/07/21 17:30 Ur Eosinophil Smear 0 (0-0) 03/07/21 17:30 Ur Squamous Epith Cells 5-10 /hpf (0-5) H 03/07/21 17:30 Amorphous Sediment Not Reportable 03/07/21 17:30 Urine Bacteria Trace /hpf (NONE) 03/07/21 17:30 Urine Mucus None /hpf 03/07/21 17:30 Urine Eosinophils No eosinophils seen 03/07/21 17:30 Ur Random Sodium 34 mmol/L 03/07/21 17:30 Ur Random Potassium 13 mmol/L 03/07/21 17:30 Ur Random Chloride 11 mmol/L 03/07/21 17:30 Urine Creatinine 44 mg/dL (28-217) 03/07/21 17:30 Vancomycin Trough Cancelled 03/08/21 04:46 Random Vancomycin 58.5 ug/mL (20.0-40.0) H* 03/08/21 04:46 Serum Ketones Negative (Negative) 03/07/21 17:05 Complement C3 154 mg/dL (90-180) 03/07/21 17:05 Complement C4 23 mg/dL (10-40) 03/07/21 17:05 Nasal/Oral COVID-19 PCR Not detected 03/05/21 04:15 Hep Bs Antigen Non-reactive (Nonreactive) 03/07/21 17:55 Hep Bs Antibody 3.5 (11.5-1000) L 03/07/21 17:55 Hep B Core Total Ab Non-reactive (Nonreactive) 03/07/21 17:55 Hepatitis C Antibody Non-reactive (Nonreactive) 03/07/21 17:55 Influenza Type A Ag Negative (Negative) 03/05/21 16:28 Influenza Type B Ag Negative (Negative) 03/05/21 16:28 SARS-CoV-2 Ag (Rapid) Negative (Negative) 03/04/21 18:15 Anti-Streptolysin O Ab <50 IU/mL (<200) 03/07/21 17:55 TB (QFT) Gold In Tube Negative (NEGATIVE) 03/06/21 06:00 TB Test (QFT) Nil 0.07 IU/mL 03/06/21 06:00 TB Test (QFT) Mitogen 8.18 IU/mL 03/06/21 06:00 TB Test Mitogen - Nil 0.01 IU/mL 03/06/21 06:00 TB Test TB - Nil 0.01 IU/mL 03/06/21 06:00 Impressions Chest CTA 03/04/21 19:00 IMPRESSION: 1. Negative for pulmonary embolism. 2. There is a nonspecific small volume right pleural effusion which demonstrates a mild degree of pleural enhancement. A loculated collection cannot be excluded. 3. Background emphysema and interstitial fibrotic lung changes without evidence of focal pneumonia. Radiation Dose CTDIVOL = (mGy): DLP = 1183.25 (mGy-cm) Chest X-Ray 03/07/21 04:00 Impression: 1. Diffuse bilateral interstitial changes which could represent pulmonary vascular congestion. 2. Cardiomegaly. Renal Ultrasound 03/08/21 05:00 IMPRESSION: Normal renal ultrasound. Micro: Microbiology 03/08/21 07:30 Gram Stain - Final Sputum - Expectorated Sputum Sputum Culture - Preliminary Yeast A&P Assessment and plan (1) Exertional dyspnea: Status: Acute (2) Sepsis: Status: Acute Qualifiers: Sepsis type: sepsis due to unspecified organism Sepsis acute organ dysfunction status: without acute organ dysfunction Qualified Code(s): A41.9 - Sepsis, unspecified organism (3) Pleural effusion on right: Status: Acute (4) Obesity, morbid, BMI 40.0-49.9: Status: Acute (5) LEX on CPAP: Status: Chronic (6) Chronic steroid use: Status: Chronic (7) COPD (chronic obstructive pulmonary disease): Status: Chronic Qualifiers: COPD type: emphysema Emphysema type: centrilobular Qualified Code(s): J43.2 - Centrilobular emphysema (8) Ex-smoker for more than 1 year: Status: Chronic (9) Restrictive airway disease: Status: Chronic (10) High risk medication use: Status: Acute (11) Seronegative rheumatoid arthritis of both hands: Status: Chronic (12) COVID-19: Status: Resolved (13) Serositis: Status: Acute (14) SARAVANAN (acute kidney injury): Status: Acute # Dyspnea-combination of COPD exacerbation and rheumatoid interstitial lung disease exacerbation with right pleuritis and mild pleural effusion # Right pleural effusion - likely parapneumonic given sepsis vs inflammatory given underlying RA # Chronic ex smoker - 1 ppd x 35 years - quit 2013; # COPD # Seronegative RA - on Humira, plaquanil and Prednisone 10 mg daily - immunosuppressed and potential to have fungal as well as TB # SARAVANAN -?? medication induced - likely vancomycin/lisinopril/hctz vs contrast induced; last dose ketorolac on 03/05/21 - Afebrile since admission; wbc 8.8K ; procalcitonin 0.21 - CTA 03/04/21: Negative for PE, Non specific smal volume rigth pleural effusion, background emphysema and interstitial fibrotic lung changes without evidence of focal pneumonia - repeat Covid antigen and PCR negative ; Flu negative ; - Bacterial antigens; Blood cultures; MRSA PCR, TB quantiferon -negative; Sputum cx - pending; other viral panel - pending - immunosuppressed and at risk to have fungal as well as TB - but no suspicious lesions on CT chest - Currently covered Zosyn ; vancomycin level high and MRSA nares negative - so discontinued - Bedside US- showed mild right pleural effusion further decreasing - with not enough pocket to tap - patient reported somewhat improvement in her respiratory status since admission but still has dyspnea on exertion & wheezing - Continue Pulmicort 0.5 mg bid , increase frequency of Duoneb to q 4 hr kitty, - I will increase prednisone to 40 mg daily (03/06/21) for 1 week and taper down to 30 mg daily x 1 week (03/13/21), down to 20 mg x 1 week (03/20/21) and to 10 mg (03/25/21) - EF on echo 06/2020 64% with grade I/IV diastolic dysfunction noted. 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 No evidence of atrial septal defect or patent formen ovale. Lipomatous hypertrophy of interatrial septum. Mildly aneurysmal interatrial septum ruled out myxoma. - Echo 03/06/21: normal with EF 69% with no pericardial effusion ; BNP > 330 > 2205 -BMP showing significant increase in creatinine and anion gap metabolic acidosis; dropping GFR; - renal sono 03/07/21 normal kidneys; Ulytes, CK, uric acid, Urine analysis, electrolytes (except phosphorus 5.5), bicarb are normal. -Held vancomycin and ketorolac; Lasix as needed; currently very good urine output - at present no hard indication for hemodialysis; monitor BMP for urine out put, renal functions and electrolytes closely -Continue clinical monitoring with antibiotics, steroids and nebulizations -As per nephrology good urine output is a very good prognosticator off kidney recovery and as there is no hard indication for hemodialysis at this point and as there is no benefit hemodialysis sooner-we will defer hemodialysis for now monitor renal functions closely. -Meanwhile will use sodium bicarbonate for metabolic acidosis and will watch for fluid overload closely due to sodium 03/05/21 03/06/21: 03/07/21: Right-sided pleuritic chest pain with right pleural effusion in patient with rheumatoid arthritis on immunosuppressant medications-I suspect inflammatory serositis vs infectious serositis. Currently patient is getting antibiotics and I have increased her steroid dose to 40 mg daily and will taper down every week by 10 mg for next 3 to 4 weeks. If patient's symptoms does not improve -I will recommend video-assisted thoracoscopic pleural biopsy; and if patient's symptoms does not resolve then we should get VATS pleural biopsy to rule out TB. Recovery now complicated by SARAVANAN due to Contrast vs medication induced (vancomycin/kertorolac/HCTZ/Lisinopril)- monitor renal functions and avoid nephrotoxic medications and renal follow up Medical condition and management plan including development of possible contrast versus medication induced SARAVANAN and necessity for close monitoring of renal functions in hospital and possible hemodialysis were explained in detail to the patient and her at bedside. They verbalized understanding and agreed with the plan. Recommendations conveyed to the Hospitalist covering the patient Attestations Medical Necessity Statement*: Increased steroids for pleuritis and monitor for clinical response ; needs hospitalizations for monitoring newly developed SARAVANAN likely medication vs contrast induced Time Spent in Patient Care: Greater than 35 minutes (>than 50% of time spent in counselling and/or direct pt care on unit). Critical Care Time: Critical Care Time (min): 35 Coding Level of Care Code Established Pt Acute Or Manager for [facility]rema Patient Type Established Medical Decision Making Moderate Complexity Diagnoses Exertional dyspnea R06.00 Sepsis A41.9 Sepsis type: sepsis due to unspecified organism Sepsis acute organ dysfunction status: without acute organ dysfunction Pleural effusion on right J90 Obesity, morbid, BMI 40.0-49.9 E66.01 LEX on CPAP G47.33; Z99.89 Chronic steroid use COPD (chronic obstructive pulmonary disease) J43.2 COPD type: emphysema Emphysema type: centrilobular Ex-smoker for more than 1 year Z87.891 Restrictive airway disease J98.4 High risk medication use Z79.899 Seronegative rheumatoid arthritis of both hands M06.041; M06.042 COVID-19 U07.1 Serositis K65.8 SARAVANAN (acute kidney injury) N17.9 Time Spent (min) 45 Comment Including counseling to patient and her
[2021-03-09] MEDS: sodium bicarbonate 650 mg Tablet PO ×3 (10:56→20:39)
[2021-03-09 10:59] LABS: ABG PCO2 32.3 mmHg (35-45); ABG PH Result 7.36 (7.35-7.45); Alveolar-Arterial Oxygen Gradi 3.6 mmHg (5-10); Arterial Blood Gas Hematocrit 24.7 % (37-47); Base Excess ABG -6.6 mmol/L (-2.0-2.0); Blood Gas Allen Test Pos; Blood Gas Sample Type Arterial; Carboxyhemoglobin 1.1 %THgb (0.4-20.1); HCO3 ABG 18.1 mmol/L (22-26); HGB O2 Sat 94.8 % (95-100); Ionized Calcium Level - ABG 1.3 mmol/L (1.1-1.4); Methemoglobin 0.3 % (0.4-1.5); Oxygen Saturation ABG 96.1; PO2 ABG 80.4 mmHg (80.0-100.0); Potassium Level - ABG 4.6 mmol/L (3.5-5.0); Total Hemoglobin 8.1 g/dL (12-16)
[2021-03-09 11:00] LABS: Blood Gas Sample Site Brachial, right; Oxygen Device ROOM AIR
[2021-03-09 11:30] LABS: Glucose Point of Care 171 mg/dL (70-110)
[2021-03-09 12:46] LABS: Anti-Nuclear Antibody Screen NEGATIVE (NEGATIVE)
--- NOTE | 2021-03-09 13:18 | P.PN_ITS ---
Subjective Subjective: Interval history: No new clinical events overnight Medications: Reviewed: Yes Vitals/I&O/Wt Last Vital Signs Temp 98.2 F 03/09/21 12:00 Pulse 112 H 03/09/21 12:00 Resp 16 03/09/21 12:00 BP 146/81 03/09/21 12:00 Pulse Ox 92 03/09/21 12:00 03/08/21 03/09/21 03/09/21 22:59 06:59 14:59 Intake Total 170 / 580 650 / 650 Output Total 1450 / 1450 1300 / 2750 Balance -1280 / -870 -1300 / -2170 650 / 650 Physical Exam Const: COMMON NORMALS: no acute distress and healthy appearing HENMT: COMMON NORMALS: normocephalic and atraumatic HEAD & SCALP: normocephalic and atraumatic Eye: COMMON NORMALS: Equal, round and reactive pupils present and EOMs intact bilaterally PUPIL: Yes Equal, round and reactive pupils present Neck/C-Spine: COMMON NORMALS: full ROM and supple Chest: COMMONS NORMALS: normal inspection of the chest and normal palpation of entire chest wall Resp: COMMON NORMALS: normal respiratory effort, No retractions, No use of accessory muscles and clear to auscultation bilaterally AUSCULTATION: clear to auscultation bilaterally Cardio: COMMON NORMALS: regular rate, regular rhythm and No murmurs present (Cardio) RATE: regular rate and tachycardic RHYTHM: regular rhythm GI: COMMON NORMALS: Normal to inspection, nondistended, normoactive bowel sounds present, Soft to palpation, non-tender and no masses PALPATION: Yes Soft to palpation Extremity: COMMON NORMALS: normal to inspection and full ROM Neuro: COMMON NORMALS: moves all extremities and no focal motor deficits Psych: COMMON NORMALS: mental status grossly normal, Normal thought process present and cooperative THOUGHT PROCESS: Normal thought process present Skin: COMMON NORMALS: no rashes or lesions noted and no wounds GENERAL SKIN EXAM: no rashes or lesions noted Urinary Catheter Management^: Pineda: Cath Placed During This Visit: yes Reason for Continuing Indwelling Catheter: Acute Urinary Retention or Obstruction Urinary Catheter Date of Insertion: 03/07/21 Urinary Catheter Time of Insertion: 17:30 Data : 03/09/21 06:32 03/09/21 09:03 Micro: Microbiology 03/08/21 07:30 Gram Stain - Final Sputum - Expectorated Sputum Sputum Culture - Preliminary Yeast A&P Assessment and plan (1) Sepsis: Will continue zosyn for now - renally dose MRSA negative - D/C vancomycin Culture thus far negative Afebrile since 03/04 Continue to de-escalate abx Unchanged Will consider changing to PO Status: Acute Qualifiers: Sepsis type: sepsis due to unspecified organism Sepsis acute organ dysfunction status: without acute organ dysfunction Qualified Code(s): A41.9 - Sepsis, unspecified organism (2) Pleural effusion on right: Pulmonary on board Off oxygen HOme o2 eval prior to dishcarge. Additional diuresis if ok with nephrology Status: Acute (3) Seronegative rheumatoid arthritis of both hands: Currently on prednisone 10 mg daily, Humira started approximately 3 weeks ago and Plaquenil. Has previously been on methotrexate and Arava but both of these have been stopped over the last few months. Status: Chronic (4) Chronic steroid use: For rheumatoid arthritis Status: Chronic (5) Restrictive airway disease: On recent PFTs Status: Chronic (6) COPD (chronic obstructive pulmonary disease): In a patient with a history of prior smoking Continue bronchodialatory tx Status: Chronic Qualifiers: COPD type: emphysema Emphysema type: centrilobular Qualified Code(s): J43.2 - Centrilobular emphysema (7) LEX on CPAP: CPAP qhs Will need her own CPAP Status: Chronic (8) HTN (hypertension): Chronically on lisinopril/hydrochlorothiazide, blood pressures lower range of normal presently Held due to renal failure Status: Chronic Qualifiers: Hypertension type: essential hypertension Qualified Code(s): I10 - Essential (primary) hypertension (9) Obesity, morbid, BMI 40.0-49.9: Status: Acute Additional A&P Information Acute Kidney injury - Nephrology consulted - Due to vancomycin - Slight worsening today - Repeat labs in am - Pineda in place. - No indication for HD today DVT prophylaxis: lovenox Code Status: full Attestations Medical Necessity Statement*: will require further hospitalization for management of renal failure possibley needing HD Time Spent in Patient Care: Greater than 35 minutes (>than 50% of time spent in counselling and/or direct pt care on unit) . Coding Level of Care Code Acute [employer] [facility] Fwd Diagnoses Sepsis A41.9 Sepsis type: sepsis due to unspecified organism Sepsis acute organ dysfunction status: without acute organ dysfunction Pleural effusion on right J90 Seronegative rheumatoid arthritis of both hands M06.041; M06.042 Chronic steroid use Restrictive airway disease J98.4 COPD (chronic obstructive pulmonary disease) J43.2 COPD type: emphysema Emphysema type: centrilobular LEX on CPAP G47.33; Z99.89 HTN (hypertension) I10 Hypertension type: essential hypertension Obesity, morbid, BMI 40.0-49.9 E66.01
[2021-03-09 16:06] LABS: Adenovirus Not Detected (Not Detected); Human Metapneumovirus Not Detected (Not Detected); Human Parainflu Virus 1 Not Detected (Not Detected); Human Parainflu Virus 2 Not Detected (Not Detected); Human Parainflu Virus 3 Not Detected (Not Detected); Human Rsv A Not Detected (Not Detected); Influenza A Not Detected (Not Detected); Influenza B Not Detected (Not Detected); Rhinovirus/Enterovirus Not Detected (Not Detected)
[2021-03-09 17:11] LABS: Glucose Point of Care 156 mg/dL (70-110)
[2021-03-09 18:51] LABS: Anion Gap 24.4 (5-19); Blood Urea Nitrogen 59 mg/dL (6-20); Calcium 9.7 mg/dL (8.5-10.5); Carbon Dioxide 18 mmol/L (22-29); Chloride 101 mmol/L (98-107); Glomerular Filtration Rate 6.1 mL/min (90-130); Glucose 117 mg/dL (65-115); Osmolality Calculated 304 mOsm/kg (285-295); Potassium 5.4 mmol/L (3.5-5.1); Sodium 138 mmol/L (136-145)
[2021-03-09] MEDS: hyDROXYzine 25 mg Capsule PO (20:38)
[2021-03-09] MEDS: ropinirole 1 mg Tablet 4 MG PO (20:39)
[2021-03-09 20:50] LABS: Glucose Point of Care 138 mg/dL (70-110)
[2021-03-10] VITALS (17 sets, daily range): BP systolic 138–170; BP diastolic 75–88; PULSE 99–116; RESP 17–24; TEMP 36.1–37.2; O2SAT 89–96
[2021-03-10] MEDS: ipratropium-albuterol 3 mL Neb INHALATION ×5 (03:18→19:45)
[2021-03-10 05:13] LABS: Basophils % 0.3 %; Eosinophils # 0.1 10^3/uL (0.0-0.8); Eosinophils % 1.4 %; Hematocrit 29.2 % (37.0-47.0); Lymphocytes # 1.4 10^3/uL (0.8-4.8); Lymphocytes % 13.5 %; Mean Corpuscular HGB Conc 30.8 g/dL (30.0-36.0); Mean Corpuscular Hemoglobin 25.6 pg (28.0-34.0); Mean Platelet Volume 10.9 fL (7.4-10.4); Monocytes # 0.6 10^3/uL (0.2-0.9); Monocytes % 5.3 %; Neutrophils # 8.17 10^3/uL (1.8-7.7); Neutrophils % 78.8 %; Nucleated Red Blood Cells % 0 %; Platelet Count 284 10^3/cmm (130-400); Red Blood Count 3.52 10^6/uL (4.1-5.3); Red Cell Distribution Width 16.5 % (12.1-15.1); White Blood Count 10.4 10^3/uL (4.0-10.0)
[2021-03-10 05:37] LABS: Magnesium 2.2 mg/dL (1.7-2.3); Phosphorus 6.7 mg/dL (2.5-4.5)
--- NOTE | 2021-03-10 05:38 | PC.NURSE ---
SHIFT SUMMARY Has rested well. CPAP on at HS. Has had 800ml urine output via Jasmine this shift. No c/o pain or discomfort. Had requested Xanax at bedtime but had been discontinued so she took the po Vistaril and appeared to sleep well with it.
[2021-03-10] MEDS: predniSONE 20 mg Tablet 40 MG PO (06:09)
[2021-03-10] MEDS: cholecalciferol (vitamin D3) 1,000 unit Tablet 1000 UNIT PO (06:09)
[2021-03-10] MEDS: desvenlafaxine 50 mg Tablet PO (06:09)
[2021-03-10] MEDS: hydroxychloroquine 200 mg Tablet PO ×2 (06:09→18:26)
[2021-03-10] MEDS: aspirin 81 mg EC Tablet PO (06:10)
[2021-03-10] MEDS: piperacillin-tazobactam 3.375 GM in sodium chloride 0.9% (plus) 50 ML IV ×2 (06:10→18:27)
[2021-03-10] MEDS: levothyroxine 112 mcg Tablet PO (06:10)
[2021-03-10] MEDS: folic acid 1 mg Tablet PO (06:10)
[2021-03-10 06:47] LABS: Glucose Point of Care 92 mg/dL (70-110)
--- NOTE | 2021-03-10 07:01 | PM.PN ---
Subjective Subjective: Interval history: wheezing, sob, dec edema. eating. poor appetite. no n/v/f/c/malik/d Medications: Reviewed: Yes Medication Review Details: Current Medications Acetaminophen (Acetaminophen 325 Mg Tablet) 650 mg PO Q4H PRN PRN Reason: Mild/Mod Pain Or Temp >/= 101 Albuterol/Ipratropium (Ipratropium-Albuterol 3 Ml Neb) 3 ml INHALATION Q4H.RESPIRATORY [facility] Last Admin: 03/10/21 03:18 Dose: 3 ml Documented by: Ascorbic Acid (Ascorbic Acid 500 Mg Tablet) 1,000 mg PO DAILY [facility] Last Admin: 03/09/21 09:37 Dose: 1,000 mg Documented by: Aspirin (Aspirin 81 Mg Ec Tablet) 81 mg PO DAILY@07 [facility] Last Admin: 03/10/21 06:10 Dose: 81 mg Documented by: Bisacodyl (Bisacodyl 5 Mg Tablet) 10 mg PO DAILY PRN; Protocol PRN Reason: Constipation (see protocol) Budesonide (Budesonide 0.5 Mg/2 Ml Neb) 0.5 mg INHALATION BID.RESPIRATORY [facility] Last Admin: 03/09/21 19:50 Dose: Not Given Documented by: Lidocaine HCl 1.667 ml/Diphenhydramine HCl 4.165 mg/Al Hydrox/Mg Hydrox/Simethicone 1.667 ml 0 ml MUCOUS MEM QID [facility] Last Admin: 03/09/21 20:41 Dose: 7.5 ml Documented by: Desvenlafaxine (Desvenlafaxine 50 Mg Tablet) 50 mg PO DAILY@07 [facility] Last Admin: 03/10/21 06:09 Dose: 50 mg Documented by: Docusate Sodium (Docusate Sodium 100 Mg Capsule) 100 mg PO BID [facility] Last Admin: 03/09/21 17:24 Dose: 100 mg Documented by: Fluoxetine HCl (Fluoxetine 20 Mg Capsule) 40 mg PO DAILY [facility] Last Admin: 03/09/21 09:37 Dose: 40 mg Documented by: Fluticasone Propionate (Fluticasone Nasal Jack 16gm Btl) 2 spray NASAL BID [facility] Last Admin: 03/09/21 18:41 Dose: 2 spray Documented by: Folic Acid (Folic Acid 1 Mg Tablet) 1 mg PO DAILY@0700 [facility] Last Admin: 03/10/21 06:10 Dose: 1 mg Documented by: Gabapentin (Gabapentin 100 Mg Capsule) 100 mg PO TID [facility] Last Admin: 03/09/21 20:38 Dose: 100 mg Documented by: Heparin Sodium (Beef Lung) (Heparin 5,000 Unit/Ml Inj 1 Ml) 5,000 unit SUBCUT Q12H [facility] Last Admin: 03/09/21 20:44 Dose: 5,000 unit Documented by: Hydroxychloroquine Sulfate (Hydroxychloroquine 200 Mg Tablet) 200 mg PO BID@ [facility] Last Admin: 03/10/21 06:09 Dose: 200 mg Documented by: Hydroxyzine Pamoate (Hydroxyzine 25 Mg Capsule) 25 mg PO TID PRN PRN Reason: ANXIETY Last Admin: 03/09/21 20:38 Dose: 25 mg Documented by: Piperacillin Sod/Tazobactam (Sod 3.375 gm/ Sodium Chloride) 50 mls @ 12.5 mls/hr IV Q12H [facility]; Protocol Last Admin: 03/10/21 06:10 Dose: 12.5 mls/hr Documented by: Insulin Aspart (Insulin Aspart 100 Unit/1 Ml) 0 unit SUBCUT TIDWM [facility]; Protocol Last Admin: 03/09/21 17:24 Dose: 2 unit Documented by: Levothyroxine Sodium (Levothyroxine 112 Mcg Tablet) 112 mcg PO DAILY@07 [facility] Last Admin: 03/10/21 06:10 Dose: 112 mcg Documented by: Multivitamins/Minerals (Multivitamin W/Minerals Tablet) 1 tab PO DAILY [facility] Last Admin: 03/09/21 09:37 Dose: 1 tab Documented by: Ondansetron HCl (Ondansetron 2 Mg/Ml Sdv 2 Ml) 4 mg IVP Q4H PRN PRN Reason: NAUSEA AND VOMITING Last Admin: 03/04/21 22:43 Dose: 4 mg Documented by: Pantoprazole Sodium (Pantoprazole Dr 40 Mg Tablet) 40 mg PO DAILY [facility] Last Admin: 03/09/21 09:37 Dose: 40 mg Documented by: Prednisone (Prednisone 20 Mg Tablet) 40 mg PO DAILY@0700 [facility] Last Admin: 03/10/21 06:09 Dose: 40 mg Documented by: Ropinirole HCl (Ropinirole 1 Mg Tablet) 4 mg PO BEDTIME@2100 [facility] Last Admin: 03/09/21 20:39 Dose: 4 mg Documented by: Sodium Bicarbonate (Sodium Bicarbonate 650 Mg Tablet) 650 mg PO TID [facility] Last Admin: 03/09/21 20:39 Dose: 650 mg Documented by: Vitamin D (Cholecalciferol (Vitamin D3) 1,000 Unit Tablet) 1,000 unit PO DAILY@07 [facility] Last Admin: 03/10/21 06:09 Dose: 1,000 unit Documented by: Zinc Gluconate (Zinc Gluconate 50 Mg Tablet) 50 mg PO DAILY [facility] Last Admin: 03/09/21 09:37 Dose: 50 mg Documented by: Vitals/I&O/Wt Last Vital Signs Temp 97.0 F L 03/10/21 04:00 Pulse 104 H 03/10/21 04:00 Resp 20 H 03/10/21 04:00 BP 138/88 03/10/21 04:00 Pulse Ox 93 03/10/21 04:00 03/09/21 03/10/21 03/10/21 22:59 06:59 14:59 Intake Total 50 / 700 360 / 1060 Output Total 1800 / 1800 800 / 2600 Balance -1750 / -1100 -440 / -1540 Physical Exam Narrative: EXAM NARRATIVE: obese, vs noted, sob in bed vs noted heent- nc/at, eomi, anicteric neck supple lungs b/l wheezes heart- reg, +PAULA abd soft, nt, nd, +BS ext 1+ b/l edema neuro- a,a, o x 3 no rashes noted mood good pulses palpable Urinary Catheter Management^: Jasmine: Cath Placed During This Visit: yes Reason for Continuing Indwelling Catheter: Other Urinary Catheter Date of Insertion: 03/07/21 Urinary Catheter Time of Insertion: 17:30 Data : 03/10/21 04:40 03/09/21 18:13 Micro: Microbiology 03/04/21 18:10 Blood Culture - Final Blood NO GROWTH AFTER 5 DAYS 03/04/21 18:53 Blood Culture - Final Blood NO GROWTH AFTER 5 DAYS 03/08/21 07:30 Gram Stain - Final Sputum - Expectorated Sputum Sputum Culture - Preliminary Yeast A&P Additional A&P Information 55 yr old female seronegative RA w/ sepsis, pleural effusion, COPD, HTN. 1. SARAVANAN- presumed ATN vs CAPO- cr starting to improve -cont to hold vancomycin and NSAID -note very high vanco level on 03/07 and 6/11 of 61 and 58 -cr improving, good uop- hope to avoid dialysis 1b. -hyperkalemia- repeat this afternoon- low k diet -may need kayexalate 2. COPD per pulm 3. Met acidosis- on na bicarb -from SARAVANAN 4. anemia - hgb stable 5. monitor phos seen and examined w/ RN- telehealth visit Attestations Medical Necessity Statement*: saravanan, copd, sob Time Spent in Patient Care: 16 - 35 minutes Coding Level of Care Code Acute Waste Transportation Technician for Saji Guadarrama
[2021-03-10] MEDS: budesonide 0.5 mg/2 mL Neb INHALATION ×2 (07:53→19:45)
--- NOTE | 2021-03-10 08:46 | XRR_ITS ---
PROCEDURE INFORMATION: Exam: XR Chest Exam date and time: 03/10/2021 8:46 AM Age: 55 years old Clinical indication: Shortness of breath; Additional info: Right pleural effusion TECHNIQUE: Imaging protocol: XR of the chest. Views: 1 view. COMPARISON: CR XR chest 1V portable [id number] 03/07/2021 6:31 AM FINDINGS: Lungs: Interstitial prominence and mild left-sided airspace disease. Pleural spaces: Mild right pleural thickening and/or small effusion. Heart/Mediastinum: Cardiac silhouette upper limits of normal in size. Bones/joints: Degenerative change. XR/XR chest 1V portable [id number] IMPRESSION: 1. Interstitial prominence and mild left-sided airspace disease. 2. Additional findings as described above.
[2021-03-10 08:53] LABS: Vancomycin Random 40.8 ug/mL (20.0-40.0)
[2021-03-10 09:34] LABS: Anion Gap 24.7 (5-19); Blood Urea Nitrogen 68 mg/dL (6-20); Calcium 9.2 mg/dL (8.5-10.5); Carbon Dioxide 16 mmol/L (22-29); Chloride 103 mmol/L (98-107); Glomerular Filtration Rate 5.2 mL/min (90-130); Glucose 165 mg/dL (65-115); Osmolality Calculated 311 mOsm/kg (285-295); Potassium 4.7 mmol/L (3.5-5.1); Sodium 139 mmol/L (136-145)
[2021-03-10] MEDS: pantoprazole DR 40 mg Tablet PO (09:36)
[2021-03-10] MEDS: heparin 5,000 unit/mL INJ 1 mL 5000 UNIT SUBCUT ×2 (09:36→21:32)
[2021-03-10] MEDS: sodium bicarbonate 650 mg Tablet PO (09:36)
[2021-03-10] MEDS: zinc gluconate 50 mg Tablet PO (09:36)
[2021-03-10] MEDS: gabapentin 100 mg Capsule PO ×3 (09:36→21:32)
[2021-03-10] MEDS: fluoxetine 20 mg Capsule 40 MG PO (09:36)
[2021-03-10] MEDS: docusate sodium 100 mg Capsule PO ×2 (09:36→18:27)
[2021-03-10] MEDS: ascorbic acid 500 mg Tablet 1000 MG PO (09:36)
[2021-03-10] MEDS: fluticasone nasal spray 16gm Btl 2 SPRAY NASAL ×2 (09:38→18:27)
[2021-03-10] MEDS: lidocaine 2% viscous 1.667 ML, diphenhydrAMINE oral liq 4.165 MG, aluminum-mag hydrox-s... MUCOUS MEM ×4 (10:35→21:31)
[2021-03-10 11:07] LABS: Glucose Point of Care 202 mg/dL (70-110)
[2021-03-10] MEDS: sodium bicarbonate 150 MEQ in dextrose 5% 1,000 ML 100 MEQ IV ×2 (11:57→23:40)
--- NOTE | 2021-03-10 12:28 | PM.PN ---
Subjective Subjective: Interval history: -Patient seen today at bedside. Her daughter at bedside as well -Reported increasing wheezing and dyspnea on exertion currently on 2 L nasal cannula -Urine output is good but today BMP showed worsening creatinine and a metabolic acidosis-plan is to start on bicarb drip -Labs and imaging reviewed and pertinent findings incorporated in assessment and plan Medications: Reviewed: Yes Vitals/I&O/Wt Last Vital Signs Temp 98.6 F 03/10/21 12:00 Pulse 100 03/10/21 12:00 Resp 17 03/10/21 12:00 BP 145/75 03/10/21 12:00 Pulse Ox 93 03/10/21 12:00 03/09/21 03/10/21 03/10/21 22:59 06:59 14:59 Intake Total 50 / 700 360 / 1060 290 / 290 Output Total 1800 / 1800 800 / 2600 Balance -1750 / -1100 -440 / -1540 290 / 290 Physical Exam Narrative: EXAM NARRATIVE: General: alert, NAD HEENT: conj clear, EOMI, PERRL, mmm, Neck: supple, no meningismus Heme: no cervical LAP Pulmonary: Bilateral diffuse wheeze and bibasilar crepitations Cardiovascular: rrr, nl s1s2, no mrg Abdomen: soft, nt, nd, no r/g, bs+ Extremities: pulses +, 1+ pitting pedal edema, no c/c, R Hand-both hands look puffy overall, tenderness across MCPs but more on the ventral aspect : no CVA tenderness Skin: intact, no rash MSK: no back or neck pain Urinary Catheter Management^: Jasmine: Cath Placed During This Visit: yes Reason for Continuing Indwelling Catheter: Other Urinary Catheter Date of Insertion: 03/07/21 Urinary Catheter Time of Insertion: 17:30 Data : 03/10/21 04:40 03/10/21 09:07 Other Labs: Laboratory Results WBC 10.4 10^3/uL (4.0-10.0) H 03/10/21 04:40 RBC 3.52 10^6/uL (4.1-5.3) L 03/10/21 04:40 Hgb 9.0 g/dL (11.5-15.3) L 03/10/21 04:40 Hct 29.2 % (37.0-47.0) L 03/10/21 04:40 MCV 83.0 fL (81-99) 03/10/21 04:40 MCH 25.6 pg (28.0-34.0) L 03/10/21 04:40 MCHC 30.8 g/dL (30.0-36.0) 03/10/21 04:40 RDW 16.5 % (12.1-15.1) H 03/10/21 04:40 Plt Count 284 10^3/cmm (130-400) 03/10/21 04:40 MPV 10.9 fL (7.4-10.4) H 03/10/21 04:40 Neut % (Auto) 78.8 % 03/10/21 04:40 Lymph % (Auto) 13.5 % 03/10/21 04:40 [place]gard % (Auto) 5.3 % 03/10/21 04:40 Eos % (Auto) 1.4 % 03/10/21 04:40 Baso % (Auto) 0.3 % 03/10/21 04:40 Neut # (Auto) 8.17 10^3/uL (1.8-7.7) H 03/10/21 04:40 Lymph # (Auto) 1.4 10^3/uL (0.8-4.8) 03/10/21 04:40 [place]gard # (Auto) 0.6 10^3/uL (0.2-0.9) 03/10/21 04:40 Eos # (Auto) 0.1 10^3/uL (0.0-0.8) 03/10/21 04:40 Baso # (Auto) 0.0 10^3/uL (0.0-0.1) 03/10/21 04:40 Nucleated RBC % (auto) 0 % 03/10/21 04:40 Nucleated RBCs # 0.0 /100WBC 03/10/21 04:40 ESR 44 mm/hr (0-15) H 03/05/21 01:45 PT 14.00 SECONDS (12.1-14.9) 03/05/21 01:45 INR 1.05 (0.8-1.2) 03/05/21 01:45 Specimen Type Arterial 03/09/21 10:50 Sample Site Brachial, right 03/09/21 10:50 ABG pH 7.36 (7.35-7.45) 03/09/21 10:50 ABG pCO2 32.3 mmHg (35-45) L 03/09/21 10:50 ABG pO2 80.4 mmHg (80.0-100.0) 03/09/21 10:50 ABG HCO3 18.1 mmol/L (22-26) L 03/09/21 10:50 ABG O2 Saturation 96.1 03/09/21 10:50 ABG Base Excess -6.6 mmol/L (-2.0-2.0) L 03/09/21 10:50 Maxwell Test Pos 03/09/21 10:50 A-a O2 Gradient 3.6 mmHg (5-10) L 03/09/21 10:50 Hematocrit 24.7 % (37-47) L 03/09/21 10:50 Hgb O2 Saturation 94.8 % (95-100) L 03/09/21 10:50 Carboxyhemoglobin 1.1 %THgb (0.4-20.1) 03/09/21 10:50 Methemoglobin 0.3 % (0.4-1.5) L 03/09/21 10:50 Total Hemoglobin 8.1 g/dL (12-16) L 03/09/21 10:50 Sodium 140.0 mmol/L (131-143) 03/09/21 10:50 Potassium 4.6 mmol/L (3.5-5.0) 03/09/21 10:50 Glucose 152.0 mg/dL (70-115) H 03/09/21 10:50 Ionized Calcium 1.3 mmol/L (1.1-1.4) 03/09/21 10:50 O2 Delivery Device Room air 03/09/21 10:50 FiO2 21.0 % 03/09/21 10:50 Search Engine Marketing Strategist ID [id number] 03/09/21 10:50 Sodium 139 mmol/L (136-145) 03/10/21 09:07 Potassium 4.7 mmol/L (3.5-5.1) 03/10/21 09:07 Chloride 103 mmol/L (98-107) 03/10/21 09:07 Carbon Dioxide 16 mmol/L (22-29) L 03/10/21 09:07 Anion Gap 24.7 (5-19) H 03/10/21 09:07 BUN 68 mg/dL (6-20) H 03/10/21 09:07 Creatinine 8.0 mg/dL (0.5-0.9) H* 03/10/21 09:07 GFR Calculation 5.2 mL/min (90-130) L 03/10/21 09:07 Glucose 165 mg/dL (65-115) H 03/10/21 09:07 POC Glucose 202 mg/dL (70-110) H 03/10/21 10:45 Calculated Osmolality 311 mOsm/kg (285-295) H 03/10/21 09:07 Lactate 2.7 mmol/L (0.5-2.2) H 03/07/21 17:05 Uric Acid 5.9 mg/dL (2.4-5.7) H 03/07/21 15:37 Calcium 9.2 mg/dL (8.5-10.5) 03/10/21 09:07 Phosphorus 6.7 mg/dL (2.5-4.5) H 03/10/21 04:40 Magnesium 2.2 mg/dL (1.7-2.3) 03/10/21 04:40 Total Bilirubin 0.2 mg/dL (0.15-1.2) 03/09/21 06:32 AST 23 U/L (0-32) 03/09/21 06:32 ALT 19 U/L (0-33) 03/09/21 06:32 Alkaline Phosphatase 69 IU/L (35-105) 03/09/21 06:32 Creatine Kinase 66 U/L (26-192) 03/07/21 15:37 Troponin T Baseline 7 ng/L (0-10) 03/04/21 18:10 Troponin T 120 Minute 10.07 ng/L (0-10) H 03/04/21 20:08 Delta Troponin T 3.07 ABS# (0-10) 03/04/21 20:08 Troponin T Hi Sens 6Hr 9.68 ng/L (0-10) 03/05/21 01:45 Troponin T Hi Sens 6Hr Delta 2.68 ng/L (0-12) 03/05/21 01:45 C-Reactive Protein 65.6 mg/L (0.0-4.9) H 03/05/21 01:45 NT-Pro-B Natriuret Pep 2205 pg/mL (0-125) H 03/07/21 15:37 Total Protein 6.5 g/dL (6.6-8.7) L 03/09/21 06:32 Albumin 2.9 g/dL (3.5-5.2) L 03/09/21 06:32 Globulin 3.6 g/dL (1.3-4.6) 03/09/21 06:32 Procalcitonin 0.33 ng/mL (0-0.5) 03/07/21 15:37 Urine Color Cancelled 03/07/21 17:30 Urine Color Straw (Yellow) 03/07/21 17:30 Urine Appearance Cancelled 03/07/21 17:30 Urine Appearance Clear (CLEAR) 03/07/21 17:30 Urine pH 5 (5-7) 03/07/21 17:30 Urine pH Cancelled 03/07/21 17:30 Ur Specific [place] 1.000 (1.005-1.030) L 03/07/21 17:30 Ur Specific [place] Cancelled 03/07/21 17:30 Urine Protein Cancelled 03/07/21 17:30 Urine Protein Neg (Negative) 03/07/21 17:30 Urine Glucose (UA) Cancelled 03/07/21 17:30 Urine Glucose (UA) Norm (Normal) 03/07/21 17:30 Urine Ketones Cancelled 03/07/21 17:30 Urine Ketones Negative (Negative) 03/07/21 17:30 Urine Blood Cancelled 03/07/21 17:30 Urine Blood Neg (Negative) 03/07/21 17:30 Urine Nitrate Cancelled 03/07/21 17:30 Urine Nitrate Negative (Negative) 03/07/21 17:30 Urine Bilirubin Cancelled 03/07/21 17:30 Urine Bilirubin Neg (Negative) 03/07/21 17:30 Prot Sulfosalicylic Acd Cancelled 03/07/21 17:30 Urine Urobilinogen Cancelled 03/07/21 17:30 Urine Urobilinogen Norm mg/dL (Negative) 03/07/21 17:30 Ur Leukocyte Esterase Cancelled 03/07/21 17:30 Ur Leukocyte Esterase Negative (Negative) 03/07/21 17:30 Urine RBC 0-4 /hpf (0-2) H 03/07/21 17:30 Urine WBC 0-4 /hpf (0-5) H 03/07/21 17:30 Ur Eosinophil Smear 0 (0-0) 03/07/21 17:30 Ur Squamous Epith Cells 5-10 /hpf (0-5) H 03/07/21 17:30 Amorphous Sediment Not Reportable 03/07/21 17:30 Urine Bacteria Trace /hpf (NONE) 03/07/21 17:30 Urine Mucus None /hpf 03/07/21 17:30 Urine Eosinophils No eosinophils seen 03/07/21 17:30 Ur Random Sodium 34 mmol/L 03/07/21 17:30 Ur Random Potassium 13 mmol/L 03/07/21 17:30 Ur Random Chloride 11 mmol/L 03/07/21 17:30 Urine Creatinine 44 mg/dL (28-217) 03/07/21 17:30 RSV Nasal Swab Not detected (Not Detected) 03/05/21 16:55 RSV Nasal Swab Int Cntl Not detected (Not Detected) 03/05/21 16:55 Vancomycin Trough Cancelled 03/08/21 04:46 Random Vancomycin 40.8 ug/mL (20.0-40.0) H* 03/10/21 04:40 Serum Ketones Negative (Negative) 03/07/21 17:05 KEVIN Screen Negative (NEGATIVE) 03/07/21 17:55 Complement C3 154 mg/dL (90-180) 03/07/21 17:05 Complement C4 23 mg/dL (10-40) 03/07/21 17:05 Adenovirus (PCR) Not detected (Not Detected) 03/05/21 16:55 Nasal/Oral COVID-19 PCR Not detected 03/05/21 04:15 Hep Bs Antigen Non-reactive (Nonreactive) 03/07/21 17:55 Hep Bs Antibody 3.5 (11.5-1000) L 03/07/21 17:55 Hep B Core Total Ab Non-reactive (Nonreactive) 03/07/21 17:55 Hepatitis C Antibody Non-reactive (Nonreactive) 03/07/21 17:55 Human Metapneumovir PCR Not detected (Not Detected) 03/05/21 16:55 Influenza A (RT-PCR) Not detected (Not Detected) 03/05/21 16:55 Influenza A (H1) PCR Not detected (Not Detected) 03/05/21 16:55 Influenza A (H3) PCR Not detected (Not Detected) 03/05/21 16:55 Influenza Type A Ag Negative (Negative) 03/05/21 16:28 Influenza Type B Ag Negative (Negative) 03/05/21 16:28 Influenza B (RT-PCR) Not detected (Not Detected) 03/05/21 16:55 Parainfluenzae Type 1 Not detected (Not Detected) 03/05/21 16:55 Parainfluenzae Type 2 Not detected (Not Detected) 03/05/21 16:55 Parainfluenzae Type 3 Not detected (Not Detected) 03/05/21 16:55 RSV Ab Comment see note 03/05/21 16:55 Rhinovirus (PCR) Not detected (Not Detected) 03/05/21 16:55 SARS-CoV-2 Ag (Rapid) Negative (Negative) 03/04/21 18:15 Anti-Streptolysin O Ab <50 IU/mL (<200) 03/07/21 17:55 TB (QFT) Gold In Tube Negative (NEGATIVE) 03/06/21 06:00 TB Test (QFT) Nil 0.07 IU/mL 03/06/21 06:00 TB Test (QFT) Mitogen 8.18 IU/mL 03/06/21 06:00 TB Test Mitogen - Nil 0.01 IU/mL 03/06/21 06:00 TB Test TB - Nil 0.01 IU/mL 03/06/21 06:00 Impressions Chest CTA 03/04/21 19:00 IMPRESSION: 1. Negative for pulmonary embolism. 2. There is a nonspecific small volume right pleural effusion which demonstrates a mild degree of pleural enhancement. A loculated collection cannot be excluded. 3. Background emphysema and interstitial fibrotic lung changes without evidence of focal pneumonia. Radiation Dose CTDIVOL = (mGy): DLP = 1183.25 (mGy-cm) Renal Ultrasound 03/08/21 05:00 IMPRESSION: Normal renal ultrasound. Chest X-Ray 03/10/21 08:46 IMPRESSION: 1. Interstitial prominence and mild left-sided airspace disease. 2. Additional findings as described above. Micro: Microbiology 03/04/21 18:10 Blood Culture - Final Blood NO GROWTH AFTER 5 DAYS 03/04/21 18:53 Blood Culture - Final Blood NO GROWTH AFTER 5 DAYS 03/08/21 07:30 Gram Stain - Final Sputum - Expectorated Sputum Sputum Culture - Preliminary Yeast A&P Assessment and plan (1) Exertional dyspnea: Status: Acute (2) Sepsis: Status: Acute Qualifiers: Sepsis type: sepsis due to unspecified organism Sepsis acute organ dysfunction status: without acute organ dysfunction Qualified Code(s): A41.9 - Sepsis, unspecified organism (3) Pleural effusion on right: Status: Acute (4) Obesity, morbid, BMI 40.0-49.9: Status: Acute (5) LEX on CPAP: Status: Chronic (6) Chronic steroid use: Status: Chronic (7) COPD (chronic obstructive pulmonary disease): Status: Chronic Qualifiers: COPD type: emphysema Emphysema type: centrilobular Qualified Code(s): J43.2 - Centrilobular emphysema (8) Ex-smoker for more than 1 year: Status: Chronic (9) Restrictive airway disease: Status: Chronic (10) High risk medication use: Status: Acute (11) Seronegative rheumatoid arthritis of both hands: Status: Chronic (12) COVID-19: Status: Resolved (13) Serositis: Status: Acute (14) SARAVANAN (acute kidney injury): Status: Acute # Dyspnea-combination of COPD exacerbation and rheumatoid interstitial lung disease exacerbation with right pleuritis and mild pleural effusion # Right pleural effusion - likely parapneumonic given sepsis vs inflammatory given underlying RA # Chronic ex smoker - 1 ppd x 35 years - quit 2013; # COPD # Seronegative RA - on Humira, plaquanil and Prednisone 10 mg daily - immunosuppressed and potential to have fungal as well as TB # SARAVANAN Since 03/07/2021-??Contrast (received 03/04/2021 )induced vs medication induced - likely vancomycin/lisinopril/hctz last dose ketorolac on 03/05/21 - Afebrile since admission; wbc 10.4K ; procalcitonin 0.21 - CTA 03/04/21: Negative for PE, Non specific smal volume rigth pleural effusion, background emphysema and interstitial fibrotic lung changes without evidence of focal pneumonia - repeat Covid antigen and PCR negative ; Flu negative ; - Bacterial antigens; Blood cultures; MRSA PCR, TB quantiferon -negative; Sputum cx - yeast; other viral panel - negative - immunosuppressed and at risk to have fungal as well as TB - but no suspicious lesions on CT chest - Currently covered Zosyn ; vancomycin level high and MRSA nares negative - so discontinued - Bedside US- showed mild right pleural effusion further decreasing - with not enough pocket to tap - patient reported somewhat improvement in her respiratory status since admission but still has dyspnea on exertion & wheezing - Continue Pulmicort 0.5 mg bid , increase frequency of Duoneb to q 4 hr kitty, - I will increase prednisone to 40 mg daily (03/06/21) for 1 week and taper down to 30 mg daily x 1 week (03/13/21), down to 20 mg x 1 week (03/20/21) and to 10 mg (03/25/21) - EF on echo 06/2020 64% with grade I/IV diastolic dysfunction noted. 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 No evidence of atrial septal defect or patent formen ovale. Lipomatous hypertrophy of interatrial septum. Mildly aneurysmal interatrial septum ruled out myxoma. - Echo 03/06/21: normal with EF 69% with no pericardial effusion ; BNP > 330 > 2205 -BMP showing significant increase in creatinine and anion gap metabolic acidosis; dropping GFR; - renal sono 03/07/21 normal kidneys; Ulytes, CK, uric acid, Urine analysis, electrolytes (except phosphorus 6.6), bicarb 16. -Held vancomycin and ketorolac; Lasix as needed; currently very good urine output - at present no hard indication for hemodialysis; monitor BMP for urine out put, renal functions and electrolytes closely - started on sodiumbicarbonate 150 meq in D5W 100 mls/hr -Continue clinical monitoring with antibiotics, steroids and nebulizations -As per nephrology good urine output is a very good prognosticator off kidney recovery and as there is no hard indication for hemodialysis at this point and as there is no benefit hemodialysis sooner-ongoing evaluation for hemodialysis on day to day basis 03/05/21 03/06/21: 03/07/21: Right-sided pleuritic chest pain with right pleural effusion in patient with rheumatoid arthritis on immunosuppressant medications-I suspect inflammatory serositis vs infectious serositis. Currently patient is getting antibiotics and I have increased her steroid dose to 40 mg daily and will taper down every week by 10 mg for next 3 to 4 weeks. If patient's symptoms does not improve -I will recommend video-assisted thoracoscopic pleural biopsy; and if patient's symptoms does not resolve then we should get VATS pleural biopsy to rule out TB. Recovery now complicated by SARAVANAN due to Contrast vs medication induced (vancomycin/kertorolac/HCTZ/Lisinopril)- monitor renal functions and avoid nephrotoxic medications and renal follow up Medical condition and management plan including development of possible contrast versus medication induced SARAVANAN and necessity for close monitoring of renal functions in hospital and possible hemodialysis were explained in detail to the patient and her at bedside. They verbalized understanding and agreed with the plan. Recommendations conveyed to the Hospitalist covering the patient Attestations Medical Necessity Statement*: Increased steroids for pleuritis and monitor for clinical response ; needs hospitalizations for monitoring newly developed SARAVANAN likely medication vs contrast induced Time Spent in Patient Care: Greater than 35 minutes (>than 50% of time spent in counselling and/or direct pt care on unit). Critical Care Time: Critical Care Time (min): 35 Coding Level of Care Code Established Pt Acute Color Card Maker for Chg Fwd Patient Type Established History Comprehensive Exam Comprehensive Medical Decision Making Moderate Complexity Diagnoses Exertional dyspnea R06.00 Sepsis A41.9 Sepsis type: sepsis due to unspecified organism Sepsis acute organ dysfunction status: without acute organ dysfunction Pleural effusion on right J90 Obesity, morbid, BMI 40.0-49.9 E66.01 LEX on CPAP G47.33; Z99.89 Chronic steroid use COPD (chronic obstructive pulmonary disease) J43.2 COPD type: emphysema Emphysema type: centrilobular Ex-smoker for more than 1 year Z87.891 Restrictive airway disease J98.4 High risk medication use Z79.899 Seronegative rheumatoid arthritis of both hands M06.041; M06.042 COVID-19 U07.1 Serositis K65.8 SARAVANAN (acute kidney injury) N17.9 Time Spent (min) 45 Comment including bedside ultrasound
[2021-03-10] MEDS: hyDROXYzine 25 mg Capsule PO (13:53)
--- NOTE | 2021-03-10 15:16 | PM.PN ---
Subjective Subjective: Interval history: Patient was hypoxic this am while sleeping w/o CPAP No respiratory distress at time of my eval No fever, chills, nausea or vomiting Medications: Reviewed: Yes Vitals/I&O/Wt Last Vital Signs Temp 98.6 F 03/10/21 12:00 Pulse 100 03/10/21 12:00 Resp 17 03/10/21 12:00 BP 145/75 03/10/21 12:00 Pulse Ox 93 03/10/21 12:00 03/10/21 03/10/21 03/10/21 06:59 14:59 22:59 Intake Total 360 / 1060 530 / 530 Output Total 800 / 2600 Balance -440 / -1540 530 / 530 Physical Exam Const: COMMON NORMALS: no acute distress and healthy appearing HENMT: COMMON NORMALS: normocephalic and atraumatic HEAD & SCALP: normocephalic and atraumatic Eye: COMMON NORMALS: Equal, round and reactive pupils present and EOMs intact bilaterally PUPIL: Yes Equal, round and reactive pupils present Neck/C-Spine: COMMON NORMALS: full ROM and supple Chest: COMMONS NORMALS: normal inspection of the chest and normal palpation of entire chest wall Resp: COMMON NORMALS: normal respiratory effort, No retractions, No use of accessory muscles and clear to auscultation bilaterally AUSCULTATION: clear to auscultation bilaterally Cardio: COMMON NORMALS: regular rate, regular rhythm and No murmurs present (Cardio) RATE: regular rate and tachycardic RHYTHM: regular rhythm GI: COMMON NORMALS: Normal to inspection, nondistended, normoactive bowel sounds present, Soft to palpation, non-tender and no masses PALPATION: Yes Soft to palpation Extremity: COMMON NORMALS: normal to inspection and full ROM Neuro: COMMON NORMALS: moves all extremities and no focal motor deficits Psych: COMMON NORMALS: mental status grossly normal, Normal thought process present and cooperative THOUGHT PROCESS: Normal thought process present Skin: COMMON NORMALS: no rashes or lesions noted and no wounds GENERAL SKIN EXAM: no rashes or lesions noted Urinary Catheter Management^: Jasmine: Cath Placed During This Visit: yes Reason for Continuing Indwelling Catheter: Other Urinary Catheter Date of Insertion: 03/07/21 Urinary Catheter Time of Insertion: 17:30 Data : 03/10/21 04:40 03/10/21 09:07 Micro: Microbiology 06/07/21 18:10 Blood Culture - Final Blood NO GROWTH AFTER 5 DAYS 03/04/21 18:53 Blood Culture - Final Blood NO GROWTH AFTER 5 DAYS 03/08/21 07:30 Gram Stain - Final Sputum - Expectorated Sputum Sputum Culture - Preliminary Yeast A&P Assessment and plan (1) Sepsis: Off abx - Off zosyn MRSA negative - D/C vancomycin Culture thus far negative Afebrile since 03/04 Status: Acute Qualifiers: Sepsis type: sepsis due to unspecified organism Sepsis acute organ dysfunction status: without acute organ dysfunction Qualified Code(s): A41.9 - Sepsis, unspecified organism (2) Pleural effusion on right: Pulmonary on board Off oxygen Home o2 eval prior to discharge. Additional dieresis if ok with nephrology Status: Acute (3) Seronegative rheumatoid arthritis of both hands: Currently on prednisone 10 mg daily, Humira started approximately 3 weeks ago and Plaquenil. Has previously been on methotrexate and Arava but both of these have been stopped over the last few months. Status: Chronic (4) Chronic steroid use: For rheumatoid arthritis Status: Chronic (5) Restrictive airway disease: On recent PFTs Status: Chronic (6) COPD (chronic obstructive pulmonary disease): In a patient with a history of prior smoking Continue bronchodialatory tx Status: Chronic Qualifiers: COPD type: emphysema Emphysema type: centrilobular Qualified Code(s): J43.2 - Centrilobular emphysema (7) LEX on CPAP: CPAP qhs Will need her own CPAP Status: Chronic (8) HTN (hypertension): Chronically on lisinopril/hydrochlorothiazide, blood pressures lower range of normal presently Held due to renal failure Status: Chronic Qualifiers: Hypertension type: essential hypertension Qualified Code(s): I10 - Essential (primary) hypertension (9) Obesity, morbid, BMI 40.0-49.9: Status: Acute Additional A&P Information Acute Kidney injury - Nephrology consulted - Due to vancomycin while on Dario-i - Repeat labs in am - F0ley in place. - No indication for HD today - Started on bicarb gtt - Repeat BMP in pm DVT prophylaxis: lovenox Code Status: Full Attestations Medical Necessity Statement*: Continue hospitalization for management of renal failure Time Spent in Patient Care: Greater than 35 minutes (>than 50% of time spent in counselling and/or direct pt care on unit). 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
[2021-03-10 17:26] LABS: Glucose Point of Care 173 mg/dL (70-110)
[2021-03-10 18:46] LABS: Anion Gap 23.9 (5-19); Blood Urea Nitrogen 72 mg/dL (6-20); Carbon Dioxide 15 mmol/L (22-29); Chloride 102 mmol/L (98-107); Glomerular Filtration Rate 5.5 mL/min (90-130); Glucose 173 mg/dL (65-115); Osmolality Calculated 307 mOsm/kg (285-295); Potassium 4.9 mmol/L (3.5-5.1); Sodium 136 mmol/L (136-145)
[2021-03-10] MEDS: ropinirole 1 mg Tablet 4 MG PO (21:32)
[2021-03-11] VITALS (24 sets, daily range): BP systolic 127–173; BP diastolic 66–123; PULSE 102–118; RESP 22–30; TEMP 36.7–37.1; O2SAT 89–99
[2021-03-11] MEDS: ipratropium-albuterol 3 mL Neb INHALATION ×5 (00:07→14:59)
[2021-03-11] MEDS: piperacillin-tazobactam 3.375 GM in sodium chloride 0.9% (plus) 50 ML IV ×2 (05:42→23:00)
[2021-03-11 05:49] LABS: Alanine Aminotransferase 35 U/L (0-33); Albumin Level 3.4 g/dL (3.5-5.2); Alkaline Phosphatase 85 IU/L (35-105); Aspartate Amino Transferase 31 U/L (0-32); Blood Urea Nitrogen 70 mg/dL (6-20); Calcium 9.3 mg/dL (8.5-10.5); Carbon Dioxide 21 mmol/L (22-29); Chloride 101 mmol/L (98-107); Glomerular Filtration Rate 5.4 mL/min (90-130); Glucose 93 mg/dL (65-115); Magnesium 2.1 mg/dL (1.7-2.3); Osmolality Calculated 314 mOsm/kg (285-295); Phosphorus 5.6 mg/dL (2.5-4.5); Sodium 142 mmol/L (136-145); Total Bilirubin 0.2 mg/dL (0.15-1.2); Total Protein 6.4 g/dL (6.6-8.7)
[2021-03-11 05:58] LABS: Anion Gap 24.4 (5-19); Potassium 4.4 mmol/L (3.5-5.1)
[2021-03-11] MEDS: cholecalciferol (vitamin D3) 1,000 unit Tablet 1000 UNIT PO (06:00)
[2021-03-11] MEDS: folic acid 1 mg Tablet PO (06:00)
[2021-03-11] MEDS: levothyroxine 112 mcg Tablet PO (06:01)
[2021-03-11] MEDS: aspirin 81 mg EC Tablet PO (06:01)
[2021-03-11] MEDS: predniSONE 20 mg Tablet 40 MG PO (06:01)
[2021-03-11] MEDS: desvenlafaxine 50 mg Tablet PO (06:13)
[2021-03-11 06:29] LABS: Glucose Point of Care 102 mg/dL (70-110)
[2021-03-11] MEDS: FUROsemide 10 mg/mL SDV 10mL 60 MG IVP (07:24)
[2021-03-11 07:28] LABS: Glucose Point of Care 116 mg/dL (70-110)
--- NOTE | 2021-03-11 07:28 | P.PN_ITS ---
Subjective Subjective: Interval history: very SOB and Wheezing Medications: Reviewed: Yes Medication Review Details: Current Medications Acetaminophen (Acetaminophen 325 Mg Tablet) 650 mg PO Q4H PRN PRN Reason: Mild/Mod Pain Or Temp >/= 101 Albuterol/Ipratropium (Ipratropium-Albuterol 3 Ml Neb) 3 ml INHALATION Q4H.RESPIRATORY [facility] Last Admin: 03/11/21 03:08 Dose: 3 ml Documented by: Ascorbic Acid (Ascorbic Acid 500 Mg Tablet) 1,000 mg PO DAILY [facility] Last Admin: 03/10/21 09:36 Dose: 1,000 mg Documented by: Aspirin (Aspirin 81 Mg Ec Tablet) 81 mg PO DAILY@07 [facility] Last Admin: 03/11/21 06:01 Dose: 81 mg Documented by: Bisacodyl (Bisacodyl 5 Mg Tablet) 10 mg PO DAILY PRN; Protocol PRN Reason: Constipation (see protocol) Budesonide (Budesonide 0.5 Mg/2 Ml Neb) 0.5 mg INHALATION BID.RESPIRATORY [facility] Last Admin: 03/10/21 19:45 Dose: 0.5 mg Documented by: Lidocaine HCl 1.667 ml/Diphenhydramine HCl 4.165 mg/Al Hydrox/Mg Hydrox/Simethicone 1.667 ml 0 ml MUCOUS MEM QID [facility] Last Admin: 03/10/21 21:31 Dose: 7.5 ml Documented by: Desvenlafaxine (Desvenlafaxine 50 Mg Tablet) 50 mg PO DAILY@07 [facility] Last Admin: 03/11/21 06:13 Dose: 50 mg Documented by: Docusate Sodium (Docusate Sodium 100 Mg Capsule) 100 mg PO BID [facility] Last Admin: 03/10/21 18:27 Dose: 100 mg Documented by: Fluoxetine HCl (Fluoxetine 20 Mg Capsule) 40 mg PO DAILY [facility] Last Admin: 03/10/21 09:36 Dose: 40 mg Documented by: Fluticasone Propionate (Fluticasone Nasal Rosanky 16gm Btl) 2 spray NASAL BID [facility] Last Admin: 03/10/21 18:27 Dose: 2 spray Documented by: Folic Acid (Folic Acid 1 Mg Tablet) 1 mg PO DAILY@0700 [facility] Last Admin: 03/11/21 06:00 Dose: 1 mg Documented by: Furosemide (Furosemide 10 Mg/Ml Sdv 10ml) 60 mg IVP Q12H [facility] Last Admin: 06/14/21 07:24 Dose: 60 mg Documented by: Gabapentin (Gabapentin 100 Mg Capsule) 100 mg PO TID [facility] Last Admin: 03/10/21 21:32 Dose: 100 mg Documented by: Heparin Sodium (Beef Lung) (Heparin 5,000 Unit/Ml Inj 1 Ml) 5,000 unit SUBCUT Q12H [facility] Last Admin: 03/10/21 21:32 Dose: 5,000 unit Documented by: Hydroxyzine Pamoate (Hydroxyzine 25 Mg Capsule) 25 mg PO TID PRN PRN Reason: ANXIETY Last Admin: 03/10/21 13:53 Dose: 25 mg Documented by: Piperacillin Sod/Tazobactam (Sod 3.375 gm/ Sodium Chloride) 50 mls @ 12.5 mls/hr IV Q12H [facility]; Protocol Last Admin: 03/11/21 05:42 Dose: 12.5 mls/hr Documented by: Insulin Aspart (Insulin Aspart 100 Unit/1 Ml) 0 unit SUBCUT TIDWM [facility]; Protocol Last Admin: 03/10/21 18:27 Dose: 2 unit Documented by: Levothyroxine Sodium (Levothyroxine 112 Mcg Tablet) 112 mcg PO DAILY@07 [facility] Last Admin: 03/11/21 06:01 Dose: 112 mcg Documented by: Multivitamins/Minerals (Multivitamin W/Minerals Tablet) 1 tab PO DAILY [facility] Last Admin: 03/10/21 09:36 Dose: 1 tab Documented by: Ondansetron HCl (Ondansetron 2 Mg/Ml Sdv 2 Ml) 4 mg IVP Q4H PRN PRN Reason: NAUSEA AND VOMITING Last Admin: 03/04/21 22:43 Dose: 4 mg Documented by: Pantoprazole Sodium (Pantoprazole Dr 40 Mg Tablet) 40 mg PO DAILY [facility] Last Admin: 03/10/21 09:36 Dose: 40 mg Documented by: Prednisone (Prednisone 20 Mg Tablet) 40 mg PO DAILY@0700 [facility] Last Admin: 03/11/21 06:01 Dose: 40 mg Documented by: Ropinirole HCl (Ropinirole 1 Mg Tablet) 4 mg PO BEDTIME@2100 [facility] Last Admin: 03/10/21 21:32 Dose: 4 mg Documented by: Vitamin D (Cholecalciferol (Vitamin D3) 1,000 Unit Tablet) 1,000 unit PO DAILY@07 [facility] Last Admin: 03/11/21 06:00 Dose: 1,000 unit Documented by: Zinc Gluconate (Zinc Gluconate 50 Mg Tablet) 50 mg PO DAILY [facility] Last Admin: 03/10/21 09:36 Dose: 50 mg Documented by: Vitals/I&O/Wt Last Vital Signs Temp 98.7 F 03/11/21 04:00 Pulse 105 H 03/11/21 04:00 Resp 24 H 03/11/21 04:00 BP 173/93 03/11/21 04:00 Pulse Ox 89 L 03/11/21 04:00 03/10/21 03/11/21 03/11/21 22:59 06:59 14:59 Intake Total 530 / 1060 1150 / 2210 Output Total 1999 825 / 2825 Balance -1470 / -940 325 / -615 Physical Exam Narrative: EXAM NARRATIVE: obese, vs noted, sob sitting u n bed vs noted heent- nc/at, eomi, anicteric neck supple lungs b/l wheezes heart- reg, +PAULA abd soft, nt, nd, +BS ext 1+ b/l edema neuro- a,a, o x 3 no rashes noted mood anxious pulses palpable Urinary Catheter Management^: Jasmine: Cath Placed During This Visit: yes Reason for Continuing Indwelling Catheter: Other Urinary Catheter Date of Insertion: 03/07/21 Urinary Catheter Time of Insertion: 17:30 Data : 03/10/21 04:40 03/11/21 04:03 A&P Additional A&P Information 55 yr old female seronegative RA w/ sepsis, pleural effusion, COPD, HTN. 1. SARAVANAN- presumed ATN vs CAPO- cr started to improve- now worsened and pt more S OB -good uop -cont to hold vancomycin and NSAID -note very high vanco level on 03/07 and 03/08 of 61 and 58 -k okay= improved 2. COPD per pulm- very SOB. if pulm feels that we need dialysis, will start- however, k, bicarb, cr stable 3. Met acidosis- improved on iv bicarb -from SARAVANAN 4. anemia - hgb stable 5. 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
[2021-03-11] MEDS: budesonide 0.5 mg/2 mL Neb INHALATION ×2 (07:35→20:45)
[2021-03-11] MEDS: acetaminophen 325 mg Tablet 650 MG PO (08:33)
[2021-03-11] MEDS: zinc gluconate 50 mg Tablet PO (08:34)
[2021-03-11] MEDS: ascorbic acid 500 mg Tablet 1000 MG PO (08:34)
[2021-03-11] MEDS: pantoprazole DR 40 mg Tablet PO (08:34)
[2021-03-11] MEDS: heparin 5,000 unit/mL INJ 1 mL 5000 UNIT SUBCUT ×2 (08:34→20:31)
[2021-03-11] MEDS: docusate sodium 100 mg Capsule PO (08:34)
[2021-03-11] MEDS: fluoxetine 20 mg Capsule 40 MG PO (08:34)
[2021-03-11] MEDS: gabapentin 100 mg Capsule PO ×2 (08:36→20:31)
[2021-03-11 09:43] LABS: Anion Gap 24.6 (5-19); Blood Urea Nitrogen 67 mg/dL (6-20); Calcium 9.2 mg/dL (8.5-10.5); Carbon Dioxide 21 mmol/L (22-29); Chloride 97 mmol/L (98-107); Glomerular Filtration Rate 5.1 mL/min (90-130); Glucose 165 mg/dL (65-115); Osmolality Calculated 309 mOsm/kg (285-295); Potassium 4.6 mmol/L (3.5-5.1); Sodium 138 mmol/L (136-145)
[2021-03-11] MEDS: lidocaine 2% viscous 1.667 ML, diphenhydrAMINE oral liq 4.165 MG, aluminum-mag hydrox-s... MUCOUS MEM ×3 (10:26→21:57)
[2021-03-11] MEDS: fluticasone nasal spray 16gm Btl 2 SPRAY NASAL (10:26)
[2021-03-11 11:43] LABS: Glucose Point of Care 232 mg/dL (70-110)
[2021-03-11] MEDS: hyDROXYzine 25 mg Capsule PO ×2 (11:53→23:53)
--- NOTE | 2021-03-11 12:35 | PM.PN ---
Subjective Subjective: Interval history: Pt SOB. and daughter very upset that pt is getting worse and nothing is being done . They request transfer; however, pt wants to wait until after HD. I explained we would do both. Medications: Reviewed: Yes Vitals/I&O/Wt Last Vital Signs Temp 98.1 F 03/11/21 11:52 Pulse 108 H 03/11/21 11:52 Resp 22 H 03/11/21 11:52 BP 158/78 03/11/21 11:52 Pulse Ox 95 03/11/21 11:52 03/10/21 03/11/21 03/11/21 22:59 06:59 14:59 Intake Total 530 / 1060 1150 / 2210 920 / 920 Output Total 1999 825 / 2825 Balance -1470 / -940 325 / -615 920 / 920 Physical Exam Narrative: EXAM NARRATIVE: obese, mild SOB, good spirits H: reg nl S1, S2 no obvious murmur L: diminished throughout, audible wheezes worst on right base A: obese soft NT/ND nl BS E: pedal edema Urinary Catheter Management^: Jasmine: Cath Placed During This Visit: yes Reason for Continuing Indwelling Catheter: Other Urinary Catheter Date of Insertion: 03/07/21 Urinary Catheter Time of Insertion: 17:30 Data : 03/10/21 04:40 03/11/21 09:01 A&P Assessment and plan (1) SARAVANAN (acute kidney injury): Discussed with pulmonary and nephrology. will proceed with HD. Cath to be placed today by pulm. I also called [facility] to request bed. Pt is on waiting list- likely not until tomorrow at earliest. Status: Acute (2) Obesity, morbid, BMI 40.0-49.9: Status: Acute (3) Sepsis: ? Status: Acute Qualifiers: Sepsis acute organ dysfunction status: without acute organ dysfunction Sepsis type: sepsis due to unspecified organism Qualified Code(s): A41.9 - Sepsis, unspecified organism (4) Pleural effusion on right: stable and unable to drain Status: Acute (5) Chronic steroid use: immunocompromised on prednisone 15 mg daily and hydroxychloroquine Status: Chronic (6) COPD (chronic obstructive pulmonary disease): pulm following on IV steroids Status: Chronic Qualifiers: COPD type: emphysema Emphysema type: centrilobular Qualified Code(s): J43.2 - Centrilobular emphysema (7) Restrictive airway disease: as above Status: Chronic (8) Seronegative rheumatoid arthritis of both hands: as above Status: Chronic (9) Hyperlipidemia: not on meds Status: Chronic Qualifiers: Hyperlipidemia type: mixed hyperlipidemia Qualified Code(s): E78.2 - Mixed hyperlipidemia (10) HTN (hypertension): on lisinopril/HCTZ Status: Chronic Qualifiers: Hypertension type: essential hypertension Qualified Code(s): I10 - Essential (primary) hypertension Attestations Medical Necessity Statement*: pt in acute renal failure requiring new dialysis. Will require many more MN's Coding Level of Care Code Acute Money Manager for g Fwd Diagnoses SARAVANAN (acute kidney injury) N17.9 Obesity, morbid, BMI 40.0-49.9 E66.01 Sepsis A41.9 Sepsis acute organ dysfunction status: without acute organ dysfunction Sepsis type: sepsis due to unspecified organism Pleural effusion on right J90 Chronic steroid use COPD (chronic obstructive pulmonary disease) J43.2 COPD type: emphysema Emphysema type: centrilobular Restrictive airway disease J98.4 Seronegative rheumatoid arthritis of both hands M06.041; M06.042 Hyperlipidemia E78.2 Hyperlipidemia type: mixed hyperlipidemia HTN (hypertension) I10 Hypertension type: essential hypertension
[2021-03-11 12:51] LABS: Hepatitis B Surface AB 3.5 (11.5-1000); Hepatitis B Surface Antigen Non-Reactive (Nonreactive); Hepatitis C Virus Antibody Non-Reactive (Nonreactive)
--- NOTE | 2021-03-11 15:03 | CTR_ITS ---
PROCEDURE INFORMATION: Exam: CT Chest Without Contrast; Diagnostic Exam date and time: 03/11/2021 3:03 PM Age: 55 years old Clinical indication: Shortness of breath; Prior surgery; Surgery type: Central line; Additional info: Worsening shortness of breath rule out pneumonia TECHNIQUE: Imaging protocol: Diagnostic computed tomography of the chest without contrast. Radiation optimization: All CT scans at this facility use at least one of these dose optimization techniques: automated exposure control; mA and/or kV adjustment per patient size (includes targeted exams where dose is matched to clinical indication); or iterative reconstruction. COMPARISON: CT angio chest PE protcl [id number] 03/04/2021 7:27 PM RADIATION DOSE METRICS: Total DLP (mGy-cm): 902.41 FINDINGS: Lungs: Extensive ground-glass changes in the lung parenchyma significantly increased from the comparison imaging. No obstructing endobronchial lesion. Negative for bronchiectasis. Pleural spaces: Trace bilateral pleural effusions slightly greater right than left although decreased from prior. Heart: Unremarkable. No cardiomegaly. No pericardial effusion. Aorta: Unremarkable. No aortic aneurysm. Lymph nodes: Unremarkable. No enlarged lymph nodes. Bones/joints: Unremarkable. No acute fracture. Soft tissues: Unremarkable. CT/CT chest wo con [id number] IMPRESSION: 1. Widespread multifocal airspace disease in the lungs significantly increased from prior imaging. Nonspecific pattern and appearance. 2. Imaging features can be seen with COVID-19 pneumonia, though are nonspecific and can occur with a variety of infectious and noninfectious processes. (Reference: Santi) REFERENCES: Santi Steven, et al., [employer] Society of [place] Expert Consensus Statement on Reporting Chest CT Findings Related to COVID-19. Endorsed by the Society of [employer]acic Radiology, the [place] [employer], and [employer]NA. Published December 21, 2019. Radiation Dose CTDIVOL = (mGy): DLP = 902.41 (mGy-cm)
[2021-03-11 15:28] LABS: Anti-Double Strand DNA AB <1 IU/mL; SS A Ro Sjogrens Antibody <1.0 NEG AI (<1.0 NEG); SS-B/LA IGG <1.0 NEG AI (<1.0 NEG)
[2021-03-11 16:01] LABS: Osmolality Urine 170 mOsm/kg (50-1200)
[2021-03-11 18:04] LABS: Blood Gas Operator Identificat glc; Blood Gas Sample Site Femoral, right; Blood Gas Sample Type Venous; Oxygen Device NC
[2021-03-11] MEDS: heparin, porcine 1,000 unit/mL INJ 10 mL HE (19:02)
[2021-03-11 19:42] LABS: Troponin(5th) Baseline 17 ng/L (0-10)
[2021-03-11 19:48] LABS: Lactate Dehydrogenase 392 U/L (135-214); NT Pro B Type Natriuretic Pept 583 pg/mL (0-125)
--- NOTE | 2021-03-11 19:49 | PM.PN ---
Subjective Subjective: Interval history: Patient seen at bedside today morning Appeared more dyspenic with significant worsening of wheezing; also appeared clinically volume overloaded Currently saturating 96% on 4L nasal cannula urine output is adequate but renal functions still not improved discussed with nephrology and decided to go ahead with Hemodialysis Placed temporary right Femoral Hd Catheter Labs and imaging reviewed and pertinent findings incorporated in assessment and plan Medications: Reviewed: Yes Vitals/I&O/Wt Last Vital Signs Temp 98.1 F 03/11/21 11:52 Pulse 107 H 03/11/21 17:15 Resp 24 H 03/11/21 17:15 BP 149/123 03/11/21 17:15 Pulse Ox 96 03/11/21 17:00 03/11/21 03/11/21 03/11/21 06:59 14:59 22:59 Intake Total 1150 / 2210 920 / 920 Output Total 825 / 2825 2400 / 2400 Balance 325 / -615 920 / 920 -2400 / -1480 Physical Exam Narrative: EXAM NARRATIVE: General: alert, NAD HEENT: conj clear, EOMI, PERRL, mmm, Neck: supple, no meningismus Heme: no cervical LAP Pulmonary: Bilateral diffuse wheeze Cardiovascular: rrr, nl s1s2, no mrg Abdomen: soft, nt, nd, no r/g, bs+ Extremities: pulses +, 1+ pitting pedal edema, no c/c, R Hand-both hands look puffy overall, tenderness across MCPs but more on the ventral aspect : no CVA tenderness Skin: intact, no rash MSK: no back or neck pain Urinary Catheter Management^: Jasmine: Cath Placed During This Visit: yes Reason for Continuing Indwelling Catheter: Other Urinary Catheter Date of Insertion: 03/07/21 Urinary Catheter Time of Insertion: 17:30 Data : 03/10/21 04:40 03/11/21 09:01 Other Labs: Laboratory Results WBC 10.4 10^3/uL (4.0-10.0) H 03/10/21 04:40 RBC 3.52 10^6/uL (4.1-5.3) L 03/10/21 04:40 Hgb 9.0 g/dL (11.5-15.3) L 03/10/21 04:40 Hct 29.2 % (37.0-47.0) L 03/10/21 04:40 MCV 83.0 fL (81-99) 03/10/21 04:40 MCH 25.6 pg (28.0-34.0) L 03/10/21 04:40 MCHC 30.8 g/dL (30.0-36.0) 03/10/21 04:40 RDW 16.5 % (12.1-15.1) H 03/10/21 04:40 Plt Count 284 10^3/cmm (130-400) 03/10/21 04:40 MPV 10.9 fL (7.4-10.4) H 03/10/21 04:40 Neut % (Auto) 78.8 % 03/10/21 04:40 Lymph % (Auto) 13.5 % 03/10/21 04:40 Addison % (Auto) 5.3 % 03/10/21 04:40 Eos % (Auto) 1.4 % 03/10/21 04:40 Baso % (Auto) 0.3 % 03/10/21 04:40 Neut # (Auto) 8.17 10^3/uL (1.8-7.7) H 03/10/21 04:40 Lymph # (Auto) 1.4 10^3/uL (0.8-4.8) 03/10/21 04:40 Addison # (Auto) 0.6 10^3/uL (0.2-0.9) 03/10/21 04:40 Eos # (Auto) 0.1 10^3/uL (0.0-0.8) 03/10/21 04:40 Baso # (Auto) 0.0 10^3/uL (0.0-0.1) 03/10/21 04:40 Nucleated RBC % (auto) 0 % 03/10/21 04:40 Nucleated RBCs # 0.0 /100WBC 03/10/21 04:40 ESR 44 mm/hr (0-15) H 03/05/21 01:45 PT 14.00 SECONDS (12.1-14.9) 03/05/21 01:45 INR 1.05 (0.8-1.2) 03/05/21 01:45 Specimen Type Venous 03/11/21 18:00 Sample Site Femoral, right 03/11/21 18:00 ABG pH 7.36 (7.35-7.45) 03/09/21 10:50 ABG pCO2 32.3 mmHg (35-45) L 03/09/21 10:50 ABG pO2 80.4 mmHg (80.0-100.0) 03/09/21 10:50 ABG HCO3 18.1 mmol/L (22-26) L 03/09/21 10:50 ABG O2 Saturation 96.1 03/09/21 10:50 ABG Base Excess -6.6 mmol/L (-2.0-2.0) L 03/09/21 10:50 Maxwell Test N/a 03/11/21 18:00 A-a O2 Gradient 3.6 mmHg (5-10) L 03/09/21 10:50 Hematocrit 24.7 % (37-47) L 03/09/21 10:50 Hgb O2 Saturation 94.8 % (95-100) L 03/09/21 10:50 Carboxyhemoglobin 1.1 %THgb (0.4-20.1) 03/09/21 10:50 Methemoglobin 0.3 % (0.4-1.5) L 03/09/21 10:50 Total Hemoglobin 8.1 g/dL (12-16) L 03/09/21 10:50 Sodium 140.0 mmol/L (131-143) 03/09/21 10:50 Potassium 4.6 mmol/L (3.5-5.0) 03/09/21 10:50 Glucose 152.0 mg/dL (70-115) H 03/09/21 10:50 Ionized Calcium 1.3 mmol/L (1.1-1.4) 03/09/21 10:50 O2 Delivery Device Nc 03/11/21 18:00 O2 Liters/Min 4.0 % 03/11/21 18:00 FiO2 36.0 % 03/11/21 18:00 General Engineer ID glc 03/11/21 18:00 Sodium 138 mmol/L (136-145) 03/11/21 09:01 Potassium 4.6 mmol/L (3.5-5.1) 03/11/21 09:01 Chloride 97 mmol/L (98-107) L 03/11/21 09:01 Carbon Dioxide 21 mmol/L (22-29) L 03/11/21 09:01 Anion Gap 24.6 (5-19) H 03/11/21 09:01 BUN 67 mg/dL (6-20) H 03/11/21 09:01 Creatinine 8.1 mg/dL (0.5-0.9) H* 03/11/21 09:01 GFR Calculation 5.1 mL/min (90-130) L 03/11/21 09:01 Glucose 165 mg/dL (65-115) H 03/11/21 09:01 POC Glucose 232 mg/dL (70-110) H 03/11/21 11:39 Calculated Osmolality 309 mOsm/kg (285-295) H 03/11/21 09:01 Lactate 2.7 mmol/L (0.5-2.2) H 03/07/21 17:05 Uric Acid 5.9 mg/dL (2.4-5.7) H 03/07/21 15:37 Calcium 9.2 mg/dL (8.5-10.5) 03/11/21 09:01 Phosphorus 5.6 mg/dL (2.5-4.5) H 03/11/21 04:03 Magnesium 2.1 mg/dL (1.7-2.3) 03/11/21 04:03 Total Bilirubin 0.2 mg/dL (0.15-1.2) 03/11/21 04:03 AST 31 U/L (0-32) 03/11/21 04:03 ALT 35 U/L (0-33) H 03/11/21 04:03 Alkaline Phosphatase 85 IU/L (35-105) 03/11/21 04:03 Lactate Dehydrogenase 392 U/L (135-214) H 03/11/21 19:01 Creatine Kinase 66 U/L (26-192) 03/07/21 15:37 Troponin T Baseline 17 ng/L (0-10) H 03/11/21 19:01 Troponin T 120 Minute 10.07 ng/L (0-10) H 03/04/21 20:08 Delta Troponin T 3.07 ABS# (0-10) 03/04/21 20:08 Troponin T Hi Sens 6Hr 9.68 ng/L (0-10) 03/05/21 01:45 Troponin T Hi Sens 6Hr Delta 2.68 ng/L (0-12) 03/05/21 01:45 C-Reactive Protein 65.6 mg/L (0.0-4.9) H 03/05/21 01:45 NT-Pro-B Natriuret Pep 583 pg/mL (0-125) H 03/11/21 19:01 Total Protein 6.4 g/dL (6.6-8.7) L 03/11/21 04:03 Albumin 3.4 g/dL (3.5-5.2) L 03/11/21 04:03 Globulin 3.0 g/dL (1.3-4.6) 03/11/21 04:03 Procalcitonin 0.33 ng/mL (0-0.5) 03/07/21 15:37 Urine Color Cancelled 03/07/21 17:30 Urine Color Straw (Yellow) 03/07/21 17:30 Urine Appearance Cancelled 03/07/21 17:30 Urine Appearance Clear (CLEAR) 03/07/21 17:30 Urine pH 5 (5-7) 03/07/21 17:30 Urine pH Cancelled 03/07/21 17:30 Ur Specific [place] 1.000 (1.005-1.030) L 03/07/21 17:30 Ur Specific [place] Cancelled 03/07/21 17:30 Urine Protein Cancelled 03/07/21 17:30 Urine Protein Neg (Negative) 03/07/21 17:30 Urine Glucose (UA) Cancelled 03/07/21 17:30 Urine Glucose (UA) Norm (Normal) 03/07/21 17:30 Urine Ketones Cancelled 03/07/21 17:30 Urine Ketones Negative (Negative) 03/07/21 17:30 Urine Blood Cancelled 03/07/21 17:30 Urine Blood Neg (Negative) 03/07/21 17:30 Urine Nitrate Cancelled 03/07/21 17:30 Urine Nitrate Negative (Negative) 03/07/21 17:30 Urine Bilirubin Cancelled 03/07/21 17:30 Urine Bilirubin Neg (Negative) 03/07/21 17:30 Prot Sulfosalicylic Acd Cancelled 03/07/21 17:30 Urine Urobilinogen Cancelled 03/07/21 17:30 Urine Urobilinogen Norm mg/dL (Negative) 03/07/21 17:30 Ur Leukocyte Esterase Cancelled 03/07/21 17:30 Ur Leukocyte Esterase Negative (Negative) 03/07/21 17:30 Urine RBC 0-4 /hpf (0-2) H 03/07/21 17:30 Urine WBC 0-4 /hpf (0-5) H 03/07/21 17:30 Ur Eosinophil Smear 0 (0-0) 03/07/21 17:30 Ur Squamous Epith Cells 5-10 /hpf (0-5) H 03/07/21 17:30 Amorphous Sediment Not Reportable 03/07/21 17:30 Urine Bacteria Trace /hpf (NONE) 03/07/21 17:30 Urine Mucus None /hpf 03/07/21 17:30 Urine Eosinophils No eosinophils seen 03/07/21 17:30 Urine Osmolality 170 mOsm/kg (50-1200) 03/07/21 17:30 Ur Random Sodium 34 mmol/L 03/07/21 17:30 Ur Random Potassium 13 mmol/L 03/07/21 17:30 Ur Random Chloride 11 mmol/L 03/07/21 17:30 Urine Creatinine 44 mg/dL (28-217) 03/07/21 17:30 RSV Nasal Swab Not detected (Not Detected) 03/05/21 16:55 RSV Nasal Swab Int Cntl Not detected (Not Detected) 03/05/21 16:55 Vancomycin Trough Cancelled 03/08/21 04:46 Random Vancomycin 40.8 ug/mL (20.0-40.0) H* 03/10/21 04:40 Serum Ketones Negative (Negative) 03/07/21 17:05 KEVIN Screen Negative (NEGATIVE) 03/07/21 17:55 SS-A/Ro Antibody <1.0 neg AI (<1.0 NEG) 03/07/21 17:55 SS-B/La IgG Antibody <1.0 neg AI (<1.0 NEG) 03/07/21 17:55 Anti-ds DNA IgG Ab <1 IU/mL 03/07/21 17:55 Complement C3 154 mg/dL (90-180) 03/07/21 17:05 Complement C4 23 mg/dL (10-40) 03/07/21 17:05 Adenovirus (PCR) Not detected (Not Detected) 03/05/21 16:55 Nasal/Oral COVID-19 PCR Not detected 03/05/21 04:15 Hep Bs Antigen Non-reactive (Nonreactive) 03/11/21 04:03 Hep Bs Antibody 3.5 (11.5-1000) L 03/11/21 04:03 Hep B Core Total Ab Non-reactive (Nonreactive) 03/07/21 17:55 Hepatitis C Antibody Non-reactive (Nonreactive) 03/11/21 04:03 Human Metapneumovir PCR Not detected (Not Detected) 03/05/21 16:55 Influenza A (RT-PCR) Not detected (Not Detected) 03/05/21 16:55 Influenza A (H1) PCR Not detected (Not Detected) 03/05/21 16:55 Influenza A (H3) PCR Not detected (Not Detected) 03/05/21 16:55 Influenza Type A Ag Negative (Negative) 03/05/21 16:28 Influenza Type B Ag Negative (Negative) 03/05/21 16:28 Influenza B (RT-PCR) Not detected (Not Detected) 03/05/21 16:55 Parainfluenzae Type 1 Not detected (Not Detected) 03/05/21 16:55 Parainfluenzae Type 2 Not detected (Not Detected) 03/05/21 16:55 Parainfluenzae Type 3 Not detected (Not Detected) 03/05/21 16:55 RSV Ab Comment see note 03/05/21 16:55 Rhinovirus (PCR) Not detected (Not Detected) 03/05/21 16:55 SARS-CoV-2 Ag (Rapid) Negative (Negative) 03/04/21 18:15 Anti-Streptolysin O Ab <50 IU/mL (<200) 03/07/21 17:55 TB (QFT) Gold In Tube Negative (NEGATIVE) 03/06/21 06:00 TB Test (QFT) Nil 0.07 IU/mL 03/06/21 06:00 TB Test (QFT) Mitogen 8.18 IU/mL 03/06/21 06:00 TB Test Mitogen - Nil 0.01 IU/mL 03/06/21 06:00 TB Test TB - Nil 0.01 IU/mL 03/06/21 06:00 Impressions Chest CTA 03/04/21 19:00 IMPRESSION: 1. Negative for pulmonary embolism. 2. There is a nonspecific small volume right pleural effusion which demonstrates a mild degree of pleural enhancement. A loculated collection cannot be excluded. 3. Background emphysema and interstitial fibrotic lung changes without evidence of focal pneumonia. Radiation Dose CTDIVOL = (mGy): DLP = 1183.25 (mGy-cm) Renal Ultrasound 03/08/21 05:00 IMPRESSION: Normal renal ultrasound. Chest X-Ray 03/10/21 08:46 IMPRESSION: 1. Interstitial prominence and mild left-sided airspace disease. 2. Additional findings as described above. Chest CT 03/11/21 15:03 IMPRESSION: 1. Widespread multifocal airspace disease in the lungs significantly increased from prior imaging. Nonspecific pattern and appearance. 2. Imaging features can be seen with COVID-19 pneumonia, though are nonspecific and can occur with a variety of infectious and noninfectious processes. (Reference: Santi) REFERENCES: Santi Steven et al., Radiological Society of [place] Expert Consensus Statement on Reporting Chest CT Findings Related to COVID-19. Endorsed by the Society of Thoracic Radiology, the [place] [employer], and RSNA. Published December 21, 2019. Radiation Dose CTDIVOL = (mGy): DLP = 902.41 (mGy-cm) Micro: Microbiology 03/08/21 07:30 Gram Stain - Final Sputum - Expectorated Sputum Sputum Culture - Final Ivette albicans A&P Assessment and plan (1) Exertional dyspnea: Status: Acute (2) Sepsis: Status: Acute Qualifiers: Sepsis acute organ dysfunction status: without acute organ dysfunction Sepsis type: sepsis due to unspecified organism Qualified Code(s): A41.9 - Sepsis, unspecified organism (3) Pleural effusion on right: Status: Acute (4) Obesity, morbid, BMI 40.0-49.9: Status: Acute (5) LEX on CPAP: Status: Chronic (6) Chronic steroid use: Status: Chronic (7) COPD (chronic obstructive pulmonary disease): Status: Chronic Qualifiers: COPD type: emphysema Emphysema type: centrilobular Qualified Code(s): J43.2 - Centrilobular emphysema (8) Ex-smoker for more than 1 year: Status: Chronic (9) Restrictive airway disease: Status: Chronic (10) High risk medication use: Status: Acute (11) Seronegative rheumatoid arthritis of both hands: Status: Chronic (12) COVID-19: Status: Resolved (13) Serositis: Status: Acute (14) SARAVANAN (acute kidney injury): Status: Acute (15) PCP (pneumocystis carinii pneumonia): Status: Acute # Dyspnea-combination of COPD exacerbation and rheumatoid interstitial lung disease exacerbation with right pleuritis and mild pleural effusion # Right pleural effusion - likely parapneumonic given sepsis vs inflammatory given underlying RA - resolving # On Chronic steroid use - suspect PCP pneumonia # Chronic ex smoker - 1 ppd x 35 years - quit 2013; # Seronegative RA - on Humira, plaquanil and Prednisone 10 mg daily as out patient - immunocompromised and potential to have fungal as well as TB # SARAVANAN Since 03/07/2021-??Contrast (received 03/04/2021 )induced vs medication induced - likely vancomycin/lisinopril/hctz last dose ketorolac on 03/05/21 - Presented with SOB & Right side pleuritic chest pain - on admission CTA 03/04/21: Negative for PE, Non specific smal volume rigth pleural effusion, background emphysema and interstitial fibrotic lung changes without evidence of focal pneumonia - - ABG on room air on 03/09/21: 7.36/32/80/18/96% - Afebrile since admission; wbc 10.4K ; procalcitonin 0.21 - Initially reported improvement in dyspnea & pleuritic chest pain while on prednisone 40 mg daily and Vancomycin/ zosyn - On day 4 03/06/21: Patient developed SARAVANAN presumably due to contrast nephropathy with gradual worsening of BUN/Creatinine but she was non oliguric and electrolytes normal except for Bicarb was 16 - Patient was placed on Bicarb drip 150 Meq @ 100 mls/hr 03/10/21 and today bicarb is 22. - meanwhile pt shortness of breath worsened requiring 4L NC saturating > 95% - repeat CT w/o contrast 03/11/21: Widespread multifocal airspace disease in the lungs significantly increased from prior imaging. Nonspecific pattern and appearance. also reported as Imaging features can be seen with COVID-19 pneumonia, though are nonspecific and can occur with a variety of infectious and noninfectious processes. - Covid antigen and PCR negative on admission; Flu negative ; Bacterial antigens; Blood cultures; MRSA PCR, TB quantiferon -negative; other viral panel - negative - Sputum cx - Ivette albicans; likely commensal; - immunosuppressed and at risk to have fungal as well as TB - and given diffuse GGOs - LDH 392; suspect PCP pneumonia - sent for BD Glucan and Induced sputum for PCP - but results will take atleast one week to come - so started Bactrim renally dosed after HD after consulting pharmacy for dosing. - Currently covered Zosyn since 03/04/21; vancomycin level still 40 due to impaired renal function and MRSA nares negative - so discontinued - on admission Bedside US- showed mild right pleural effusion on admission but not good enough to tap; daily bedside sono showed gradually reduced right side pleff and today CT also showed trace bilateral pleural effusions slightly greater right than left although decreased from prior. - For COPD exacerbation & worsening diffuse wheezing - mgSO4 2gm ivpb one dose, Already on pulmicort on 0.5 mg bid inh; duoneb q 4hr - changed xopenex and atrovent q 6hr due to tachycardia; also changed prednisone 40 mg daily to Iv Solumedrol 60 q 8 hr and will taper based on clinical response - Discussed with Nephrology and due to worsening dyspnea and worsened pulmonary vascular congestion on chest x ray - decided to do hemodialyiss to take of fluid burden. Need daily assessment for hemodialysis while monitoring renal parameters for recovery of SARAVANAN - EF on echo 06/2020 64% with grade I/IV diastolic dysfunction noted. 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 No evidence of atrial septal defect or patent formen ovale. Lipomatous hypertrophy of interatrial septum. Mildly aneurysmal interatrial septum. - Echo 03/06/21: normal with EF 69% with no pericardial effusion ; BNP > 330 > 2205 > 583 today - renal sono 03/07/21 normal kidneys; Ulytes, CK, uric acid, Urine analysis, -Held vancomycin and ketorolac; Lasix as needed; currently very good urine output -Continue clinical monitoring with antibiotics, steroids and nebulizations -As per nephrology good urine output is a very good prognosticator off kidney recovery and as there is patient to undergo hemodialysis to see whether if removal of excessive fluid will help her with her breathing -ongoing evaluation for hemodialysis on day to day basis 03/05/21 03/06/21: 03/07/21: Medical condition and management plan including development of possible contrast versus medication induced SARAVANAN and necessity for close monitoring of renal functions in hospital and possible hemodialysis were explained in detail to the patient and her and daughter at bedside. They verbalized understanding and agreed with the plan. Recommendations conveyed to the Hospitalist and RN covering the patient Attestations Medical Necessity Statement*: ILD vs COPD Exacerbation on nebulizations, steroids and monitor for clinical response ; close monitoring newly developed SARAVANAN likely medication vs contrast induced and on temporary hemodialysis suspect PCP pneumonia in pt on chronic immunosuppression Time Spent in Patient Care: Greater than 35 minutes (>than 50% of time spent in counselling and/or direct pt care on unit). 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 Established History Comprehensive Exam Comprehensive Medical Decision Making High Complexity Diagnoses Exertional dyspnea R06.00 Sepsis A41.9 Sepsis acute organ dysfunction status: without acute organ dysfunction Sepsis type: sepsis due to unspecified organism Pleural effusion on right J90 Obesity, morbid, BMI 40.0-49.9 E66.01 LEX on CPAP G47.33; Z99.89 Chronic steroid use COPD (chronic obstructive pulmonary disease) J43.2 COPD type: emphysema Emphysema type: centrilobular Ex-smoker for more than 1 year Z87.891 Restrictive airway disease J98.4 High risk medication use Z79.899 Seronegative rheumatoid arthritis of both hands M06.041; M06.042 COVID-19 U07.1 Serositis K65.8 SARAVANAN (acute kidney injury) N17.9 PCP (pneumocystis carinii pneumonia) B59 Time Spent (min) 45
--- NOTE | 2021-03-11 20:09 | PC.PHAR ---
Addendum entered by Jessica Chavez 03/11/21 20:49: maximum concentration in 500ml of D5W would be 533 mg Original Note: renal and weight adjustment of Bactrim IV, decreased dose of 10mg/kg to 960mg iv after dialysis. Mid Level Net Developer max daily dose is 960 mg.
[2021-03-11] MEDS: ropinirole 1 mg Tablet 4 MG PO (20:30)
[2021-03-11] MEDS: magnesium sulfate premix 2 GM/50 ML PIGGYBACK IV (20:32)
[2021-03-11] MEDS: levalbuterol 0.63 mg/3 mL Neb INHALATION (20:45)
[2021-03-11] MEDS: ipratropium 0.5 mg/2.5 mL Neb INHALATION (20:45)
[2021-03-11 21:19] LABS: Glucose Point of Care 155 mg/dL (70-110)
--- NOTE | 2021-03-11 21:23 | P.PCN_ITS ---
Procedure/Consent Time out: Time Out Performed: Yes Consent: Consent for Procedure: Consent obtained from patient, Risks & Benefits reviewed and Agrees to proceed with procedure Procedure Narrative: Procedure: Right femoral Hemodialysis Catheter Indication: Acute kidney injury likely contrast induced - hypoxic in respiratory distress Associate Professor Of Mathematics(s): Yung Sandoval MD Consent: Signed and placed in the chart Site: Right femoral vein Anesthesia: 10 cc 1% lidocaine without epinephrine attempts: attempted twice in right IJ - both times blood aspirated but could not pass guidewire; aborted doing procedure in right Internal Jugular and new kit used to place in right femoral vein . Description: Area prepped with chlorhexidine and draped in a sterile manner. 1% lidocaine given for local anesthesia. Catheter inserted using Seldinger technique. All ports yariel blood and were flushed with normal saline. Ultrasound guidance used:yes Placement confirmed by: Ultrasound Complications: none Acute Procedures Epistaxis Control: Time out performed: Yes
[2021-03-11 21:55] LABS: Troponin 5 2HR 14.67 ng/L (0-10)
[2021-03-11 21:56] LABS: Troponin 5 2HR Delta -2.33 ABS# (0-10)
[2021-03-12] VITALS (16 sets, daily range): BP systolic 121–159; BP diastolic 64–90; PULSE 76–110; RESP 18–30; TEMP 36.4–37.6; O2SAT 90–93
[2021-03-12 00:59] LABS: Troponin 5 6HR 18.06 ng/L (0-10); Troponin 5 6HR Delta 1.06 ng/L (0-12)
[2021-03-12 01:01] LABS: Alanine Aminotransferase 36 U/L (0-33); Albumin Level 3.5 g/dL (3.5-5.2); Alkaline Phosphatase 89 IU/L (35-105); Anion Gap 20.3 (5-19); Aspartate Amino Transferase 27 U/L (0-32); Blood Urea Nitrogen 56 mg/dL (6-20); Calcium 8.7 mg/dL (8.5-10.5); Carbon Dioxide 23 mmol/L (22-29); Chloride 98 mmol/L (98-107); Globulin 3.1 g/dL (1.3-4.6); Glomerular Filtration Rate 7.7 mL/min (90-130); Glucose 172 mg/dL (65-115); Magnesium 2.4 mg/dL (1.7-2.3); Osmolality Calculated 304 mOsm/kg (285-295); Potassium 4.3 mmol/L (3.5-5.1); Sodium 137 mmol/L (136-145); Total Bilirubin 0.2 mg/dL (0.15-1.2); Total Protein 6.6 g/dL (6.6-8.7)
[2021-03-12] MEDS: LORazepam 2 mg/mL INJ 1 mL 0.5 MG IVP (01:57)
[2021-03-12] MEDS: levalbuterol 0.63 mg/3 mL Neb INHALATION ×4 (02:06→20:31)
[2021-03-12] MEDS: ipratropium 0.5 mg/2.5 mL Neb INHALATION ×4 (02:06→20:31)
--- NOTE | 2021-03-12 02:22 | PC.NURSE ---
DR VELASQUEZ VISITS Dr Velasquez has been in to check on pt X2 tonight. Wanted her to be on a cont pulse oximetry and was palaced by RT. Pt ws expressing anxiety and inability to sleep. Order was given for 0.5mg IV Ativan.
[2021-03-12] MEDS: desvenlafaxine 50 mg Tablet PO (06:26)
[2021-03-12] MEDS: cholecalciferol (vitamin D3) 1,000 unit Tablet 1000 UNIT PO (06:26)
[2021-03-12] MEDS: folic acid 1 mg Tablet PO (06:26)
[2021-03-12] MEDS: aspirin 81 mg EC Tablet PO (06:26)
[2021-03-12] MEDS: levothyroxine 112 mcg Tablet PO (06:26)
[2021-03-12 06:55] LABS: Glucose Point of Care 114 mg/dL (70-110)
--- NOTE | 2021-03-12 06:55 | PC.NURSE ---
SHIFT SUMMARY Rested better after receiving the IV Ativan. Says still feels SOB and has wheezing in lungs. Cont pulse oximetry in place and has been showing 92-94%.
--- NOTE | 2021-03-12 07:36 | P.PN_ITS ---
Subjective Subjective: Interval history: still sob, feels better. less swollen. Medications: Reviewed: Yes Medication Review Details: Current Medications Acetaminophen (Acetaminophen 325 Mg Tablet) 650 mg PO Q4H PRN PRN Reason: Mild/Mod Pain Or Temp >/= 101 Last Admin: 03/11/21 08:33 Dose: 650 mg Documented by: Ascorbic Acid (Ascorbic Acid 500 Mg Tablet) 1,000 mg PO DAILY [facility] Last Admin: 03/11/21 08:34 Dose: 1,000 mg Documented by: Aspirin (Aspirin 81 Mg Ec Tablet) 81 mg PO DAILY@07 [facility] Last Admin: 03/12/21 06:26 Dose: 81 mg Documented by: Bisacodyl (Bisacodyl 5 Mg Tablet) 10 mg PO DAILY PRN; Protocol PRN Reason: Constipation (see protocol) Budesonide (Budesonide 0.5 Mg/2 Ml Neb) 0.5 mg INHALATION BID.RESPIRATORY [facility] Last Admin: 03/11/21 20:45 Dose: 0.5 mg Documented by: Lidocaine HCl 1.667 ml/Diphenhydramine HCl 4.165 mg/Al Hydrox/Mg Hydrox/Simethicone 1.667 ml 0 ml MUCOUS MEM QID [facility] Last Admin: 03/11/21 21:57 Dose: 7.5 ml Documented by: Desvenlafaxine (Desvenlafaxine 50 Mg Tablet) 50 mg PO DAILY@07 [facility] Last Admin: 03/12/21 06:26 Dose: 50 mg Documented by: Docusate Sodium (Docusate Sodium 100 Mg Capsule) 100 mg PO BID [facility] Last Admin: 03/11/21 19:02 Dose: Not Given Documented by: Fluoxetine HCl (Fluoxetine 20 Mg Capsule) 40 mg PO DAILY [facility] Last Admin: 03/11/21 08:34 Dose: 40 mg Documented by: Fluticasone Propionate (Fluticasone Nasal [place] 16gm Btl) 2 spray NASAL BID [facility] Last Admin: 03/11/21 19:02 Dose: Not Given Documented by: Folic Acid (Folic Acid 1 Mg Tablet) 1 mg PO DAILY@0700 [facility] Last Admin: 03/12/21 06:26 Dose: 1 mg Documented by: Gabapentin (Gabapentin 100 Mg Capsule) 100 mg PO TID [facility] Last Admin: 03/11/21 20:31 Dose: 100 mg Documented by: Heparin Sodium (Beef Lung) (Heparin 5,000 Unit/Ml Inj 1 Ml) 5,000 unit SUBCUT Q12H [facility] Last Admin: 03/11/21 20:31 Dose: 5,000 unit Documented by: Hydroxyzine Pamoate (Hydroxyzine 25 Mg Capsule) 25 mg PO TID PRN PRN Reason: ANXIETY Last Admin: 03/11/21 23:53 Dose: 25 mg Documented by: Piperacillin Sod/Tazobactam (Sod 3.375 gm/ Sodium Chloride) 50 mls @ 12.5 mls/hr IV Q12H [facility]; Protocol Last Infusion: 03/12/21 04:21 Dose: Infused Documented by: Albumin Human (Albumin) 12.5 gm in 50 mls @ 60 mls/hr IV PRN PRN PRN Reason: Hypotension and/or symptomatic Insulin Aspart (Insulin Aspart 100 Unit/1 Ml) 0 unit SUBCUT TIDWM [facility]; Protocol Last Admin: 03/11/21 19:03 Dose: Not Given Documented by: Ipratropium [place] (Ipratropium 0.5 Mg/2.5 Ml Neb) 0.5 mg INHALATION Q6H.RESPIRATORY [facility] Last Admin: 03/12/21 02:06 Dose: 0.5 mg Documented by: Levalbuterol HCl (Levalbuterol 0.63 Mg/3 Ml Neb) 0.63 mg INHALATION Q6H.RESPIRATORY [facility] Last Admin: 03/12/21 02:06 Dose: 0.63 mg Documented by: Levothyroxine Sodium (Levothyroxine 112 Mcg Tablet) 112 mcg PO DAILY@07 [facility] Last Admin: 03/12/21 06:26 Dose: 112 mcg Documented by: Methylprednisolone Sodium Succinate (Methylprednisolone Sod Succ 125 Mg/2 Ml Inj) 60 mg IVP Q8H [facility] Last Admin: 03/12/21 05:53 Dose: 60 mg Documented by: Multivitamins/Minerals (Multivitamin W/Minerals Tablet) 1 tab PO DAILY [facility] Last Admin: 03/11/21 08:34 Dose: 1 tab Documented by: Ondansetron HCl (Ondansetron 2 Mg/Ml Sdv 2 Ml) 4 mg IVP Q4H PRN PRN Reason: NAUSEA AND VOMITING Last Admin: 03/04/21 22:43 Dose: 4 mg Documented by: Pantoprazole Sodium (Pantoprazole Dr 40 Mg Tablet) 40 mg PO DAILY [facility] Last Admin: 03/11/21 08:34 Dose: 40 mg Documented by: Ropinirole HCl (Ropinirole 1 Mg Tablet) 4 mg PO BEDTIME@2100 [facility] Last Admin: 03/11/21 20:30 Dose: 4 mg Documented by: Vitamin D (Cholecalciferol (Vitamin D3) 1,000 Unit Tablet) 1,000 unit PO DAILY@07 [facility] Last Admin: 03/12/21 06:26 Dose: 1,000 unit Documented by: Zinc Gluconate (Zinc Gluconate 50 Mg Tablet) 50 mg PO DAILY [facility] Last Admin: 03/11/21 08:34 Dose: 50 mg Documented by: Vitals/I&O/Wt Last Vital Signs Temp 98.4 F 03/12/21 04:00 Pulse 106 H 03/12/21 04:00 Resp 24 H 03/12/21 04:00 BP 151/64 03/12/21 04:00 Pulse Ox 93 03/12/21 04:00 03/11/21 03/12/21 03/12/21 22:59 06:59 14:59 Intake Total 170 / 1090 1354.5625 / 2444.5625 Output Total 3475 / 3475 500 / 3975 Balance -3305 / -2385 854.5625 / -1530.4375 Physical Exam Narrative: EXAM NARRATIVE: obese, vs noted, much more comfortable, less sob in bed vs noted heent- nc/at, eomi, anicteric neck supple lungs b/l wheezes and dull bases heart- reg, +PAULA abd soft, nt, nd, +BS ext 1+ b/l edema rt femoral dialysis catheetr neuro- a,a, o x 3 no rashes noted mood improving pulses palpable Urinary Catheter Management^: Jasmine: Cath Placed During This Visit: yes Reason for Continuing Indwelling Catheter: Other Urinary Catheter Date of Insertion: 03/07/21 Urinary Catheter Time of Insertion: 17:30 Data : 03/10/21 04:40 03/12/21 00:40 Micro: Microbiology 03/08/21 07:30 Gram Stain - Final Sputum - Expectorated Sputum Sputum Culture - Final Ivette albicans A&P Additional A&P Information 55 yr old female seronegative RA w/ sepsis, pleural effusion, COPD, HTN. 1. SARAVANAN- presumed ATN vs CAPO- cr started to improve-then worsened and pt is s/p dialysis catheter and first HD on 03/11/21 -good uop -cont to hold vancomycin and NSAID -note very high vanco level on 03/07 and 03/08 of 61 and 58 and 41 on 03/10 -for today plan on lasix and monitoring renal fxn and pulm status 2. COPD improving w/ fluid removal and steroids 3. Met acidosis- improved w/ HD -from SARAVANAN 4. anemia - hgb stable 5. monitor phos is improving serologies negative to date seen and examined w/ RN- telehealth visit Attestations Medical Necessity Statement*: copd, saravanan, sob Time Spent in Patient Care: 16 - 35 minutes Coding Level of Care Code Acute [employer] for Saji Guadarrama
[2021-03-12] MEDS: budesonide 0.5 mg/2 mL Neb INHALATION ×2 (07:58→20:31)
[2021-03-12 08:30] LABS: ABG PCO2 37.6 mmHg (35-45); ABG PH Result 7.45 (7.35-7.45); Arterial Blood Gas Hematocrit 27.3 % (37-47); Base Excess ABG 2.1 mmol/L (-2.0-2.0); Blood Gas Allen Test Pos; Blood Gas Operator Identificat ED; Blood Gas Sample Site Radial, left; Blood Gas Sample Type Arterial; HCO3 ABG 26.2 mmol/L (22-26); Oxygen Device NC; PO2 ABG 60.1 mmHg (80.0-100.0)
[2021-03-12] MEDS: FUROsemide 10 mg/mL SDV 10mL 60 MG IVP ×2 (08:35→21:34)
[2021-03-12] MEDS: pantoprazole DR 40 mg Tablet PO (08:36)
[2021-03-12] MEDS: fluoxetine 20 mg Capsule 40 MG PO (08:36)
[2021-03-12] MEDS: gabapentin 100 mg Capsule PO ×2 (08:36→14:23)
[2021-03-12] MEDS: ascorbic acid 500 mg Tablet 1000 MG PO (08:36)
[2021-03-12] MEDS: zinc gluconate 50 mg Tablet PO (08:36)
[2021-03-12] MEDS: fluticasone nasal spray 16gm Btl 2 SPRAY NASAL ×2 (08:36→17:35)
[2021-03-12] MEDS: heparin 5,000 unit/mL INJ 1 mL 5000 UNIT SUBCUT ×2 (08:36→21:39)
[2021-03-12] MEDS: lidocaine 2% viscous 1.667 ML, diphenhydrAMINE oral liq 4.165 MG, aluminum-mag hydrox-s... MUCOUS MEM (09:26)
[2021-03-12] MEDS: sodium chloride 3.5% neb 4 mL Neb INHALATION (09:30)
[2021-03-12] MEDS: piperacillin-tazobactam 3.375 GM in sodium chloride 0.9% (plus) 50 ML IV ×2 (10:57→23:06)
[2021-03-12] MEDS: levoFLOXacin 750 mg Tablet PO (10:57)
[2021-03-12 11:08] LABS: SARS Covid-2 Antigen Negative (Negative)
[2021-03-12 11:32] LABS: Basophils % 0.1 %; Hematocrit 28.1 % (37.0-47.0); Hemoglobin 8.9 g/dL (11.5-15.3); Lymphocytes # 0.4 10^3/uL (0.8-4.8); Lymphocytes % 3.8 %; Mean Corpuscular HGB Conc 31.7 g/dL (30.0-36.0); Mean Corpuscular Hemoglobin 25.6 pg (28.0-34.0); Mean Corpuscular Volume 80.7 fL (81-99); Monocytes # 0.2 10^3/uL (0.2-0.9); Monocytes % 2.2 %; Neutrophils % 93.4 %; Nucleated Red Blood Cells % 0 %; Platelet Count 288 10^3/cmm (130-400); Red Blood Count 3.48 10^6/uL (4.1-5.3); Red Cell Distribution Width 16.3 % (12.1-15.1); White Blood Count 10.8 10^3/uL (4.0-10.0)
--- NOTE | 2021-03-12 11:40 | PC.NUTR ---
Nutrition follow up: Pt noted to be on Renal non dialysis diet, however received dialysis treatment on 03/11/21. If pt to receive further HD treatments, recommend consideration of change to Renal dialysis diet to better meet estimated nutritional needs. See RD assessment for further details.
[2021-03-12 11:47] LABS: Base Excess VBG 1.6 mmol/L (-3.0-3.0); HCO3 VBG 26.2 mmol/L (24-28); PCO2 VBG 40.7 mmHg (41-51); PO2 VBG 43.8 mmHg (25-40); pH VBG 7.42 (7.32-7.42)
[2021-03-12] MEDS: ondansetron 2 mg/ML SDV 2 mL 4 MG IVP (11:48)
[2021-03-12 11:55] LABS: Alanine Aminotransferase 39 U/L (0-33); Albumin Level 3.9 g/dL (3.5-5.2); Alkaline Phosphatase 106 IU/L (35-105); Anion Gap 22.6 (5-19); Aspartate Amino Transferase 33 U/L (0-32); Blood Urea Nitrogen 57 mg/dL (6-20); Calcium 9.8 mg/dL (8.5-10.5); Carbon Dioxide 23 mmol/L (22-29); Chloride 96 mmol/L (98-107); Globulin 3.5 g/dL (1.3-4.6); Glomerular Filtration Rate 6.5 mL/min (90-130); Glucose 188 mg/dL (65-115); Osmolality Calculated 305 mOsm/kg (285-295); Potassium 4.6 mmol/L (3.5-5.1); Sodium 137 mmol/L (136-145); Total Bilirubin 0.2 mg/dL (0.15-1.2); Total Protein 7.4 g/dL (6.6-8.7)
[2021-03-12 12:26] LABS: Glucose Point of Care 191 mg/dL (70-110)
--- NOTE | 2021-03-12 16:09 | P.PN_ITS ---
Subjective Subjective: Interval history: C/o SOB and wheezing. Dghter and sister at bedside today. Dgter appreciative of conversation with Dr. Sandoval this am. Medications: Reviewed: Yes Vitals/I&O/Wt Last Vital Signs Temp 97.5 F L 03/12/21 11:27 Pulse 101 H 03/12/21 15:02 Resp 18 03/12/21 14:50 BP 133/86 03/12/21 11:27 Pulse Ox 90 03/12/21 14:50 03/12/21 03/12/21 03/12/21 06:59 14:59 22:59 Intake Total 1354.5625 / 2444.5625 480 / 480 Output Total 500 / 3975 1800 / 1800 Balance 854.5625 / -1530.4375 -1320 / -1320 Physical Exam Narrative: EXAM NARRATIVE: obese, mild SOB, good spirits H: reg nl S1, S2 no obvious murmur L: diminished throughout, audible wheezes worst on right A: obese soft NT/ND nl BS E: pedal edema Urinary Catheter Management^: Jasmine: Cath Placed During This Visit: yes Reason for Continuing Indwelling Catheter: Other Urinary Catheter Date of Insertion: 03/07/21 Urinary Catheter Time of Insertion: 17:30 Data : 03/12/21 11:20 03/12/21 11:20 Micro: Microbiology 03/12/21 09:43 Gram Stain - Final Sputum - Expectorated Sputum 03/12/21 10:27 Legionella Urinary Antigen - Final Urine Catheterized 03/08/21 07:30 Gram Stain - Final Sputum - Expectorated Sputum Sputum Culture - Final Ivette albicans A&P Assessment and plan (1) SARAVANAN (acute kidney injury): Had 2 hr of HD yesterday. Neprhology holding HD today and ordered lasix only. . Status: Acute (2) Obesity, morbid, BMI 40.0-49.9: Status: Acute (3) Sepsis: ? Status: Acute Qualifiers: Sepsis type: sepsis due to unspecified organism Sepsis acute organ dysfunction status: without acute organ dysfunction Qualified Code(s): A41.9 - Sepsis, unspecified organism (4) Pleural effusion on right: stable and unable to drain per Dr. Sandoval. He is following. CT done yesterday. CT CHEST FINDINGS: Lungs: Extensive ground-glass changes in the lung parenchyma significantly increased from the comparison imaging. No obstructing endobronchial lesion. Negative for bronchiectasis. Pleural spaces: Trace bilateral pleural effusions slightly greater right than left although decreased from prior. Heart: Unremarkable. No cardiomegaly. No pericardial effusion. Aorta: Unremarkable. No aortic aneurysm. Lymph nodes: Unremarkable. No enlarged lymph nodes. Bones/joints: Unremarkable. No acute fracture. Soft tissues: Unremarkable. CT/CT chest wo con [id number] IMPRESSION: 1. Widespread multifocal airspace disease in the lungs significantly increased from prior imaging. Nonspecific pattern and appearance. 2. Imaging features can be seen with COVID-19 pneumonia, though are nonspecific and can occur with a variety of infectious and noninfectious processes. (Reference: [facility]) Status: Acute (5) Chronic steroid use: immunocompromised on prednisone 15 mg daily and hydroxychloroquine Currently on solumedrol 60 mg IVP q8h Status: Chronic (6) COPD (chronic obstructive pulmonary disease): pulm following on IV steroids Status: Chronic Qualifiers: COPD type: emphysema Emphysema type: centrilobular Qualified Code(s): J43.2 - Centrilobular emphysema (7) Restrictive airway disease: as above Status: Chronic (8) Seronegative rheumatoid arthritis of both hands: as above Status: Chronic (9) Hyperlipidemia: not on meds Status: Chronic Qualifiers: Hyperlipidemia type: mixed hyperlipidemia Qualified Code(s): E78.2 - Mixed hyperlipidemia (10) HTN (hypertension): on lisinopril/HCTZ at home. Currently on hold due to ARF. Status: Chronic Qualifiers: Hypertension type: essential hypertension Qualified Code(s): I10 - Essential (primary) hypertension (11) Acute respiratory failure with hypoxemia: as above possible bronch by pulm tomorrow. Dr. Sandoval recommended transfer to SDU due to hypoxia and wheezing. Status: Acute Attestations Medical Necessity Statement*: Pt hypoxic and wheezing on max medical therapy. concerned for acute worsening. 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 [employer] Diagnoses SARAVANAN (acute kidney injury) N17.9 Obesity, morbid, BMI 40.0-49.9 E66.01 Sepsis A41.9 Sepsis type: sepsis due to unspecified organism Sepsis acute organ dysfunction status: without acute organ dysfunction Pleural effusion on right J90 Chronic steroid use COPD (chronic obstructive pulmonary disease) J43.2 COPD type: emphysema Emphysema type: centrilobular Restrictive airway disease J98.4 Seronegative rheumatoid arthritis of both hands M06.041; M06.042 Hyperlipidemia E78.2 Hyperlipidemia type: mixed hyperlipidemia HTN (hypertension) I10 Hypertension type: essential hypertension Acute respiratory failure with hypoxemia J96.01
[2021-03-12 17:03] LABS: Glucose Point of Care 162 mg/dL (70-110)
[2021-03-12 17:20] LABS: Venous Blood Gas Hematocrit 27.4 % (37-47)
[2021-03-12] MEDS: nystatin 100,000 unit/mL UDC 5 mL 500000 UNIT PO ×2 (17:34→21:41)
--- NOTE | 2021-03-12 18:21 | PC.NURSE ---
received from 2nd floor via bed at 1600.report received.pt sob transferring from bed to bed.o2 sat 86% on 4 l nc o2.recovered w/i 5 min with o2 sat 92%.oriented to room environment. instructed to notify staff for any chest pain,sob,or for any concern at all .instructed to keep hob less than 30 degrees due to dialysis catheter in left groin.pt verb understanding of instructions.
--- NOTE | 2021-03-12 19:31 | PM.PN ---
Subjective Subjective: Interval history: -Patient seen at bedside today morning -Still wheezing significantly -ABG showed PO2 60 on 36% FiO2 with PF ratio 160 -Given history of immunosuppression and being on chronic steroid and yesterday's CT chest showing GGO's-PCP is high on differential; PCP PCR and new sputum, urine Legionella antigen, CMV PCR quantitative, chlamydia antigen were sent and started on Levaquin renal dose to cover atypicals as well - Requested to move to cardiac stepdown unit for close monitoring of saturation and respiratory status Medications: Reviewed: Yes Vitals/I&O/Wt Last Vital Signs Temp 97.5 F L 03/12/21 11:27 Pulse 105 H 03/12/21 16:00 Resp 30 H 03/12/21 16:00 BP 122/86 03/12/21 16:00 Pulse Ox 92 03/12/21 16:00 03/12/21 03/12/21 03/12/21 06:59 14:59 22:59 Intake Total 1354.5625 / 2444.5625 480 / 480 240 / 720 Output Total 500 / 3975 1800 / 1800 Balance 854.5625 / -1530.4375 -1320 / -1320 240 / -1080 Physical Exam Narrative: EXAM NARRATIVE: General: alert, NAD HEENT: conj clear, EOMI, PERRL, mmm, ulcers noted on tongue Neck: supple, no meningismus Heme: no cervical LAP Pulmonary: Bilateral diffuse wheeze Cardiovascular: rrr, nl s1s2, no mrg Abdomen: soft, nt, nd, no r/g, bs+ Extremities: pulses +, 1+ pitting pedal edema, no c/c, R Hand-both hands look puffy overall, tenderness across MCPs but more on the ventral aspect : no CVA tenderness Skin: intact, no rash MSK: no back or neck pain Urinary Catheter Management^: Jasmine: Cath Placed During This Visit: yes Reason for Continuing Indwelling Catheter: Accurate Measurement of Urinary Output in Critically Ill Patients Urinary Catheter Date of Insertion: 03/07/21 Urinary Catheter Time of Insertion: 17:30 Data : 03/12/21 11:20 03/12/21 11:20 Other Labs: Laboratory Results WBC 10.8 10^3/uL (4.0-10.0) H 03/12/21 11:20 RBC 3.48 10^6/uL (4.1-5.3) L 03/12/21 11:20 Hgb 8.9 g/dL (11.5-15.3) L 03/12/21 11:20 Hct 28.1 % (37.0-47.0) L 03/12/21 11:20 MCV 80.7 fL (81-99) L 03/12/21 11:20 MCH 25.6 pg (28.0-34.0) L 03/12/21 11:20 MCHC 31.7 g/dL (30.0-36.0) 03/12/21 11:20 RDW 16.3 % (12.1-15.1) H 03/12/21 11:20 Plt Count 288 10^3/cmm (130-400) 03/12/21 11:20 MPV 11.0 fL (7.4-10.4) H 03/12/21 11:20 Neut % (Auto) 93.4 % 03/12/21 11:20 Lymph % (Auto) 3.8 % 03/12/21 11:20 [place] % (Auto) 2.2 % 03/12/21 11:20 Eos % (Auto) 0.0 % 03/12/21 11:20 Baso % (Auto) 0.1 % 03/12/21 11:20 Neut # (Auto) 10.10 10^3/uL (1.8-7.7) H 03/12/21 11:20 Lymph # (Auto) 0.4 10^3/uL (0.8-4.8) L 03/12/21 11:20 [place] # (Auto) 0.2 10^3/uL (0.2-0.9) 03/12/21 11:20 Eos # (Auto) 0.0 10^3/uL (0.0-0.8) 03/12/21 11:20 Baso # (Auto) 0.0 10^3/uL (0.0-0.1) 03/12/21 11:20 Nucleated RBC % (auto) 0 % 03/12/21 11:20 Nucleated RBCs # 0.0 /100WBC 03/12/21 11:20 ESR 44 mm/hr (0-15) H 03/05/21 01:45 PT 14.00 SECONDS (12.1-14.9) 03/05/21 01:45 INR 1.05 (0.8-1.2) 03/05/21 01:45 Specimen Type Arterial 03/12/21 08:18 Sample Site Radial, left 03/12/21 08:18 ABG pH 7.45 (7.35-7.45) 03/12/21 08:18 ABG pCO2 37.6 mmHg (35-45) 03/12/21 08:18 ABG pO2 60.1 mmHg (80.0-100.0) L 03/12/21 08:18 ABG HCO3 26.2 mmol/L (22-26) H 03/12/21 08:18 ABG O2 Saturation 96.1 03/09/21 10:50 ABG Base Excess 2.1 mmol/L (-2.0-2.0) H 03/12/21 08:18 Maxwell Test Pos 03/12/21 08:18 VBG pH 7.42 (7.32-7.42) 03/11/21 18:00 VBG pCO2 40.7 mmHg (41-51) L 03/11/21 18:00 VBG pO2 43.8 mmHg (25-40) H 03/11/21 18:00 VBG HCO3 26.2 mmol/L (24-28) 03/11/21 18:00 VBG Base Excess 1.6 mmol/L (-3.0-3.0) 03/11/21 18:00 VBG Hematocrit 27.4 % (37-47) L 03/11/21 18:00 A-a O2 Gradient 3.6 mmHg (5-10) L 03/09/21 10:50 Hematocrit 27.3 % (37-47) L 03/12/21 08:18 Hgb O2 Saturation 94.8 % (95-100) L 03/09/21 10:50 Carboxyhemoglobin 1.1 %THgb (0.4-20.1) 03/09/21 10:50 Methemoglobin 0.3 % (0.4-1.5) L 03/09/21 10:50 Total Hemoglobin 8.1 g/dL (12-16) L 03/09/21 10:50 Sodium 140.0 mmol/L (131-143) 03/09/21 10:50 Potassium 4.6 mmol/L (3.5-5.0) 03/09/21 10:50 Glucose 152.0 mg/dL (70-115) H 03/09/21 10:50 Ionized Calcium 1.3 mmol/L (1.1-1.4) 03/09/21 10:50 O2 Delivery Device Nc 03/12/21 08:18 O2 Liters/Min 4.0 % 03/12/21 08:18 FiO2 36.0 % 03/12/21 08:18 Car Distributor ID Ed 03/12/21 08:18 Sodium 137 mmol/L (136-145) 03/12/21 11:20 Potassium 4.6 mmol/L (3.5-5.1) 03/12/21 11:20 Chloride 96 mmol/L (98-107) L 03/12/21 11:20 Carbon Dioxide 23 mmol/L (22-29) 03/12/21 11:20 Anion Gap 22.6 (5-19) H 03/12/21 11:20 BUN 57 mg/dL (6-20) H 03/12/21 11:20 Creatinine 6.6 mg/dL (0.5-0.9) H* 03/12/21 11:20 GFR Calculation 6.5 mL/min (90-130) L 03/12/21 11:20 Glucose 188 mg/dL (65-115) H 03/12/21 11:20 POC Glucose 162 mg/dL (70-110) H 03/12/21 16:58 Calculated Osmolality 305 mOsm/kg (285-295) H 03/12/21 11:20 Lactate 2.7 mmol/L (0.5-2.2) H 03/07/21 17:05 Uric Acid 5.9 mg/dL (2.4-5.7) H 03/07/21 15:37 Calcium 9.8 mg/dL (8.5-10.5) 03/12/21 11:20 Phosphorus 5.0 mg/dL (2.5-4.5) H 03/12/21 00:40 Magnesium 2.4 mg/dL (1.7-2.3) H 03/12/21 00:40 Total Bilirubin 0.2 mg/dL (0.15-1.2) 03/12/21 11:20 AST 33 U/L (0-32) H 03/12/21 11:20 ALT 39 U/L (0-33) H 03/12/21 11:20 Alkaline Phosphatase 106 IU/L (35-105) H 03/12/21 11:20 Lactate Dehydrogenase 392 U/L (135-214) H 03/11/21 19:01 Creatine Kinase 66 U/L (26-192) 03/07/21 15:37 Troponin T Baseline 17 ng/L (0-10) H 03/11/21 19:01 Troponin T 120 Minute 14.67 ng/L (0-10) H 03/11/21 21:00 Delta Troponin T -2.33 ABS# (0-10) L 03/11/21 21:00 Troponin T Hi Sens 6Hr 18.06 ng/L (0-10) H 03/12/21 00:40 Troponin T Hi Sens 6Hr Delta 1.06 ng/L (0-12) 03/12/21 00:40 C-Reactive Protein 65.6 mg/L (0.0-4.9) H 03/05/21 01:45 NT-Pro-B Natriuret Pep 583 pg/mL (0-125) H 03/11/21 19:01 Total Protein 7.4 g/dL (6.6-8.7) 03/12/21 11:20 Albumin 3.9 g/dL (3.5-5.2) 03/12/21 11:20 Globulin 3.5 g/dL (1.3-4.6) 03/12/21 11:20 Procalcitonin 0.33 ng/mL (0-0.5) 03/07/21 15:37 Urine Color Cancelled 03/07/21 17:30 Urine Color Straw (Yellow) 03/07/21 17:30 Urine Appearance Cancelled 03/07/21 17:30 Urine Appearance Clear (CLEAR) 03/07/21 17:30 Urine pH 5 (5-7) 03/07/21 17:30 Urine pH Cancelled 03/07/21 17:30 Ur Specific [place] 1.000 (1.005-1.030) L 03/07/21 17:30 Ur Specific [place] Cancelled 03/07/21 17:30 Urine Protein Cancelled 03/07/21 17:30 Urine Protein Neg (Negative) 03/07/21 17:30 Urine Glucose (UA) Cancelled 03/07/21 17:30 Urine Glucose (UA) Norm (Normal) 03/07/21 17:30 Urine Ketones Cancelled 03/07/21 17:30 Urine Ketones Negative (Negative) 03/07/21 17:30 Urine Blood Cancelled 03/07/21 17:30 Urine Blood Neg (Negative) 03/07/21 17:30 Urine Nitrate Cancelled 03/07/21 17:30 Urine Nitrate Negative (Negative) 03/07/21 17:30 Urine Bilirubin Cancelled 03/07/21 17:30 Urine Bilirubin Neg (Negative) 03/07/21 17:30 Prot Sulfosalicylic Acd Cancelled 03/07/21 17:30 Urine Urobilinogen Cancelled 03/07/21 17:30 Urine Urobilinogen Norm mg/dL (Negative) 03/07/21 17:30 Ur Leukocyte Esterase Cancelled 03/07/21 17:30 Ur Leukocyte Esterase Negative (Negative) 03/07/21 17:30 Urine RBC 0-4 /hpf (0-2) H 03/07/21 17:30 Urine WBC 0-4 /hpf (0-5) H 03/07/21 17:30 Ur Eosinophil Smear 0 (0-0) 03/07/21 17:30 Ur Squamous Epith Cells 5-10 /hpf (0-5) H 03/07/21 17:30 Amorphous Sediment Not Reportable 03/07/21 17:30 Urine Bacteria Trace /hpf (NONE) 03/07/21 17:30 Urine Mucus None /hpf 03/07/21 17:30 Urine Eosinophils No eosinophils seen 03/07/21 17:30 Urine Osmolality 170 mOsm/kg (50-1200) 03/07/21 17:30 Ur Random Sodium 34 mmol/L 03/07/21 17:30 Ur Random Potassium 13 mmol/L 03/07/21 17:30 Ur Random Chloride 11 mmol/L 03/07/21 17:30 Urine Creatinine 44 mg/dL (28-217) 03/07/21 17:30 RSV Nasal Swab Not detected (Not Detected) 03/05/21 16:55 RSV Nasal Swab Int Cntl Not detected (Not Detected) 03/05/21 16:55 Vancomycin Trough Cancelled 03/08/21 04:46 Random Vancomycin 40.8 ug/mL (20.0-40.0) H* 03/10/21 04:40 Serum Ketones Negative (Negative) 03/07/21 17:05 KEVIN Screen Negative (NEGATIVE) 03/07/21 17:55 SS-A/Ro Antibody <1.0 neg AI (<1.0 NEG) 03/07/21 17:55 SS-B/La IgG Antibody <1.0 neg AI (<1.0 NEG) 03/07/21 17:55 Anti-ds DNA IgG Ab <1 IU/mL 03/07/21 17:55 Complement C3 154 mg/dL (90-180) 03/07/21 17:05 Complement C4 23 mg/dL (10-40) 03/07/21 17:05 Adenovirus (PCR) Not detected (Not Detected) 03/05/21 16:55 Nasal/Oral COVID-19 PCR Not detected 03/05/21 04:15 Hep Bs Antigen Non-reactive (Nonreactive) 03/11/21 04:03 Hep Bs Antibody 3.5 (11.5-1000) L 03/11/21 04:03 Hep B Core Total Ab Non-reactive (Nonreactive) 03/07/21 17:55 Hepatitis C Antibody Non-reactive (Nonreactive) 03/11/21 04:03 Human Metapneumovir PCR Not detected (Not Detected) 03/05/21 16:55 Influenza A (RT-PCR) Not detected (Not Detected) 03/05/21 16:55 Influenza A (H1) PCR Not detected (Not Detected) 03/05/21 16:55 Influenza A (H3) PCR Not detected (Not Detected) 03/05/21 16:55 Influenza Type A Ag Negative (Negative) 03/05/21 16:28 Influenza Type B Ag Negative (Negative) 03/05/21 16:28 Influenza B (RT-PCR) Not detected (Not Detected) 03/05/21 16:55 Parainfluenzae Type 1 Not detected (Not Detected) 03/05/21 16:55 Parainfluenzae Type 2 Not detected (Not Detected) 03/05/21 16:55 Parainfluenzae Type 3 Not detected (Not Detected) 03/05/21 16:55 RSV Ab Comment see note 03/05/21 16:55 Rhinovirus (PCR) Not detected (Not Detected) 03/05/21 16:55 SARS-CoV-2 Ag (Rapid) Negative (Negative) 03/12/21 10:31 Anti-Streptolysin O Ab <50 IU/mL (<200) 03/07/21 17:55 TB (QFT) Gold In Tube Negative (NEGATIVE) 03/06/21 06:00 TB Test (QFT) Nil 0.07 IU/mL 03/06/21 06:00 TB Test (QFT) Mitogen 8.18 IU/mL 03/06/21 06:00 TB Test Mitogen - Nil 0.01 IU/mL 03/06/21 06:00 TB Test TB - Nil 0.01 IU/mL 03/06/21 06:00 Beta-(1,3)-D-Glucan Cancelled 03/12/21 09:43 B-(1,3)-D-Glucan Intrp Cancelled 03/12/21 09:43 Impressions Chest CTA 03/04/21 19:00 IMPRESSION: 1. Negative for pulmonary embolism. 2. There is a nonspecific small volume right pleural effusion which demonstrates a mild degree of pleural enhancement. A loculated collection cannot be excluded. 3. Background emphysema and interstitial fibrotic lung changes without evidence of focal pneumonia. Radiation Dose CTDIVOL = (mGy): DLP = 1183.25 (mGy-cm) Renal Ultrasound 03/08/21 05:00 IMPRESSION: Normal renal ultrasound. Chest X-Ray 03/10/21 08:46 IMPRESSION: 1. Interstitial prominence and mild left-sided airspace disease. 2. Additional findings as described above. Chest CT 03/11/21 15:03 IMPRESSION: 1. Widespread multifocal airspace disease in the lungs significantly increased from prior imaging. Nonspecific pattern and appearance. 2. Imaging features can be seen with COVID-19 pneumonia, though are nonspecific and can occur with a variety of infectious and noninfectious processes. (Reference: Santi) REFERENCES: Santi Steven, et al., Radiological Society of [place] Expert Consensus Statement on Reporting Chest CT Findings Related to COVID-19. Endorsed by the Society of Thoracic Radiology, the [place] [employer], and RSNA. Published December 21, 2019. Radiation Dose CTDIVOL = (mGy): DLP = 902.41 (mGy-cm) Micro: Microbiology 03/12/21 09:43 Gram Stain - Final Sputum - Expectorated Sputum 03/12/21 10:27 Legionella Urinary Antigen - Final Urine Catheterized 03/08/21 07:30 Gram Stain - Final Sputum - Expectorated Sputum Sputum Culture - Final Ivette albicans A&P Assessment and plan (1) Exertional dyspnea: Status: Acute (2) Sepsis: Status: Acute Qualifiers: Sepsis type: sepsis due to unspecified organism Sepsis acute organ dysfunction status: without acute organ dysfunction Qualified Code(s): A41.9 - Sepsis, unspecified organism (3) Pleural effusion on right: Status: Acute (4) Obesity, morbid, BMI 40.0-49.9: Status: Acute (5) LEX on CPAP: Status: Chronic (6) Chronic steroid use: Status: Chronic (7) COPD (chronic obstructive pulmonary disease): Status: Chronic Qualifiers: COPD type: emphysema Emphysema type: centrilobular Qualified Code(s): J43.2 - Centrilobular emphysema (8) Ex-smoker for more than 1 year: Status: Chronic (9) Restrictive airway disease: Status: Chronic (10) High risk medication use: Status: Acute (11) Seronegative rheumatoid arthritis of both hands: Status: Chronic (12) COVID-19: Status: Resolved (13) Serositis: Status: Acute (14) SARAVANAN (acute kidney injury): Status: Acute (15) PCP (pneumocystis carinii pneumonia): Status: Acute Overall: 55-year-old Ms. Geradro Lennon with past medical history of rheumatoid arthritis on Humira, hydroxychloroquine, prednisone 15 mg daily (last 2 years), COPD 1 pack/day for 35 years smoker quit 2013, hypertension, hyperlipidemia, diabetes admitted initially for right pleuritic chest pain and shortness of breath. She was saturating 95% on room air. CTA on admission ruled out PE but showed small right pleural effusion and mild groundglass opacities. Bedside ultrasound did not show good pocket to drain right pleural effusion; her Humira and hydroxychloroquine were held and prednisone was increased to 40 mg daily and started on vancomycin and Zosyn to treat possible infectious vs inflammatory pleural effusion. COVID-19 PCR and COVID-19 rapid antigen, Blood cultures, bacterial urine antigens, flu antigen, respiratory viral panel everything came negative. Patient responded clinically with improvement in her right pleuritic chest pain and reducing dyspnea while daily ultrasound examination showed reducing right pleural effusion. On day 4 her creatinine increased from 0.4-3.2-likely secondary to contrast-induced and patient was on vancomycin, 2 doses of ketorolac for pleuritic chest pain, HCTZ, lisinopril. Vancomycin level was noted to be 60 and all nephrotoxic medications were held and renal functions were monitored. Nephrology were consulted and as patient was nonoliguric and as there was no hard indication for dialysis we continued to monitor renal functions at creatinine at 7-8. Bicarb dropped down to 16 with anion gap metabolic acidosis and patient received bicarb drip for 12 hours. BNP increased to 2200 but echo did not show any LV systolic or diastolic dysfunction. Day 6 she was on room air saturating 96% with ABG showing PaO2 80% with PF ratio > 350 ; during next 2 days, pt requried O2 gradually went up to 4L, DuoNeb nebulizations increased to every 4 hr scheduled and later changed to Xopenex and Atrovent every 6 hours due to tachycardia; steroids were increased to 60 IV every 8 hours but respiratory ravi she continued to have significant wheezing. On day [address] chest without contrast on the day 8 showed worsening of diffuse GGO's-possibility of fluid overload-discussed with nephrology and did temporary dialysis to remove 1.5 L of fluid with hope to improve her dyspnea. Other infectious causes of worsening GGO's were entertained-given her history of immunosuppression due to chronic steroid use, BD glucan and induced sputum for PCP were sent but as the results would take 1 week to evaluate started on empiric coverage with Bactrim 5 mg/kg being the minimum dose in patient with GFR 14. Also started on Levaquin 500 mg every 48 hour renally dosed to cover atypical pneumonia, were sent urine Legionella (was negative) , Chlamydia antigen, CMV quantitative PCR, repeat COVID 19 rapid antigen. ABG on day 9 PaO2 60 on FiO2 of 36%(4 L) with PF ratio 160-suggestive of moderate ARDS -with impending hypoxemic respiratory failure patient is moved to stepdown unit for close monitoring of saturations and respiratory status. Clinical course so far has been updated in detail to daughter Estrella and patient .Both verbalized understanding and agreed with the plan. Assessment and Plan: #Dyspnea-combination of COPD exacerbation and rheumatoid interstitial lung disease exacerbation with right pleuritis and mild pleural effusion # Right pleural effusion - likely parapneumonic given sepsis vs inflammatory given underlying RA - resolving # On Chronic steroid use - suspect PCP pneumonia # Chronic ex smoker - 1 ppd x 35 years - quit 2013; # Seronegative RA - on Humira, plaquanil and Prednisone 10 mg daily as out patient - immunocompromised and potential to have fungal as well as TB # SARAVANAN Since 03/07/2021-??Contrast (received 03/04/2021 )induced vs medication induced - likely vancomycin/lisinopril/hctz last dose ketorolac on 03/05/21 #Repeat CT chest yesterday's 03/11/2021: Showed worsening of diffuse GGO's compared to admission CT chest - on admission CTA 03/04/21: Negative for PE, Non specific smal volume rigth pleural effusion, background emphysema and interstitial fibrotic lung changes without evidence of focal pneumonia - - ABG on room air on 03/09/21: 7.36/32/80/18/96% - ABG on 4L 03/12/21: 7.45/37/60/26/91% - Afebrile since admission; wbc 10.8K ; procalcitonin 0.21 on admission - Initially reported improvement in dyspnea & pleuritic chest pain while on prednisone 40 mg daily and Vancomycin/ zosyn - On day 4 03/06/21: Patient developed SARAVANAN presumably due to contrast nephropathy with gradual worsening of BUN/Creatinine but she was non oliguric and electrolytes normal except for Bicarb was 16 - Patient was placed on Bicarb drip 150 Meq @ 100 mls/hr 03/10/21 for 12 hrs - meanwhile pt shortness of breath worsened requiring 4L NC saturating > 95% - repeat CT w/o contrast 03/11/21: Widespread multifocal airspace disease in the lungs significantly increased from prior imaging. Nonspecific pattern and appearance. also reported as Imaging features can be seen with COVID-19 pneumonia, though are nonspecific and can occur with a variety of infectious and noninfectious processes. - Covid antigen and PCR negative on admission; Flu negative ; Bacterial antigens; Blood cultures; MRSA PCR, TB quantiferon -negative; other viral panel - negative - Sputum cx - Ivette albicans; likely commensal; - immunosuppressed and at risk to have fungal as well as TB - and given diffuse GGOs - LDH 392; suspect PCP pneumonia - sent for BD Glucan and Induced sputum for PCP - but results will take atleast one week to come - so started Bactrim renally dosed after consulting pharmacy for dosing. - Currently covered Zosyn since 03/04/21; vancomycin level still 40 due to impaired renal function and MRSA nares negative - so discontinued - Also started on Levaquin 500mg q 48 hr for atypical coverage; urine legionella negative; sent for chlamydia and also CMV PCR quantitative - Possibility of DAH on CT - but does not have hemoptysis ; I will evalute her tomorrow morning and schedule for bronchoscopy - on admission Bedside US- showed mild right pleural effusion on admission but not good enough to tap; daily bedside sono showed gradually reduced right side pleff and today CT also showed trace bilateral pleural effusions slightly greater right than left although decreased from prior. - For COPD exacerbation & worsening diffuse wheezing - mgSO4 2gm ivpb one dose, Already on pulmicort on 0.5 mg bid inh; duoneb q 4hr - changed xopenex and atrovent q 6hr due to tachycardia; also changed prednisone 40 mg daily to Iv Solumedrol 60 q 8 hr and will taper based on clinical response - Discussed with Nephrology and due to worsening dyspnea and worsened pulmonary vascular congestion on chest x ray - decided to do hemodialyiss to take of fluid burden. Need daily assessment for hemodialysis while monitoring renal parameters for recovery of SARAVANAN - EF on echo 06/2020 64% with grade I/IV diastolic dysfunction noted. 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 No evidence of atrial septal defect or patent formen ovale. Lipomatous hypertrophy of interatrial septum. Mildly aneurysmal interatrial septum. - Echo 03/06/21: normal with EF 69% with no pericardial effusion ; BNP > 330 > 2205 > 583 today - renal sono 03/07/21 normal kidneys; Ulytes, CK, uric acid, Urine analysis, -DC vancomycin and ketorolac; Lasix as needed; currently very good urine output -Continue clinical monitoring with antibiotics, steroids and nebulizations -As per nephrology good urine output is a very good prognosticator off kidney recovery and as there is patient to undergo hemodialysis to see whether if removal of excessive fluid will help her with her breathing -ongoing evaluation for hemodialysis on day to day basis 03/05/21 03/06/21: 03/07/21: Medical condition and management plan including development of possible contrast versus medication induced SARAVANAN and necessity for close monitoring of renal functions in hospital and possible hemodialysis were explained in detail to the patient and her and daughter at bedside. They verbalized understanding and agreed with the plan. Recommendations conveyed to the Hospitalist and RN covering the patient Attestations Medical Necessity Statement*: ILD vs COPD Exacerbation on nebulizations, steroids and monitor for clinical response ; close monitoring newly developed SARAVANAN likely medication vs contrast induced and on temporary hemodialysis suspect PCP pneumonia in pt on chronic immunosuppression Time Spent in Patient Care: Greater than 35 minutes (>than 50% of time spent in counselling and/or direct pt care on unit). Critical Care Time: Critical Care Time (min): 45 Coding Level of Care Code Acute [employer] for g Fwd Diagnoses Exertional dyspnea R06.00 Sepsis A41.9 Sepsis type: sepsis due to unspecified organism Sepsis acute organ dysfunction status: without acute organ dysfunction Pleural effusion on right J90 Obesity, morbid, BMI 40.0-49.9 E66.01 LEX on CPAP G47.33; Z99.89 Chronic steroid use COPD (chronic obstructive pulmonary disease) J43.2 COPD type: emphysema Emphysema type: centrilobular Ex-smoker for more than 1 year Z87.891 Restrictive airway disease J98.4 High risk medication use Z79.899 Seronegative rheumatoid arthritis of both hands M06.041; M06.042 COVID-19 U07.1 Serositis K65.8 SARAVANAN (acute kidney injury) N17.9 PCP (pneumocystis carinii pneumonia) B59
[2021-03-12 20:22] LABS: Glucose Point of Care 166 mg/dL (70-110)
[2021-03-12] MEDS: hyDROXYzine 25 mg Capsule PO (21:47)
[2021-03-12] MEDS: LORazepam 0.5 mg Tablet PO (23:09)
[2021-03-13] VITALS (10 sets, daily range): BP systolic 140–162; BP diastolic 84–87; PULSE 103–111; RESP 19–140; TEMP 36.5–37.1; O2SAT 87–91
[2021-03-13 00:47] LABS: ANCA Interp P-ANCA POS (Negative); Anti-MPO (C-ANCA) >1:640 Titer (<1:20)
[2021-03-13] MEDS: ipratropium 0.5 mg/2.5 mL Neb INHALATION ×3 (02:15→14:52)
[2021-03-13] MEDS: levalbuterol 0.63 mg/3 mL Neb INHALATION ×3 (02:15→14:52)
[2021-03-13 02:56] LABS: Hematocrit 26.2 % (37.0-47.0); Hemoglobin 8.5 g/dL (11.5-15.3); Mean Corpuscular HGB Conc 32.4 g/dL (30.0-36.0); Mean Corpuscular Hemoglobin 25.7 pg (28.0-34.0); Mean Corpuscular Volume 79.2 fL (81-99); Mean Platelet Volume 10.5 fL (7.4-10.4); Platelet Count 289 10^3/cmm (130-400); Red Blood Count 3.31 10^6/uL (4.1-5.3); Red Cell Distribution Width 15.9 % (12.1-15.1); White Blood Count 11.7 10^3/uL (4.0-10.0)
[2021-03-13 03:13] LABS: Alanine Aminotransferase 33 U/L (0-33); Albumin Level 3.5 g/dL (3.5-5.2); Alkaline Phosphatase 97 IU/L (35-105); Aspartate Amino Transferase 24 U/L (0-32); Blood Urea Nitrogen 71 mg/dL (6-20); Calcium 9.8 mg/dL (8.5-10.5); Carbon Dioxide 23 mmol/L (22-29); Chloride 97 mmol/L (98-107); Globulin 3.3 g/dL (1.3-4.6); Glomerular Filtration Rate 6.2 mL/min (90-130); Glucose 152 mg/dL (65-115); Magnesium 2.1 mg/dL (1.7-2.3); Osmolality Calculated 312 mOsm/kg (285-295); Phosphorus 6.7 mg/dL (2.5-4.5); Sodium 139 mmol/L (136-145); Total Bilirubin 0.2 mg/dL (0.15-1.2); Total Protein 6.8 g/dL (6.6-8.7)
[2021-03-13 03:21] LABS: Absolute Neutrophil 10.3 10^3/cmm (1.4-6.5); Absolute Segmented Neutrophil 10.1 10/cmm (1.6-7.1); Band Neutrophils Absolute 0.2 10^3/cmm (0.0-1.2); Eosinophils 0 %; Lymphocytes 11 %; Lymphocytes Absolute 1.3 10^3/cmm (1.2-3.4); Monocytes Absolute 0.1 10^3/cmm (0.1-0.6); Platelet Estimate Normal (Normal); Segmented Neutrophils 86 %; Total Cells Counted 100 (0-100)
[2021-03-13 04:45] LABS: Vancomycin Random 16.4 ug/mL (20.0-40.0)
[2021-03-13] MEDS: hyDROXYzine 25 mg Capsule PO ×2 (05:22→14:03)
[2021-03-13 06:45] LABS: Glucose Point of Care 134 mg/dL (70-110)
--- NOTE | 2021-03-13 07:15 | XR_ITS ---
WS: [id number] Exam: XR chest 2V insp/exp [id number] Date/Time of Exam: 03/13/2021 7:28 AM Reason For Exam: sob/ chf Comparison 03/10/2021. Increasing widespread patchy groundglass infiltrates noted throughout both lungs that may represent C ovid pneumonia. Normal cardiomediastinal structures and regional bony elements. Monitoring leads supe rimpose the chest. XR/XR chest 2V insp/exp [id number] IMPRESSION: 1. Increasing groundglass infiltrates throughout both lungs that may represent Covid pneumonia.
--- NOTE | 2021-03-13 07:16 | PM.PN ---
Subjective Subjective: Interval history: anxious, sob, excellent uop. no n/v/f/c/malik/d Medications: Reviewed: Yes Medication Review Details: Current Medications Acetaminophen (Acetaminophen 325 Mg Tablet) 650 mg PO Q4H PRN PRN Reason: Mild/Mod Pain Or Temp >/= 101 Last Admin: 03/11/21 08:33 Dose: 650 mg Documented by: Ascorbic Acid (Ascorbic Acid 500 Mg Tablet) 1,000 mg PO DAILY [facility] Last Admin: 03/12/21 08:36 Dose: 1,000 mg Documented by: Aspirin (Aspirin 81 Mg Ec Tablet) 81 mg PO DAILY@07 [facility] Last Admin: 03/12/21 06:26 Dose: 81 mg Documented by: Bisacodyl (Bisacodyl 5 Mg Tablet) 10 mg PO DAILY PRN; Protocol PRN Reason: Constipation (see protocol) Budesonide (Budesonide 0.5 Mg/2 Ml Neb) 0.5 mg INHALATION BID.RESPIRATORY [facility] Last Admin: 03/12/21 20:31 Dose: 0.5 mg Documented by: Lidocaine HCl 1.667 ml/Diphenhydramine HCl 4.165 mg/Al Hydrox/Mg Hydrox/Simethicone 1.667 ml 0 ml MUCOUS MEM QID [facility] Last Admin: 03/12/21 21:45 Dose: Not Given Documented by: Desvenlafaxine (Desvenlafaxine 50 Mg Tablet) 50 mg PO DAILY@07 [facility] Last Admin: 03/12/21 06:26 Dose: 50 mg Documented by: Docusate Sodium (Docusate Sodium 100 Mg Capsule) 100 mg PO BID [facility] Last Admin: 03/12/21 17:40 Dose: Not Given Documented by: Fluoxetine HCl (Fluoxetine 20 Mg Capsule) 40 mg PO DAILY [facility] Last Admin: 03/12/21 08:36 Dose: 40 mg Documented by: Fluticasone Propionate (Fluticasone Nasal [place] 16gm Btl) 2 spray NASAL BID [facility] Last Admin: 03/12/21 17:35 Dose: 2 spray Documented by: Folic Acid (Folic Acid 1 Mg Tablet) 1 mg PO DAILY@0700 [facility] Last Admin: 03/12/21 06:26 Dose: 1 mg Documented by: Furosemide (Furosemide 10 Mg/Ml Sdv 10ml) 60 mg IVP Q12H [facility] Last Admin: 03/12/21 21:34 Dose: 60 mg Documented by: Gabapentin (Gabapentin 100 Mg Capsule) 100 mg PO TID [facility] Last Admin: 03/12/21 14:23 Dose: 100 mg Documented by: Heparin Sodium (Beef Lung) (Heparin 5,000 Unit/Ml Inj 1 Ml) 5,000 unit SUBCUT Q12H [facility] Last Admin: 03/12/21 21:39 Dose: 5,000 unit Documented by: Hydroxyzine Pamoate (Hydroxyzine 25 Mg Capsule) 25 mg PO TID PRN PRN Reason: ANXIETY Last Admin: 03/13/21 05:22 Dose: 25 mg Documented by: Piperacillin Sod/Tazobactam (Sod 3.375 gm/ Sodium Chloride) 50 mls @ 12.5 mls/hr IV Q12H [facility]; Protocol Last Infusion: 03/13/21 03:30 Dose: Infused Documented by: Albumin Human (Albumin) 12.5 gm in 50 mls @ 60 mls/hr IV PRN PRN PRN Reason: Hypotension and/or symptomatic Insulin Aspart (Insulin Aspart 100 Unit/1 Ml) 0 unit SUBCUT TIDWM [facility]; Protocol Last Admin: 03/12/21 17:35 Dose: 2 unit Documented by: Ipratropium [place] (Ipratropium 0.5 Mg/2.5 Ml Neb) 0.5 mg INHALATION Q6H.RESPIRATORY [facility] Last Admin: 03/13/21 02:15 Dose: 0.5 mg Documented by: Levalbuterol HCl (Levalbuterol 0.63 Mg/3 Ml Neb) 0.63 mg INHALATION Q6H.RESPIRATORY [facility] Last Admin: 03/13/21 02:15 Dose: 0.63 mg Documented by: Levofloxacin (Levofloxacin 500 Mg Tablet) 500 mg PO Q48H [facility]; Protocol Levothyroxine Sodium (Levothyroxine 112 Mcg Tablet) 112 mcg PO DAILY@07 [facility] Last Admin: 03/12/21 06:26 Dose: 112 mcg Documented by: Lorazepam (Lorazepam 0.5 Mg Tablet) 0.5 mg PO ONCE PRN PRN Reason: ANXIETY Last Admin: 03/12/21 23:09 Dose: 0.5 mg Documented by: Methylprednisolone Sodium Succinate (Methylprednisolone Sod Succ 125 Mg/2 Ml Inj) 60 mg IVP Q8H [facility] Last Admin: 03/13/21 05:16 Dose: 60 mg Documented by: Multivitamins/Minerals (Multivitamin W/Minerals Tablet) 1 tab PO DAILY [facility] Last Admin: 03/12/21 08:36 Dose: 1 tab Documented by: Nystatin (Nystatin 100,000 Unit/Ml Udc 5 Ml) 500,000 unit PO QID [facility] Last Admin: 03/12/21 21:41 Dose: 500,000 unit Documented by: Ondansetron HCl (Ondansetron 2 Mg/Ml Sdv 2 Ml) 4 mg IVP Q4H PRN PRN Reason: NAUSEA AND VOMITING Last Admin: 03/12/21 11:48 Dose: 4 mg Documented by: Pantoprazole Sodium (Pantoprazole Dr 40 Mg Tablet) 40 mg PO DAILY [facility] Last Admin: 03/12/21 08:36 Dose: 40 mg Documented by: Ropinirole HCl (Ropinirole 1 Mg Tablet) 4 mg PO BEDTIME@2100 [facility] Last Admin: 03/11/21 20:30 Dose: 4 mg Documented by: Vitamin D (Cholecalciferol (Vitamin D3) 1,000 Unit Tablet) 1,000 unit PO DAILY@07 [facility] Last Admin: 03/12/21 06:26 Dose: 1,000 unit Documented by: Zinc Gluconate (Zinc Gluconate 50 Mg Tablet) 50 mg PO DAILY [facility] Last Admin: 03/12/21 08:36 Dose: 50 mg Documented by: Vitals/I&O/Wt Last Vital Signs Temp 98 F 03/13/21 03:50 Pulse 106 H 03/13/21 03:50 Resp 140 H 03/13/21 03:50 BP 140/84 03/13/21 03:50 Pulse Ox 90 03/13/21 03:50 03/12/21 03/13/21 03/13/21 22:59 06:59 14:59 Intake Total 490 / 970 170 / 1140 Output Total 1400 / 3200 1400 / 4600 Balance -910 / -2230 -1230 / -3460 Physical Exam Narrative: EXAM NARRATIVE: obese, vs noted,SOB and anxious in bed vs noted heent- nc/at, eomi, anicteric neck supple lungs b/l wheezes and dull bases heart- reg, +PAULA abd soft, nt, nd, +BS ext 1+ b/l edema rt femoral dialysis catheter neuro- a,a, o x 3 no rashes noted mood anxious pulses palpable Urinary Catheter Management^: Jasmine: Cath Placed During This Visit: yes Reason for Continuing Indwelling Catheter: Accurate Measurement of Urinary Output in Critically Ill Patients Urinary Catheter Date of Insertion: 03/07/21 Urinary Catheter Time of Insertion: 17:30 Data : 03/13/21 02:50 03/13/21 02:50 Micro: Microbiology 03/12/21 09:43 Gram Stain - Final Sputum - Expectorated Sputum 03/12/21 10:27 Legionella Urinary Antigen - Final Urine Catheterized A&P Additional A&P Information 55 yr old female seronegative RA w/ sepsis, pleural effusion, COPD, HTN. 1. SARAVANAN- presumed ATN vs CAPO- however now her p-anca came back very + >1:640- need to be concerned for ANCA vasculitis- will inc steroid dose to 500 mgm iv d -will recommend renal biopsy - to look for vasculitis vs vanco toxicity vs other- note she did not have significant hematuria - cr started to improve-then worsened and pt is s/p dialysis catheter and first HD on 03/11/21 -good uop -cont to hold NSAID -note very high vanco level on 03/07 and 03/08 of 61 and 58 and 41 on 03/10- vanco level now normal at 16.4 -for today plan on cxr- we will dialyze today - 3 hrs, remove 2l, 2k bath +p-ANCa- 1:640 discuss renal biopsy and possible lung biopsy 2. COPD- steroids, duonebs 3. pulm disease- Q ANCA vasculitis vs infection -on bactrim- try to change to atovaquone if possible -also on levaquin 4. anemia - hgb down to 8.5- give epo 5. bicarb 23 - normal 6. monitor phos -binders and dialysis 7. glucose control on steroids serologies reviewed seen and examined w/ RN- telehealth visit discussed w/ Datar Attestations Medical Necessity Statement*: + SARAVANAN, +ANCA, sob Time Spent in Patient Care: Greater than 35 minutes Coding Level of Care Code Acute Stain Maker for Saji Guadarrama
[2021-03-13] MEDS: budesonide 0.5 mg/2 mL Neb INHALATION (08:35)
--- NOTE | 2021-03-13 08:41 | PM.PN ---
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 Patient was started on adalimumab on 02/14/2021 and only 2 doses prior to hospitalization. -She was on IV Solu-Medrol 60 every 8 hr increased to solumedrol 500 mg iv daily x 3 days and may require rituximab/ Cyclophosphamide and possible plasmaphaeresis - Patient needs renal biopsy for histological evidence of ANCA Vasculitis -Decision was made to transfer patient to a higher facility to perform renal biopsy, plasmapheresis if needed, and inpatient rheumatology services. Everything explained in detail to the patient and her family ( and daughter Estrella) all verbalized understanding and agreed with the plan. Transfer process initiated to send patient to [facility] in [place]. - She reported improvement in her breathing after receiving first dose of Solu-Medrol 500; currently saturating 100% on 5L nc - will titrate down to keep sats > 93% Medications: Reviewed: Yes Vitals/I&O/Wt Last Vital Signs Temp 98 F 03/13/21 03:50 Pulse 108 H 03/13/21 08:36 Resp 20 H 03/13/21 08:36 BP 140/84 03/13/21 03:50 Pulse Ox 89 L 03/13/21 08:36 03/12/21 03/13/21 03/13/21 22:59 06:59 14:59 Intake Total 490 / 970 170 / 1140 360 / 360 Output Total 1400 / 3200 1400 / 4600 Balance -910 / -2230 -1230 / -3460 360 / 360 Physical Exam Narrative: EXAM NARRATIVE: General: alert, NAD, appears more comfortable with urinalysis HEENT: conj clear, EOMI, PERRL, mmm, ulcers noted on tongue Neck: supple, no meningismus Heme: no cervical LAP Pulmonary: Bilateral diffuse wheeze improved Cardiovascular: rrr, nl s1s2, no mrg Abdomen: soft, nt, nd, no r/g, bs+ Extremities: pulses +, 1+ pitting pedal edema, no c/c, R Hand-both hands look puffy overall, tenderness across MCPs but more on the ventral aspect : no CVA tenderness Skin: intact, no rash MSK: no back or neck pain Urinary Catheter Management^: Jasmine: Cath Placed During This Visit: yes Reason for Continuing Indwelling Catheter: Accurate Measurement of Urinary Output in Critically Ill Patients Urinary Catheter Date of Insertion: 03/07/21 Urinary Catheter Time of Insertion: 17:30 Data : 03/13/21 02:50 03/13/21 02:50 Other Labs: Laboratory Results WBC 11.7 10^3/uL (4.0-10.0) H 03/13/21 02:50 RBC 3.31 10^6/uL (4.1-5.3) L 03/13/21 02:50 Hgb 8.5 g/dL (11.5-15.3) L 03/13/21 02:50 Hct 26.2 % (37.0-47.0) L 03/13/21 02:50 MCV 79.2 fL (81-99) L 03/13/21 02:50 MCH 25.7 pg (28.0-34.0) L 03/13/21 02:50 MCHC 32.4 g/dL (30.0-36.0) 03/13/21 02:50 RDW 15.9 % (12.1-15.1) H 03/13/21 02:50 Plt Count 289 10^3/cmm (130-400) 03/13/21 02:50 MPV 10.5 fL (7.4-10.4) H 03/13/21 02:50 Neut % (Auto) 93.4 % 03/12/21 11:20 Lymph % (Auto) 3.8 % 03/12/21 11:20 Boundary % (Auto) 2.2 % 03/12/21 11:20 Eos % (Auto) 0.0 % 03/12/21 11:20 Baso % (Auto) 0.1 % 03/12/21 11:20 Neut # (Auto) 10.10 10^3/uL (1.8-7.7) H 03/12/21 11:20 Lymph # (Auto) 0.4 10^3/uL (0.8-4.8) L 03/12/21 11:20 Boundary # (Auto) 0.2 10^3/uL (0.2-0.9) 03/12/21 11:20 Eos # (Auto) 0.0 10^3/uL (0.0-0.8) 03/12/21 11:20 Baso # (Auto) 0.0 10^3/uL (0.0-0.1) 03/12/21 11:20 Nucleated RBC % (auto) 0 % 03/12/21 11:20 Total Counted 100 (0-100) 03/13/21 02:50 Atypical Lymphs % 0.0 % (0-5) 03/13/21 02:50 Absolute Neutrophils 10.3 10^3/cmm (1.4-6.5) H 03/13/21 02:50 Segmented Neutrophils 86 % 03/13/21 02:50 Abs Segm Neuts (Man) 10.1 10/cmm (1.6-7.1) H 03/13/21 02:50 Band Neutrophils 2.0 % 03/13/21 02:50 Abs Band Neuts (Man) 0.2 10^3/cmm (0.0-1.2) 03/13/21 02:50 Absolute Lymphocytes 1.3 10^3/cmm (1.2-3.4) 03/13/21 02:50 Lymphocytes (Manual) 11 % 03/13/21 02:50 Monocytes (Manual) 1.0 % 03/13/21 02:50 Absolute Monocytes 0.1 10^3/cmm (0.1-0.6) 03/13/21 02:50 Eosinophils (Manual) 0 % 03/13/21 02:50 Absolute Eosinophils 0.0 10^3/cmm (0.0-0.7) 03/13/21 02:50 Basophils (Manual) 0.0 % 03/13/21 02:50 Absolute Basophils 0.0 10^3/cmm (0.0-0.2) 03/13/21 02:50 Nucleated RBCs # 0.0 /100WBC 03/12/21 11:20 Platelet Estimate Normal (Normal) 03/13/21 02:50 ESR 44 mm/hr (0-15) H 03/05/21 01:45 PT 14.00 SECONDS (12.1-14.9) 03/05/21 01:45 INR 1.05 (0.8-1.2) 03/05/21 01:45 Specimen Type Arterial 03/12/21 08:18 Sample Site Radial, left 03/12/21 08:18 ABG pH 7.45 (7.35-7.45) 03/12/21 08:18 ABG pCO2 37.6 mmHg (35-45) 03/12/21 08:18 ABG pO2 60.1 mmHg (80.0-100.0) L 03/12/21 08:18 ABG HCO3 26.2 mmol/L (22-26) H 03/12/21 08:18 ABG O2 Saturation 96.1 03/09/21 10:50 ABG Base Excess 2.1 mmol/L (-2.0-2.0) H 03/12/21 08:18 Maxwell Test Pos 03/12/21 08:18 VBG pH 7.42 (7.32-7.42) 03/11/21 18:00 VBG pCO2 40.7 mmHg (41-51) L 03/11/21 18:00 VBG pO2 43.8 mmHg (25-40) H 03/11/21 18:00 VBG HCO3 26.2 mmol/L (24-28) 03/11/21 18:00 VBG Base Excess 1.6 mmol/L (-3.0-3.0) 03/11/21 18:00 VBG Hematocrit 27.4 % (37-47) L 03/11/21 18:00 A-a O2 Gradient 3.6 mmHg (5-10) L 03/09/21 10:50 Hematocrit 27.3 % (37-47) L 03/12/21 08:18 Hgb O2 Saturation 94.8 % (95-100) L 03/09/21 10:50 Carboxyhemoglobin 1.1 %THgb (0.4-20.1) 03/09/21 10:50 Methemoglobin 0.3 % (0.4-1.5) L 03/09/21 10:50 Total Hemoglobin 8.1 g/dL (12-16) L 03/09/21 10:50 Sodium 140.0 mmol/L (131-143) 03/09/21 10:50 Potassium 4.6 mmol/L (3.5-5.0) 03/09/21 10:50 Glucose 152.0 mg/dL (70-115) H 03/09/21 10:50 Ionized Calcium 1.3 mmol/L (1.1-1.4) 03/09/21 10:50 O2 Delivery Device Nc 03/12/21 08:18 O2 Liters/Min 4.0 % 03/12/21 08:18 FiO2 36.0 % 03/12/21 08:18 Criminal Intelligence Analyst ID Ed 03/12/21 08:18 Sodium 139 mmol/L (136-145) 03/13/21 02:50 Potassium 5.0 mmol/L (3.5-5.1) 03/13/21 02:50 Chloride 97 mmol/L (98-107) L 03/13/21 02:50 Carbon Dioxide 23 mmol/L (22-29) 03/13/21 02:50 Anion Gap 24.0 (5-19) H 03/13/21 02:50 BUN 71 mg/dL (6-20) H 03/13/21 02:50 Creatinine 6.9 mg/dL (0.5-0.9) H* 03/13/21 02:50 GFR Calculation 6.2 mL/min (90-130) L 03/13/21 02:50 Glucose 152 mg/dL (65-115) H 03/13/21 02:50 POC Glucose 134 mg/dL (70-110) H 03/13/21 06:43 Calculated Osmolality 312 mOsm/kg (285-295) H 03/13/21 02:50 Lactate 2.7 mmol/L (0.5-2.2) H 03/07/21 17:05 Uric Acid 5.9 mg/dL (2.4-5.7) H 03/07/21 15:37 Calcium 9.8 mg/dL (8.5-10.5) 03/13/21 02:50 Phosphorus 6.7 mg/dL (2.5-4.5) H 03/13/21 02:50 Magnesium 2.1 mg/dL (1.7-2.3) 03/13/21 02:50 Total Bilirubin 0.2 mg/dL (0.15-1.2) 03/13/21 02:50 AST 24 U/L (0-32) 03/13/21 02:50 ALT 33 U/L (0-33) 03/13/21 02:50 Alkaline Phosphatase 97 IU/L (35-105) 03/13/21 02:50 Lactate Dehydrogenase 392 U/L (135-214) H 03/11/21 19:01 Creatine Kinase 66 U/L (26-192) 03/07/21 15:37 Troponin T Baseline 17 ng/L (0-10) H 03/11/21 19:01 Troponin T 120 Minute 14.67 ng/L (0-10) H 03/11/21 21:00 Delta Troponin T -2.33 ABS# (0-10) L 03/11/21 21:00 Troponin T Hi Sens 6Hr 18.06 ng/L (0-10) H 03/12/21 00:40 Troponin T Hi Sens 6Hr Delta 1.06 ng/L (0-12) 03/12/21 00:40 C-Reactive Protein 65.6 mg/L (0.0-4.9) H 03/05/21 01:45 NT-Pro-B Natriuret Pep 583 pg/mL (0-125) H 03/11/21 19:01 Total Protein 6.8 g/dL (6.6-8.7) 03/13/21 02:50 Albumin 3.5 g/dL (3.5-5.2) 03/13/21 02:50 Globulin 3.3 g/dL (1.3-4.6) 03/13/21 02:50 Procalcitonin 0.33 ng/mL (0-0.5) 03/07/21 15:37 Urine Color Cancelled 03/07/21 17:30 Urine Color Straw (Yellow) 03/07/21 17:30 Urine Appearance Cancelled 03/07/21 17:30 Urine Appearance Clear (CLEAR) 03/07/21 17:30 Urine pH 5 (5-7) 03/07/21 17:30 Urine pH Cancelled 03/07/21 17:30 Ur Specific [place] 1.000 (1.005-1.030) L 03/07/21 17:30 Ur Specific [place] Cancelled 03/07/21 17:30 Urine Protein Cancelled 03/07/21 17:30 Urine Protein Neg (Negative) 03/07/21 17:30 Urine Glucose (UA) Cancelled 03/07/21 17:30 Urine Glucose (UA) Norm (Normal) 03/07/21 17:30 Urine Ketones Cancelled 03/07/21 17:30 Urine Ketones Negative (Negative) 03/07/21 17:30 Urine Blood Cancelled 03/07/21 17:30 Urine Blood Neg (Negative) 03/07/21 17:30 Urine Nitrate Cancelled 03/07/21 17:30 Urine Nitrate Negative (Negative) 03/07/21 17:30 Urine Bilirubin Cancelled 03/07/21 17:30 Urine Bilirubin Neg (Negative) 03/07/21 17:30 Prot Sulfosalicylic Acd Cancelled 03/07/21 17:30 Urine Urobilinogen Cancelled 03/07/21 17:30 Urine Urobilinogen Norm mg/dL (Negative) 03/07/21 17:30 Ur Leukocyte Esterase Cancelled 03/07/21 17:30 Ur Leukocyte Esterase Negative (Negative) 03/07/21 17:30 Urine RBC 0-4 /hpf (0-2) H 03/07/21 17:30 Urine WBC 0-4 /hpf (0-5) H 03/07/21 17:30 Ur Eosinophil Smear 0 (0-0) 03/07/21 17:30 Ur Squamous Epith Cells 5-10 /hpf (0-5) H 03/07/21 17:30 Amorphous Sediment Not Reportable 03/07/21 17:30 Urine Bacteria Trace /hpf (NONE) 03/07/21 17:30 Urine Mucus None /hpf 03/07/21 17:30 Urine Eosinophils No eosinophils seen 03/07/21 17:30 Urine Osmolality 170 mOsm/kg (50-1200) 03/07/21 17:30 Ur Random Sodium 34 mmol/L 03/07/21 17:30 Ur Random Potassium 13 mmol/L 03/07/21 17:30 Ur Random Chloride 11 mmol/L 03/07/21 17:30 Urine Creatinine 44 mg/dL (28-217) 03/07/21 17:30 RSV Nasal Swab Not detected (Not Detected) 03/05/21 16:55 RSV Nasal Swab Int Cntl Not detected (Not Detected) 03/05/21 16:55 Vancomycin Trough Cancelled 03/08/21 04:46 Random Vancomycin 16.4 ug/mL (20.0-40.0) L 03/13/21 02:50 Serum Ketones Negative (Negative) 03/07/21 17:05 KEVIN Screen Negative (NEGATIVE) 03/07/21 17:55 p-ANCA Antibody >1:640 Titer (<1:20) H 03/07/21 17:55 SS-A/Ro Antibody <1.0 neg AI (<1.0 NEG) 03/07/21 17:55 SS-B/La IgG Antibody <1.0 neg AI (<1.0 NEG) 03/07/21 17:55 Anti-ds DNA IgG Ab <1 IU/mL 03/07/21 17:55 Complement C3 154 mg/dL (90-180) 03/07/21 17:05 Complement C4 23 mg/dL (10-40) 03/07/21 17:05 Adenovirus (PCR) Not detected (Not Detected) 03/05/21 16:55 Nasal/Oral COVID-19 PCR Not detected 03/05/21 04:15 Hep Bs Antigen Non-reactive (Nonreactive) 03/11/21 04:03 Hep Bs Antibody 3.5 (11.5-1000) L 03/11/21 04:03 Hep B Core Total Ab Non-reactive (Nonreactive) 03/07/21 17:55 Hepatitis C Antibody Non-reactive (Nonreactive) 03/11/21 04:03 Human Metapneumovir PCR Not detected (Not Detected) 03/05/21 16:55 Influenza A (RT-PCR) Not detected (Not Detected) 03/05/21 16:55 Influenza A (H1) PCR Not detected (Not Detected) 03/05/21 16:55 Influenza A (H3) PCR Not detected (Not Detected) 03/05/21 16:55 Influenza Type A Ag Negative (Negative) 03/05/21 16:28 Influenza Type B Ag Negative (Negative) 03/05/21 16:28 Influenza B (RT-PCR) Not detected (Not Detected) 03/05/21 16:55 Parainfluenzae Type 1 Not detected (Not Detected) 03/05/21 16:55 Parainfluenzae Type 2 Not detected (Not Detected) 03/05/21 16:55 Parainfluenzae Type 3 Not detected (Not Detected) 03/05/21 16:55 RSV Ab Comment see note 03/05/21 16:55 Rhinovirus (PCR) Not detected (Not Detected) 03/05/21 16:55 SARS-CoV-2 Ag (Rapid) Negative (Negative) 03/12/21 10:31 Anti-Streptolysin O Ab <50 IU/mL (<200) 03/07/21 17:55 TB (QFT) Gold In Tube Negative (NEGATIVE) 03/06/21 06:00 TB Test (QFT) Nil 0.07 IU/mL 03/06/21 06:00 TB Test (QFT) Mitogen 8.18 IU/mL 03/06/21 06:00 TB Test Mitogen - Nil 0.01 IU/mL 03/06/21 06:00 TB Test TB - Nil 0.01 IU/mL 03/06/21 06:00 Beta-(1,3)-D-Glucan Cancelled 03/12/21 09:43 B-(1,3)-D-Glucan Intrp Cancelled 03/12/21 09:43 Ref Test Comments P-anca pos (Negative) A 03/07/21 17:55 Impressions Chest CTA 03/04/21 19:00 IMPRESSION: 1. Negative for pulmonary embolism. 2. There is a nonspecific small volume right pleural effusion which demonstrates a mild degree of pleural enhancement. A loculated collection cannot be excluded. 3. Background emphysema and interstitial fibrotic lung changes without evidence of focal pneumonia. Radiation Dose CTDIVOL = (mGy): DLP = 1183.25 (mGy-cm) Renal Ultrasound 03/08/21 05:00 IMPRESSION: Normal renal ultrasound. Chest CT 03/11/21 15:03 IMPRESSION: 1. Widespread multifocal airspace disease in the lungs significantly increased from prior imaging. Nonspecific pattern and appearance. 2. Imaging features can be seen with COVID-19 pneumonia, though are nonspecific and can occur with a variety of infectious and noninfectious processes. (Reference: Santi) REFERENCES: Santi Steven, et al., Radiological Society of [place] Expert Consensus Statement on Reporting Chest CT Findings Related to COVID-19. Endorsed by the Society of Thoracic Radiology, the [place] [employer], and RSNA. Published December 21, 2019. Radiation Dose CTDIVOL = (mGy): DLP = 902.41 (mGy-cm) Chest X-Ray 03/13/21 07:15 IMPRESSION: 1. Increasing groundglass infiltrates throughout both lungs that may represent Covid pneumonia. Micro: Microbiology 03/12/21 09:43 Gram Stain - Final Sputum - Expectorated Sputum 03/12/21 10:27 Legionella Urinary Antigen - Final Urine Catheterized A&P Assessment and plan (1) Exertional dyspnea: Status: Acute (2) Sepsis: Status: Acute Qualifiers: Sepsis type: sepsis due to unspecified organism Sepsis acute organ dysfunction status: without acute organ dysfunction Qualified Code(s): A41.9 - Sepsis, unspecified organism (3) Pleural effusion on right: Status: Acute (4) Obesity, morbid, BMI 40.0-49.9: Status: Acute (5) LEX on CPAP: Status: Chronic (6) Chronic steroid use: Status: Chronic (7) COPD (chronic obstructive pulmonary disease): Status: Chronic Qualifiers: COPD type: emphysema Emphysema type: centrilobular Qualified Code(s): J43.2 - Centrilobular emphysema (8) Ex-smoker for more than 1 year: Status: Chronic (9) Restrictive airway disease: Status: Chronic (10) High risk medication use: Status: Acute (11) Seronegative rheumatoid arthritis of both hands: Status: Chronic (12) COVID-19: Status: Resolved (13) Serositis: Status: Acute (14) SARAVANAN (acute kidney injury): Status: Acute (15) PCP (pneumocystis carinii pneumonia): Status: Acute Overall: 55-year-old Ms. Gerardo Lennon with past medical history of rheumatoid arthritis on Humira (started 02/14/2021 and received 2 doses with admission), hydroxychloroquine, prednisone 15 mg daily (last 2 years), COPD 1 pack/day for 35 years smoker quit 2013, hypertension, hyperlipidemia, diabetes presented to ED on 03/04/2021 for right pleuritic chest pain and shortness of breath. She was saturating 95% on room air. CTA on admission ruled out PE but showed small right pleural effusion and mild groundglass opacities. Bedside ultrasound did not show good pocket to drain right pleural effusion; her Humira and hydroxychloroquine were held and prednisone was increased to 40 mg daily and started on vancomycin and Zosyn to treat possible infectious vs inflammatory pleural effusion. Patient responded clinically with improvement in her right pleuritic chest pain and improving dyspnea while daily ultrasound examination showed decreasing right pleural effusion. procalcitonin 0.21 on admission, - Covid antigen and PCR negative on admission; Flu negative ; Bacterial antigens; Blood cultures; MRSA PCR, TB quantiferon -negative; other viral panel - negative, Sputum cx - Ivette albicans; likely commensal; On 03/07/2021, day 4 of admission, her creatinine increased from 0.4 to 3.2-likely secondary to contrast-induced vs vancomycin, 2 doses of ketorolac for pleuritic chest pain, HCTZ, lisinopril. Vancomycin level was noted to be 60 and all nephrotoxic medications were held. MRSA nares negative, vancomycin stopped due to impaired renal function. Nephrology were consulted and as patient was nonoliguric and as there was no hard indication for dialysis we continued to monitor renal functions at creatinine at 7-8. Urinalysis demonstrates no evidence of pyuria or hematuria hence glomerulonephritis is unlikely in this clinical setting.urine random sodium 34, urine random potassium 13, urine random chloride 11, urine random creatinine 44. Vasculitis work-up sent. Renal sono 03/07/21 normal kidneys; BNP increased to 2200; EF on echo 06/2020 64% with grade I/IV diastolic dysfunction noted. 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 No evidence of atrial septal defect or patent formen ovale. Lipomatous hypertrophy of interatrial septum. Mildly aneurysmal interatrial septum. Echo 03/06/2021 this admission moderate left ventricular hypertrophy, grade I/IV diastolic dysfunction (abnormal relaxation filling pattern), normal to mildly elevated filling pressures. 0n 03/09/21 Day 6 of admission, she was on room air saturating 96% with ABG showing PaO2 80% with PF ratio > 350 ; during next 2 days, pt requried O2 gradually went up to 4L, DuoNeb nebulizations increased to every 4 hr scheduled and later changed to Xopenex and Atrovent every 6 hours due to tachycardia; steroids were increased to 60 IV every 8 hours but respiratory ravi she continued to have significant wheezing. On 03/10/2021, day 7 of admission, Bicarb dropped down to 16 with anion gap metabolic acidosis and patient received bicarb drip for 12 hours and patient oxygen requirement went up to 4 L nasal cannula and he continues still wheezing significantly. On 03/11/2021, day 8 of admission, repeated CT chest without contrast for significant wheezing and worsening and increasing requirement of 4 L, showed worsening of diffuse GGO's-possibility of fluid overload-discussed with nephrology and did temporary dialysis to remove 1.5 L of fluid with hope to improve her dyspnea. Other infectious causes of worsening GGO's were entertained-repeated COVID-19 rapid antigen and it was negative, given her history of immunosuppression due to chronic steroid use, BD glucan and induced sputum for PCP were sent but as the results would take 1 week - started on empiric coverage with Bactrim 5 mg/kg being the minimum dose in patient with GFR 14. Also started on Levaquin 500 mg every 48 hour renally dosed to cover atypical pneumonia, sent for urine Legionella (was negative) , Chlamydia antigen (was negative), CMV quantitative PCR. There is also a consideration of possible pulmonary renal syndrome-and possible diffuse alveolar hemorrhage based on CT chest-but patient denied any hemoptysis and hemoglobin was stable 8.5-9 since admission. On 03/12/2021, day 9 of admission, ABG showed PaO2 60 on FiO2 of 36%(4 L) with PF ratio 160-suggestive of moderate ARDS -with impending hypoxemic respiratory failure, decided to continue Bactrim 5 mg/kg q 24hr post HD while monitoring her potassium, 2nd line primaquin in not available in our pharmacy and 3rd line atovoquone is good only for mild disease. Patient is moved to stepdown unit for close monitoring of saturations and respiratory status and plan is to do bronchoscopy next day afternoon for airway inspection and BAL samples for cultures On 03/13/2021, day 10 of admission, Afebrile since admission; wbc 11.7 K , discontinue Zosyn started 03/04/21; and currently on Bactrim 5 mg/kg 24 hours post hemodialysis for possible PCP for atypical coverage.so discontinued no improvement in renal functions and anti-MPO p-ANCA antibodies resulted > 1:640 suggesting possible underlying ANCA vasculitis leading to renal failure. Discussed with telenephrology and agreed to transfer patient to higher facility to get renal biopsy for definitive diagnosis, possible plasmapheresis and in patient rheumatology services. Meanwhile increased IV Solu-Medrol to 500 mg daily for 3 days and continued dialysis and PCP treatment with Bactrim. Patient transfer is accepted pending bed availability. -Literature review showed extremely rare complication of Adalimumab-induced ANCA vasculitis (4 reported cases ) causing pulmonary renal syndrome although the average duration of receiving treatment was 3 months to 30 months (Median 6 months). Patient was started on adalimumab on 02/14/2021 and only 2 doses prior to hospitalization. 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 Case discussed with nephrology, hospitalist and her outpatient clerical coordinator involved in her care. Diagnoses: #Dyspnea-combination of ANCA vasculitis vs COPD exacerbation vs rheumatoid interstitial lung disease exacerbation with right pleuritis and mild pleural effusion #Repeat CT chest 03/11/2021: Showed worsening of diffuse GGO's compared to admission CT chest - PCP pneumonia vs DAH due to ANCA vascuilits vs Fluid overload # Right pleural effusion - likely parapneumonic given sepsis vs inflammatory given underlying RA - resolving # On Chronic steroid use - suspect PCP pneumonia # Chronic ex smoker - 1 ppd x 35 years - quit 2013; # Seronegative RA - on Humira(started 02/14/2021 and received 2 doses before admission), plaquanil and Prednisone 10 mg daily as out patient - immunocompromised # SARAVANAN Since 03/07/2021-??Adalimumab induced ANCA Vasculitis Vs Contrast (received 03/04/2021 )induced vs medication induced - likely vancomycin/lisinopril/hctz last dose ketorolac on 03/05/21 03/05/21 03/06/21: 03/07/21: Attestations Medical Necessity Statement*: ILD vs COPD Exacerbation on nebulizations, steroids and monitor for clinical response ; close monitoring newly developed SARAVANAN likely medication vs contrast induced and on temporary hemodialysis; suspect PCP pneumonia in pt on chronic immunosuppression; possible transfer to higher facility for renal biopsy and plasmapharesis Time Spent in Patient Care: Greater than 35 minutes (>than 50% of time spent in counselling and/or direct pt care on unit). Critical Care Time: Critical Care Time (min): 45 Coding Level of Care Code Established Pt Acute [employer] for Chg Fwd Patient Type Established History Comprehensive Exam Comprehensive Medical Decision Making High Complexity Diagnoses Exertional dyspnea R06.00 Sepsis A41.9 Sepsis type: sepsis due to unspecified organism Sepsis acute organ dysfunction status: without acute organ dysfunction Pleural effusion on right J90 Obesity, morbid, BMI 40.0-49.9 E66.01 LEX on CPAP G47.33; Z99.89 Chronic steroid use COPD (chronic obstructive pulmonary disease) J43.2 COPD type: emphysema Emphysema type: centrilobular Ex-smoker for more than 1 year Z87.891 Restrictive airway disease J98.4 High risk medication use Z79.899 Seronegative rheumatoid arthritis of both hands M06.041; M06.042 COVID-19 U07.1 Serositis K65.8 SARAVANAN (acute kidney injury) N17.9 PCP (pneumocystis carinii pneumonia) B59 Time Spent (min) 60 Comment including discussion with family
[2021-03-13] MEDS: nystatin 100,000 unit/mL UDC 5 mL 500000 UNIT PO ×2 (08:58→14:07)
[2021-03-13] MEDS: zinc gluconate 50 mg Tablet PO (08:58)
[2021-03-13] MEDS: docusate sodium 100 mg Capsule PO (08:58)
[2021-03-13] MEDS: ascorbic acid 500 mg Tablet 1000 MG PO (08:58)
[2021-03-13] MEDS: fluticasone nasal spray 16gm Btl 2 SPRAY NASAL (08:59)
[2021-03-13] MEDS: heparin 5,000 unit/mL INJ 1 mL 5000 UNIT SUBCUT (08:59)
--- NOTE | 2021-03-13 10:40 | PC.NURSE ---
Patient taken to dialysis at this time via bed
[2021-03-13] MEDS: heparin, porcine 1,000 unit/mL INJ 10 mL HE (13:15)
[2021-03-13 14:14] LABS: Glucose Point of Care 271 mg/dL (70-110)
[2021-03-13] MEDS: piperacillin-tazobactam 3.375 GM in sodium chloride 0.9% (plus) 50 ML IV (15:19)
--- NOTE | 2021-03-13 16:13 | P.DS_ITS ---
Discharge Providers Date of Admission: 03/04/21 22:07 Date of Discharge: March 13, 2021 Attending Provider at Admission: Linda Stapleton MD Attending Provider at Discharge: Fracisco Mariscal DO Primary Care Provider: Bri Munoz MD Diagnoses at Discharge Discharge Diagnosis (1) Exertional dyspnea: Status: Acute (2) Sepsis: Status: Acute Qualifiers: Sepsis type: sepsis due to unspecified organism Sepsis acute organ dysfunction status: without acute organ dysfunction Qualified Code(s): A41.9 - Sepsis, unspecified organism (3) Pleural effusion on right: Status: Acute (4) Obesity, morbid, BMI 40.0-49.9: Status: Acute (5) LEX on CPAP: Status: Chronic Permanent problem details: (6) Chronic steroid use: Status: Chronic Permanent problem details: for RA (7) COPD (chronic obstructive pulmonary disease): Status: Chronic Qualifiers: COPD type: emphysema Emphysema type: centrilobular Qualified Code(s): J43.2 - Centrilobular emphysema (8) Ex-smoker for more than 1 year: Status: Chronic (9) Restrictive airway disease: Status: Chronic (10) High risk medication use: Status: Acute Permanent problem details: Humira started 02/15, plaquenil (11) Seronegative rheumatoid arthritis of both hands: Status: Chronic (12) COVID-19: Status: Resolved Permanent problem details: required oxygen x 2 months (13) Serositis: Status: Acute (14) SARAVANAN (acute kidney injury): Status: Acute (15) PCP (pneumocystis carinii pneumonia): Status: Acute Reason for Visit Reason for Visit: SOB AND FEVER Hospital Course Hospital Course 55-year-old Ms. Gerardo Lennon with past medical history of rheumatoid arthritis on Humira (started 02/14/2021 and received 2 doses with admission), hydroxychloroquine, prednisone 15 mg daily (last 2 years), COPD 1 pack/day for 35 years smoker quit 2013, hypertension, hyperlipidemia, diabetes presented to ED on 03/04/2021 for right pleuritic chest pain and shortness of breath. She was saturating 95% on room air. CTA on admission ruled out PE but showed small right pleural effusion and mild groundglass opacities. Bedside ultrasound did not show good pocket to drain right pleural effusion; her Humira and hydroxychloroquine were held and prednisone was increased to 40 mg daily and started on vancomycin and Zosyn to treat possible infectious vs inflammatory pleural effusion. Patient responded clinically with improvement in her right pleuritic chest pain and improving dyspnea while daily ultrasound examination showed decreasing right pleural effusion. procalcitonin 0.21 on admission, - Covid antigen and PCR negative on admission; Flu negative ; Bacterial antigens; Blood cultures; MRSA PCR, TB quantiferon -negative; other viral panel - negative, Sputum cx - Ivette albicans; likely commensal; On 03/07/2021, day 4 of admission, her creatinine increased from 0.4 to 3.2- likely secondary to contrast-induced vs vancomycin, 2 doses of ketorolac for pleuritic chest pain, HCTZ, lisinopril. Vancomycin level was noted to be 60 and all nephrotoxic medications were held. MRSA nares negative, vancomycin stopped due to impaired renal function. Nephrology were consulted and as patient was nonoliguric and as there was no hard indication for dialysis we continued to monitor renal functions at creatinine at 7-8. Urinalysis demonstrates no evidence of pyuria or hematuria hence glomerulonephritis is unlikely in this clinical setting.urine random sodium 34, urine random potassium 13, urine random chloride 11, urine random creatinine 44. Vasculitis work-up sent. Renal sono 03/07/21 normal kidneys; BNP increased to 2200; EF on echo 06/2020 64% with grade I/IV diastolic dysfunction noted. 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 No evidence of atrial septal defect or patent formen ovale. Lipomatous hypertrophy of interatrial septum. Mildly aneurysmal interatrial septum. Echo 03/06/2021 this admission moderate left ventricular hypertrophy, grade I/IV diastolic dysfunction (abnormal relaxation filling pattern), normal to mildly elevated filling pressures. 0n 03/09/21 Day 6 of admission, she was on room air saturating 96% with ABG showing PaO2 80% with PF ratio > 350 ; during next 2 days, pt requried O2 gradually went up to 4L, DuoNeb nebulizations increased to every 4 hr scheduled and later changed to Xopenex and Atrovent every 6 hours due to tachycardia; steroids were increased to 60 IV every 8 hours but respiratory ravi she continued to have significant wheezing. On 03/10/2021, day 7 of admission, Bicarb dropped down to 16 with anion gap metabolic acidosis and patient received bicarb drip for 12 hours and patient oxygen requirement went up to 4 L nasal cannula and he continues still wheezing significantly. On 03/11/2021, day 8 of admission, repeated CT chest without contrast for significant wheezing and worsening and increasing requirement of 4 L, showed worsening of diffuse GGO's-possibility of fluid overload-discussed with nephrology and did temporary dialysis to remove 1.5 L of fluid with hope to imp rove her dyspnea. Other infectious causes of worsening GGO's were entertained- repeated COVID-19 rapid antigen and it was negative, given her history of immunosuppression due to chronic steroid use, BD glucan and induced sputum for PCP were sent but as the results would take 1 week - started on empiric coverage with Bactrim 5 mg/kg being the minimum dose in patient with GFR 14. Also started on Levaquin 500 mg every 48 hour renally dosed to cover atypical pneumonia, sent for urine Legionella (was negative) , Chlamydia antigen (was negative), CMV quantitative PCR. There is also a consideration of possible pulmonary renal syndrome-and possible diffuse alveolar hemorrhage based on CT chest-but patient denied any hemoptysis and hemoglobin was stable 8.5-9 since admission. On 03/12/2021, day 9 of admission, ABG showed PaO2 60 on FiO2 of 36%(4 L) with PF ratio 160-suggestive of moderate ARDS -with impending hypoxemic respiratory failure, decided to continue Bactrim 5 mg/kg q 24hr post HD while monitoring her potassium, 2nd line primaquin in not available in our pharmacy and 3rd line atovoquone is good only for mild disease. Patient is moved to stepdown unit for close monitoring of saturations and respiratory status and plan is to do bronchoscopy next day afternoon for airway inspection and BAL samples for cultures On 03/13/2021, day 10 of admission, Afebrile since admission; wbc 11.7 K , discontinue Zosyn started 03/04/21; and currently on Bactrim 5 mg/kg 24 hours post hemodialysis for possible PCP for atypical coverage.so discontinued no improvement in renal functions and anti-MPO p-ANCA antibodies resulted > 1:640 suggesting possible underlying ANCA vasculitis leading to renal failure. Discussed with telenephrology and agreed to transfer patient to higher facility to get renal biopsy for definitive diagnosis, possible plasmapheresis and in patient rheumatology services. Meanwhile increased IV Solu-Medrol to 500 mg daily for 3 days and continued dialysis and PCP treatment with Bactrim. Patient transfer is accepted pending bed availability. -Literature review showed extremely rare complication of Adalimumab-induced ANCA vasculitis (4 reported cases ) causing pulmonary renal syndrome although the average duration of receiving treatment was 3 months to 30 months (Median 6 months). Patient was started on adalimumab on 02/14/2021 and only 2 doses prior to hospitalization. 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: PMID: [id number] PMCID: [id number] DOI: [email or web address] Physical Exam Narrative: EXAM NARRATIVE: Gen: obese, mild SOB, anxious today H: reg nl S1, S2 no obvious murmur L: diminished throughout, audible wheezes worst on right A: obese soft NT/ND nl BS E: pedal edema Urinary Catheter Management^: Jasmine: Cath Placed During This Visit: yes Reason for Continuing Indwelling Catheter: Accurate Measurement of Urinary Output in Critically Ill Patients Urinary Catheter Date of Insertion: 03/07/21 Urinary Catheter Time of Insertion: 17:30 Discharge Data Data Completed and Pending: Completed Studies During Hospitalization Category Date Time Status CT angio chest PE protcl [id number] Urge nt Cat Scan 03/04/21 19:[address] chest wo con 7 1250 Routine Cat Scan 03/11/21 15:03 Completed XR chest 1V rojelio ble [id number] AM LABS Exams 03/07/21 04:00 Completed XR chest 1V rojelio ble [id number] Routine Exams 03/10/21 08:46 Completed XR chest 1V rojelio ble [id number] Urgent Exams 03/04/21 18:04 Completed XR chest 2V insp/ exp 36050 Stat Exams 03/13/21 07:15 Completed CV echo complete* [id number] Routine Ultrasound 03/06/21 10:51 Completed US renal BI* 7677 0 Routine Ultrasound 03/08/21 05:00 Completed Pending at discharge Category Date Time Status KEVIN Screen w/ Ref burton Routine Lab 03/07/21 17:55 Results CYTOMEGALOVIRUS D NA, QN, REAL Stat Lab 03/12/21 11:20 Received Complete Blood Co unt w/Auto AM LABS Lab 03/14/21 04:00 Ordered Complete Blood Co unt w/Auto AM LABS Lab 03/15/21 04:00 Ordered Complete Blood Co unt w/Auto AM LABS Lab 03/16/21 04:00 Ordered Comprehensive Met abolic Panel AM LA BS Lab 03/14/21 04:00 Ordered Comprehensive Met abolic Panel AM LA BS Lab 03/15/21 04:00 Ordered Comprehensive Met abolic Panel AM LA BS Lab 03/16/21 04:00 Ordered Fungitell Glucan Assay Routine Lab 03/12/21 11:20 Received Histoplasma Quant itative AG Routine Lab 03/12/21 20:59 Ordered Magnesium AM LABS Lab 03/14/21 04:00 Ordered Magnesium AM LABS Lab 03/15/21 04:00 Ordered Magnesium AM LABS Lab 03/16/21 04:00 Ordered Phosphorus AM LAB S Lab 03/14/21 04:00 Ordered Phosphorus AM LAB S Lab 03/15/21 04:00 Ordered Phosphorus AM LAB S Lab 03/16/21 04:00 Ordered Pneumocystis jiro veci Qual PCR Rout ine Lab 03/11/21 18:38 Received SS A Ro Sjogrens Antibody Routine Lab 03/07/21 17:55 Results SS-B/LA Antibody IGG Routine Lab 03/07/21 17:55 Results Sputum Culture an d Gram Stain Routi ne Lab 03/12/21 09:43 Results Urinalysis Routin e Lab 03/13/21 12:28 Uncollected Urine Creatinine Routine Lab 03/13/21 12:28 Uncollected Urine Protein Ran dom Routine Lab 03/13/21 12:28 Uncollected Labs from last 24 hours 03/13/21 03/13/21 03/13/21 14:10 06:43 02:50 WBC RBC Hgb Hct MCV MCH MCHC RDW Plt Count MPV Total Counted Atypical Lymphs % Absolute Neutrophi ls Segmented Neutroph ils Abs Segm Neuts (Ma n) Band Neutrophils Abs Band Neuts (Ma n) Absolute Lymphocyt es Lymphocytes (Manua l) Monocytes (Manual) Absolute Monocytes Eosinophils (Manua l) Absolute Eosinophi ls Basophils (Manual) Absolute Basophils Platelet Estimate VBG Hematocrit Sodium Potassium Chloride Carbon Dioxide Anion Gap BUN Creatinine GFR Calculation Glucose POC Glucose 271 H 134 H Calculated Osmolal ity Calcium Phosphorus Magnesium Total Bilirubin AST ALT Alkaline Phosphata se Total Protein Albumin Globulin Random Vancomycin 16.4 L p-ANCA Antibody Ref Test Comments 03/13/21 03/13/21 03/12/21 02:50 02:50 19:55 WBC 11.7 H RBC 3.31 L Hgb 8.5 L Hct 26.2 L MCV 79.2 L MCH 25.7 L MCHC 32.4 RDW 15.9 H Plt Count 289 MPV 10.5 H Total Counted 100 Atypical Lymphs % 0.0 Absolute Neutrophi ls 10.3 H Segmented Neutroph ils 86 Abs Segm Neuts (Ma n) 10.1 H Band Neutrophils 2.0 Abs Band Neuts (Ma n) 0.2 Absolute Lymphocyt es 1.3 Lymphocytes (Manua l) 11 Monocytes (Manual) 1.0 Absolute Monocytes 0.1 Eosinophils (Manua l) 0 Absolute Eosinophi ls 0.0 Basophils (Manual) 0.0 Absolute Basophils 0.0 Platelet Estimate Normal VBG Hematocrit Sodium 139 Potassium 5.0 Chloride 97 L Carbon Dioxide 23 Anion Gap 24.0 H BUN 71 H Creatinine 6.9 H* GFR Calculation 6.2 L Glucose 152 H POC Glucose 166 H Calculated Osmolal ity 312 H Calcium 9.8 Phosphorus 6.7 H Magnesium 2.1 Total Bilirubin 0.2 AST 24 ALT 33 Alkaline Phosphata se 97 Total Protein 6.8 Albumin 3.5 Globulin 3.3 Random Vancomycin p-ANCA Antibody Ref Test Comments 03/12/21 03/11/21 03/07/21 16:58 18:00 17:55 WBC RBC Hgb Hct MCV MCH MCHC RDW Plt Count MPV Total Counted Atypical Lymphs % Absolute Neutrophi ls Segmented Neutroph ils Abs Segm Neuts (Ma n) Band Neutrophils Abs Band Neuts (Ma n) Absolute Lymphocyt es Lymphocytes (Manua l) Monocytes (Manual) Absolute Monocytes Eosinophils (Manua l) Absolute Eosinophi ls Basophils (Manual) Absolute Basophils Platelet Estimate VBG Hematocrit 27.4 L Sodium Potassium Chloride Carbon Dioxide Anion Gap BUN Creatinine GFR Calculation Glucose POC Glucose 162 H Calculated Osmolal ity Calcium Phosphorus Magnesium Total Bilirubin AST ALT Alkaline Phosphata se Total Protein Albumin Globulin Random Vancomycin p-ANCA Antibody >1:640 H Ref Test Comments P-anca pos A Vitals: Last Vital Signs Temp 97.7 F 03/13/21 15:43 Pulse 107 H 03/13/21 15:43 Resp 30 H 03/13/21 15:43 BP 162/87 03/13/21 15:43 Pulse Ox 90 03/13/21 15:43 Discharge Plan Discharge Patient Disposition: Xfer Short-Term Hosp Condition: Serious Prescriptions: New ondansetron HCl (PF) 4 mg/2 mL Solution 4 mg IVP Q4H PRN (Reason: Nausea And Vomiting) Qty: 7 RF: 0 acetaminophen 325 mg Tablet 650 mg PO Q4H PRN (Reason: Mild/Mod Pain Or Temp >/= 101) Qty: 30 RF: 0 bisacodyl 5 mg Tablet,Delayed Release (Dr/Ec) 10 mg PO DAILY PRN (Reason: Constipation (see protocol)) Qty: 10 RF: 0 docusate sodium [DOK] 100 mg Capsule 100 mg PO BID Qty: 30 RF: 0 ascorbic acid (vitamin C) [Vitamin C] 500 mg Tablet 1,000 mg PO DAILY Qty: 30 RF: 0 Thera M Plus (ferrous fumarat) 9 mg iron-400 mcg Tablet 1 tab PO DAILY Qty: 7 RF: 0 insulin aspart U-100 [Novolog U-100 Insulin aspart] 100 unit/mL Solution 0 unit SUBCUT TIDWM Qty: 1 RF: 0 albumin, human 25 % [Flexbumin 25 %] 25 % Parenteral Solution 12.5 g continuous IV infusion PRN PRN (Reason: Hypotension and/or symptomatic) Qty: 1 RF: 0 budesonide 0.5 mg/2 mL Suspension For Nebulization 0.5 mg inhalation BID.RESPIRATORY Qty: 1 RF: 0 cholecalciferol (vitamin D3) 25 mcg (1,000 unit) Tablet 1,000 unit PO DAILY@07 Qty: 1 RF: 0 levothyroxine 112 mcg Tablet 112 mcg PO DAILY@07 Qty: 30 RF: 0 hydroxyzine pamoate 25 mg Capsule 25 mg PO TID PRN (Reason: Anxiety) Qty: 30 RF: 0 zinc gluconate 50 mg Tablet 50 mg PO DAILY Qty: 7 RF: 0 fluticasone propionate 50 mcg/actuation [place],Suspension 2 spray nasal BID Qty: 1 RF: 0 heparin (porcine) 5,000 unit/mL Solution 5,000 unit SUBCUT Q12H Qty: 1 RF: 0 ipratropium bromide 0.02 % Solution 0.5 mg inhalation Q6H.RESPIRATORY Qty: 1 RF: 0 levalbuterol HCl 0.63 mg/3 mL Solution For Nebulization 0.63 mg inhalation Q6H.RESPIRATORY Qty: 1 RF: 0 nystatin 100,000 unit/mL Suspension 500,000 unit PO QID Qty: 7 RF: 0 Continued ipratropium-albuterol 0.5 mg-3 mg(2.5 mg base)/3 mL solution for nebulization 3 ml inhalation QID PRN (Reason: wheezing) Qty: 360 RF: 3 Combivent Respimat 20-100 mcg/actuation mist 1 puff inhalation Q6H PRN (Reason: shortness of breath or wheezing) Qty: 4 RF: 3 Spiriva with HandiHaler 18 mcg capsule, w/inhalation device 1 cap inhalation DAILY Qty: 30 RF: 3 Magic Mouthwash See Rx Instructions .ROUTE QID Qty: 8 RF: 1 acetaminophen [Tylenol Extra Strength] 500 mg Tablet 1,000 mg PO DAILY PRN (Reason: Pain) RF: 0 ascorbic acid (vitamin C) [Vitamin C] 1,000 mg Tablet 1,000 mg PO DAILY@07 RF: 0 multivitamin Tablet 1 tab PO DAILY@07 RF: 0 flaxseed oil 1,000 mg Capsule 1,000 mg PO DAILY@07 RF: 0 hydroxyzine HCl 25 mg Tablet 25 mg PO TID PRN (Reason: Anxiety) RF: 0 aspirin [Adult Low Dose Aspirin] 81 mg tablet,delayed release (DR/EC) 81 mg PO DAILY@07 RF: 0 zinc 1 tab PO DAILY@0700 RF: 0 Symbicort 160-4.5 mcg/actuation HFA aerosol inhaler 2 puff inhalation BID@0700,1900 RF: 0 Held hydroxychloroquine 200 mg tablet 200 mg PO BID@ Qty: 60 RF: 3 Hold Instructions: Resume on 05/01/21. hld gabapentin 300 mg capsule See Rx Instructions PO TID Qty: 90 RF: 3 Hold Instructions: Resume on 05/01/21. hold fluoxetine 40 mg capsule 40 mg PO DAILY@07 RF: 0 Hold Instructions: Resume on 05/01/21. hold ropinirole 1 mg tablet 4 mg PO BEDTIME@19 RF: 0 Hold Instructions: Resume on 05/01/21. hold desvenlafaxine succinate [Pristiq] 50 mg Tablet Extended Release 24 Hr 50 mg PO DAILY@07 RF: 0 Hold Instructions: Resume on 05/01/21. hold Apple Cider Vinegar Plus [phone] ac-tgu-di-mg Tablet 1 tab PO DAILY@0700 RF: 0 Hold Instructions: Resume on 05/01/21. do not take folic acid 1 mg Tablet 1 mg PO DAILY@0700 RF: 0 Hold Instructions: Resume on 05/01/21. hold Discontinued omeprazole 40 mg capsule,delayed release(DR/EC) See Rx Instructions PO DAILY Qty: 30 RF: 3 Humira Pen 40 mg/0.8 mL pen injector kit 40 mg SUBCUT Q14D Qty: 2 RF: 3 Hold Instructions: Doctor's Order lisinopril-hydrochlorothiazide 20-25 mg tablet 1 tab PO DAILY@07 RF: 0 potassium gluconate 595 mg (99 mg) Tablet 1,190 mg PO DAILY@07 RF: 0 prednisone 5 mg tablet 15 mg PO DAILY@0700 RF: 0 No Action levothyroxine [Euthyrox] 112 mcg tablet 112 mcg PO DAILY@07 RF: 0 cholecalciferol (vitamin D3) [Vitamin D3] 25 mcg (1,000 unit) Tablet 25 mcg PO DAILY@07 RF: 0 Discharge Orders: Discharge Order (Routine); Ordered 03/13/21 Ordered By: Fracisco Mariscal Discharge Diet: As Directed Discharge Activity: Increase activity as tolerated Discharge Attestations Time Spent in Discharge Care*: greater than 30 min Specific Discharge Activities: educating patient, educating and/or supporting family/caregiver, discussing with pcp/other providers, discussing with case otis sharpe/social workers/dc planners and documenting/other paperwork Quality Metrics Clinical Quality Measures During this hospital stay, did patient experience: None Coding Level of Care Code Acute [facility] note Diagnoses Exertional dyspnea R06.00 Sepsis A41.9 Sepsis type: sepsis due to unspecified organism Sepsis acute organ dysfunction status: without acute organ dysfunction Pleural effusion on right J90 Obesity, morbid, BMI 40.0-49.9 E66.01 LEX on CPAP G47.33; Z99.89 Chronic steroid use COPD (chronic obstructive pulmonary disease) J43.2 COPD type: emphysema Emphysema type: centrilobular Ex-smoker for more than 1 year Z87.891 Restrictive airway disease J98.4 High risk medication use Z79.899 Seronegative rheumatoid arthritis of both hands M06.041; M06.042 COVID-19 U07.1 Serositis K65.8 SARAVANAN (acute kidney injury) N17.9 PCP (pneumocystis carinii pneumonia) B59
[2021-03-13 16:14] LABS: Glucose Point of Care 317 mg/dL (70-110)
--- NOTE | 2021-03-13 16:52 | PC.NURSE ---
Patient being transferred to Higher level of care [facility] report called to Ismael Raymond RN at [phone]
--- NOTE | 2021-03-13 17:43 | PC.NURSE ---
during signing of transfer forms verbal ordered received from Dr jenkins to give patient 1 mg IVP ativan prior to transfer
[2021-03-13] MEDS: LORazepam 2 mg/mL INJ 1 mL 1 MG IVP (18:14)
--- NOTE | 2021-03-13 18:35 | PC.NURSE ---
patient Transferred to [facility] via ambulance ground transport at this time patient sent with all belongings
[2021-03-15 05:07] LABS: P. Jirovecii DNA QL PCR DETECTED; P. Jirovecii DNA QL PCR Source INDUCED SPUTUM
[2021-03-15 21:58] LABS: CMV DNA By PCR <200 IU/mL; CMV DNA, QN PCR <2.30 Log IU/mL; Fungitell 1-3-B Glucan Assay <31; Interpretation NEGATIVE; SOURCE PLASMA
== END 2021-03-13 18:35 | disposition short-term general hospital (02) | DRG 871 ==
LOC: ER 20:25 → MEDSURG 21:40 → CSU 03-12 16:00
PROVIDERS: Hospitalist; Internal Medicine Nephrology; Internal Medicine Pulmonary Disease; Student in an Organized Health Care Education/Training Program; Admitting Provider Hospitalist; Emergency Provider Emergency Medicine; PCP Internal Medicine; Visit Provider Internal Medicine
DX: A41.89 Other specified sepsis (principal); B59 Pneumocystosis; J96.01 Acute respiratory failure with hypoxia; N17.0 Acute kidney failure with tubular necrosis; Z68.41 Body mass index [BMI] 40.0-44.9, adult; E87.2 Acidosis; Z86.16 Personal history of COVID-19; M06.042 Rheumatoid arthritis without rheumatoid factor, left hand; M06.041 Rheumatoid arthritis without rheumatoid factor, right hand; E09.65 Drug or chemical induced diabetes mellitus with hyperglycemia; T38.0X5A Adverse effect of glucocorticoids and synthetic analogues, initial encounter; J43.2 Centrilobular emphysema; F32.9 Major depressive disorder, single episode, unspecified; R42 Dizziness and giddiness; I10 Essential (primary) hypertension; E03.9 Hypothyroidism, unspecified; G47.33 Obstructive sleep apnea (adult) (pediatric); G25.81 Restless legs syndrome; Z87.891 Personal history of nicotine dependence; E66.01 Morbid (severe) obesity due to excess calories; M54.30 Sciatica, unspecified side; E78.2 Mixed hyperlipidemia; Z79.82 Long term (current) use of aspirin; I77.6 Arteritis, unspecified; Z79.899 Other long term (current) drug therapy; E87.5 Hyperkalemia; D64.9 Anemia, unspecified; N14.1 Nephropathy induced by other drugs, medicaments and biological substances; T50.8X5A Adverse effect of diagnostic agents, initial encounter
CPT/HCPCS: 36415; 36416; 36600; 51702; 71045; 71046; 71250; 71275; 76770; 80048; 80051; 80053; 80202; 81001; 81003; 82009; 82330; 82436; 82550; 82570; 82803; 82805; 82962; 83516; 83605; 83615; 83735; 83880; 83935; 84100; 84133; 84145; 84300; 84484; 84550; 85007; 85025; 85027; 85610; 85651; 85999; 86038; 86060; 86140; 86160; 86225; 86235; 86403; 86480; 86705; 86706; 86803; 87040; 87070; 87106; 87205; 87340; 87426; 87449; 87491; 87496; 87591; 87635; 87641; 87798; 87804; 90935; 93005; 93306; 94640; 94660; 94762; 96365; 96367; 96372; 99285; J1644; J1650; J1815; J1885; J1940; J2060; J2405; J2543; J2930; J3370; J3475; J3490; J7030; J7040; J7050; J7512; J7614; J7626; J7644; Q3014; Q4081; Q9967